=== PATIENT | male | born 1960 | race Caucasian/White ===

== ENCOUNTER 2018-05-19 15:59 | Emergency (ER) | payer MEDICARE ==
[~2018-05-19] VITALS: Ht 182.9 cm; Wt 100.0 kg
[~2018-05-19 15:59] MED LIST: ATEN-104 PO; BENZ100 PO; METF-324 PO; NOVO7030P2 SQ; ZITH250T PO
[2018-05-19 16:19] VITALS: BP 165/104; PULSE 86; RESP 18; TEMP 98.3; O2SAT 98
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
== END 2018-05-19 19:00 | disposition home or self-care (01) ==
LOC: NEPE 15:59
DX: R06.02 Shortness of breath (principal); E11.9 Type 2 diabetes mellitus without complications; I10 Essential (primary) hypertension; Z79.4 Long term (current) use of insulin
CPT/HCPCS: 99283

== ENCOUNTER 2018-07-16 11:53 | Inpatient (IN) ==
[2018-07-16 12:22] LABS: ABG Base Excess -4.8 mmol/L (-2-2); ABG PCO2 93 mmHg (38-42); ABG PO2 240 mmHg (61-120)
[2018-07-16] MEDS ORDERED: Vancomycin Inj 1,000 MG in Sodium Chlor 0.9% Inj 250 ML IV.SIG ONE (12:46)
[2018-07-16] MEDS ORDERED: Piperacil/Tazo 4.5 GM Premix 4.5 GM/100 ML BAG IV.SIG ONE (12:46)
--- NOTE | 2018-07-16 12:46 | ED ---
HPI General Chief complaint: Altered Mental Status Stated complaint: cardiac complaint Source: family and EMS Limitations: altered mental status History of Present Illness HPI narrative: Patient is a 57-year-old male presents emergency department for evaluation of altered mental status. Per EMS they were called by his dialysis center as he was not acting his normal self. While initially assessing him for the possibility of dialysis this morning he apparently lost pulses and chest compressions were started. By time EMS arrived and assessed the patient patient did have pulses. He was certainly altered his blood sugar was high 100s low 200s in route. EMS stated he had several episodes of emesis dark brown prior to arrival and did receive 4 of Zofran. Patient on arrival is a GCS of [id number]. He certainly is confused and is unable to provide any of his history initially. Discussed with the patient's ex- by phone Kajal Corteslizzeth who states that she has had a temporary POA in the past states that he has a history of a note on his lung, kidney mass, on dialysis. He has a history of a brain injury and spinal leak, feeding tube CHF. She states that they went out to lunch yesterday and he was his normal self however he did have a low saturation in 80 % range, he is normally on 3 L nasal cannula for history of COPD and they increased to 4 L and had a nice lunch. She did insist on a chest x-ray which was apparently negative yesterday. States that roommate has also been sick. She states this is happened to him once before and it was actually pneumonia and he was placed on life support on mechanical ventilation and made a decent recovery but did necessitate tracheostomy as part of his weaning from ventilation. Patient [facility] in [facility]. Related Data Allergies Allergy/AdvReac Type Severity Reaction Status Date / Time heparin Allergy Severe Bleeding Verified 07/16/18 13:23 quetiapine [From Seroquel] Allergy Intermediate Shakiness Verified 07/16/18 13: 23 Review of Systems ROS Unobtainable ROS Unobtainable: unobtainable due to mental condition PMFSH Medical History Medical History Diabetes (Acute) ESRD (end stage renal disease) on dialysis (Acute) HTN (hypertension) (Acute) Renal disease (Acute) Social History Social History Substance History: No History of Abuse Second Hand Smoke Exposure: No Smoking Status: Never smoker How Often Do You Have a Drink Containing Alcohol: Never Recent Travel in [facility] within the Last 8 Weeks: No Recent Out of Country Travel within the Last 8 Weeks: No Exam Narrative Exam Narrative: GENERAL: Well-developed well-nourished, clearly altered and lethargic. He has demonstrated emesis of dark brown color. SKIN: Focused skin assessment warm/dry. No rash. Posterior sacral decubitus ulcer could only be partially visualized. Appears to be early stage probably stage 1. HEAD: Atraumatic. Normocephalic. EYES: Pupils equal and round. No scleral icterus. No injection or drainage. ENT: No nasal bleeding or discharge. Mucous membranes pink and moist. NECK: Trachea midline. No JVD. CARDIOVASCULAR: Regular rate and rhythm. No murmur appreciated. RESPIRATORY: No accessory muscle use. Clear to auscultation. Breath sounds equal bilaterally. GASTROINTESTINAL: Abdomen soft, non-tender, nondistended. Hepatic and splenic margins not palpable. Left sided abdominal catheter site C/D/I. MUSCULOSKELETAL: No obvious deformities. No clubbing. No cyanosis. No edema. NEUROLOGICAL: Awake and alert oriented to self and place only. Partly to time. Oriented to year only. Has no insight as to why he is here. No obvious cranial nerve deficits. Moves all four extremities. Normal speech. PSYCHIATRIC: Confused Procedures Intubation Sedative: etomidate Mg Given: 20 Paralytic: succinylcholine Mg Given: 100 Laryngoscope: other (CMA) ET Tube Size: 8 ET Tube Uncuffed: Yes Tube Placement Confirmation: visualized tube passing through cords, equal breath sounds bilaterally, no breath sounds over epigastrium and confirmation by capnometry Patient Tolerated Procedure: well Intubation Complications: none Course Initial Documented Vital Signs Temperature 97.0 F L 07/16/18 12:01 Pulse Rate 98 H 07/16/18 12:01 Respiratory Rate 22 07/16/18 12:01 Blood Pressure 123/59 L 07/16/18 12:01 Pulse Oximetry 89 L 07/16/18 12:01 Last Documented Vital Signs Temperature 98.8 F 07/16/18 12:11 Pulse Rate 110 H 07/16/18 18:35 Respiratory Rate 16 07/16/18 18:35 Blood Pressure 117/56 L 07/16/18 18:35 Pulse Oximetry 99 07/16/18 18:18 Critical Care Time Critical Care Time: Yes Total Critical Care Time: 61 Attestation: Aggregate critical care time was 61 minutes. Time to perform other separately billable procedures was not included in the critical care time. My time did not include minutes spent treating any other patients simultaneously or on activities that did not directly contribute to the patient's treatment. The services I provided to this patient were to treat and/or prevent clinically significant deterioration that could result in: , disability, organ failure I provided critical care services requiring my management, as noted below: Chart data review, documentation time, medication orders and management, vital sign assessments/reviewing monitor data, ordering and reviewing lab tests, ordering and interpreting/reviewing x-rays and diagnostic studies, care of the patient and discussion of the patient with the admitting physicians. Medical Decision Making MDM Narrative Medical decision making narrative: Patient room to the emergency department, appears to be very ill, initial GCS of 10, very confused, with oxygen saturation his mental status is improved. I discussed with him that he would likely need to be intubated as his initial PCO2 is very high on ABG with a pH of 7.0. He shook his head now. His Kajal arrives who I actually identifies herself as the ex-. She states she does not have current power of sports attorney status on the patient and the patient does not have a living will. Patient's daughter arrives in we have initially agreed that the patient could have a trial of BiPAP now that he has been medicated with 12 Zofran, he has an NG tube in place and is draining adequately. I did discuss that there is certainly a risk that the patient could vomit and aspirate further and this would carry with it and permanent disability. He verbalized understanding and agreement. However ultimately he failed this with episodes of anemia, he is starting to become hypotensive and I discussed with the daughter that he needed to be intubated emergently to save his life. Daughter consented. Patient now significantly altered but still opens his eyes and I told him he would be intubated his only response was "why". It is very clear that he cannot participate in his own medical decision making this time and his next of kin is a daughter at bedside, additional daughter appears to have some kind of mental deficit and is not participating in the medical decision making. He was intubated easily he did receive a 500 cc bolus of fluid which did not show any benefit in his blood pressure. Pre-intubation the patient was started on levophed, and an amp of bicarb was given as well, after intubation his blood pressure was much improved. After intubation propofol and levophed are being titrated upwards again. CT abdomen pelvis was actually negative. The left-sided abdominal catheter initially thought to be a dialysis catheter is actually a gastric tube. They state that has been used in years and would require surgery to be removed and that is why it is still there. CT chest did show bilateral aspiration pneumonia. Vancomycin and zosyn started. Patient discussed with and accepted by Dr. Bradshaw. Given the critical nature of this patient will be transferred to the [facility]. Part of his continuing workup here in the emergency department while waiting for transportation, patient Rachel catheter placed showing significant pyuria, he is artery been covered with Zosyn, vancomycin. Continues to improve, Levophed is now titrated is off. Repeat ABG does show some improvement in his pH is 7.2 after bicarbonate and continued ventilation has shown a reduction of PCO2 to 58. Medical Screen Exam Complete: Yes Emergency Medical Condition: Yes Differential Diagnosis Differential Diagnosis: Sepsis, pneumonia, hypercapnia, hypoxia Lab Data Result diagrams: 07/16/18 12:00 07/16/18 12:20 Lab Results 07/16/18 07/16/18 07/16/18 Range/Units 11:50 12:00 12:00 CBC w Diff Auto diff final WBC 16.7 H (4.0-11.0) th/mm3 RBC 3.96 L (4.50-5.90) mil/mm3 Hgb 10.7 L (13.0-17.0) gm/dL Hct 34.5 L (39.0-51.0) % MCV 87.2 (80.0-100.0) fL MCH 27.0 (27.0-34.0) pg MCHC 30.9 L (32.0-36.0) % RDW 17.3 H (11.6-17.2) % Plt Count 347 (150-450) th/mm3 MPV 9.0 (7.0-11.0) fL Neut % (Auto) 87.3 H (16.0-70.0) % Lymph % (Auto) 6.1 L (9.0-44.0) % [place] % (Auto) 5.6 (0.0-8.0) % Eos % (Auto) 0.7 (0.0-4.0) % Baso % (Auto) 0.3 (0.0-2.0) % Neut # (Auto) 14.6 H (1.8-7.7) th/mm3 Lymph # (Auto) 1.0 (1.0-4.8) th/mm3 [place] # (Auto) 0.9 (0.0-0.9) th/mm3 Eos # (Auto) 0.1 (0.0-0.4) th/mm3 Baso # (Auto) 0.1 (0.0-0.2) th/mm3 WBC Differential . Differential Comment . PT 10.9 (9.8-11.6) sec INR 1.1 Ratio APTT 29.4 (24.3-30.1) sec Puncture Site Right radial Patient Temperature 98.6 O2 Saturation 97 (90-100) % ABG pH 7.05 L* (7.380-7.420) ABG pCO2 93 H* (38-42) mmHg ABG pO2 240 H (61-120) mmHg ABG HCO3 25 (22-26) mmol/L ABG O2 Content 14.6 (12.0-20.0) Vol % ABG Base Excess -4.8 L (-2-2) mmol/L ABG Methemoglobin 1.2 (0-2) % Thomas Test Present Hemoglobin 10.3 L (12.0-16.0) G/DL Carboxyhemoglobin 1.6 (0-4) % O2 Delivery Device Nonrebreather mask Liter Flow 15.00 L/M Vent Setting Inspired O2 100 % Critical Value Yes Sodium (136-145) meq/L Potassium (3.5-5.1) meq/L Chloride (98-107) meq/L Carbon Dioxide (21.0-32.0) meq/L Anion Gap (5-15) meq/L BUN (7-18) mg/dL Creatinine (0.60-1.30) mg/dL Estimated GFR (>89) mL/min POC Glucose (68-110) mg/dl Random Glucose (74-106) mg/dL Lactic Acid (0.4-2.0) mmol/L Calcium (8.5-10.1) mg/dL Phosphorus (2.5-4.9) mg/dL Magnesium (1.5-2.5) mg/dL Total Bilirubin (0.2-1.0) mg/dL AST (15-37) U/L ALT (12-78) U/L Alkaline Phosphatase (45-117) U/L Ammonia (11-32) mcmol/L Total Creatine Kinase (39-308) U/L Troponin I (0.02-0.05) ng/mL Total Protein (6.4-8.2) g/dL Albumin (3.4-5.0) g/dL Urine Color (Yellw/Straw) Urine Clarity (Clear) Urine pH (5.0-8.5) Ur Specific [place] (1.002-1.035) Urine Protein (Neg-Trace) mg/dL Urine Glucose (UA) (Negative) mg/dL Urine Ketones (Negative) mg/dL Urine Occult Blood (Negative) Urine Nitrate (Negative) Urine Bilirubin (Negative) Urine Urobilinogen (Less than 2) mg/dL Ur Leukocyte Esterase (Negative) Urine RBC (0-3) /hpf Urine WBC (0-5) /hpf Ur Squamous Epith Cells (0-5) /hpf Urine Bacteria (None) /hpf Urine Yeast (None) /hpf Ur Yeast w Hyphae (None) /hpf Micro UA Comment Urine Culture Comments 07/16/18 07/16/18 07/16/18 Range/Units 12:00 12:00 12:00 CBC w Diff WBC (4.0-11.0) th/mm3 RBC (4.50-5.90) mil/mm3 Hgb (13.0-17.0) gm/dL Hct (39.0-51.0) % MCV (80.0-100.0) fL MCH (27.0-34.0) pg MCHC (32.0-36.0) % RDW (11.6-17.2) % Plt Count (150-450) th/mm3 MPV (7.0-11.0) fL Neut % (Auto) (16.0-70.0) % Lymph % (Auto) (9.0-44.0) % [place] % (Auto) (0.0-8.0) % Eos % (Auto) (0.0-4.0) % Baso % (Auto) (0.0-2.0) % Neut # (Auto) (1.8-7.7) th/mm3 Lymph # (Auto) (1.0-4.8) th/mm3 [place] # (Auto) (0.0-0.9) th/mm3 Eos # (Auto) (0.0-0.4) th/mm3 Baso # (Auto) (0.0-0.2) th/mm3 WBC Differential Differential Comment PT (9.8-11.6) sec INR Ratio APTT (24.3-30.1) sec Puncture Site Patient Temperature O2 Saturation (90-100) % ABG pH (7.380-7.420) ABG pCO2 (38-42) mmHg ABG pO2 (61-120) mmHg ABG HCO3 (22-26) mmol/L ABG O2 Content (12.0-20.0) Vol % ABG Base Excess (-2-2) mmol/L ABG Methemoglobin (0-2) % Thomas Test Hemoglobin (12.0-16.0) G/DL Carboxyhemoglobin (0-4) % O2 Delivery Device Liter Flow L/M Vent Setting Inspired O2 % Critical Value Sodium (136-145) meq/L Potassium (3.5-5.1) meq/L Chloride (98-107) meq/L Carbon Dioxide (21.0-32.0) meq/L Anion Gap (5-15) meq/L BUN (7-18) mg/dL Creatinine (0.60-1.30) mg/dL Estimated GFR (>89) mL/min POC Glucose (68-110) mg/dl Random Glucose (74-106) mg/dL Lactic Acid 1.5 (0.4-2.0) mmol/L Calcium (8.5-10.1) mg/dL Phosphorus 7.5 H (2.5-4.9) mg/dL Magnesium 1.9 (1.5-2.5) mg/dL Total Bilirubin (0.2-1.0) mg/dL AST (15-37) U/L ALT (12-78) U/L Alkaline Phosphatase (45-117) U/L Ammonia 36 H (11-32) mcmol/L Total Creatine Kinase (39-308) U/L Troponin I (0.02-0.05) ng/mL Total Protein (6.4-8.2) g/dL Albumin (3.4-5.0) g/dL Urine Color (Yellw/Straw) Urine Clarity (Clear) Urine pH (5.0-8.5) Ur Specific [place] (1.002-1.035) Urine Protein (Neg-Trace) mg/dL Urine Glucose (UA) (Negative) mg/dL Urine Ketones (Negative) mg/dL Urine Occult Blood (Negative) Urine Nitrate (Negative) Urine Bilirubin (Negative) Urine Urobilinogen (Less than 2) mg/dL Ur Leukocyte Esterase (Negative) Urine RBC (0-3) /hpf Urine WBC (0-5) /hpf Ur Squamous Epith Cells (0-5) /hpf Urine Bacteria (None) /hpf Urine Yeast (None) /hpf Ur Yeast w Hyphae (None) /hpf Micro UA Comment Urine Culture Comments 07/16/18 07/16/18 07/16/18 Range/Units 12:20 14:30 15:24 CBC w Diff WBC (4.0-11.0) th/mm3 RBC (4.50-5.90) mil/mm3 Hgb (13.0-17.0) gm/dL Hct (39.0-51.0) % MCV (80.0-100.0) fL MCH (27.0-34.0) pg MCHC (32.0-36.0) % RDW (11.6-17.2) % Plt Count (150-450) th/mm3 MPV (7.0-11.0) fL Neut % (Auto) (16.0-70.0) % Lymph % (Auto) (9.0-44.0) % [place] % (Auto) (0.0-8.0) % Eos % (Auto) (0.0-4.0) % Baso % (Auto) (0.0-2.0) % Neut # (Auto) (1.8-7.7) th/mm3 Lymph # (Auto) (1.0-4.8) th/mm3 [place] # (Auto) (0.0-0.9) th/mm3 Eos # (Auto) (0.0-0.4) th/mm3 Baso # (Auto) (0.0-0.2) th/mm3 WBC Differential Differential Comment PT (9.8-11.6) sec INR Ratio APTT (24.3-30.1) sec Puncture Site Right radial Patient Temperature 98.6 O2 Saturation 93 (90-100) % ABG pH 7.01 L* (7.380-7.420) ABG pCO2 108 H* (38-42) mmHg ABG pO2 96 (61-120) mmHg ABG HCO3 26 (22-26) mmol/L ABG O2 Content 13.1 (12.0-20.0) Vol % ABG Base Excess -4.0 L (-2-2) mmol/L ABG Methemoglobin 1.5 (0-2) % Thomas Test Present Hemoglobin 10.0 L (12.0-16.0) G/DL Carboxyhemoglobin 1.8 (0-4) % O2 Delivery Device Nasal cannula Liter Flow 4.00 L/M Vent Setting Inspired O2 36 % Critical Value Yes Sodium 138 (136-145) meq/L Potassium 4.0 (3.5-5.1) meq/L Chloride 101 (98-107) meq/L Carbon Dioxide 27.9 (21.0-32.0) meq/L Anion Gap 9 (5-15) meq/L BUN 43 H (7-18) mg/dL Creatinine 5.30 H (0.60-1.30) mg/dL Estimated GFR 11 L (>89) mL/min POC Glucose 162 H (68-110) mg/dl Random Glucose 173 H (74-106) mg/dL Lactic Acid (0.4-2.0) mmol/L Calcium 8.3 L (8.5-10.1) mg/dL Phosphorus (2.5-4.9) mg/dL Magnesium (1.5-2.5) mg/dL Total Bilirubin 0.4 (0.2-1.0) mg/dL AST 38 H (15-37) U/L ALT 26 (12-78) U/L Alkaline Phosphatase 143 H (45-117) U/L Ammonia (11-32) mcmol/L Total Creatine Kinase 36 L (39-308) U/L Troponin I Less than 0.02 L (0.02-0.05) ng/mL Total Protein 7.9 (6.4-8.2) g/dL Albumin 2.9 L (3.4-5.0) g/dL Urine Color (Yellw/Straw) Urine Clarity (Clear) Urine pH (5.0-8.5) Ur Specific [place] (1.002-1.035) Urine Protein (Neg-Trace) mg/dL Urine Glucose (UA) (Negative) mg/dL Urine Ketones (Negative) mg/dL Urine Occult Blood (Negative) Urine Nitrate (Negative) Urine Bilirubin (Negative) Urine Urobilinogen (Less than 2) mg/dL Ur Leukocyte Esterase (Negative) Urine RBC (0-3) /hpf Urine WBC (0-5) /hpf Ur Squamous Epith Cells (0-5) /hpf Urine Bacteria (None) /hpf Urine Yeast (None) /hpf Ur Yeast w Hyphae (None) /hpf Micro UA Comment Urine Culture Comments 07/16/18 07/16/18 Range/Units 16:46 17:20 CBC w Diff WBC (4.0-11.0) th/mm3 RBC (4.50-5.90) mil/mm3 Hgb (13.0-17.0) gm/dL Hct (39.0-51.0) % MCV (80.0-100.0) fL MCH (27.0-34.0) pg MCHC (32.0-36.0) % RDW (11.6-17.2) % Plt Count (150-450) th/mm3 MPV (7.0-11.0) fL Neut % (Auto) (16.0-70.0) % Lymph % (Auto) (9.0-44.0) % [place] % (Auto) (0.0-8.0) % Eos % (Auto) (0.0-4.0) % Baso % (Auto) (0.0-2.0) % Neut # (Auto) (1.8-7.7) th/mm3 Lymph # (Auto) (1.0-4.8) th/mm3 [place] # (Auto) (0.0-0.9) th/mm3 Eos # (Auto) (0.0-0.4) th/mm3 Baso # (Auto) (0.0-0.2) th/mm3 WBC Differential Differential Comment PT (9.8-11.6) sec INR Ratio APTT (24.3-30.1) sec Puncture Site Right radial Patient Temperature 98.6 O2 Saturation 95 (90-100) % ABG pH 7.23 L* (7.380-7.420) ABG pCO2 58 H* (38-42) mmHg ABG pO2 101 (61-120) mmHg ABG HCO3 23 (22-26) mmol/L ABG O2 Content 14.3 (12.0-20.0) Vol % ABG Base Excess -3.1 L (-2-2) mmol/L ABG Methemoglobin 1.3 (0-2) % Thomas Test Present Hemoglobin 10.5 L (12.0-16.0) G/DL Carboxyhemoglobin 2.0 (0-4) % O2 Delivery Device Ventilator Liter Flow L/M Vent Setting Prvc/ac 550/16/5peep Inspired O2 40 % Critical Value Yes Sodium (136-145) meq/L Potassium (3.5-5.1) meq/L Chloride (98-107) meq/L Carbon Dioxide (21.0-32.0) meq/L Anion Gap (5-15) meq/L BUN (7-18) mg/dL Creatinine (0.60-1.30) mg/dL Estimated GFR (>89) mL/min POC Glucose (68-110) mg/dl Random Glucose (74-106) mg/dL Lactic Acid (0.4-2.0) mmol/L Calcium (8.5-10.1) mg/dL Phosphorus (2.5-4.9) mg/dL Magnesium (1.5-2.5) mg/dL Total Bilirubin (0.2-1.0) mg/dL AST (15-37) U/L ALT (12-78) U/L Alkaline Phosphatase (45-117) U/L Ammonia (11-32) mcmol/L Total Creatine Kinase (39-308) U/L Troponin I (0.02-0.05) ng/mL Total Protein (6.4-8.2) g/dL Albumin (3.4-5.0) g/dL Urine Color Yellow (Yellw/Straw) Urine Clarity Cloudy H (Clear) Urine pH 6.0 (5.0-8.5) Ur Specific [place] 1.020 (1.002-1.035) Urine Protein 30 H (Neg-Trace) mg/dL Urine Glucose (UA) Negative (Negative) mg/dL Urine Ketones Negative (Negative) mg/dL Urine Occult Blood Moderate H (Negative) Urine Nitrate Positive H (Negative) Urine Bilirubin Negative (Negative) Urine Urobilinogen 0.2 (Less than 2) mg/dL Ur Leukocyte Esterase Large H (Negative) Urine RBC 4-15 H (0-3) /hpf Urine WBC Innumerable H (0-5) /hpf Ur Squamous Epith Cells 0-5 (0-5) /hpf Urine Bacteria Many H (None) /hpf Urine Yeast Occasional H (None) /hpf Ur Yeast w Hyphae Few H (None) /hpf Micro UA Comment Cath-culture ind Urine Culture Comments Cath-cult indicated Imaging Data Radiologist's impression: Chest X-Ray 07/16/18 12:05 CONCLUSION: Mild parenchymal opacity at the left lung base. Abdomen X-Ray 07/16/18 12:30 CONCLUSION: Nonspecific, benign abdomen appearance. Abdomen/Pelvis CT 07/16/18 13:03 CONCLUSION: 1. No acute abnormality in the abdomen or pelvis. 2. Dense right basilar airspace consolidation and trace pleural effusions concerning for aspiration. 3. Gastrostomy catheter present and NGT in place. 4. 1.8 cm right adrenal mass which has slightly increased from 2011 CT scan measuring 1.4 cm. This was partially imaged on the chest CT exam and its visualized portions appeared to be stable. This can be further characterized with adrenal mass CT or MRI exam on an outpatient basis. Chest CTA 07/16/18 13:03 CONCLUSION: 1. No CT evidence for pulmonary artery embolism as questioned. 2. Dense bilateral lower lobe airspace consolidation with trace associated pleural effusions. Findings are concerning for aspiration. 3. Nonspecific right hilar and mediastinal nodes, as above. This may be reactive in etiology. 4. Probable 1.6 cm right adrenal mass that is incompletely imaged on this exam. Although indeterminate in density, this is unchanged from abdominal CT of 06/07/2011 and therefore likely benign. Chest X-Ray 07/16/18 15:55 CONCLUSION: 1. Stable chest x-ray with bibasilar atelectasis and/or consolidation. 2. Stable enlargement of the right hilum in this patient with previously documented right hilar lymphadenopathy. Discharge Plan Discharge Disposition Patient Disposition: [place] [facility] [place] Condition: Stable Discharge Details Diagnosis: Acute hypercapnic respiratory failure, Sepsis, Pneumonia, Encephalopathy Physicians Team ED Provider: Kenji Hawkins Primary Care Provider: UNKNOWN, Attending Provider: Renato Bradshaw Status ED Status: Admitted Patient
[2018-07-16 12:51] LABS: Chloride 101 meq/L (98-107); Sodium 138 meq/L (136-145)
[2018-07-16 12:51] LABS: Baso # (Auto) 0.1 th/mm3 (0.0-0.2); Baso % (Auto) 0.3 % (0.0-2.0); Eos # (Auto) 0.1 th/mm3 (0.0-0.4); Eos % (Auto) 0.7 % (0.0-4.0); Hematocrit 34.5 % (39.0-51.0); Hemoglobin 10.7 gm/dL (13.0-17.0); Lymph % (Auto) 6.1 % (9.0-44.0); Mean Corpuscular Volume 87.2 fL (80.0-100.0); Mono # (Auto) 0.9 th/mm3 (0.0-0.9); Mono % (Auto) 5.6 % (0.0-8.0); Neut # (Auto) 14.6 th/mm3 (1.8-7.7); Neut % (Auto) 87.3 % (16.0-70.0); Platelet Count 347 th/mm3 (150-450); Red Blood Count 3.96 mil/mm3 (4.50-5.90); Red Cell Distribution Width 17.3 % (11.6-17.2); White Blood Count 16.7 th/mm3 (4.0-11.0)
[2018-07-16 12:54] LABS: Calcium 8.3 mg/dL (8.5-10.1)
[2018-07-16 12:54] LABS: Mean Corpuscular HGB Conc 30.9 % (32.0-36.0)
[2018-07-16 12:55] LABS: Albumin 2.9 g/dL (3.4-5.0); Anion Gap 9 meq/L (5-15); Blood Urea Nitrogen 43 mg/dL (7-18); Carbon Dioxide 27.9 meq/L (21.0-32.0); Glucose,Random 173 mg/dL (74-106)
[2018-07-16 12:56] LABS: Activated Partial Thrombo Time 29.4 sec (24.3-30.1); INR 1.1 Ratio; Prothrombin Time 10.9 sec (9.8-11.6)
[2018-07-16 12:58] LABS: Alanine Aminotransferase 26 U/L (12-78); Aspartate Aminotransferase 38 U/L (15-37); Glomerular Filtration Rate 11 mL/min (>89)
[2018-07-16 13:03] LABS: Alkaline Phosphatase 143 U/L (45-117); Creatine Kinase 36 U/L (39-308); Total Protein 7.9 g/dL (6.4-8.2)
--- NOTE | 2018-07-16 13:03 | XR ---
EXAM DATE: 07/16/2018 12:59 PM EDT AGE/SEX: 57 years / Male INDICATIONS: Fever CLINICAL DATA: This is the patient's initial encounter. Patient reports that signs and symptoms have been present for 1 day and indicates a pain score of Nonresponsive. MEDICAL/SURGICAL HISTORY: . Renal disease . NG Tube placement. Port placement COMPARISON: C, CHEST PA & LAT, 07/04/2013. . FINDINGS: Nasogastric tube descends into the stomach. Right chest dialysis catheter is present. There is mild p arenchymal opacity at the left lung base potentially with small associated effusion. Cardiac contours are grossly normal. CONCLUSION: Mild parenchymal opacity at the left lung base. Electronically signed by: Ronan Monroe MD 07/16/2018 1:01 PM EDT
--- NOTE | 2018-07-16 13:06 | XR ---
EXAM DATE: 07/16/2018 1:01 PM EDT AGE/SEX: 57 years / Male INDICATIONS: Fever. Abdominal pain. Possible obstruction CLINICAL DATA: This is the patient's initial encounter. Patient reports that signs and symptoms have been present for 1 day and indicates a pain score of Nonresponsive. MEDICAL/SURGICAL HISTORY: . Renal disease . Ng tube placement. Port placement COMPARISON: No prior exams available for comparison. FINDINGS: Nasogastric tube descends into the stomach. A gastrostomy tube is also present. The visualized intest inal gas pattern is nonspecific and benign. There are vascular calcifications noted. No suspicious ca lcific densities. Nothing to suggest mass or visceromegaly. Regional skeleton is grossly intact. CONCLUSION: Nonspecific, benign abdomen appearance. Electronically signed by: Ronan Monroe MD 07/16/2018 1:04 PM EDT
[2018-07-16 13:12] LABS: Magnesium 1.9 mg/dL (1.5-2.5)
[2018-07-16 13:16] LABS: Phosphorus 7.5 mg/dL (2.5-4.9)
[2018-07-16 14:38] LABS: ABG PCO2 108 mmHg (38-42); ABG PO2 96 mmHg (61-120)
--- NOTE | 2018-07-16 14:47 | CT ---
EXAM DATE: 07/16/2018 2:31 PM EDT AGE/SEX: 57 years / Male INDICATIONS: Post cardiac arrest, with agonal breathing. CLINICAL DATA: This is the patient's initial encounter. Patient reports that signs and symptoms have been present for 1 day and indicates a pain score of Nonresponsive. MEDICAL/SURGICAL HISTORY: Chronic obstructive pulmonary disease. Diabetes. Renal disease. Hypert ension. Dialysis. None. RADIATION DOSE: 24.20 CTDI (mGy) COMPARISON: [facility] [place], CT ABDOMEN & PELVIS W CONTRAST, 06/07/2011. . TECHNIQUE: Volumetric scanning was performed using a multi-row detector CT scanner during bolus infu lorrie of 85 ml Omnipaque 350 (iohexol) nonionic water-soluble contrast as a cumulative dose for multi ple exams. The data was post processed with a variety of visualization algorithms including full volu me maximum intensity projection and sliding thin slab reformation. Using automated exposure control and adjustment of the mA and/or kV according to patient size, radiation dose was kept as low as reaso nably achievable to obtain optimal diagnostic quality images. DICOM format image data is available e lectronically for review and comparison. FINDINGS: Pulmonary Arteries: No filling defects are seen in the pulmonary arteries through the segmental vess els. The main pulmonary artery is normal in diameter. Lung: Dense airspace consolidation with air bronchograms in the posterior lower lobes near the bases bilaterally. 3 mm nodule in the superior segment of the right lower lobe. Pleura: Trace bilateral pleural effusions. Mediastinum: Tunneled dialysis catheter in place. Cardiomegaly. No significant pericardial effusion. Several prominent right hilar nodes measuring up to 2 cm. Prominent proximal right paratracheal node measuring 1.8 cm. Multiple additional prominent anterior tracheal and subcarinal nodes. Osseous Structures: Degenerative changes of the thoracic spine. Ill-defined sclerosis of the posterio r right eighth and ninth ribs which appears somewhat chronic in etiology. Other: Visualized upper abdomen demonstrates an NGT coursing through the stomach. There is partial v isualization of a right suprarenal mass likely adrenal in etiology measuring up to 1.6 cm with indete rminate density. CONCLUSION: 1. No CT evidence for pulmonary artery embolism as questioned. 2. Dense bilateral lower lobe airspace consolidation with trace associated pleural effusions. Findin gs are concerning for aspiration. 3. Nonspecific right hilar and mediastinal nodes, as above. This may be reactive in etiology. 4. Probable 1.6 cm right adrenal mass that is incompletely imaged on this exam. Although indetermina te in density, this is unchanged from abdominal CT of 06/07/2011 and therefore likely benign. Electronically signed by: Luis Celis MD 07/16/2018 2:46 PM EDT
--- NOTE | 2018-07-16 14:53 | CT ---
EXAM DATE: 07/16/2018 2:36 PM EDT AGE/SEX: 57 years / Male INDICATIONS: Nausea, vomiting and diarrhea. CLINICAL DATA: This is the patient's initial encounter. Patient reports that signs and symptoms have been present for 1 day and indicates a pain score of Nonresponsive. MEDICAL/SURGICAL HISTORY: Renal disease. Chronic obstructive pulmonary disease. Diabetes. Hy pertension. . Hemodialysis. ORAL CONTRAST: No oral contrast ingested. RADIATION DOSE: 22.02 CTDI (mGy) COMPARISON: [facility] [place], CT ABDOMEN & PELVIS W CONTRAST, 06/07/2011. . TECHNIQUE: Multiple contiguous axial images were obtained through the abdomen and pelvis following b olus infusion of 85 ml Omnipaque 350 (iohexol) nonionic water-soluble contrast as a cumulative dose for multiple exams. No oral contrast ingested. Using automated exposure control and adjustment of t he mA and/or kV according to patient size, radiation dose was kept as low as reasonably achievable to obtain optimal diagnostic quality images. DICOM format image data is available electronically for r eview and comparison. FINDINGS: LOWER LUNGS: Dense airspace consolidation at the lung bases with trace pleural effusions. LIVER: Somewhat heterogeneous enhancement of the liver without intrahepatic ductal dilatation or foc al mass. Gallbladder is mildly distended. SPLEEN: Homogeneous density without enlargement. PANCREAS: Grossly unremarkable. KIDNEYS: Kidneys demonstrate symmetrical enhancement without hydronephrosis or radiopaque renal calc jennifer. Subcentimeter hypodense cystic lesions in the superior pole of the left kidney are too small to fully characterize. ADRENAL GLANDS: 1.8 cm right adrenal mass that has slightly increased from 2011 scan measuring 1.4 c m. AORTA: Khadra-aneurysmal. BOWEL/MESENTERY: There is a gastrostomy catheter in place. There is an NGT terminating in the mid [facility]. Moderate amount of stool in the rectum. Bowel otherwise appears unremarkable without evidence for obstruction. No free fluid or drainable fluid collections. ABDOMINAL WALL: Intact. RETROPERITONEUM: No evidence of adenopathy in the retrocrural, para-aortic, or deep pelvic regions. BLADDER: Contours are smooth. REPRODUCTIVE: No abnormal masses or calcifications seen. BONY STRUCTURES: Osseous structures appear intact. CONCLUSION: 1. No acute abnormality in the abdomen or pelvis. 2. Dense right basilar airspace consolidation and trace pleural effusions concerning for aspiration. 3. Gastrostomy catheter present and NGT in place. 4. 1.8 cm right adrenal mass which has slightly increased from 2011 CT scan measuring 1.4 cm. This w as partially imaged on the chest CT exam and its visualized portions appeared to be stable. This can be further characterized with adrenal mass CT or MRI exam on an outpatient basis. Electronically signed by: Luis Celis MD 07/16/2018 2:51 PM EDT
[2018-07-16] MEDS ORDERED: Sodium Chlor 0.9% Inj 500 ML IV.SIG ONE (15:13)
[2018-07-16] MEDS ORDERED: Norepinephrine Inj 4 MG in Sodium Chlor 0.9% Inj 246 ML IV.SIG PRN (15:33)
[2018-07-16] MEDS ORDERED: Succinylcholine Inj 200 MG/10 ML Vial ONE (15:39)
[2018-07-16] MEDS ORDERED: Etomidate Inj 40 MG/20 ML Vial IV.PUSH ONE (15:39)
[2018-07-16] MEDS: Propofol 1000 mg/100 ml Inj 1,000 MG/100 ML BOTTLE IV.CONT PRN (16:14)
--- NOTE | 2018-07-16 16:30 | XR ---
EXAM DATE: 07/16/2018 4:13 PM EDT AGE/SEX: 57 years / Male INDICATIONS: Short of breath. Cardiac complaint. CLINICAL DATA: This is the patient's subsequent encounter. Patient reports that signs and symptoms h ave been present for 1 day and indicates a pain score of Nonresponsive. MEDICAL/SURGICAL HISTORY: . Renal disease . NG Tube placement. Port placement COMPARISON: [facility], CTA PULMONARY W CONTRAST W 3D, 07/16/2018. [facility], CHEST 1V SINGLE AP, 07/16/2018. . FINDINGS: Portable AP view of the chest demonstrates a normal-sized cardiac silhouette with enlargement of the right hilum. Tunneled right IJ dialysis type catheter is present. Endotracheal tube is present with d istal tip measuring 3.6 cm from the merly. There is patchy airspace opacity in the lower lung zones bilaterally. No pneumothorax or pleural effusion is seen. The bones demonstrate no acute finding. CONCLUSION: 1. Stable chest x-ray with bibasilar atelectasis and/or consolidation. 2. Stable enlargement of the right hilum in this patient with previously documented right hilar lymp hadenopathy. Electronically signed by: Ronan Grayson MD 07/16/2018 4:28 PM EDT
[2018-07-16 16:54] LABS: ABG Base Excess -3.1 mmol/L (-2-2); ABG PCO2 58 mmHg (38-42); ABG PO2 101 mmHg (61-120)
[2018-07-16] MEDS ORDERED: Midazolam 50 MG/50 ML Inj 50 MG/50 ML BAG IV.CONT PRN (17:26)
[2018-07-16 17:30] LABS: Bilirubin,Urine Negative (Negative); Clarity,Urine Cloudy (Clear); Color,Urine Yellow (Yellw/Straw); Glucose,Urine (UA) Negative (Negative); Leukocyte Esterase,Urine Large (Negative); Nitrite,Urine Positive (Negative); Urobilinogen,Urine 0.2 mg/dL (Less than 2)
[2018-07-16 17:39] LABS: Bacteria,Urine Many /hpf; Squamous Epithelial Cell,Urine 0-5 /hpf (0-5); WBC,Urine Innumerable /hpf (0-5)
[2018-07-16] MEDS ORDERED: Vancomycin Consult Pharmacy OTHER PRN (19:56)
[2018-07-16] MEDS ORDERED: Bisacodyl 10 MG Supp RECTAL PRN (19:56)
[2018-07-16] MEDS ORDERED: fentaNYL Citrate Inj 100 MCG/2 ML Ampul IV PUSH PRN (19:56)
--- NOTE | 2018-07-16 21:51 | P.HPCC ---
History of Present Illness Primary Care Physician: UNKNOWN Chief Complaint: AMS, Sepsis History of Present Illness: Patient is a 57-year-old male with past medical history of end-stage renal disease on hemodialysis, , COPD on home oxygen, hypertension, diabetes type 2, who was brought to the emergency department for altered mental status. He was altered at the dialysis center and apparently during dialysis he lost pulses and CPR was started. By time EMS arrived patient did have pulses. He was confused for EMS. ER workup showed that patient has a white count of 16.7 with left shift indicating sepsis. Patient remained hypotensive after fluid resuscitation and hence was started on Levophed by the ED physician. CT abdomen pelvis showed a previously known adrenal mass slightly increased in size compared to [address] pulmonary angiogram was negative for PE, however showed dense bibasilar consolidation/pneumonia which could be the source of sepsis. Received vancomycin and Zosyn in the ED. ABG prior to intubation in the ED showed severe hypercapnic respiratory failure with a pH of 7.05, PCO2 of 93. I evaluated the patient after arrival to the [facility]. He is intubated critically ill-appearing sedated. On lightening sedation he is able to move all 4 extremities. His source of sepsis most likely is pneumonia. Wong cultures have been sent. His altered mentation is most likely secondary to sepsis and hypercapnia, will check CT of the head to rule out any acute events - Diagnosis (1) Septic shock (2) Acute metabolic encephalopathy (3) Acute hypercapnic respiratory failure (4) Pneumonia Inpatient Certification: I certify that the inpatient services were ordered in accordance with Medicare regulations governing the order. This includes certification that hospital inpatient services are reasonable and necessary and in the case of services not specified as inpatient-only under 42 CFR 419.22(n), that they are appropriately provided as inpatient services in accordance to with the 2-midnight benchmark under 43 CFR 412.3(e) Estimated Total Length of Stay (Days): 5 Plans for Post Hospital Care: Not yet determined Review of Systems unobtainable due to endotracheal tube PMFSH - History History Provided By: Treater / EMT - Medical History Medical History: Medical History (Last Reviewed 07/16/18 @ 22:00 by Arely Ferraro MD) Diabetes ESRD (end stage renal disease) on dialysis HTN (hypertension) Renal disease - Tobacco History Second Hand Smoke Exposure: No Smoking Status: Never smoker - Alcohol History How Often Do You Have a Drink Containing Alcohol: Never - Substance Use History Substance History: No History of Abuse - Travel History Recent Travel in the [place] Within the Last 8 Weeks: No Recent Travel Out of the Country Within the Last 8 Weeks: No - Immunization History Tetanus Immunization: Unsure Hx Influenza Vaccine This Season: Yes Medications and Allergies Active Medications: Active Medications Al Hydroxide/Mg Hydroxide (Milk Of Magnesia Liq) 30 ml PO Q12H PRN PRN Reason: Mild Constipation Albuterol (Albuterol Neb (Prn)) 2.5 mg NEB Q2HR NEB PRN PRN Reason: SHORTNESS OF BREATH/WHEEZING Albuterol (Duoneb Neb (Kalpana)) 1 ampul NEB Q6HR NEB [place] Last Admin: 07/16/18 21:26 Dose: 1 ampul Bisacodyl (Dulcolax Supp) 10 mg RECTAL DAILY PRN PRN Reason: SEVERE CONSITIPATION Chlorhexidine Gluconate (Chlorhexidine 2% Cloth) 3 pack TOPICAL DAILY@0400 [place] Stop: 07/22/18 03:59 Chlorhexidine Gluconate (Chlorhexidine 2% Cloth) 3 pack TOPICAL DAILY@0400 PRN PRN Reason: Extra cloth needed Stop: 07/22/18 03:59 Famotidine (Pepcid Pf Inj) 10 mg IV.PUSH Q12HR [place] Fentanyl Citrate (Fentanyl Inj) 50 mcg IV PUSH Q1H PRN PRN Reason: Pain scale 6-10, &/or sedation Norepinephrine Bitartrate 4 mg (/ Sodium Chloride) 250 mls @ 7.5 mls/hr IV.SIG TITRATE PRN; Protocol PRN Reason: Per Protocol Last Titration: 07/16/18 18:00 Dose: 0 mcg/min, 0 mls/hr Propofol (Diprivan 1000 Mg/100 Ml Inj) 1,000 mg in 100 mls @ 3 mls/hr IV.CONT TITRATE PRN; Protocol PRN Reason: Per Protocol Last Titration: 07/16/18 18:01 Dose: 30 mcg/kg/min, 18 mls/hr Midazolam HCl (Versed Inj) 50 mg in 50 mls @ 2 mls/hr IV.CONT TITRATE PRN; Protocol PRN Reason: Per Protocol Piperacillin/Tazobactam/Dextrose (Zosyn 2.25 Gm Premix) 50 mls @ 100 mls/hr IV.SIG Q8H [place] Lactulose (Lactulose Liq) 30 ml PO DAILY PRN PRN Reason: SEVERE CONSITIPATION Pharmacy Profile Note (Vancomycin Consult Pharmacy) 1 each OTHER UNSCH PRN PRN Reason: Pharmacy to dose Senna/Docusate Sodium (Calista-Colace) 1 tab PO BID [facility] Sennosides (Senokot) 17.2 mg PO Q12H PRN PRN Reason: Moderate Constipation Sodium Chloride (Ns Flush) 2 ml IV.FLUSH BID KAL[place]NA Last Admin: 07/16/18 21:11 Dose: 2 ml Sodium Chloride (Ns Flush) 2 ml IV.FLUSH UNSCH PRN PRN Reason: FLUSH AFTER USING IV ACCESS Terbutaline Sulfate (Brethine Inj) 1 mg SQ UNSCH PRN PRN Reason: For Extravasation Allergies Allergy/AdvReac Type Severity Reaction Status Date / Time heparin Allergy Severe Bleeding Verified 07/16/18 13:23 quetiapine [From Seroquel] Allergy Intermediate Shakiness Verified 07/16/18 13: 23 Results - Labs CBC & Chem 7: 07/16/18 12:00 07/16/18 12:20 Labs: Short CBC 07/16/18 Range/Units 12:00 WBC 16.7 H (4.0-11.0) th/mm3 Hgb 10.7 L (13.0-17.0) gm/dL Hct 34.5 L (39.0-51.0) % Plt Count 347 (150-450) th/mm3 BMP 07/16/18 12:20 Sodium 138 Potassium 4.0 Chloride 101 Carbon Dioxide 27.9 BUN 43 H Creatinine 5.30 H Calcium 8.3 L Cardiac Enzymes 07/16/18 Range/Units 12:20 Total Creatine Kinase 36 L (39-308) U/L Troponin I Less than 0.02 L (0.02-0.05) ng/mL Liver Function 07/16/18 Range/Units 12:20 Total Bilirubin 0.4 (0.2-1.0) mg/dL AST 38 H (15-37) U/L ALT 26 (12-78) U/L Alkaline Phosphatase 143 H (45-117) U/L Albumin 2.9 L (3.4-5.0) g/dL Urine 07/16/18 Range/Units 17:20 Urine Color Yellow (Yellw/Straw) Urine Clarity Cloudy H (Clear) Urine pH 6.0 (5.0-8.5) Ur Specific [place] 1.020 (1.002-1.035) Urine Protein 30 H (Neg-Trace) mg/dL Urine Glucose (UA) Negative (Negative) mg/dL - Imaging Impressions Chest X-Ray 07/16/18 12:05 CONCLUSION: Mild parenchymal opacity at the left lung base. Abdomen X-Ray 07/16/18 12:30 CONCLUSION: Nonspecific, benign abdomen appearance. Abdomen/Pelvis CT 07/16/18 13:03 CONCLUSION: 1. No acute abnormality in the abdomen or pelvis. 2. Dense right basilar airspace consolidation and trace pleural effusions concerning for aspiration. 3. Gastrostomy catheter present and NGT in place. 4. 1.8 cm right adrenal mass which has slightly increased from 2011 CT scan measuring 1.4 cm. This was partially imaged on the chest CT exam and its visualized portions appeared to be stable. This can be further characterized with adrenal mass CT or MRI exam on an outpatient basis. Chest CTA 07/16/18 13:03 CONCLUSION: 1. No CT evidence for pulmonary artery embolism as questioned. 2. Dense bilateral lower lobe airspace consolidation with trace associated pleural effusions. Findings are concerning for aspiration. 3. Nonspecific right hilar and mediastinal nodes, as above. This may be reactive in etiology. 4. Probable 1.6 cm right adrenal mass that is incompletely imaged on this exam. Although indeterminate in density, this is unchanged from abdominal CT of 06/07/2011 and therefore likely benign. Chest X-Ray 07/16/18 15:55 CONCLUSION: 1. Stable chest x-ray with bibasilar atelectasis and/or consolidation. 2. Stable enlargement of the right hilum in this patient with previously documented right hilar lymphadenopathy. Exam Vital signs: Vital Signs 07/16/18 12:01 07/16/18 12:05 07/16/18 12:11 Temperature 97.0 F L 98.8 F Pulse Rate 98 H 95 H 95 H Respiratory Rate 22 28 H Blood Pressure 123/59 L 123/59 L Pulse Oximetry 89 L 95 100 07/16/18 13:11 07/16/18 14:00 07/16/18 14:50 Temperature Pulse Rate 90 86 88 Respiratory Rate 20 20 14 Blood Pressure 120/52 L 96/54 L 96/54 L Pulse Oximetry 95 98 96 07/16/18 15:00 07/16/18 15:30 07/16/18 15:55 Temperature Pulse Rate 86 100 H Respiratory Rate 22 28 H 16 Blood Pressure 98/57 L 62/42 L Pulse Oximetry 92 L 100 07/16/18 16:15 07/16/18 16:30 07/16/18 16:41 Temperature Pulse Rate 114 H 117 H 114 H Respiratory Rate 20 18 Blood Pressure 155/94 H 112/62 190/100 H Pulse Oximetry 98 99 07/16/18 16:47 07/16/18 17:09 07/16/18 17:30 Temperature Pulse Rate 111 H 103 H 95 H Respiratory Rate 20 18 16 Blood Pressure 156/90 H 86/55 L 135/69 Pulse Oximetry 97 99 95 07/16/18 18:00 07/16/18 18:18 07/16/18 18:35 Temperature Pulse Rate 98 H 95 H 110 H Respiratory Rate 16 16 16 Blood Pressure 131/72 122/59 L 117/56 L Pulse Oximetry 99 99 07/16/18 19:00 07/16/18 19:06 07/16/18 19:30 Temperature Pulse Rate 82 82 Respiratory Rate 16 Blood Pressure 129/72 120/62 Pulse Oximetry 99 99 99 07/16/18 20:00 07/16/18 20:20 07/16/18 21:26 Temperature Pulse Rate 83 88 Respiratory Rate 16 16 Blood Pressure 118/66 Pulse Oximetry 99 100 Intake & Output 07/16/18 07/16/18 07/17/18 06:59 18:59 06:59 Intake Total 850 / 850 Balance 850 / 850 Weight 100 kg 105 kg Intake: IV 850 / 850 NS Inj 500 ML @ Wide Open IV. 500 / 500 SIG BOLUS ONE Rx#:[id number] Vancomycin Inj 1,000 MG In NS 250 / 250 Inj 250 ML @ 125 mls/hr IV.SIG ONCE ONE Rx#:[id number] Other: Weight On Admission 105 kg Narrative: GENERAL: Well-developed well-nourished, who is intubated now sedated with propofol SKIN: Warm/dry. No rash. Few skin excoriation on the back HEAD: Atraumatic. Normocephalic. EYES: Pupils equal and round. ENT: No nasal bleeding or discharge. Orotracheally intubated NECK: Trachea midline. No JVD. CARDIOVASCULAR: Regular rate and rhythm. No murmur appreciated. RESPIRATORY: Clear to auscultation. Breath sounds equal bilaterally. Diminished at the bases. Right upper chest dialysis catheter in place GASTROINTESTINAL: Abdomen soft, non-tender, nondistended. PEG tube in place MUSCULOSKELETAL: No obvious deformities. NEUROLOGICAL: Intubated sedated with propofol. On lightening sedation patient appears to move all 4 extremities did not follow commands. Nonfocal exam Septic Shock Reassessment Septic shock perfusion: reassessment completed Caprini VTE Risk Assessment Caprini VTE Risk Assessment: Moderate/High Risk (score >= 2) Caprini Risk Assessment Model: Point Value = 1 Point Value = 2 Point Value = 3 Point Value = 5 Age 41-60 Minor surgery BMI > 25 kg/m2 Swollen legs Varicose veins or History of unexplained or recurrent spontaneous Oral contraceptives or hormone replacement Sepsis (< 1 month) Serious lung disease, including pneumonia (< 1 month) Abnormal pulmonary function Acute myocardial infarction Congestive heart failure (< 1 month) History of inflammatory bowel disease Medical patient at bed rest Age 61-74 Arthroscopic surgery Major open surgery (> 45 min) Laparoscopic surgery (> 45 min) Malignancy Confined to bed (> 72 hours) Immobilizing plaster cast Central venous access Age >= 75 History of VTE Family history of VTE Factor V Leiden Prothrombin [id number] Lupus anticoagulant Anticardiolipin antibodies Elevated serum homocysteine Heparin-induced thrombocytopenia Other congenital or acquired thrombophilia Stroke (< 1 month) Elective arthroplasty Hip, pelvis, or leg fracture Acute spinal cord injury (< 1 month) Prophylaxis Regimen: Total Risk Factor Score Risk Level Prophylaxis Regimen 0-1 Low Early ambulation 2 Moderate Order ONE of the following: *Sequential Compression Device (SCD) *Heparin 5000 units SQ BID 3-4 Higher Order ONE of the following medications: *Heparin 5000 units SQ TID *Enoxaparin/Lovenox 40 mg SQ daily (WT < 150 kg, CrCl > 30 mL/min) *Enoxaparin/Lovenox 30 mg SQ daily (WT < 150 kg, CrCl > 10-29 mL/min) *Enoxaparin/Lovenox 30 mg SQ BID (WT < 150 kg, CrCl > 30 mL/min) AND/OR *Sequential Compression Device (SCD) 5 or more Highest Order ONE of the following medications: *Heparin 5000 units SQ TID (Preferred with Epidurals) *Enoxaparin/Lovenox 40 mg SQ daily (WT < 150 kg, CrCl > 30 mL/min) *Enoxaparin/Lovenox 30 mg SQ daily (WT < 150 kg, CrCl > 10-29 mL/min) *Enoxaparin/Lovenox 30 mg SQ BID (WT < 150 kg, CrCl > 30 mL/min) AND *Sequential Compression Device (SCD) Assessment and Plan - Problem List (1) Septic shock Code(s): A41.9 - Sepsis, unspecified organism; R65.21 - Severe sepsis with septic shock Status: Acute (2) Acute metabolic encephalopathy Code(s): G93.41 - Metabolic encephalopathy Status: Acute (3) Acute hypercapnic respiratory failure Code(s): J96.02 - Acute respiratory failure with hypercapnia Status: Acute (4) Pneumonia Code(s): J18.9 - Pneumonia, unspecified organism Status: Acute - Assessment and Plan Plan: NEURO: Toxic metabolic encephalopathy -Propofol for sedation and ventilator synchrony -Start sedation vacation in 24 hours -Altered mentation secondary to hypercapnia and metabolic encephalopathy -Check CT of the head to rule out structural causes RESP: Acute hypercapnic respiratory failure COPD exacerbation Bibasilar pneumonia -PRVC/AC -Ventilator bundle -DuoNeb every 6 hours scheduled and as needed -SBT when appropriate -IV Solu-Medrol 40 mg every 8 hours -See ID section for antibiotics CV: Hypotension/shock -Started on Levophed to maintain >65 map -Wean Levophed as tolerated GI: s/p PEG tube -N.p.o., IV famotidine -Start tube feeds in 24 hours : ESRD Adrenal mass -Monitor renal function closely. -Nephrology consulted for patient with end-stage renal disease on hemodialysis -Outpatient follow-up for known adrenal mass ID: Severe sepsis/septic shock Bibasilar pneumonia -Antibiotics with vancomycin pharmacy to dose and renally dosed Zosyn -Follow-up on blood urine and sputum cultures HEME: -Monitor CBC, coags ENDO: -Sliding scale insulin PROPH: -Bilateral lower extremity SCDs. Heparin/famotidine LINES: -Utilize peripheral IVs, central line if needed CC time 42 min Code Status: Full
[2018-07-16] MEDS ORDERED: Dextrose 50% in Water 50 ML Vial IV.PUSH PRN (22:19)
[2018-07-16] MEDS: Senna/Docusate Sodium 8.6/50 MG Tablet PO SCH (22:55)
[2018-07-16] MEDS: Famotidine PF Inj 20 MG/2 ML Vial IV.PUSH SCH (22:55)
[2018-07-16] MEDS: Piperacil/Tazo 2.25 GM Premix 50 ML IV.SIG SCH (22:56)
--- NOTE | 2018-07-17 00:33 | CT ---
EXAM DATE: 07/17/2018 12:25 AM EDT AGE/SEX: 57 years / Male INDICATIONS: Altered mental status. Post code. CLINICAL DATA: This is the patient's initial encounter. Patient reports that signs and symptoms have been present for 1 day and indicates a pain score of Nonresponsive. MEDICAL/SURGICAL HISTORY: Hypertension. Diabetes mellitus type II. None. RADIATION DOSE: 62.62 CTDI (mGy) COMPARISON: No prior exams available for comparison. TECHNIQUE: CT of the head without contrast. Using automated exposure control and adjustment of the mA and/or kV according to patient size, radiation dose was kept as low as reasonably achievable to ob tain optimal diagnostic quality images. DICOM format image data is available electronically for revi ew and comparison. FINDINGS: Cerebrum: Atrophy. Periventricular low attenuation change involving both cerebral hemispheres. The v entricles are normal for age. No evidence of midline shift, mass lesion, hemorrhage or acute infarct ion. No extraaxial fluid collections are seen. Posterior Fossa: The cerebellum and brainstem are intact. The 4th ventricle is midline. The cerebe llopontine angle is unremarkable. Extracranial: The visualized portion of the orbits is intact. Fluid throughout the nasal cavity as w ell as the maxillary sinuses and sphenoid sinuses bilaterally. Skull: The calvaria is intact. No evidence of skull fracture. CONCLUSION: 1. Atrophy. 2. Periventricular low attenuation change likely relating to chronic small vessel ischemic change. 3. Fluid throughout the nasal cavity and paranasal sinuses. . Electronically signed by: Eddie Billingsley MD 07/17/2018 12:31 AM EDT
[2018-07-17] MEDS: Insulin NovoLIN Regular Correctional Sugar Inj SQ SCH ×4 (00:47→17:46)
[2018-07-17] MEDS: Propofol 1000 mg/100 ml Inj 1,000 MG/100 ML BOTTLE IV.CONT PRN ×4 (00:48→09:05)
[2018-07-17 03:36] LABS: Baso # (Auto) 0.1 th/mm3 (0.0-0.2); Baso % (Auto) 0.7 % (0.0-2.0); Eos # (Auto) 0.3 th/mm3 (0.0-0.4); Eos % (Auto) 2.8 % (0.0-4.0); Hematocrit 28.3 % (39.0-51.0); Hemoglobin 9.1 gm/dL (13.0-17.0); Lymph # (Auto) 0.9 th/mm3 (1.0-4.8); Lymph % (Auto) 9.4 % (9.0-44.0); Mean Corpuscular HGB Conc 32.2 % (32.0-36.0); Mean Corpuscular Hemoglobin 27.2 pg (27.0-34.0); Mean Corpuscular Volume 84.5 fL (80.0-100.0); Mean Platelet Volume 8.3 fL (7.0-11.0); Mono # (Auto) 0.8 th/mm3 (0.0-0.9); Mono % (Auto) 7.9 % (0.0-8.0); Neut # (Auto) 7.7 th/mm3 (1.8-7.7); Neut % (Auto) 79.2 % (16.0-70.0); Platelet Count 226 th/mm3 (150-450); Red Blood Count 3.35 mil/mm3 (4.50-5.90); Red Cell Distribution Width 16.7 % (11.6-17.2); White Blood Count 9.7 th/mm3 (4.0-11.0)
[2018-07-17 04:00] LABS: Albumin 2.3 g/dL (3.4-5.0); Anion Gap 11 meq/L (5-15); Aspartate Aminotransferase 12 U/L (15-37); Blood Urea Nitrogen 48 mg/dL (7-18); Calcium 8.3 mg/dL (8.5-10.1); Carbon Dioxide 23.9 meq/L (21.0-32.0); Chloride 104 meq/L (98-107); Glomerular Filtration Rate 11 mL/min (>89); Glucose,Random 88 mg/dL (74-106); Magnesium 1.8 mg/dL (1.5-2.5); Phosphorus 3.9 mg/dL (2.5-4.9); Potassium 3.4 meq/L (3.5-5.1); Sodium 139 meq/L (136-145)
[2018-07-17] MEDS ORDERED: Chlorhexidine Gluconate 2% 1 Pack (2 Cloths) TOPICAL PRN (04:00)
[2018-07-17 04:12] LABS: Alanine Aminotransferase 15 U/L (12-78); Alkaline Phosphatase 110 U/L (45-117); Total Protein 6.5 g/dL (6.4-8.2)
[2018-07-17] MEDS: Chlorhexidine Gluconate 2% 1 Pack (2 Cloths) TOPICAL SCH (04:15)
[2018-07-17] MEDS: Piperacil/Tazo 2.25 GM Premix 50 ML IV.SIG SCH ×3 (05:23→21:07)
[2018-07-17 06:12] LABS: ABG Base Excess -0.9 mmol/L (-2-2); ABG PCO2 36 mmHg (38-42); ABG PO2 119 mmHG (61-120)
[2018-07-17] MEDS: MethylPREDNISolone Sod Succinate Inj 40 MG/ML Vial IV.PUSH SCH ×2 (08:16→21:08)
[2018-07-17] MEDS: Senna/Docusate Sodium 8.6/50 MG Tablet PO SCH ×2 (08:16→21:08)
[2018-07-17] MEDS: Famotidine PF Inj 20 MG/2 ML Vial IV.PUSH SCH ×2 (08:16→21:08)
--- NOTE | 2018-07-17 11:03 | P.PNCC ---
Subjective Subjective Remarks/Hospital Course: Patient is a 57-year-old male with past medical history of end-stage renal disease on hemodialysis, , COPD on home oxygen, hypertension, diabetes type 2, who was brought to the emergency department for altered mental status. He was altered at the dialysis center and apparently during dialysis he lost pulses and CPR was started. By time EMS arrived patient did have pulses. He was confused for EMS. ER workup showed that patient has a white count of 16.7 with left shift indicating sepsis. Patient remained hypotensive after fluid resuscitation and hence was started on Levophed by the ED physician. CT abdomen pelvis showed a previously known adrenal mass slightly increased in size compared to [address] pulmonary angiogram was negative for PE, however showed dense bibasilar consolidation/pneumonia which could be the source of sepsis. Received vancomycin and Zosyn in the ED. ABG prior to intubation in the ED showed severe hypercapnic respiratory failure with a pH of 7.05, PCO2 of 93. I evaluated the patient after arrival to the [facility]. He is intubated critically ill-appearing sedated. On lightening sedation he is able to move all 4 extremities. His source of sepsis most likely is pneumonia. Wong cultures have been sent. His altered mentation is most likely secondary to sepsis and hypercapnia, will check CT of the head to rule out any acute events. 07/17: No events over the night. Since ICU admission patient did not require any vasopressor. Oxygenation is down to 40%. Sedation is achieved with propofol, which is decreased to 20. Patient is arousable, following commands appropriately. Daughter is present at bedside. T-max of 99.6. Objective Vital Signs / I&O: Vital Signs 07/16/18 12:01 07/16/18 12:05 07/16/18 12:11 Temperature 97.0 F L 98.8 F Pulse Rate 98 H 95 H 95 H Respiratory Rate 22 28 H Blood Pressure 123/59 L 123/59 L Pulse Oximetry 89 L 95 100 07/16/18 13:11 07/16/18 14:00 07/16/18 14:50 Temperature Pulse Rate 90 86 88 Respiratory Rate 20 20 14 Blood Pressure 120/52 L 96/54 L 96/54 L Pulse Oximetry 95 98 96 07/16/18 15:00 07/16/18 15:30 07/16/18 15:55 Temperature Pulse Rate 86 100 H Respiratory Rate 22 28 H 16 Blood Pressure 98/57 L 62/42 L Pulse Oximetry 92 L 100 07/16/18 16:15 07/16/18 16:30 07/16/18 16:41 Temperature Pulse Rate 114 H 117 H 114 H Respiratory Rate 20 18 Blood Pressure 155/94 H 112/62 190/100 H Pulse Oximetry 98 99 07/16/18 16:47 07/16/18 17:09 07/16/18 17:30 Temperature Pulse Rate 111 H 103 H 95 H Respiratory Rate 20 18 16 Blood Pressure 156/90 H 86/55 L 135/69 Pulse Oximetry 97 99 95 07/16/18 18:00 07/16/18 18:18 07/16/18 18:35 Temperature Pulse Rate 98 H 95 H 110 H Respiratory Rate 16 16 16 Blood Pressure 131/72 122/59 L 117/56 L Pulse Oximetry 99 99 07/16/18 19:00 07/16/18 19:06 07/16/18 19:30 Temperature Pulse Rate 82 82 Respiratory Rate 16 Blood Pressure 129/72 120/62 Pulse Oximetry 99 99 99 07/16/18 20:00 07/16/18 20:20 07/16/18 21:00 Temperature 99.6 F Pulse Rate 83 95 H Respiratory Rate 16 20 Blood Pressure 118/66 110/61 Pulse Oximetry 99 100 93 L 07/16/18 21:26 07/16/18 22:00 07/16/18 22:34 Temperature 99.6 F Pulse Rate 88 95 H 94 H Respiratory Rate 16 20 Blood Pressure 110/61 Pulse Oximetry 93 L 07/16/18 23:00 07/17/18 00:00 07/17/18 01:00 Temperature 98.1 F Pulse Rate 81 90 71 Respiratory Rate 16 16 16 Blood Pressure 124/75 124/75 160/78 H Pulse Oximetry 100 100 100 07/17/18 01:28 07/17/18 02:00 07/17/18 02:54 Temperature Pulse Rate 78 68 Respiratory Rate 16 16 16 Blood Pressure 160/78 H 160/78 H Pulse Oximetry 100 100 100 07/17/18 04:00 07/17/18 04:05 07/17/18 05:00 Temperature Pulse Rate 69 74 74 Respiratory Rate 16 16 16 Blood Pressure 155/85 H 155/85 H Pulse Oximetry 100 100 08/21/18 05:27 07/17/18 05:29 07/17/18 05:44 Temperature Pulse Rate 69 83 Respiratory Rate 16 16 Blood Pressure 155/85 H Pulse Oximetry 100 100 07/17/18 07:00 07/17/18 08:00 07/17/18 09:00 Temperature 98.2 F Pulse Rate 81 76 75 Respiratory Rate 16 16 16 Blood Pressure 148/87 H 169/93 H Pulse Oximetry 100 100 100 07/17/18 09:47 07/17/18 10:00 Temperature Pulse Rate 76 80 Respiratory Rate 16 16 Blood Pressure 168/78 H Pulse Oximetry 100 100 Intake & Output 07/16/18 07/17/18 07/17/18 18:59 06:59 18:59 Intake Total 850 / 850 400 / 400 100 / 100 Output Total 100 / 100 Balance 850 / 850 300 / 300 100 / 100 Weight 100 kg 104 kg Intake: IV 850 / 850 400 / 400 100 / 100 Diprivan 1000 mg/100 ml Inj 1, 300 / 300 100 / 100 000 mg In 100 ml @ 5 MCG/KG/MIN 3 mls/hr IV.CONT TITRATE PRN Rx#:[id number] Zosyn 2.25 GM Premix 50 ML @ 100 / 100 100 mls/hr IV.SIG Q8H YOVANA Rx#: [id number] NS Inj 500 ML @ Wide Open IV. 500 / 500 SIG BOLUS ONE Rx#:[id number] Vancomycin Inj 1,000 MG In NS 250 / 250 Inj 250 ML @ 125 mls/hr IV.SIG ONCE ONE Rx#:[id number] Output: Urine 100 / 100 Other: Date of Last Bowel Movement 07/16/18 07/16/18 # Bowel Movements 1 # Incontinent Bowel Movements 1 Weight On Admission 105 kg Result Diagrams: 07/19/18 05:48 07/18/18 04:10 Imagin07/16/18 07/16/18 07/16/18 11:50 14:30 16:46 ABG pH 7.05 L* 7.01 L* 7.23 L* ABG pCO2 93 H* 108 H* 58 H* ABG pO2 240 H 96 101 ABG HCO3 25 26 23 ABG O2 Content 14.6 13.1 14.3 ABG Base Excess -4.8 L -4.0 L -3.1 L ABG Methemoglobin 1.2 1.5 1.3 07/17/18 05:58 ABG pH 7.42 ABG pCO2 36 L ABG pO2 119 ABG HCO3 23 ABG O2 Content 13.0 ABG Base Excess -0.9 ABG Methemoglobin 1.7 Abdomen X-Ray 07/16/18 12:30 CONCLUSION: Nonspecific, benign abdomen appearance. Abdomen/Pelvis CT 07/16/18 13:03 CONCLUSION: 1. No acute abnormality in the abdomen or pelvis. 2. Dense right basilar airspace consolidation and trace pleural effusions concerning for aspiration. 3. Gastrostomy catheter present and NGT in place. 4. 1.8 cm right adrenal mass which has slightly increased from 2011 CT scan measuring 1.4 cm. This was partially imaged on the chest CT exam and its visualized portions appeared to be stable. This can be further characterized with adrenal mass CT or MRI exam on an outpatient basis. Chest CTA 07/16/18 13:03 CONCLUSION: 1. No CT evidence for pulmonary artery embolism as questioned. 2. Dense bilateral lower lobe airspace consolidation with trace associated pleural effusions. Findings are concerning for aspiration. 3. Nonspecific right hilar and mediastinal nodes, as above. This may be reactive in etiology. 4. Probable 1.6 cm right adrenal mass that is incompletely imaged on this exam. Although indeterminate in density, this is unchanged from abdominal CT of 06/07/2011 and therefore likely benign. Chest X-Ray 07/16/18 15:55 CONCLUSION: 1. Stable chest x-ray with bibasilar atelectasis and/or consolidation. 2. Stable enlargement of the right hilum in this patient with previously documented right hilar lymphadenopathy. Head CT 07/17/18 00:00 CONCLUSION: 1. Atrophy. 2. Periventricular low attenuation change likely relating to chronic small vessel ischemic change. 3. Fluid throughout the nasal cavity and paranasal sinuses. . Objective Remarks: General - elderly gentleman, intubated and sedated, ill-appearing HEENT - pupils equal, reactive, sclerae anicteric, neck supple, no nuchal rigidity, neck veins not distended, no carotid bruit, previous trach scar, orally intubated CV - regular S1, S2, no murmurs Chest - coarse breath sounds b/l, good air entry, no wheezes Abdomen - soft, non-tender, non-distended, BS present, no hepatomegaly, no splenomegaly Skin - small wound with some surrounding erythema over the third right Extremities - warm and well perfused, trace edema, + peripheral pulses, no clubbing Neuro - intubated and lightly sedated, opens eyes to voice stimuli, follows commands, moves all extremities Assessment and Plan - Problem List (1) Septic shock Code(s): A41.9 - Sepsis, unspecified organism; R65.21 - Severe sepsis with septic shock Status: Acute (2) Acute metabolic encephalopathy Code(s): G93.41 - Metabolic encephalopathy Status: Acute (3) Acute hypercapnic respiratory failure Code(s): J96.02 - Acute respiratory failure with hypercapnia Status: Acute (4) Pneumonia Code(s): J18.9 - Pneumonia, unspecified organism Status: Acute - Assessment and Plan Plan: 1. Acute on chronic hypercapnic and hypoxic respiratory failure -patient with multiple history of intubations and previous trach, last intubation approximately 2 months ago 2. Acute COPD exacerbation -improved hypercapnia 3. Bibasilar pneumonia 4. Septic shock -now resolved, off pressors 5. Toxic metabolic encephalopathy likely in the setting of hypercapnia 6. End-stage renal disease on hemodialysis 7. Chronic aspiration status post PEG tube placement 8. Adrenal mass 1. Continue ventilator support at the current vent settings. Patient was switched to CPAP 15/5 and he is tolerating well so far. Taper off propofol as tolerated 2. Vent bundle and bronchodilators 3. Continue vancomycin and Zosyn 4. Follow-up sputum and blood cultures 5. Nephrology consult this patient is on chronic HD 6. Steroids 7. Needs outpatient follow-up for known adrenal mass 8. Start tube feeds if patient not able to come off the vent today 9. GI prophylaxis Addendum: Patient was successfully extubated and he is doing well. He is hungry. We will order official swallow eval and advance diet as tolerated. We will transition care to hospitalist service in the morning if over the night the patient will do well.
[2018-07-17] MEDS ORDERED: hydrALAZINE HCl Inj 20 MG/ML Vial IV.PUSH PRN (11:08)
[2018-07-17] MEDS ORDERED: Labetalol HCl Inj 100 MG/20 ML Vial IV.PUSH PRN (11:14)
--- NOTE | 2018-07-17 15:23 | P.CONNP ---
History of Present Illness Service: Nephrology Consult date: 07/17/18 Requesting Physician: Arely Ferraro Reason for Consult: End-stage renal disease Primary Care Provider: UNKNOWN Chief Complaint: AMS, Sepsis History of Present Illness: Patient is a 57-year-old white male with history of end-stage renal disease, diabetes, on hemodialysis on Monday, Monday and Monday, he went yesterday and was found lethargic and passed out, he had CPR briefly, he was bradycardic and had respiratory arrest he was intubated and stabilized and now extubated, patient is able to answer most of the questions. He was not dialyzed. Initial workup showed pneumonia, and he has been treated with vancomycin and Zosyn. He follows with Dr. 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 - Medical History Medical History: Medical History (Last Updated 07/18/18 @ 09:57 by Xiao Ma MD) Diabetes ESRD (end stage renal disease) on dialysis Empyema lung HTN (hypertension) Renal disease - Surgical History Surgical History: Surgical History (Last Updated 07/18/18 @ 09:59 by Xiao Ma MD) Status post thoracotomy - Tobacco History Second Hand Smoke Exposure: No Smoking Status: Never smoker - Alcohol History How Often Do You Have a Drink Containing Alcohol: Never - Substance Use History Substance History: No History of Abuse - Travel History Recent Travel in the [facility] Within the Last 8 Weeks: No Recent Travel Out of the Country Within the Last 8 Weeks: No - Immunization History Tetanus Immunization: Unsure Hx Influenza Vaccine This Season: Yes Medications and Allergies Active Medications: Active Medications Al Hydroxide/Mg Hydroxide (Milk Of Lucy Liq) 30 ml PO Q12H PRN PRN Reason: Mild Constipation Albuterol (Albuterol Neb (Prn)) 2.5 mg NEB Q2HR NEB PRN PRN Reason: SHORTNESS OF BREATH/WHEEZING Albuterol (Duoneb Neb (Kalpana)) 1 ampul NEB Q6HR NEB [place] Last Admin: 07/17/18 09:45 Dose: 1 ampul Bisacodyl (Dulcolax Supp) 10 mg RECTAL DAILY PRN PRN Reason: SEVERE CONSITIPATION Chlorhexidine Gluconate (Chlorhexidine 2% Cloth) 3 pack TOPICAL DAILY@0400 [place] Stop: 07/22/18 03:59 Last Admin: 07/17/18 04:15 Dose: 3 pack Chlorhexidine Gluconate (Chlorhexidine 2% Cloth) 3 pack TOPICAL DAILY@0400 PRN PRN Reason: Extra cloth needed Stop: 07/22/18 03:59 Dextrose (D50w Vial) 50 ml IV.PUSH UNSCH PRN PRN Reason: PER HYPOGLYCEMIA PROTOCOL Famotidine (Pepcid Pf Inj) 10 mg IV.PUSH Q12HR [facility] Last Admin: 07/17/18 08:16 Dose: 10 mg Fentanyl Citrate (Fentanyl Inj) 50 mcg IV PUSH Q1H PRN PRN Reason: Pain scale 6-10, &/or sedation Glucagon (Glucagon Inj) 1 mg OTHER PRN PRN PRN Reason: for Hypoglycemia Protocol Norepinephrine Bitartrate 4 mg (/ Sodium Chloride) 250 mls @ 7.5 mls/hr IV.SIG TITRATE PRN; Protocol PRN Reason: Per Protocol Last Titration: 07/16/18 18:00 Dose: 0 mcg/min, 0 mls/hr Propofol (Diprivan 1000 Mg/100 Ml Inj) 1,000 mg in 100 mls @ 3 mls/hr IV.CONT TITRATE PRN; Protocol PRN Reason: Per Protocol Last Admin: 07/17/18 09:05 Dose: 50 mcg/kg/min, 30 mls/hr Midazolam HCl (Versed Inj) 50 mg in 50 mls @ 2 mls/hr IV.CONT TITRATE PRN; Protocol PRN Reason: Per Protocol Piperacillin/Tazobactam/Dextrose (Zosyn 2.25 Gm Premix) 50 mls @ 100 mls/hr IV.SIG Q8H [facility] Last Admin: 07/17/18 13:57 Dose: 100 mls/hr Insulin Human Regular (Novolin R Correctional Sugar Inj) 0 units SQ Q6HR [place]; Protocol Last Admin: 07/17/18 12:24 Dose: Not Given Labetalol HCl (Trandate Inj) 10 mg IV.PUSH Q4H PRN PRN Reason: For SBP greater than 170. Last Admin: 07/17/18 11:26 Dose: 10 mg Lactulose (Lactulose Liq) 30 ml PO DAILY PRN PRN Reason: SEVERE CONSITIPATION Methylprednisolone Sodium Succinate (Solumedrol Inj) 40 mg IV.PUSH Q12HR [facility] Last Admin: 07/17/18 08:16 Dose: 40 mg Pharmacy Profile Note (Vancomycin Consult Pharmacy) 1 each OTHER UNSCH PRN PRN Reason: Pharmacy to dose Senna/Docusate Sodium (Calista-Colace) 1 tab PO BID [facility] Last Admin: 07/17/18 08:16 Dose: 1 tab Sennosides (Senokot) 17.2 mg PO Q12H PRN PRN Reason: Moderate Constipation Sodium Chloride (Ns Flush) 2 ml IV.FLUSH BID [facility] Last Admin: 07/17/18 08:17 Dose: 2 ml Sodium Chloride (Ns Flush) 2 ml IV.FLUSH UNSCH PRN PRN Reason: FLUSH AFTER USING IV ACCESS Terbutaline Sulfate (Brethine Inj) 1 mg SQ UNSCH PRN PRN Reason: For Extravasation Allergies Allergy/AdvReac Type Severity Reaction Status Date / Time heparin Allergy Severe Bleeding Verified 07/16/18 13:23 quetiapine [From Seroquel] Allergy Intermediate Shakiness Verified 07/16/18 13: 23 Exam Vital signs: Vital Signs 07/16/18 15:30 07/16/18 15:55 07/16/18 16:15 Temperature Pulse Rate 100 H 114 H Respiratory Rate 28 H 16 20 Blood Pressure 62/42 L 155/94 H Pulse Oximetry 92 L 100 07/16/18 16:30 07/16/18 16:41 07/16/18 16:47 Temperature Pulse Rate 117 H 114 H 111 H Respiratory Rate 18 20 Blood Pressure 112/62 190/100 H 156/90 H Pulse Oximetry 98 99 97 07/16/18 17:09 07/16/18 17:30 07/16/18 18:00 Temperature Pulse Rate 103 H 95 H 98 H Respiratory Rate 18 16 16 Blood Pressure 86/55 L 135/69 131/72 Pulse Oximetry 99 95 99 07/16/18 18:18 07/16/18 18:35 07/16/18 19:00 Temperature Pulse Rate 95 H 110 H 82 Respiratory Rate 16 16 Blood Pressure 122/59 L 117/56 L 129/72 Pulse Oximetry 99 99 07/16/18 19:06 07/16/18 19:30 07/16/18 20:00 Temperature Pulse Rate 82 83 Respiratory Rate 16 Blood Pressure 120/62 118/66 Pulse Oximetry 99 99 99 07/16/18 20:20 07/16/18 21:00 07/16/18 21:26 Temperature 99.6 F Pulse Rate 95 H 88 Respiratory Rate 16 20 16 Blood Pressure 110/61 Pulse Oximetry 100 93 L 07/16/18 22:00 07/16/18 22:34 07/16/18 23:00 Temperature 99.6 F Pulse Rate 95 H 94 H 81 Respiratory Rate 20 16 Blood Pressure 110/61 124/75 Pulse Oximetry 93 L 100 07/17/18 00:00 07/17/18 01:00 07/17/18 01:28 Temperature 98.1 F Pulse Rate 90 71 Respiratory Rate 16 16 16 Blood Pressure 124/75 160/78 H Pulse Oximetry 100 100 100 07/17/18 02:00 07/17/18 02:54 07/17/18 04:00 Temperature Pulse Rate 78 68 69 Respiratory Rate 16 16 16 Blood Pressure 160/78 H 160/78 H 155/85 H Pulse Oximetry 100 100 100 07/17/18 04:05 07/17/18 05:00 07/17/18 05:27 Temperature Pulse Rate 74 74 69 Respiratory Rate 16 16 Blood Pressure 155/85 H Pulse Oximetry 100 07/17/18 05:29 07/17/18 05:44 07/17/18 07:00 Temperature 98.2 F Pulse Rate 83 81 Respiratory Rate 16 16 16 Blood Pressure 155/85 H Pulse Oximetry 100 100 100 07/17/18 08:00 07/17/18 09:00 07/17/18 09:47 Temperature Pulse Rate 76 75 76 Respiratory Rate 16 16 16 Blood Pressure 148/87 H 169/93 H Pulse Oximetry 100 100 100 07/17/18 10:00 07/17/18 11:00 07/17/18 12:00 Temperature Pulse Rate 80 78 89 Respiratory Rate 16 20 20 Blood Pressure 168/78 H 202/107 H 185/87 H Pulse Oximetry 100 100 100 07/17/18 12:21 07/17/18 13:00 07/17/18 13:20 Temperature Pulse Rate 96 H Respiratory Rate 11 L 16 Blood Pressure 169/95 H Pulse Oximetry 94 L 100 100 07/17/18 14:00 Temperature Pulse Rate 94 H Respiratory Rate 16 Blood Pressure 169/76 H Pulse Oximetry 100 Intake & Output 07/16/18 07/17/18 07/17/18 18:59 06:59 18:59 Intake Total 850 / 850 400 / 400 200 / 200 Output Total 100 / 100 Balance 850 / 850 300 / 300 200 / 200 Weight 100 kg 104 kg Intake: IV 850 / 850 400 / 400 200 / 200 Diprivan 1000 mg/100 ml Inj 1, 300 / 300 100 / 100 000 mg In 100 ml @ 5 MCG/KG/MIN 3 mls/hr IV.CONT TITRATE PRN Rx#:[id number] Zosyn 2.25 GM Premix 50 ML @ 100 / 100 100 mls/hr IV.SIG Q8H [place] Rx#: [id number] NS Inj 500 ML @ Wide Open IV. 500 / 500 SIG BOLUS ONE Rx#:[id number] Vancomycin Inj 1,000 MG In NS 250 / 250 Inj 250 ML @ 125 mls/hr IV.SIG ONCE ONE Rx#:[id number] Vancomycin Inj 500 MG In NS Inj 100 / 100 100 ML @ 250 mls/hr IV.SIG ONCE ONE Rx#:[id number] Output: Urine 100 / 100 Other: Date of Last Bowel Movement 07/16/18 07/16/18 # Bowel Movements 1 # Incontinent Bowel Movements 1 Weight On Admission 105 kg - Constitutional no acute distress - Routine HEENT Exam Head: Present: normocephalic Eye: Present: EOMI, PERRL - Routine Neck Exam Present: supple - Routine Respiratory Exam Present: rhonchi, wheezes, crackles - Routine Cardiovascular Exam Present: RRR - Routine Abdominal Exam Present: soft, normoactive bowel sounds - Routine Extremities Exam Present: edema - Routine Skin Exam Present: erythema - Routine Neurological Exam Present: alert Results - Lab Results 07/18/18 04:10 07/18/18 04:10 Most recent lab results ABG pH 7.42 (7.380-7.420) 07/17/18 05:58 ABG pCO2 36 mmHg (38-42) L 07/17/18 05:58 ABG pO2 119 mmHG (61-120) 07/17/18 05:58 ABG HCO3 23 mmol/L (22-26) 07/17/18 05:58 Calcium 8.3 mg/dL (8.5-10.1) L 07/17/18 03:25 Phosphorus 3.9 mg/dL (2.5-4.9) D 07/17/18 03:25 Magnesium 1.8 mg/dL (1.5-2.5) 07/17/18 03:25 Assessment and Plan - Assessment (1) End stage renal disease Code(s): N18.6 - End stage renal disease Status: Acute (2) Acute hypercapnic respiratory failure Code(s): J96.02 - Acute respiratory failure with hypercapnia Status: Acute (3) Pneumonia Code(s): J18.9 - Pneumonia, unspecified organism Status: Acute (4) Encephalopathy Code(s): G93.40 - Encephalopathy, unspecified Status: Acute (5) Septic shock Code(s): A41.9 - Sepsis, unspecified organism; R65.21 - Severe sepsis with septic shock Status: Acute (6) Sepsis Code(s): A41.9 - Sepsis, unspecified organism Status: Acute - Plan Hemodialysis to be done tomorrow continue outpatient orders On Monday Patient is now extubated Next dialysis will be on Monday Source of sepsis appears to be UTI is going gram-negative rods He also has pneumonia on CT scan Once stable and discharged and then follow-up with Dr. Rao
[2018-07-17] MEDS ORDERED: Acetaminophen 325 MG Tablet PO PRN (18:31)
[2018-07-17] MEDS ORDERED: Sod Chloride 0.9% Inj 1,000 ML OTHER PRN ×2 (18:31)
[2018-07-17] MEDS ORDERED: Sod Chloride 0.9% Inj 1,000 ML IV.CONT PRN (18:31)
[2018-07-17] MEDS ORDERED: Gelatin 12 MM/7 MM Topical Foam TOPICAL PRN (18:31)
--- NOTE | 2018-07-17 19:26 | ECG ---
Date Performed: 07/16/2018 Time Performed: 11:51:51 PTAGE: 57 years EKG: ATRIAL FIBRILLATION BORDERLINE LEFT AXIS DEVIATION NONSPECIFIC ST & T-WAVE ABNORMALITY ABNO RMAL ECG INTERPRETATION BASED ON A DEFAULT AGE OF 38 YEARS PREVIOUS TRACING : 09/06/2011 09.34 Compared to previous tracing, patient is now in atria l firbrillation. previous ekg showed Sinus rhythm DOCTOR: Jessica Feldman Interpretating Date/Time 07/17/2018 19:24:13
[2018-07-18] MEDS: Piperacil/Tazo 2.25 GM Premix 50 ML IV.SIG SCH ×3 (05:04→21:20)
[2018-07-18] MEDS: Chlorhexidine Gluconate 2% 1 Pack (2 Cloths) TOPICAL SCH (05:06)
[2018-07-18] MEDS: Insulin NovoLIN Regular Correctional Sugar Inj SQ SCH ×5 (05:06→18:00)
[2018-07-18 06:19] LABS: Baso # (Auto) 0.1 th/mm3 (0.0-0.2); Baso % (Auto) 0.4 % (0.0-2.0); Hematocrit 33.1 % (39.0-51.0); Hemoglobin 10.1 gm/dL (13.0-17.0); Lymph # (Auto) 0.2 th/mm3 (1.0-4.8); Lymph % (Auto) 1.6 % (9.0-44.0); Mean Corpuscular HGB Conc 30.5 % (32.0-36.0); Mean Corpuscular Hemoglobin 26.5 pg (27.0-34.0); Mono # (Auto) 0.1 th/mm3 (0.0-0.9); Mono % (Auto) 0.9 % (0.0-8.0); Neut % (Auto) 97.1 % (16.0-70.0); Platelet Count 261 th/mm3 (150-450); White Blood Count 12.4 th/mm3 (4.0-11.0)
[2018-07-18 06:42] LABS: Alanine Aminotransferase 15 U/L (12-78); Albumin 2.5 g/dL (3.4-5.0); Anion Gap 13 meq/L (5-15); Aspartate Aminotransferase 12 U/L (15-37); Blood Urea Nitrogen 62 mg/dL (7-18); Calcium 8.2 mg/dL (8.5-10.1); Carbon Dioxide 23.5 meq/L (21.0-32.0); Chloride 101 meq/L (98-107); Glomerular Filtration Rate 10 mL/min (>89); Glucose,Random 195 mg/dL (74-106); Potassium 4.7 meq/L (3.5-5.1); Sodium 137 meq/L (136-145)
[2018-07-18 06:48] LABS: Alkaline Phosphatase 116 U/L (45-117); Total Protein 7.2 g/dL (6.4-8.2)
[2018-07-18] MEDS: Famotidine PF Inj 20 MG/2 ML Vial IV.PUSH SCH ×2 (08:32→20:20)
[2018-07-18] MEDS: Senna/Docusate Sodium 8.6/50 MG Tablet PO SCH ×2 (08:32→20:21)
[2018-07-18] MEDS: MethylPREDNISolone Sod Succinate Inj 40 MG/ML Vial IV.PUSH SCH ×2 (08:33→20:20)
--- NOTE | 2018-07-18 10:00 | P.CONID ---
History of Present Illness Service: Infectious disease Consult date: 07/18/18 Requesting Physician: Noam Johns Reason for Consult: Evaluate patient with recurrent aspiration Primary Care Provider: UNKNOWN Chief Complaint: AMS, Sepsis History of Present Illness: Patient seen and examined. Records reviewed. Patient is a 57-year-old male, brought into the hospital after he was noted to have altered mental status, with decreased level of consciousness at the dialysis center. He apparently lost pulses and CPR was started with return of his pulses. EMS was called and at that time he was found to have pulses. He was noted to be confused. His blood sugars were okay. In the ED he was hypotensive, and was on Levophed briefly. He ended up getting intubated. CT of the abdomen and pelvis showed the known adrenal mass with slight increase in size. CT of the chest did not show any PE but it showed dense bibasilar consolidation. Patient stated that he was at [facility] about 5 months ago and at that time he had pneumonia. He went to a rehab facility and at the rehab he has not really been doing any ambulation. He gets transferred to a wheelchair. He has known COPD, and chronically on oxygen. Patient states he has a chronic cough and brings up some clear phlegm. He has not really noted any increase in his cough or change in the color of his sputum. He denies any chest pain. He was extubated yesterday, and currently denies any shortness of breath. He is on nasal O2 with good oxygen saturation. Patient denies any problem with nausea or vomiting, or any swallowing difficulty. He has not had any choking episodes. During his hospitalization at [facility], he had a PEG tube placed, but the patient stated that they have not been using the tube for nutrition, and he has been taking nutrition orally. He has not been for febrile since admission. His hemodynamics are stable. Patient also had a history of right empyema back in 2010, requiring a right thoracotomy, decortication and pleurectomy, and a right lung wedge resection. Records mentioned that he has had problem with aspiration. Infectious disease consultation has been requested to assist with management of recurrent pneumonia. Review of Systems Constitutional: Denies chills, Denies fever(s) Eyes: Denies discharge, Denies dry eyes Ears, Nose, Mouth, and Throat: Denies difficulty swallowing, Denies ear pain, Denies mouth pain, Denies nasal discharge, Denies pain with swallowing, Denies sore throat Cardiovascular: Denies chest pain, Denies shortness of breath Respiratory: Reports cough, Denies shortness of breath Gastrointestinal: Denies abdominal pain, Denies difficulty swallowing, Denies loose stools, Denies nausea, Denies vomiting Musculoskeletal: Reports muscle weakness Skin/Breast: Denies rash PMFSH - History History 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 - Medical History Medical History: Medical History (Last Updated 07/18/18 @ 09:57 by Xiao Ma MD) Diabetes ESRD (end stage renal disease) on dialysis Empyema lung HTN (hypertension) Renal disease - Surgical History Surgical History: Surgical History (Last Updated 07/18/18 @ 09:59 by Xiao Ma MD) Status post thoracotomy - Tobacco History Second Hand Smoke Exposure: No Smoking Status: Never smoker - Alcohol History How Often Do You Have a Drink Containing Alcohol: Never - Substance Use History Substance History: No History of Abuse - Travel History Recent Travel in the [place] Within the Last 8 Weeks: No Recent Travel Out of the Country Within the Last 8 Weeks: No - Immunization History Tetanus Immunization: Unsure Hx Influenza Vaccine This Season: Yes Medications and Allergies Active Medications: Active Medications Acetaminophen (Tylenol) 650 mg PO UNSCH PRN PRN Reason: SEE LABEL COMMENTS Al Hydroxide/Mg Hydroxide (Milk Of Lucy Librittany) 30 ml PO Q12H PRN PRN Reason: Mild Constipation Albuterol (Albuterol Neb (Prn)) 2.5 mg NEB Q2HR NEB PRN PRN Reason: SHORTNESS OF BREATH/WHEEZING Albuterol (Duoneb Neb (Kalpana)) 1 ampul NEB Q6HR NEB [place] Last Admin: 07/18/18 08:44 Dose: 1 ampul Bisacodyl (Dulcolax Supp) 10 mg RECTAL DAILY PRN PRN Reason: SEVERE CONSITIPATION Chlorhexidine Gluconate (Chlorhexidine 2% Cloth) 3 pack TOPICAL DAILY@0400 [place] Stop: 07/22/18 03:59 Last Admin: 07/18/18 05:06 Dose: 3 pack Chlorhexidine Gluconate (Chlorhexidine 2% Cloth) 3 pack TOPICAL DAILY@0400 PRN PRN Reason: Extra cloth needed Stop: 07/22/18 03:59 Clonidine HCl (Catapres) 0.1 mg PO UNSCH PRN PRN Reason: SEE LABEL COMMENTS Dextrose (D50w Vial) 50 ml IV.PUSH UNSCH PRN PRN Reason: PER HYPOGLYCEMIA PROTOCOL Diphenhydramine HCl (Benadryl) 25 mg PO UNSCH PRN PRN Reason: SEE LABEL COMMENTS Epoetin Zach (Epogen Inj) 10,000 unit IV.PUSH UNSCH PRN PRN Reason: SEE LABEL COMMENTS Famotidine (Pepcid Pf Inj) 10 mg IV.PUSH Q12HR [facility] Last Admin: 07/18/18 08:32 Dose: 10 mg Fentanyl Citrate (Fentanyl Inj) 50 mcg IV PUSH Q1H PRN PRN Reason: Pain scale 6-10, &/or sedation Gelatin (Gelfoam 12 Mm/7 Mm Topical) 1 foam TOPICAL PRN PRN PRN Reason: help stop bleeding from site Gentamicin Sulfate (Gentamicin Inj) 20 mg OTHER WITH DIALYSIS PRN PRN Reason: Dwell Gentamycin Lock Glucagon (Glucagon Inj) 1 mg OTHER PRN PRN PRN Reason: for Hypoglycemia Protocol Norepinephrine Bitartrate 4 mg (/ Sodium Chloride) 250 mls @ 7.5 mls/hr IV.SIG TITRATE PRN; Protocol PRN Reason: Per Protocol Last Titration: 07/16/18 18:00 Dose: 0 mcg/min, 0 mls/hr Propofol (Diprivan 1000 Mg/100 Ml Inj) 1,000 mg in 100 mls @ 3 mls/hr IV.CONT TITRATE PRN; Protocol PRN Reason: Per Protocol Last Titration: 07/17/18 12:30 Dose: Infused Midazolam HCl (Versed Inj) 50 mg in 50 mls @ 2 mls/hr IV.CONT TITRATE PRN; Protocol PRN Reason: Per Protocol Piperacillin/Tazobactam/Dextrose (Zosyn 2.25 Gm Premix) 50 mls @ 100 mls/hr IV.SIG Q8H [facility] Last Infusion: 07/18/18 05:35 Dose: Infused Albumin Human (Flexbumin 25% Inj) 100 mls @ 60 mls/hr IV.SIG WITH DIALYSIS PRN PRN Reason: hypotension / volume replace Sodium Chloride (Ns Inj) 1,000 mls @ 200 mls/hr OTHER .Q5H PRN PRN Reason: for dialyzer flush PRN Sodium Chloride (Ns Inj) 1,000 mls @ 0 mls/hr IV.CONT .Q0M PRN PRN Reason: hypotension / volume replace Sodium Chloride (Ns Inj) 1,000 mls @ 0 mls/hr OTHER .Q0M PRN PRN Reason: for prime and rinse back Insulin Human Regular (Novolin R Correctional Sugar Inj) 0 units SQ Q6HR [facility]; Protocol Last Admin: 07/18/18 05:07 Dose: Not Given Labetalol HCl (Trandate Inj) 10 mg IV.PUSH Q4H PRN PRN Reason: For SBP greater than 170. Last Admin: 07/17/18 11:26 Dose: 10 mg Lactulose (Lactulose Liq) 30 ml PO DAILY PRN PRN Reason: SEVERE CONSITIPATION Mannitol (Mannitol Inj) 12.5 gm IV.PUSH UNSCH PRN PRN Reason: hypotension / volume replace Methylprednisolone Sodium Succinate (Solumedrol Inj) 40 mg IV.PUSH Q12HR [facility] Last Admin: 07/18/18 08:33 Dose: 40 mg Nitroglycerin (Nitrostat Sl) 0.4 mg SL Q5M PRN PRN Reason: CHEST PAIN Ondansetron HCl (Zofran Inj) 4 mg IV.PUSH UNSCH PRN PRN Reason: NAUSEA OR VOMITING Pharmacy Profile Note (Vancomycin Consult Pharmacy) 1 each OTHER UNSCH PRN PRN Reason: Pharmacy to dose Senna/Docusate Sodium (Calisat-Colace) 1 tab PO BID [facility] Last Admin: 07/18/18 08:32 Dose: 1 tab Sennosides (Senokot) 17.2 mg PO Q12H PRN PRN Reason: Moderate Constipation Sodium Chloride (Ns Flush) 2 ml IV.FLUSH BID [facility] Last Admin: 07/18/18 08:32 Dose: 2 ml Sodium Chloride (Ns Flush) 2 ml IV.FLUSH UNSCH PRN PRN Reason: FLUSH AFTER USING IV ACCESS Sodium Chloride (Ns Flush) 5 ml IV.FLUSH PRN PRN PRN Reason: flush each lumen during HD Terbutaline Sulfate (Brethine Inj) 1 mg SQ UNSCH PRN PRN Reason: For Extravasation Allergies Allergy/AdvReac Type Severity Reaction Status Date / Time heparin Allergy Severe Bleeding Verified 07/16/18 13:23 quetiapine [From Seroquel] Allergy Intermediate Shakiness Verified 07/16/18 13: 23 Exam Vital signs: Vital Signs 07/17/18 10:00 07/17/18 11:00 07/17/18 12:00 Temperature Pulse Rate 80 78 89 Respiratory Rate 16 20 20 Blood Pressure 168/78 H 202/107 H 185/87 H Pulse Oximetry 100 100 100 07/17/18 12:21 07/17/18 13:00 07/17/18 13:20 Temperature Pulse Rate 96 H Respiratory Rate 11 L 16 Blood Pressure 169/95 H Pulse Oximetry 94 L 100 100 07/17/18 14:00 07/17/18 15:00 07/17/18 15:31 Temperature 98.6 F Pulse Rate 94 H 96 H 102 H Respiratory Rate 16 16 14 Blood Pressure 169/76 H 173/87 H Pulse Oximetry 100 100 99 07/17/18 16:00 07/17/18 17:00 07/17/18 18:00 Temperature 98.4 F Pulse Rate 99 H 93 H 99 H Respiratory Rate 16 16 17 Blood Pressure 137/67 138/65 153/90 H Pulse Oximetry 100 100 100 07/17/18 19:00 07/17/18 20:00 07/17/18 20:35 Temperature Pulse Rate 96 H 97 H 96 H Respiratory Rate 11 L 14 14 Blood Pressure 149/83 H 149/74 H Pulse Oximetry 97 96 97 07/17/18 21:00 07/17/18 22:00 07/17/18 23:00 Temperature Pulse Rate 110 H 108 H 102 H Respiratory Rate 8 L 18 13 Blood Pressure 162/85 H 146/74 H 148/67 H Pulse Oximetry 95 95 95 07/18/18 00:00 07/18/18 01:00 07/18/18 02:00 Temperature Pulse Rate 99 H 100 H 102 H Respiratory Rate 10 L 10 L 10 L Blood Pressure 124/65 123/58 L 161/81 H Pulse Oximetry 96 95 96 07/18/18 03:00 07/18/18 04:00 07/18/18 04:14 Temperature Pulse Rate 104 H 99 H 100 H Respiratory Rate 17 10 L 12 Blood Pressure 156/80 H 116/57 L Pulse Oximetry 94 L 94 L 07/18/18 05:00 07/18/18 05:01 07/18/18 06:00 Temperature 97.9 F Pulse Rate 108 H 109 H 109 H Respiratory Rate 12 12 12 Blood Pressure 140/69 140/69 142/63 H Pulse Oximetry 94 L 95 95 07/18/18 08:47 Temperature Pulse Rate 104 H Respiratory Rate 16 Blood Pressure Pulse Oximetry 98 Intake & Output 07/17/18 07/18/18 07/18/18 18:59 06:59 18:59 Intake Total 350 / 350 100 / 100 Output Total 800 / 800 100 / 100 Balance -450 / -450 0 / 0 Weight 104.5 kg Intake: IV 350 / 350 100 / 100 Diprivan 1000 mg/100 ml Inj 1, 200 / 200 000 mg In 100 ml @ 5 MCG/KG/MIN 3 mls/hr IV.CONT TITRATE PRN Rx#:[id number] Zosyn 2.25 GM Premix 50 ML @ 50 / 50 100 / 100 100 mls/hr IV.SIG Q8H [place] Rx#: [id number] Vancomycin Inj 500 MG In NS Inj 100 / 100 100 ML @ 250 mls/hr IV.SIG ONCE ONE Rx#:[id number] Output: Urine 100 / 100 Urine Amount (Catheter) 800 / 800 Indwelling Urethral Catheter 800 / 800 Other: Date of Last Bowel Movement 07/16/18 07/16/18 # Bowel Movements 0 Narrative: Physical Examination GENERAL: Patient is a well-nourished, well-developed male, awake and alert, not in respiratory distress. He is on nasal O2 SKIN: Cool and dry. No generalized rash, no ecchymoses and no evidence of embolic lesions. HEAD: Atraumatic. Normocephalic. No temporal wasting, or tenderness. EYES: [place] conjunctiva. No petechia or hemorrhage. Pupils equal, round and reactive to light. Extraocular movements full and intact. No scleral icterus. No injection or drainage. EARS, NOSE AND THROAT: Nose without bleeding or purulent nasal discharge. No sinus tenderness. Mucous membranes pink and moist. No oral lesions noted. No exudate. No oral thrush. NECK: Trachea midline. Supple and not tender, no meningeal signs CARDIOVASCULAR: Regular rate and rhythm. No murmurs, rubs or gallops heard RESPIRATORY: Clear to auscultation. Decreased at bases ABDOMEN: Soft, non-tender, nondistended. Bowel sounds present and normoactive. No guarding. No rebound. No organomegaly. PEG site looks ok EXTREMITIES: No clubbing, cyanosis, or edema. No joint effusion, has good ROM. No calf tenderness. Well perfused and warm. NEUROLOGICAL: Awake and alert. Cranial nerves grossly intact. PSYCHIATRIC: Normal affect, calm and cooperative. LINE: No evidence of infection Results - Labs CBC & Chem 7: 07/18/18 04:10 07/18/18 04:10 Labs: Laboratory Results - last 24 hr 07/16/18 07/17/18 07/17/18 17:20 12:20 17:42 WBC RBC Hgb Hct MCV MCH MCHC RDW Plt Count MPV Neut % (Auto) Lymph % (Auto) [place] % (Auto) Eos % (Auto) Baso % (Auto) Neut # (Auto) Lymph # (Auto) [place] # (Auto) Eos # (Auto) Baso # (Auto) WBC Differential Differential Comment Sodium Potassium Chloride Carbon Dioxide Anion Gap BUN Creatinine Estimated GFR POC Glucose 122 H 207 H Random Glucose Calcium Total Bilirubin AST ALT Alkaline Phosphatase Total Protein Albumin Urine Color Yellow Urine Clarity Cloudy H Urine pH 6.0 Ur Specific [place] 1.020 Urine Protein 30 H Urine Glucose (UA) Negative Urine Ketones Negative Urine Occult Blood Moderate H Urine Nitrate Positive H Urine Bilirubin Negative Urine Urobilinogen 0.2 Ur Leukocyte Esterase Large H Urine RBC 4-15 H Urine WBC Innumerable H Ur Squamous Epith Cells 0-5 Urine Bacteria Many H Urine Yeast Occasional H Ur Yeast w Hyphae Few H Micro UA Comment Cath-culture ind Urine Culture Comments Cath-cult indicated Random Vancomycin 07/17/18 07/18/18 07/18/18 23:53 04:10 04:10 WBC 12.4 H RBC 3.80 L Hgb 10.1 L Hct 33.1 L MCV 87.0 MCH 26.5 L MCHC 30.5 L RDW 17.0 Plt Count 261 MPV 9.0 Neut % (Auto) 97.1 H Lymph % (Auto) 1.6 L [place] % (Auto) 0.9 Eos % (Auto) 0.0 Baso % (Auto) 0.4 Neut # (Auto) 12.0 H Lymph # (Auto) 0.2 L [place] # (Auto) 0.1 Eos # (Auto) 0.0 Baso # (Auto) 0.1 WBC Differential . Differential Comment Auto diff final Sodium 137 Potassium 4.7 D Chloride 101 Carbon Dioxide 23.5 Anion Gap 13 BUN 62 H Creatinine 6.02 H Estimated GFR 10 L POC Glucose 216 H Random Glucose 195 H D Calcium 8.2 L Total Bilirubin 0.4 AST 12 L ALT 15 Alkaline Phosphatase 116 Total Protein 7.2 D Albumin 2.5 L Urine Color Urine Clarity Urine pH Ur Specific [place] Urine Protein Urine Glucose (UA) Urine Ketones Urine Occult Blood Urine Nitrate Urine Bilirubin Urine Urobilinogen Ur Leukocyte Esterase Urine RBC Urine WBC Ur Squamous Epith Cells Urine Bacteria Urine Yeast Ur Yeast w Hyphae Micro UA Comment Urine Culture Comments Random Vancomycin 21.0 07/18/18 05:03 WBC RBC Hgb Hct MCV MCH MCHC RDW Plt Count MPV Neut % (Auto) Lymph % (Auto) [place] % (Auto) Eos % (Auto) Baso % (Auto) Neut # (Auto) Lymph # (Auto) [place] # (Auto) Eos # (Auto) Baso # (Auto) WBC Differential Differential Comment Sodium Potassium Chloride Carbon Dioxide Anion Gap BUN Creatinine Estimated GFR POC Glucose 212 H Random Glucose Calcium Total Bilirubin AST ALT Alkaline Phosphatase Total Protein Albumin Urine Color Urine Clarity Urine pH Ur Specific [place] Urine Protein Urine Glucose (UA) Urine Ketones Urine Occult Blood Urine Nitrate Urine Bilirubin Urine Urobilinogen Ur Leukocyte Esterase Urine RBC Urine WBC Ur Squamous Epith Cells Urine Bacteria Urine Yeast Ur Yeast w Hyphae Micro UA Comment Urine Culture Comments Random Vancomycin - Imaging Abdomen X-Ray 07/16/18 12:30 CONCLUSION: Nonspecific, benign abdomen appearance. Abdomen/Pelvis CT 07/16/18 13:03 CONCLUSION: 1. No acute abnormality in the abdomen or pelvis. 2. Dense right basilar airspace consolidation and trace pleural effusions concerning for aspiration. 3. Gastrostomy catheter present and NGT in place. 4. 1.8 cm right adrenal mass which has slightly increased from 2011 CT scan measuring 1.4 cm. This was partially imaged on the chest CT exam and its visualized portions appeared to be stable. This can be further characterized with adrenal mass CT or MRI exam on an outpatient basis. Chest CTA 07/16/18 13:03 CONCLUSION: 1. No CT evidence for pulmonary artery embolism as questioned. 2. Dense bilateral lower lobe airspace consolidation with trace associated pleural effusions. Findings are concerning for aspiration. 3. Nonspecific right hilar and mediastinal nodes, as above. This may be reactive in etiology. 4. Probable 1.6 cm right adrenal mass that is incompletely imaged on this exam. Although indeterminate in density, this is unchanged from abdominal CT of 06/07/2011 and therefore likely benign. Chest X-Ray 07/16/18 15:55 CONCLUSION: 1. Stable chest x-ray with bibasilar atelectasis and/or consolidation. 2. Stable enlargement of the right hilum in this patient with previously documented right hilar lymphadenopathy. Head CT 07/17/18 00:00 CONCLUSION: 1. Atrophy. 2. Periventricular low attenuation change likely relating to chronic small vessel ischemic change. 3. Fluid throughout the nasal cavity and paranasal sinuses. Assessment and Plan - Plan Impression Pneumonia, likely aspiration S/P respiratory failure COPD, O2 dependent ESRD on HD MWF UTI, Enterobacter Recommendation Continue Zosyn Follow C/S Add Zyvox for GPC/MRSA coverage - follow CBC Monitor progress Will determine course of Rx once work-up is completed I will follow along with you Thank you for this consultation
--- NOTE | 2018-07-18 14:02 | P.DIET ---
Nutritional Evaluation Screening comments: MDC for TFing received 07/17. Pt has since been extubated and diet has been advanced. TFing order has also been cancelled. MDC completed. ReConsult RD if needed.
--- NOTE | 2018-07-18 14:36 | P.PNNP ---
Subjective Interval history: Patient is awake waiting to get his dialysis Physical Exam Vital signs: Vital Signs 07/17/18 15:00 07/17/18 15:31 07/17/18 16:00 Temperature 98.6 F Pulse Rate 96 H 102 H 99 H Respiratory Rate 16 14 16 Blood Pressure 173/87 H 137/67 Pulse Oximetry 100 99 100 07/17/18 17:00 07/17/18 18:00 07/17/18 19:00 Temperature 98.4 F Pulse Rate 93 H 99 H 96 H Respiratory Rate 16 17 11 L Blood Pressure 138/65 153/90 H 149/83 H Pulse Oximetry 100 100 97 07/17/18 20:00 07/17/18 20:35 07/17/18 21:00 Temperature Pulse Rate 97 H 96 H 110 H Respiratory Rate 14 14 8 L Blood Pressure 149/74 H 162/85 H Pulse Oximetry 96 97 95 07/17/18 22:00 07/17/18 23:00 07/18/18 00:00 Temperature Pulse Rate 108 H 102 H 99 H Respiratory Rate 18 13 10 L Blood Pressure 146/74 H 148/67 H 124/65 Pulse Oximetry 95 95 96 07/18/18 01:00 07/18/18 02:00 07/18/18 03:00 Temperature Pulse Rate 100 H 102 H 104 H Respiratory Rate 10 L 10 L 17 Blood Pressure 123/58 L 161/81 H 156/80 H Pulse Oximetry 95 96 94 L 07/18/18 04:00 07/18/18 04:14 07/18/18 05:00 Temperature Pulse Rate 99 H 100 H 108 H Respiratory Rate 10 L 12 12 Blood Pressure 116/57 L 140/69 Pulse Oximetry 94 L 94 L 07/18/18 05:01 07/18/18 06:00 07/18/18 07:00 Temperature 97.9 F 98.1 F Pulse Rate 109 H 109 H 105 H Respiratory Rate 12 12 12 Blood Pressure 140/69 142/63 H 137/59 L Pulse Oximetry 95 95 95 07/18/18 08:00 07/18/18 08:47 07/18/18 09:00 Temperature Pulse Rate 100 H 104 H 105 H Respiratory Rate 14 16 14 Blood Pressure 147/72 H 148/81 H Pulse Oximetry 96 98 96 07/18/18 10:00 07/18/18 11:00 07/18/18 12:00 Temperature 98.3 F Pulse Rate 106 H 104 H 90 Respiratory Rate 15 15 16 Blood Pressure 148/67 H 173/67 H 173/87 H Pulse Oximetry 93 L 95 96 Intake & Output 07/17/18 07/18/18 07/18/18 18:59 06:59 18:59 Intake Total 350 / 350 100 / 100 Output Total 800 / 800 100 / 100 Balance -450 / -450 0 / 0 Weight 104.5 kg Intake: IV 350 / 350 100 / 100 Diprivan 1000 mg/100 ml Inj 1, 200 / 200 000 mg In 100 ml @ 5 MCG/KG/MIN 3 mls/hr IV.CONT TITRATE PRN Rx#:[id number] Zosyn 2.25 GM Premix 50 ML @ 50 / 50 100 / 100 100 mls/hr IV.SIG Q8H [facility] Rx#: [id number] Vancomycin Inj 500 MG In NS Inj 100 / 100 100 ML @ 250 mls/hr IV.SIG ONCE ONE Rx#:[id number] Output: Urine 100 / 100 Urine Amount (Catheter) 800 / 800 Indwelling Urethral Catheter 800 / 800 Other: Date of Last Bowel Movement 07/16/18 07/16/18 07/16/18 # Bowel Movements 0 - Constitutional no acute distress - Routine HEENT Exam Eye: Present: PERRL - Routine Respiratory Exam Present: rhonchi, crackles - Routine Cardiovascular Exam Present: RRR - Routine Abdominal Exam Present: soft, normoactive bowel sounds - Routine Extremities Exam Present: pulses intact - Urinary Catheter Management Indwelling Urethral Catheter Cath placed during this visit: yes Reason for continuing: Other continuation reason Insertion date: 07/16/18 Insertion time: 17:30 Assessment and Plan - Assessment (1) End stage renal disease Code(s): N18.6 - End stage renal disease Status: Acute (2) Acute hypercapnic respiratory failure Code(s): J96.02 - Acute respiratory failure with hypercapnia Status: Acute (3) Pneumonia Code(s): J18.9 - Pneumonia, unspecified organism Status: Acute (4) Encephalopathy Code(s): G93.40 - Encephalopathy, unspecified Status: Acute (5) Septic shock Code(s): A41.9 - Sepsis, unspecified organism; R65.21 - Severe sepsis with septic shock Status: Acute (6) Sepsis Code(s): A41.9 - Sepsis, unspecified organism Status: Acute - Plan Hemodialysis this afternoon then On Monday Source of sepsis appears to be UTI is going gram-negative rods Enterobacter He also has pneumonia on CT scan Once stable and discharged and then follow-up with Dr. Rao 1500: patient was seen during hemodialysis
--- NOTE | 2018-07-18 16:19 | P.PNIM ---
Subjective Interval history: Patient sitting up in bed. Appears comfortable. Says he is feeling much better. Denies any chest pain. Reports shortness of breath much improved. He says that he is able to eat all right, and denies any aspiration episodes. Physical Exam Vital signs: Vital Signs 07/17/18 17:00 07/17/18 18:00 07/17/18 19:00 Temperature 98.4 F Pulse Rate 93 H 99 H 96 H Respiratory Rate 16 17 11 L Blood Pressure 138/65 153/90 H 149/83 H Pulse Oximetry 100 100 97 07/17/18 20:00 07/17/18 20:35 07/17/18 21:00 Temperature Pulse Rate 97 H 96 H 110 H Respiratory Rate 14 14 8 L Blood Pressure 149/74 H 162/85 H Pulse Oximetry 96 97 95 07/17/18 22:00 07/17/18 23:00 07/18/18 00:00 Temperature Pulse Rate 108 H 102 H 99 H Respiratory Rate 18 13 10 L Blood Pressure 146/74 H 148/67 H 124/65 Pulse Oximetry 95 95 96 07/18/18 01:00 07/18/18 02:00 07/18/18 03:00 Temperature Pulse Rate 100 H 102 H 104 H Respiratory Rate 10 L 10 L 17 Blood Pressure 123/58 L 161/81 H 156/80 H Pulse Oximetry 95 96 94 L 07/18/18 04:00 07/18/18 04:14 07/18/18 05:00 Temperature Pulse Rate 99 H 100 H 108 H Respiratory Rate 10 L 12 12 Blood Pressure 116/57 L 140/69 Pulse Oximetry 94 L 94 L 07/18/18 05:01 07/18/18 06:00 07/18/18 07:00 Temperature 97.9 F 98.1 F Pulse Rate 109 H 109 H 105 H Respiratory Rate 12 12 12 Blood Pressure 140/69 142/63 H 137/59 L Pulse Oximetry 95 95 95 07/18/18 08:00 07/18/18 08:47 07/18/18 09:00 Temperature Pulse Rate 100 H 104 H 105 H Respiratory Rate 14 16 14 Blood Pressure 147/72 H 148/81 H Pulse Oximetry 96 98 96 07/18/18 10:00 07/18/18 11:00 07/18/18 12:00 Temperature 98.3 F Pulse Rate 106 H 104 H 90 Respiratory Rate 15 15 16 Blood Pressure 148/67 H 173/67 H 173/87 H Pulse Oximetry 93 L 95 96 07/18/18 13:00 07/18/18 14:00 07/18/18 14:40 Temperature Pulse Rate 103 H 96 H 107 H Respiratory Rate 16 16 16 Blood Pressure 156/86 H 168/83 H Pulse Oximetry 97 98 07/18/18 15:00 Temperature Pulse Rate 108 H Respiratory Rate 16 Blood Pressure 138/69 Pulse Oximetry 97 Intake & Output 07/17/18 07/18/18 07/18/18 18:59 06:59 18:59 Intake Total 350 / 350 100 / 100 Output Total 800 / 800 100 / 100 Balance -450 / -450 0 / 0 Weight 104.5 kg Intake: IV 350 / 350 100 / 100 Diprivan 1000 mg/100 ml Inj 1, 200 / 200 000 mg In 100 ml @ 5 MCG/KG/MIN 3 mls/hr IV.CONT TITRATE PRN Rx#:[id number] Zosyn 2.25 GM Premix 50 ML @ 50 / 50 100 / 100 100 mls/hr IV.SIG Q8H [facility] Rx#: [id number] Vancomycin Inj 500 MG In NS Inj 100 / 100 100 ML @ 250 mls/hr IV.SIG ONCE ONE Rx#:[id number] Output: Urine 100 / 100 Urine Amount (Catheter) 800 / 800 Indwelling Urethral Catheter 800 / 800 Other: Date of Last Bowel Movement 07/16/18 07/16/18 07/16/18 # Bowel Movements 0 Narrative: GENERAL: Patient sitting up in bed. Appears comfortable. SKIN: Warm and dry. HEAD: Normocephalic. EYES: No scleral icterus. No injection or drainage. NECK: Supple, trachea midline. No JVD or lymphadenopathy. CARDIOVASCULAR: Regular rate and rhythm without murmurs, gallops, or rubs. RESPIRATORY: Breath sounds equal bilaterally. No accessory muscle use.rhonchi bilaterally. GASTROINTESTINAL: Abdomen soft, non-tender, nondistended. MUSCULOSKELETAL: No cyanosis, or edema. BACK: Nontender without obvious deformity. No CVA tenderness. - Urinary Catheter Management Indwelling Urethral Catheter Cath placed during this visit: yes Reason for continuing: Other continuation reason Insertion date: 07/16/18 Insertion time: 17:30 Results - Labs CBC & Chem 7: 07/18/18 04:10 07/18/18 04:10 Laboratory Results - last 24 hr 07/17/18 07/17/18 07/18/18 17:42 23:53 04:10 WBC RBC Hgb Hct MCV MCH MCHC RDW Plt Count MPV Neut % (Auto) Lymph % (Auto) [place] % (Auto) Eos % (Auto) Baso % (Auto) Neut # (Auto) Lymph # (Auto) [place] # (Auto) Eos # (Auto) Baso # (Auto) WBC Differential Differential Comment Sodium 137 Potassium 4.7 D Chloride 101 Carbon Dioxide 23.5 Anion Gap 13 BUN 62 H Creatinine 6.02 H Estimated GFR 10 L POC Glucose 207 H 216 H Random Glucose 195 H D Calcium 8.2 L Total Bilirubin 0.4 AST 12 L ALT 15 Alkaline Phosphatase 116 Total Protein 7.2 D Albumin 2.5 L Random Vancomycin 21.0 07/18/18 07/18/18 07/18/18 04:10 05:03 12:27 WBC 12.4 H RBC 3.80 L Hgb 10.1 L Hct 33.1 L MCV 87.0 MCH 26.5 L MCHC 30.5 L RDW 17.0 Plt Count 261 MPV 9.0 Neut % (Auto) 97.1 H Lymph % (Auto) 1.6 L [place] % (Auto) 0.9 Eos % (Auto) 0.0 Baso % (Auto) 0.4 Neut # (Auto) 12.0 H Lymph # (Auto) 0.2 L [place] # (Auto) 0.1 Eos # (Auto) 0.0 Baso # (Auto) 0.1 WBC Differential . Differential Comment Auto diff final Sodium Potassium Chloride Carbon Dioxide Anion Gap BUN Creatinine Estimated GFR POC Glucose 212 H 224 H Random Glucose Calcium Total Bilirubin AST ALT Alkaline Phosphatase Total Protein Albumin Random Vancomycin Microbiology 07/17/18 06:14 Sputum - Endotracheal Gram Stain - Final 07/17/18 06:14 Sputum - Endotracheal Sputum Culture - Preliminary gram negative rods 07/16/18 12:10 Blood - Peripheral Aerobic Blood Culture - Preliminary No growth in 2 days 07/16/18 12:10 Blood - Peripheral Anaerobic Blood Culture - Preliminary No growth in 2 days 07/16/18 12:00 Blood - Peripheral Aerobic Blood Culture - Preliminary No growth in 2 days 07/16/18 12:00 Blood - Peripheral Anaerobic Blood Culture - Preliminary No growth in 2 days 07/16/18 17:20 Catheterized Urine Urine Culture - Final Enterobacter cloacae Assessment and Plan - Plan // Acute on chronic hypercapnic and hypoxic respiratory failure -patient with multiple history of intubations and previous trach, last intubation approximately 2 months ago //Acute COPD exacerbation. //Bibasilar pneumonia. // Suspected aspiration pneumonia. //Septic shock. Shock is resolved, however still with sepsis. = Slow improvement. White blood cell count 12.4. Still tachycardic. Continue IV steroids, nebs, antibiotics to cover gram negatives, gram-positive, anaerobes.. Consult pulmonology. // Septic shock -now resolved, off pressors //Toxic metabolic encephalopathy likely in the setting of hypercapniaimproving // End-stage renal disease on hemodialysis = Nephrology following for dialysis. Appreciate assistance. //Chronic aspiration status post PEG tube placement = Cleared by speech therapy for diet. Will monitor closely. Appreciate pulmonary input. Discharge Planning: Likely need SNF.
--- NOTE | 2018-07-18 20:37 | MB ---
cc: Delfin Thornton MD DATE: 07/18/2018 REASON FOR CONSULTATION: Pneumonia and respiratory insufficiency. HISTORY OF PRESENT ILLNESS: This is a 57-year-old man who has a past history of end-stage renal disease, on dialysis, and a past history for hypertension as well as diabetes mellitus, who has been admitted with decreased consciousness and cardiorespiratory arrest at the dialysis center. The patient apparently was found to be briefly unconscious at the dialysis center and lost his pulses. The ambulance was called in and the patient was noted to be confused at the time and his pulses were palpable, but he had to be started on pressors briefly and subsequently transferred to the emergency room. A CT chest was done in the ER which showed no evidence of pulmonary emboli but had some basilar consolidation and possible aspiration. The patient was treated for sepsis and pneumonia and had been on oxygen via a nonrebreather and subsequently switched to nasal cannula. He denied any coughing spells or trouble swallowing. The patient in the past, however, has had a tracheostomy and a PEG tube placed following respiratory failure several months ago. The patient presently is on a nasal cannula at 3 liters and maintaining a saturation of 96%. He denies any chest pains. He has no nausea, vomiting. He denies any abdominal complaints. No fevers or chills. PAST MEDICAL HISTORY: Includes a right thoracotomy and decortication for a loculated effusion, history of resection of the right lung, previous history for empyema and 2011. Also, he has had a history of pneumonia in the past and has a history of diabetes and hypertension, as mentioned before. He also has end-stage renal disease, on hemodialysis every other day. HABITS: The patient never smoked. Alcohol use, occasional. ALLERGIES: SEROQUEL AND HEPARIN. HE APPARENTLY BLEEDS A LOT WITH HEPARIN. MEDICATIONS: List was reviewed from the chart. The patient is on antibiotic coverage including Zosyn and vancomycin. He is also on Solu-Medrol 40 mg and is on nebulized albuterol solution. REVIEW OF SYSTEMS: The patient has gained weight. He has skin ulcers and trouble ambulating. He has back pain. He denies any abdominal pains. He denies any urinary symptoms. He did have altered mental status with a transient syncopal episode. He has no depression or anxiety. PHYSICAL EXAMINATION: GENERAL: This is an averagely built, middle-aged white male who is alert, pale, in no acute distress. He is on oxygen. VITAL SIGNS: Blood pressure 130/70, pulse 80, respirations 16, temperature 97.2. HEENT: Head is normocephalic. Pupils are reactive. Tongue is moist. Throat is injected. Nasal mucosa is clear. NECK: Supple. No bruits, thyroid enlargement or lymphadenopathy. There is a scar of a previous tracheostomy noted. CHEST: Equal movements with coarse wheezes bilaterally with crackles at the lung bases. HEART: Tones are irregular. S1 and S2 with no definite murmur. ABDOMEN: Soft and obese with mild epigastric tenderness. No organomegaly. Bowel sounds are active. EXTREMITIES: Reveal mild edema with decreased peripheral pulses and skin has ulcerations in the dependent areas. Peripheral pulses are slightly diminished. NEUROLOGIC: The patient is alert and oriented and does move his extremities to command. Cranial nerves are grossly intact. IMPRESSION: 1. Bibasilar pneumonia with hypoxemia. 2. Probable aspiration pneumonia. 3. Sepsis and shock, resolved. 4. End-stage renal disease, on hemodialysis. 5. Diabetes mellitus. 6. History of hypertension. PLAN: The patient will be maintained on O2 at 3 liters nasal cannula. We will get a swallow evaluation to evaluate him for aspiration and see if he qualifies for a PEG tube. Also, continue with dialysis as ordered. Incentive spirometry will be given every 2 hours and EzPAP with DuoNeb solution q.i.d. Continue with antibiotic therapy per the infectious disease service. Followup chest x-ray to be done in a.m. BiPAP will be used at night if he does desaturate below 92%. Thank you for this consultation. MD DAI Guzman/ebony , 07:31 PM , 07:45 PM
[2018-07-19] MEDS: Chlorhexidine Gluconate 2% 1 Pack (2 Cloths) TOPICAL SCH (05:25)
[2018-07-19] MEDS: Piperacil/Tazo 2.25 GM Premix 50 ML IV.SIG SCH ×3 (05:25→22:04)
[2018-07-19] MEDS: Insulin NovoLIN Regular Correctional Sugar Inj SQ SCH ×4 (05:32→17:53)
--- NOTE | 2018-07-19 06:27 | XR ---
EXAM DATE: 07/19/2018 5:40 AM EDT AGE/SEX: 57 years / Male INDICATIONS: Shortness of breath, possible pulmonary disease. CLINICAL DATA: This is the patient's subsequent encounter. Patient reports that signs and symptoms h ave been present for 3 days and indicates a pain score of Nonresponsive. MEDICAL/SURGICAL HISTORY: Hypertension. Diabetes mellitus type II. None. COMPARISON: [facility], CHEST 1V SINGLE AP, 07/16/2018. . FINDINGS: A single AP view of the chest demonstrates a right-sided dialysis catheter. Cardiomegaly with pulmona ry vascular engorgement. No effusions. Airspace consolidation seen within both bases particularly on the left. Appearance is stable. CONCLUSION: Stable exam as detailed above. Electronically signed by: Eddie Billingsley MD 07/19/2018 6:26 AM EDT
[2018-07-19 07:15] LABS: Baso % (Auto) 0.3 % (0.0-2.0); Hematocrit 32.3 % (39.0-51.0); Hemoglobin 10.1 gm/dL (13.0-17.0); Lymph # (Auto) 0.2 th/mm3 (1.0-4.8); Mean Corpuscular HGB Conc 31.3 % (32.0-36.0); Mean Corpuscular Hemoglobin 26.7 pg (27.0-34.0); Mean Corpuscular Volume 85.4 fL (80.0-100.0); Mean Platelet Volume 8.4 fL (7.0-11.0); Mono # (Auto) 0.5 th/mm3 (0.0-0.9); Mono % (Auto) 4.6 % (0.0-8.0); Neut # (Auto) 10.7 th/mm3 (1.8-7.7); Neut % (Auto) 93.1 % (16.0-70.0); Platelet Count 245 th/mm3 (150-450); Red Blood Count 3.78 mil/mm3 (4.50-5.90); White Blood Count 11.5 th/mm3 (4.0-11.0)
[2018-07-19 07:40] LABS: Alanine Aminotransferase 13 U/L (12-78); Albumin 2.7 g/dL (3.4-5.0); Alkaline Phosphatase 98 U/L (45-117); Anion Gap 13 meq/L (5-15); Aspartate Aminotransferase 4 U/L (15-37); Blood Urea Nitrogen 41 mg/dL (7-18); Calcium 8.2 mg/dL (8.5-10.1); Carbon Dioxide 26.9 meq/L (21.0-32.0); Chloride 100 meq/L (98-107); Glomerular Filtration Rate 15 mL/min (>89); Glucose,Random 204 mg/dL (74-106); Potassium 3.6 meq/L (3.5-5.1); Sodium 140 meq/L (136-145); Total Protein 7.4 g/dL (6.4-8.2); Vancomycin,Random 18.9 Comment
[2018-07-19] MEDS: MethylPREDNISolone Sod Succinate Inj 40 MG/ML Vial IV.PUSH SCH ×2 (08:39→20:11)
[2018-07-19] MEDS: Famotidine PF Inj 20 MG/2 ML Vial IV.PUSH SCH ×2 (08:39→20:10)
[2018-07-19] MEDS: Senna/Docusate Sodium 8.6/50 MG Tablet PO SCH ×2 (08:40→20:10)
--- NOTE | 2018-07-19 14:24 | P.PNID ---
Subjective Remarks: Patient is a 57-year-old male, brought into the hospital after he was noted to have altered mental status, with decreased level of consciousness at the dialysis center. He apparently lost pulses and CPR was started with return of his pulses. EMS was called and at that time he was found to have pulses. He was noted to be confused. His blood sugars were okay. In the ED he was hypotensive, and was on Levophed briefly. He ended up getting intubated. CT of the abdomen and pelvis showed the known adrenal mass with slight increase in size. CT of the chest did not show any PE but it showed dense bibasilar consolidation. Patient stated that he was at [facility] about 5 months ago and at that time he had pneumonia. He went to a rehab facility and at the rehab he has not really been doing any ambulation. He gets transferred to a wheelchair. He has known COPD, and chronically on oxygen. Patient states he has a chronic cough and brings up some clear phlegm. He has not really noted any increase in his cough or change in the color of his sputum. He denies any chest pain. He was extubated yesterday, and currently denies any shortness of breath. He is on nasal O2 with good oxygen saturation. Patient denies any problem with nausea or vomiting, or any swallowing difficulty. He has not had any choking episodes. During his hospitalization at [facility], he had a PEG tube placed, but the patient stated that they have not been using the tube for nutrition, and he has been taking nutrition orally. He has not been for febrile since admission. His hemodynamics are stable. Patient also had a history of right empyema back in 2010, requiring a right thoracotomy, decortication and pleurectomy, and a right lung wedge resection. Records mentioned that he has had problem with aspiration. Infectious disease consultation has been requested to assist with management of recurrent pneumonia. Notes reviewed Temps ok On nasal O2 Mental status seem to be back to baseline UC witn Enterobacter Sputum with PSAE CXR stable infiltrates Had HD yesterday Antibiotics: Zosyn Past Medical History: Diabetes ESRD (end stage renal disease) on dialysis Empyema lung HTN (hypertension) Renal disease Status post thoracotomy Allergies/Adverse Reactions: Allergies heparin Allergy (Severe, Verified 07/16/18 13:23) Bleeding quetiapine [From Seroquel] Allergy (Intermediate, Verified 07/16/18 13:23) Shakiness Objective Vital Signs 07/18/18 14:40 07/18/18 15:00 07/18/18 16:00 Temperature 98.4 F Pulse Rate 107 H 108 H 100 H Respiratory Rate 16 16 17 Blood Pressure 138/69 106/66 Pulse Oximetry 97 95 07/18/18 17:00 07/18/18 18:00 07/18/18 19:00 Temperature Pulse Rate 106 H 97 H 106 H Respiratory Rate 16 18 15 Blood Pressure 127/77 136/68 124/68 Pulse Oximetry 94 L 98 98 07/18/18 20:00 07/18/18 21:00 07/18/18 22:00 Temperature Pulse Rate 100 H 97 H 108 H Respiratory Rate 15 24 16 Blood Pressure 132/87 146/78 H 150/73 H Pulse Oximetry 98 98 98 07/18/18 23:00 07/18/18 23:19 07/19/18 00:00 Temperature Pulse Rate 93 H 98 H 103 H Respiratory Rate 17 22 17 Blood Pressure 139/76 138/70 Pulse Oximetry 96 97 96 07/19/18 01:00 07/19/18 02:00 07/19/18 03:00 Temperature Pulse Rate 100 H 102 H 99 H Respiratory Rate 13 12 10 L Blood Pressure 134/71 128/69 111/68 Pulse Oximetry 95 96 96 07/19/18 03:52 07/19/18 04:00 07/19/18 05:00 Temperature Pulse Rate 93 H 99 H 103 H Respiratory Rate 22 19 14 Blood Pressure 127/60 128/66 Pulse Oximetry 98 98 07/19/18 06:00 07/19/18 07:00 07/19/18 08:00 Temperature 97.8 F 98.4 F Pulse Rate 103 H 102 H 95 H Respiratory Rate 29 H 11 L 15 Blood Pressure 135/73 121/58 L 133/69 Pulse Oximetry 96 97 97 07/19/18 08:25 07/19/18 09:00 07/19/18 10:00 Temperature Pulse Rate 94 H 95 H Respiratory Rate 15 18 Blood Pressure 155/84 H 151/80 H Pulse Oximetry 95 98 98 07/19/18 11:00 07/19/18 12:00 07/19/18 13:00 Temperature 98.2 F Pulse Rate 98 H 96 H 98 H Respiratory Rate 16 15 19 Blood Pressure 178/99 H 141/69 H 135/87 Pulse Oximetry 99 98 98 Intake & Output 07/18/18 07/19/18 07/19/18 18:59 06:59 18:59 Intake Total 290 / 290 150 / 150 Output Total 3050 / 3050 75 / 75 Balance -2760 / -2760 75 / 75 Weight 99.5 kg Intake: IV 50 / 50 50 / 50 Zosyn 2.25 GM Premix 50 ML @ 50 / 50 50 / 50 100 mls/hr IV.SIG Q8H [facility] Rx#: [id number] Oral 240 / 240 100 / 100 Output: Hemodialysis Amount 3000 / 3000 Urine Amount (Catheter) 50 50 75 / 75 Indwelling Urethral Catheter 50 50 75 / 75 Other: Date of Last Bowel Movement 07/16/18 07/16/18 07/16/18 07/16/18 12:10 Blood - Peripheral Aerobic Blood Culture - Preliminary No growth in 3 days 07/16/18 12:10 Blood - Peripheral Anaerobic Blood Culture - Preliminary No growth in 3 days 07/16/18 12:00 Blood - Peripheral Aerobic Blood Culture - Preliminary No growth in 3 days 07/16/18 12:00 Blood - Peripheral Anaerobic Blood Culture - Preliminary No growth in 3 days 07/17/18 06:14 Sputum - Endotracheal Gram Stain - Final 07/17/18 06:14 Sputum - Endotracheal Sputum Culture - Final Pseudomonas aeruginosa 07/16/18 17:20 Catheterized Urine Urine Culture - Final Enterobacter cloacae Lab - Hematology Results 07/18/18 07/19/18 04:10 05:48 WBC 12.4 H 11.5 H RBC 3.80 L 3.78 L Hgb 10.1 L 10.1 L Hct 33.1 L 32.3 L MCV 87.0 85.4 MCH 26.5 L 26.7 L MCHC 30.5 L 31.3 L RDW 17.0 17.0 Plt Count 261 245 MPV 9.0 8.4 Neut % (Auto) 97.1 H 93.1 H Lymph % (Auto) 1.6 L 2.0 L [place] % (Auto) 0.9 4.6 Eos % (Auto) 0.0 0.0 Baso % (Auto) 0.4 0.3 Neut # (Auto) 12.0 H 10.7 H Lymph # (Auto) 0.2 L 0.2 L [place] # (Auto) 0.1 0.5 Eos # (Auto) 0.0 0.0 Baso # (Auto) 0.1 0.0 WBC Differential . . Differential Comment Auto diff final Auto diff final Lab - Chemistry Results 07/17/18 07/17/18 07/18/18 17:42 23:53 04:10 Sodium 137 Potassium 4.7 D Chloride 101 Carbon Dioxide 23.5 Anion Gap 13 BUN 62 H Creatinine 6.02 H Estimated GFR 10 L POC Glucose 207 H 216 H Random Glucose 195 H D Calcium 8.2 L Total Bilirubin 0.4 AST 12 L ALT 15 Alkaline Phosphatase 116 Total Protein 7.2 D Albumin 2.5 L 07/18/18 07/18/18 07/18/18 05:03 12:27 17:43 Sodium Potassium Chloride Carbon Dioxide Anion Gap BUN Creatinine Estimated GFR POC Glucose 212 H 224 H 166 H Random Glucose Calcium Total Bilirubin AST ALT Alkaline Phosphatase Total Protein Albumin 07/18/18 07/19/18 07/19/18 23:53 05:48 12:02 Sodium 140 Potassium 3.6 D Chloride 100 Carbon Dioxide 26.9 Anion Gap 13 BUN 41 H Creatinine 4.08 H Estimated GFR 15 L POC Glucose 208 H 270 H Random Glucose 204 H Calcium 8.2 L Total Bilirubin 0.3 AST 4 L ALT 13 Alkaline Phosphatase 98 Total Protein 7.4 Albumin 2.7 L Imaging: ITS Impressions Abdomen X-Ray 07/16/18 12:30 CONCLUSION: Nonspecific, benign abdomen appearance. Abdomen/Pelvis CT 07/16/18 13:03 CONCLUSION: 1. No acute abnormality in the abdomen or pelvis. 2. Dense right basilar airspace consolidation and trace pleural effusions concerning for aspiration. 3. Gastrostomy catheter present and NGT in place. 4. 1.8 cm right adrenal mass which has slightly increased from 2011 CT scan measuring 1.4 cm. This was partially imaged on the chest CT exam and its visualized portions appeared to be stable. This can be further characterized with adrenal mass CT or MRI exam on an outpatient basis. Chest CTA 07/16/18 13:03 CONCLUSION: 1. No CT evidence for pulmonary artery embolism as questioned. 2. Dense bilateral lower lobe airspace consolidation with trace associated pleural effusions. Findings are concerning for aspiration. 3. Nonspecific right hilar and mediastinal nodes, as above. This may be reactive in etiology. 4. Probable 1.6 cm right adrenal mass that is incompletely imaged on this exam. Although indeterminate in density, this is unchanged from abdominal CT of 06/07/2011 and therefore likely benign. Head CT 07/17/18 00:00 CONCLUSION: 1. Atrophy. 2. Periventricular low attenuation change likely relating to chronic small vessel ischemic change. 3. Fluid throughout the nasal cavity and paranasal sinuses. . Chest X-Ray 07/19/18 00:00 CONCLUSION: Stable exam as detailed above. Physical Exam: GENERAL: awake and alert, not in respiratory distress. He is on nasal O2 SKIN: Cool and dry. No generalized rash, no ecchymoses and no evidence of embolic lesions. HEAD: Atraumatic. Normocephalic. No temporal wasting, or tenderness. EYES: [place] conjunctiva. No petechia or hemorrhage. Pupils equal, round and reactive to light. Extraocular movements full and intact. No scleral icterus. No injection or drainage. EARS, NOSE AND THROAT: Nose without bleeding or purulent nasal discharge. No sinus tenderness. Mucous membranes pink and moist. No oral lesions noted. NECK: Trachea midline. Supple and not tender, no meningeal signs CARDIOVASCULAR: Regular rate and rhythm. No murmurs, rubs or gallops heard RESPIRATORY: Clear to auscultation. Decreased at bases ABDOMEN: Soft, non-tender, nondistended. Bowel sounds present and normoactive. No guarding. No rebound. No organomegaly. PEG site looks ok EXTREMITIES: No clubbing, cyanosis, or edema. No joint effusion, has good ROM. No calf tenderness. Well perfused and warm. NEUROLOGICAL: Awake and alert. Cranial nerves grossly intact. PSYCHIATRIC: Normal affect, calm and cooperative. LINE: No evidence of infection Assessment and Plan - Plan Impression Pneumonia, likely aspiration S/P respiratory failure COPD, O2 dependent ESRD on HD MWF UTI, Enterobacter Recommendation Continue Zosyn Follow C/S Monitor progress Will determine course of Rx once work-up is completed
--- NOTE | 2018-07-19 15:24 | P.PNIM ---
Subjective Interval history: Patient says he is feeling much better today. Denies any chest pain. Reports shortness of breath is improving. Patient able to tell me today that he has had difficulty with reflux of solid foods such as steak over the past few months , however able to eat ground meats. Patient has a PEG tube, however refuses to use this. He denies any reflux today. He denies remembering what happened prior to admission. Physical Exam Vital signs: Vital Signs 07/18/18 16:00 07/18/18 17:00 07/18/18 18:00 Temperature 98.4 F Pulse Rate 100 H 106 H 97 H Respiratory Rate 17 16 18 Blood Pressure 106/66 127/77 136/68 Pulse Oximetry 95 94 L 98 07/18/18 19:00 07/18/18 20:00 07/18/18 21:00 Temperature Pulse Rate 106 H 100 H 97 H Respiratory Rate 15 15 24 Blood Pressure 124/68 132/87 146/78 H Pulse Oximetry 98 98 98 07/18/18 22:00 07/18/18 23:00 07/18/18 23:19 Temperature Pulse Rate 108 H 93 H 98 H Respiratory Rate 16 17 22 Blood Pressure 150/73 H 139/76 Pulse Oximetry 98 96 97 07/19/18 00:00 07/19/18 01:00 07/19/18 02:00 Temperature Pulse Rate 103 H 100 H 102 H Respiratory Rate 17 13 12 Blood Pressure 138/70 134/71 128/69 Pulse Oximetry 96 95 96 07/19/18 03:00 07/19/18 03:52 07/19/18 04:00 Temperature Pulse Rate 99 H 93 H 99 H Respiratory Rate 10 L 22 19 Blood Pressure 111/68 127/60 Pulse Oximetry 96 98 07/19/18 05:00 07/19/18 06:00 07/19/18 07:00 Temperature 97.8 F Pulse Rate 103 H 103 H 102 H Respiratory Rate 14 29 H 11 L Blood Pressure 128/66 135/73 121/58 L Pulse Oximetry 98 96 97 07/19/18 08:00 07/19/18 08:25 07/19/18 09:00 Temperature 98.4 F Pulse Rate 95 H 94 H Respiratory Rate 15 15 Blood Pressure 133/69 155/84 H Pulse Oximetry 97 95 98 07/19/18 10:00 07/19/18 11:00 07/19/18 12:00 Temperature 98.2 F Pulse Rate 95 H 98 H 96 H Respiratory Rate 18 16 15 Blood Pressure 151/80 H 178/99 H 141/69 H Pulse Oximetry 98 99 98 07/19/18 13:00 Temperature Pulse Rate 98 H Respiratory Rate 19 Blood Pressure 135/87 Pulse Oximetry 98 Intake & Output 07/18/18 07/19/18 07/19/18 18:59 06:59 18:59 Intake Total 290 / 290 150 / 150 Output Total 3050 / 3050 75 / 75 Balance -2760 / -2760 75 / 75 Weight 99.5 kg Intake: IV 50 / 50 50 / 50 Zosyn 2.25 GM Premix 50 ML @ 50 / 50 50 / 50 100 mls/hr IV.SIG Q8H YOVANA Rx#: [id number] Oral 240 / 240 100 / 100 Output: Hemodialysis Amount 3000 / 3000 Urine Amount (Catheter) 50 / 50 75 / 75 Indwelling Urethral Catheter 50 / 50 75 / 75 Other: Date of Last Bowel Movement 07/16/18 07/16/18 07/16/18 Narrative: GENERAL: Patient sitting up in bed. Appears comfortable. Alert and oriented 3. SKIN: Warm and dry. HEAD: Normocephalic. EYES: No scleral icterus. No injection or drainage. NECK: Supple, trachea midline. No JVD or lymphadenopathy. CARDIOVASCULAR: Regular rate and rhythm without murmurs, gallops, or rubs. RESPIRATORY: Breath sounds equal bilaterally. No accessory muscle use.rhonchi bilaterally. GASTROINTESTINAL: Abdomen soft, non-tender, nondistended. MUSCULOSKELETAL: No cyanosis, or edema. BACK: Nontender without obvious deformity. No CVA tenderness. - Urinary Catheter Management Indwelling Urethral Catheter Cath placed during this visit: yes Reason for continuing: Other continuation reason Insertion date: 07/16/18 Insertion time: 17:30 Results - Labs CBC & Chem 7: 07/19/18 05:48 07/19/18 05:48 Laboratory Results - last 24 hr 07/18/18 07/18/18 07/19/18 17:43 23:53 05:48 WBC RBC Hgb Hct MCV MCH MCHC RDW Plt Count MPV Neut % (Auto) Lymph % (Auto) [place] % (Auto) Eos % (Auto) Baso % (Auto) Neut # (Auto) Lymph # (Auto) [place] # (Auto) Eos # (Auto) Baso # (Auto) WBC Differential Differential Comment Sodium 140 Potassium 3.6 D Chloride 100 Carbon Dioxide 26.9 Anion Gap 13 BUN 41 H Creatinine 4.08 H Estimated GFR 15 L POC Glucose 166 H 208 H Random Glucose 204 H Calcium 8.2 L Total Bilirubin 0.3 AST 4 L ALT 13 Alkaline Phosphatase 98 Total Protein 7.4 Albumin 2.7 L Random Vancomycin 18.9 07/19/18 07/19/18 05:48 12:02 WBC 11.5 H RBC 3.78 L Hgb 10.1 L Hct 32.3 L MCV 85.4 MCH 26.7 L MCHC 31.3 L RDW 17.0 Plt Count 245 MPV 8.4 Neut % (Auto) 93.1 H Lymph % (Auto) 2.0 L [place] % (Auto) 4.6 Eos % (Auto) 0.0 Baso % (Auto) 0.3 Neut # (Auto) 10.7 H Lymph # (Auto) 0.2 L [place] # (Auto) 0.5 Eos # (Auto) 0.0 Baso # (Auto) 0.0 WBC Differential . Differential Comment Auto diff final Sodium Potassium Chloride Carbon Dioxide Anion Gap BUN Creatinine Estimated GFR POC Glucose 270 H Random Glucose Calcium Total Bilirubin AST ALT Alkaline Phosphatase Total Protein Albumin Random Vancomycin Microbiology 07/16/18 12:10 Blood - Peripheral Aerobic Blood Culture - Preliminary No growth in 3 days 07/16/18 12:10 Blood - Peripheral Anaerobic Blood Culture - Preliminary No growth in 3 days 07/16/18 12:00 Blood - Peripheral Aerobic Blood Culture - Preliminary No growth in 3 days 07/16/18 12:00 Blood - Peripheral Anaerobic Blood Culture - Preliminary No growth in 3 days 07/17/18 06:14 Sputum - Endotracheal Gram Stain - Final 07/17/18 06:14 Sputum - Endotracheal Sputum Culture - Final Pseudomonas aeruginosa - Imaging Impressions Chest X-Ray 07/19/18 00:00 CONCLUSION: Stable exam as detailed above. Assessment and Plan - Plan // Acute on chronic hypercapnic and hypoxic respiratory failure -patient with multiple history of intubations and previous trach, last intubation approximately 2 months ago //Acute COPD exacerbation. //Bibasilar pneumonia. // Suspected aspiration pneumonia. //Septic shock. Shock is resolved, however still with sepsis. = Slow improvement. White blood cell count 12.4. Still tachycardic. Continue IV steroids, nebs, antibiotics to cover gram negatives, gram-positive, anaerobes.. Consult pulmonology. //Reflux of solid foods. Ordered barium swallow. Consult GI. // Septic shock -now resolved, off pressors //Toxic metabolic encephalopathy likely in the setting of hypercapnia = Resolved. // End-stage renal disease on hemodialysis = Nephrology following for dialysis. Appreciate assistance. //Chronic aspiration status post PEG tube placement = Cleared by speech therapy for diet. Will monitor closely. Appreciate pulmonary input. Discharge Planning: Likely need SNF. Transfer to floor.
--- NOTE | 2018-07-19 17:58 | P.PNNP ---
Subjective Interval history: Patient is alert Physical Exam Vital signs: Vital Signs 07/18/18 18:00 07/18/18 19:00 07/18/18 20:00 Temperature Pulse Rate 97 H 106 H 100 H Respiratory Rate 18 15 15 Blood Pressure 136/68 124/68 132/87 Pulse Oximetry 98 98 98 07/18/18 21:00 07/18/18 22:00 07/18/18 23:00 Temperature Pulse Rate 97 H 108 H 93 H Respiratory Rate 24 16 17 Blood Pressure 146/78 H 150/73 H 139/76 Pulse Oximetry 98 98 96 07/18/18 23:19 07/19/18 00:00 07/19/18 01:00 Temperature Pulse Rate 98 H 103 H 100 H Respiratory Rate 22 17 13 Blood Pressure 138/70 134/71 Pulse Oximetry 97 96 95 07/19/18 02:00 07/19/18 03:00 07/19/18 03:52 Temperature Pulse Rate 102 H 99 H 93 H Respiratory Rate 12 10 L 22 Blood Pressure 128/69 111/68 Pulse Oximetry 96 96 07/19/18 04:00 07/19/18 05:00 07/19/18 06:00 Temperature 97.8 F Pulse Rate 99 H 103 H 103 H Respiratory Rate 19 14 29 H Blood Pressure 127/60 128/66 135/73 Pulse Oximetry 98 98 96 07/19/18 07:00 07/19/18 08:00 07/19/18 08:25 Temperature 98.4 F Pulse Rate 102 H 95 H Respiratory Rate 11 L 15 Blood Pressure 121/58 L 133/69 Pulse Oximetry 97 97 95 07/19/18 09:00 07/19/18 10:00 07/19/18 11:00 Temperature Pulse Rate 94 H 95 H 98 H Respiratory Rate 15 18 16 Blood Pressure 155/84 H 151/80 H 178/99 H Pulse Oximetry 98 98 99 07/19/18 12:00 07/19/18 13:00 07/19/18 14:00 Temperature 98.2 F Pulse Rate 96 H 98 H 92 H Respiratory Rate 15 19 20 Blood Pressure 141/69 H 135/87 169/90 H Pulse Oximetry 98 98 100 07/19/18 15:00 07/19/18 15:01 07/19/18 16:00 Temperature Pulse Rate 99 H 99 H 101 H Respiratory Rate 27 H 22 10 L Blood Pressure 122/78 138/99 H Pulse Oximetry 95 97 98 07/19/18 17:00 Temperature Pulse Rate 97 H Respiratory Rate 6 L Blood Pressure 155/81 H Pulse Oximetry 98 Intake & Output 07/18/18 07/19/18 07/19/18 18:59 06:59 18:59 Intake Total 290 / 290 200 / 200 Output Total 3050 / 3050 75 / 75 Balance -2760 / -2760 125 / 125 Weight 99.5 kg Intake: IV 50 / 50 100 / 100 Zosyn 2.25 GM Premix 50 ML @ 50 / 50 100 / 100 100 mls/hr IV.SIG Q8H YOVANA Rx#: [id number] Oral 240 / 240 100 / 100 Output: Hemodialysis Amount 3000 / 3000 Urine Amount (Catheter) 50 / 50 75 / 75 Indwelling Urethral Catheter 50 / 50 75 / 75 Other: Date of Last Bowel Movement 07/16/18 07/16/18 07/19/18 - Constitutional no acute distress - Routine HEENT Exam Head: Present: normocephalic Eye: Present: EOMI - Routine Respiratory Exam Present: CTA bilaterally - Routine Cardiovascular Exam Present: RRR - Routine Abdominal Exam Present: soft, normoactive bowel sounds - Routine Extremities Exam Present: full ROM - Urinary Catheter Management Indwelling Urethral Catheter Cath placed during this visit: yes Reason for continuing: Other continuation reason Insertion date: 07/16/18 Insertion time: 17:30 Assessment and Plan - Assessment (1) End stage renal disease Code(s): N18.6 - End stage renal disease Status: Acute (2) Acute hypercapnic respiratory failure Code(s): J96.02 - Acute respiratory failure with hypercapnia Status: Acute (3) Pneumonia Code(s): J18.9 - Pneumonia, unspecified organism Status: Acute (4) Encephalopathy Code(s): G93.40 - Encephalopathy, unspecified Status: Acute (5) Septic shock Code(s): A41.9 - Sepsis, unspecified organism; R65.21 - Severe sepsis with septic shock Status: Acute (6) Sepsis Code(s): A41.9 - Sepsis, unspecified organism Status: Acute - Plan Hemodialysis this afternoon then On Monday Source of sepsis appears to be UTI is going gram-negative rods Enterobacter on Zosyn He also has pneumonia on CT scan Once stable and discharged and then follow-up with Dr. Rao Next hemodialysis tomorrow
--- NOTE | 2018-07-19 18:47 | P.PN ---
Subjective Interval history: He is better today . On O2 3 L. was dialyzed yesterday. wants to eat. Physical Exam Vital signs: Vital Signs 07/18/18 19:00 07/18/18 20:00 07/18/18 21:00 Temperature Pulse Rate 106 H 100 H 97 H Respiratory Rate 15 15 24 Blood Pressure 124/68 132/87 146/78 H Pulse Oximetry 98 98 98 07/18/18 22:00 07/18/18 23:00 07/18/18 23:19 Temperature Pulse Rate 108 H 93 H 98 H Respiratory Rate 16 17 22 Blood Pressure 150/73 H 139/76 Pulse Oximetry 98 96 97 07/19/18 00:00 07/19/18 01:00 07/19/18 02:00 Temperature Pulse Rate 103 H 100 H 102 H Respiratory Rate 17 13 12 Blood Pressure 138/70 134/71 128/69 Pulse Oximetry 96 95 96 07/19/18 03:00 07/19/18 03:52 07/19/18 04:00 Temperature Pulse Rate 99 H 93 H 99 H Respiratory Rate 10 L 22 19 Blood Pressure 111/68 127/60 Pulse Oximetry 96 98 07/19/18 05:00 07/19/18 06:00 07/19/18 07:00 Temperature 97.8 F Pulse Rate 103 H 103 H 102 H Respiratory Rate 14 29 H 11 L Blood Pressure 128/66 135/73 121/58 L Pulse Oximetry 98 96 97 07/19/18 08:00 07/19/18 08:25 07/19/18 09:00 Temperature 98.4 F Pulse Rate 95 H 94 H Respiratory Rate 15 15 Blood Pressure 133/69 155/84 H Pulse Oximetry 97 95 98 07/19/18 10:00 07/19/18 11:00 07/19/18 12:00 Temperature 98.2 F Pulse Rate 95 H 98 H 96 H Respiratory Rate 18 16 15 Blood Pressure 151/80 H 178/99 H 141/69 H Pulse Oximetry 98 99 98 07/19/18 13:00 07/19/18 14:00 07/19/18 15:00 Temperature Pulse Rate 98 H 92 H 99 H Respiratory Rate 19 20 27 H Blood Pressure 135/87 169/90 H Pulse Oximetry 98 100 95 07/19/18 15:01 07/19/18 16:00 07/19/18 17:00 Temperature Pulse Rate 99 H 101 H 97 H Respiratory Rate 22 10 L 6 L Blood Pressure 122/78 138/99 H 155/81 H Pulse Oximetry 97 98 98 07/19/18 18:00 Temperature Pulse Rate 95 H Respiratory Rate 15 Blood Pressure 163/94 H Pulse Oximetry 98 Intake & Output 07/18/18 07/19/18 07/19/18 18:59 06:59 18:59 Intake Total 290 / 290 200 / 200 450 / 450 Output Total 3050 / 3050 75 / 75 150 / 150 Balance -2760 / -2760 125 / 125 300 / 300 Weight 99.5 kg Intake: IV 50 / 50 100 / 100 Zosyn 2.25 GM Premix 50 ML @ 50 / 50 100 / 100 100 mls/hr IV.SIG Q8H YOVANA Rx#: [id number] Oral 240 / 240 100 / 100 450 / 450 Output: Hemodialysis Amount 3000 / 3000 Urine Amount (Catheter) 50 / 50 75 / 75 150 / 150 Indwelling Urethral Catheter 50 / 50 75 / 75 150 / 150 Other: Date of Last Bowel Movement 07/16/18 07/16/18 07/19/18 # Bowel Movements 1 Narrative: GENERAL: Mid aged W/M alert and oriented 3. SKIN: Warm and dry. HEAD: Normocephalic. EYES: No scleral icterus. No injection or drainage. NECK: Supple, trachea midline. No JVD or lymphadenopathy. CARDIOVASCULAR: Regular rate and rhythm without murmurs, gallops, or rubs. RESPIRATORY: Breath sounds equal bilaterally. No accessory muscle use. occ basal crackles . GASTROINTESTINAL: Abdomen soft, non-tender, nondistended. MUSCULOSKELETAL: No cyanosis, and has muscle wasting of lower extremities. Mild edema. BACK: Nontender without obvious deformity. No CVA tenderness. - Urinary Catheter Management Indwelling Urethral Catheter Cath placed during this visit: yes Reason for continuing: Other continuation reason Insertion date: 07/16/18 Insertion time: 17:30 Results - Labs CBC & Chem 7: 07/19/18 05:48 07/19/18 05:48 Laboratory Results - last 24 hr 07/18/18 07/19/18 07/19/18 23:53 05:48 05:48 WBC 11.5 H RBC 3.78 L Hgb 10.1 L Hct 32.3 L MCV 85.4 MCH 26.7 L MCHC 31.3 L RDW 17.0 Plt Count 245 MPV 8.4 Neut % (Auto) 93.1 H Lymph % (Auto) 2.0 L [place] % (Auto) 4.6 Eos % (Auto) 0.0 Baso % (Auto) 0.3 Neut # (Auto) 10.7 H Lymph # (Auto) 0.2 L [place] # (Auto) 0.5 Eos # (Auto) 0.0 Baso # (Auto) 0.0 WBC Differential . Differential Comment Auto diff final Sodium 140 Potassium 3.6 D Chloride 100 Carbon Dioxide 26.9 Anion Gap 13 BUN 41 H Creatinine 4.08 H Estimated GFR 15 L POC Glucose 208 H Random Glucose 204 H Calcium 8.2 L Total Bilirubin 0.3 AST 4 L ALT 13 Alkaline Phosphatase 98 Total Protein 7.4 Albumin 2.7 L Random Vancomycin 18.9 07/19/18 07/19/18 12:02 17:47 WBC RBC Hgb Hct MCV MCH MCHC RDW Plt Count MPV Neut % (Auto) Lymph % (Auto) [place] % (Auto) Eos % (Auto) Baso % (Auto) Neut # (Auto) Lymph # (Auto) [place] # (Auto) Eos # (Auto) Baso # (Auto) WBC Differential Differential Comment Sodium Potassium Chloride Carbon Dioxide Anion Gap BUN Creatinine Estimated GFR POC Glucose 270 H 250 H Random Glucose Calcium Total Bilirubin AST ALT Alkaline Phosphatase Total Protein Albumin Random Vancomycin Microbiology 07/16/18 12:10 Blood - Peripheral Aerobic Blood Culture - Preliminary No growth in 3 days 07/16/18 12:10 Blood - Peripheral Anaerobic Blood Culture - Preliminary No growth in 3 days 07/16/18 12:00 Blood - Peripheral Aerobic Blood Culture - Preliminary No growth in 3 days 07/16/18 12:00 Blood - Peripheral Anaerobic Blood Culture - Preliminary No growth in 3 days 07/17/18 06:14 Sputum - Endotracheal Gram Stain - Final 07/17/18 06:14 Sputum - Endotracheal Sputum Culture - Final Pseudomonas aeruginosa - Imaging Impressions Chest X-Ray 07/19/18 00:00 CONCLUSION: Stable exam as detailed above. Assessment and Plan - Assessment (1) Aspiration pneumonia Code(s): J69.0 - Pneumonitis due to inhalation of food and vomit Status: Acute (2) Acute hypercapnic respiratory failure Code(s): J96.02 - Acute respiratory failure with hypercapnia Status: Acute (3) Sepsis Code(s): A41.9 - Sepsis, unspecified organism Status: Acute (4) Pneumonia Code(s): J18.9 - Pneumonia, unspecified organism Status: Acute (5) Encephalopathy Code(s): G93.40 - Encephalopathy, unspecified Status: Acute (6) Septic shock Code(s): A41.9 - Sepsis, unspecified organism; R65.21 - Severe sepsis with septic shock Status: Acute (7) Acute metabolic encephalopathy Code(s): G93.41 - Metabolic encephalopathy Status: Acute (8) End stage renal disease Code(s): N18.6 - End stage renal disease Status: Acute - Plan Discussed Condition With: Will leave on O2 3 L. 2. Duoneb nebs qid. 3. BiPAP 12/5 CM and 30 % FIO2 at HS 4. Chest Xray , BMP in am 5. Cont Antibiotics per ID 6. PFT at Bedside today 7. IS at bedside q2h 8. taper solumedrol to 20 mg BID
--- NOTE | 2018-07-19 20:13 | MB ---
cc: Elizabet Mann MD DATE: 07/19/2018 REASON FOR REFERRAL: Questionable dysphagia and patient has pneumonia. Thank you for the consultation. HISTORY OF PRESENT ILLNESS: A 57-year-old male who has end-stage renal disease on dialysis, COPD, diabetes. The patient came to the emergency room with altered mental status. Apparently, he had loss of pulse during dialysis and he was confused and he came to the emergency room because of that. He was found to have sepsis and pneumonia. The patient had a CT scan angiogram, which was negative for PE, but there was pneumonia on the left side, so could be aspiration. The patient was telling Dr. Quiñonez that he had some dysphagia to when he eats steak. He has reflux with it, but when I talked to him, he said he does not like steak and he does not eat it. He denied any symptoms that has to do with his GI tract at all, so there is a conflicting history here. The patient denies any nausea or vomiting. He knows that he has pneumonia and no hematemesis. He had septic shock when he came, metabolic encephalopathy. PAST MEDICAL HISTORY: Significant for diabetes, end-stage renal disease, hypertension, pneumonia. SOCIAL HISTORY: Negative for tobacco, alcohol or drugs. MEDICATIONS: I reviewed the chart. ALLERGIES: HEPARIN AND QUETIAPINE. REVIEW OF SYSTEMS: All 12-point negative except for the HPI at this time. PHYSICAL EXAMINATION: GENERAL: Alert, oriented, lying in bed comfortably. VITAL SIGNS: Stable. No fever. HEENT: Pupils are round and reactive to light. NECK: Supple. CHEST: Clear to auscultation except some crackles in the right lower quadrant. ABDOMEN: Soft, nondistended, positive bowel sounds. EXTREMITIES: No edema, clubbing or cyanosis. NEUROLOGIC: Intact: PSYCHOLOGIC: Appropriate. LABORATORY DATA: White count 11.5, hemoglobin 10.1, platelet 245. INR 1.1. Liver function tests are normal. Urine was cloudy with some blood. The patient had a swallowing evaluation which was unremarkable. ASSESSMENT AND PLAN: A 57-year-old gentleman who had questionable dysphagia, according to his history with Dr. Quiñonez. I recommend doing a barium swallow that Dr. Quiñonez already did I added barium pill to see if there is any stricturing. If not, then the patient will need to chew food well and be careful when he is eating. He has anemia. At some point, this can be worked up by upper endoscopy and colonoscopy when his pneumonia is better and this can be done as an outpatient. MD JAMIE Steele/ct , 07:08 PM , 07:18 PM
[2018-07-20] MEDS: Insulin NovoLIN Regular Correctional Sugar Inj SQ SCH ×4 (03:03→20:53)
[2018-07-20] MEDS: Chlorhexidine Gluconate 2% 1 Pack (2 Cloths) TOPICAL SCH (05:17)
[2018-07-20] MEDS: Piperacil/Tazo 2.25 GM Premix 50 ML IV.SIG SCH ×3 (05:48→21:26)
[2018-07-20 07:20] LABS: Baso % (Auto) 0.1 % (0.0-2.0); Hematocrit 34.4 % (39.0-51.0); Hemoglobin 10.5 gm/dL (13.0-17.0); Lymph # (Auto) 0.4 th/mm3 (1.0-4.8); Lymph % (Auto) 3.4 % (9.0-44.0); Mean Corpuscular Hemoglobin 26.4 pg (27.0-34.0); Mean Corpuscular Volume 86.1 fL (80.0-100.0); Mean Platelet Volume 8.6 fL (7.0-11.0); Mono # (Auto) 0.9 th/mm3 (0.0-0.9); Mono % (Auto) 7.4 % (0.0-8.0); Neut # (Auto) 10.9 th/mm3 (1.8-7.7); Neut % (Auto) 89.1 % (16.0-70.0); Platelet Count 241 th/mm3 (150-450); Red Cell Distribution Width 16.5 % (11.6-17.2); White Blood Count 12.2 th/mm3 (4.0-11.0)
[2018-07-20 07:42] LABS: Alanine Aminotransferase 11 U/L (12-78); Albumin 2.8 g/dL (3.4-5.0); Alkaline Phosphatase 92 U/L (45-117); Anion Gap 12 meq/L (5-15); Aspartate Aminotransferase 5 U/L (15-37); Blood Urea Nitrogen 58 mg/dL (7-18); Calcium 8.4 mg/dL (8.5-10.1); Carbon Dioxide 27.3 meq/L (21.0-32.0); Chloride 100 meq/L (98-107); Glomerular Filtration Rate 13 mL/min (>89); Glucose,Random 183 mg/dL (74-106); Potassium 3.6 meq/L (3.5-5.1); Sodium 139 meq/L (136-145); Total Protein 7.4 g/dL (6.4-8.2)
--- NOTE | 2018-07-20 07:51 | P.CONCA ---
History of Present Illness Service: [facility] cardiology Consult date: 07/20/18 Reason for Consult: syncope Primary Care Provider: UNKNOWN Chief Complaint: AMS, Sepsis History of Present Illness: 57-year-old male with a past medical history of ESRD on HD, COPD on O2, HTN, DM , A. fib who initially presented 07/16 after becoming unresponsive at dialysis center. Patient states that while on dialysis he suddenly lost consciousness. He denies any prodromal symptoms including chest pain, palpitations, lightheadedness; he states he just "went out". Reportedly CPR was done at the dialysis center and patient had pulses by the time EMS arrived. Initial workup found acute hypercapnic respiratory failure and septic shock, likely from dense lower airspace consolidations with sputum cultures growing Pseudomonas. Cardiology is consulted to eval for possible arrhythmia. Initial EKG showed atrial fibrillation with nonspecific inferior ST changes, similar to previous EKG 2010. The patient reports a known history of atrial fibrillation and reports he is on anticoagulation as outpatient. Telemetry reviewed with atrial fibrillation and no other significant arrhythmias. Patient reports his breathing is much better he is on nasal cannula. During admission, patient denies any chest pain, palpitations, lightheadedness. Patient denies any other history of heart disease. The patient reports a single prior episode of passing out in the past 9 years ago, and states that episode was associated with pneumonia at that time as well. Review of Systems All other systems reviewed negative except as stated in HPI PMFSH - History History Provided By: Patient - Medical History Medical History: Medical History (Last Updated 07/20/18 @ 07:48 by ELLA Crawford) Atrial fibrillation Diabetes ESRD (end stage renal disease) on dialysis Empyema lung HTN (hypertension) Renal disease - Surgical History Surgical History: Surgical History (Last Updated 07/18/18 @ 09:59 by Xiao Ma MD) Status post thoracotomy - Tobacco History Second Hand Smoke Exposure: No Smoking Status: Never smoker - Alcohol History How Often Do You Have a Drink Containing Alcohol: Never - Substance Use History Substance History: No History of Abuse - Travel History Recent Travel in the [place] Within the Last 8 Weeks: No Recent Travel Out of the Country Within the Last 8 Weeks: No - Immunization History Tetanus Immunization: <5 Years Hx Influenza Vaccine This Season: Yes Medications and Allergies Allergies Allergy/AdvReac Type Severity Reaction Status Date / Time heparin Allergy Severe Bleeding Verified 07/16/18 13:23 quetiapine [From Seroquel] Allergy Intermediate Shakiness Verified 07/16/18 13: 23 Active Medications: Active Medications Acetaminophen (Tylenol) 650 mg PO UNSCH PRN PRN Reason: SEE LABEL COMMENTS Al Hydroxide/Mg Hydroxide (Milk Of Lucy Anaya) 30 ml PO Q12H PRN PRN Reason: Mild Constipation Albuterol (Albuterol Neb (Prn)) 2.5 mg NEB Q2HR NEB PRN PRN Reason: SHORTNESS OF BREATH/WHEEZING Albuterol (Duoneb Neb (Kalpana)) 1 ampul NEB Q6HR NEB [facility] Last Admin: 07/20/18 03:45 Dose: 1 ampul Bisacodyl (Dulcolax Supp) 10 mg RECTAL DAILY PRN PRN Reason: SEVERE CONSITIPATION Chlorhexidine Gluconate (Chlorhexidine 2% Cloth) 3 pack TOPICAL DAILY@0400 [facility] Stop: 07/22/18 03:59 Last Admin: 07/20/18 05:17 Dose: 3 pack Chlorhexidine Gluconate (Chlorhexidine 2% Cloth) 3 pack TOPICAL DAILY@0400 PRN PRN Reason: Extra cloth needed Stop: 07/22/18 03:59 Clonidine HCl (Catapres) 0.1 mg PO UNSCH PRN PRN Reason: SEE LABEL COMMENTS Dextrose (D50w Vial) 50 ml IV.PUSH UNSCH PRN PRN Reason: PER HYPOGLYCEMIA PROTOCOL Diphenhydramine HCl (Benadryl) 25 mg PO UNSCH PRN PRN Reason: SEE LABEL COMMENTS Epoetin Zach (Epogen Inj) 10,000 unit IV.PUSH UNSCH PRN PRN Reason: SEE LABEL COMMENTS Last Admin: 07/18/18 16:22 Dose: 10,000 unit Famotidine (Pepcid Pf Inj) 10 mg IV.PUSH Q12HR [facility] Last Admin: 07/19/18 20:10 Dose: 10 mg Fentanyl Citrate (Fentanyl Inj) 50 mcg IV PUSH Q1H PRN PRN Reason: Pain scale 6-10, &/or sedation Gelatin (Gelfoam 12 Mm/7 Mm Topical) 1 foam TOPICAL PRN PRN PRN Reason: help stop bleeding from site Gentamicin Sulfate (Gentamicin Inj) 20 mg OTHER WITH DIALYSIS PRN PRN Reason: Dwell Gentamycin Lock Last Admin: 07/18/18 16:22 Dose: 20 mg Glucagon (Glucagon Inj) 1 mg OTHER PRN PRN PRN Reason: for Hypoglycemia Protocol Propofol (Diprivan 1000 Mg/100 Ml Inj) 1,000 mg in 100 mls @ 3 mls/hr IV.CONT TITRATE PRN; Protocol PRN Reason: Per Protocol Last Titration: 07/17/18 12:30 Dose: Infused Midazolam HCl (Versed Inj) 50 mg in 50 mls @ 2 mls/hr IV.CONT TITRATE PRN; Protocol PRN Reason: Per Protocol Piperacillin/Tazobactam/Dextrose (Zosyn 2.25 Gm Premix) 50 mls @ 100 mls/hr IV.SIG Q8H [facility] Last Admin: 07/20/18 05:48 Dose: 100 mls/hr Albumin Human (Flexbumin 25% Inj) 100 mls @ 60 mls/hr IV.SIG WITH DIALYSIS PRN PRN Reason: hypotension / volume replace Sodium Chloride (Ns Inj) 1,000 mls @ 200 mls/hr OTHER .Q5H PRN PRN Reason: for dialyzer flush PRN Sodium Chloride (Ns Inj) 1,000 mls @ 0 mls/hr IV.CONT .Q0M PRN PRN Reason: hypotension / volume replace Sodium Chloride (Ns Inj) 1,000 mls @ 0 mls/hr OTHER .Q0M PRN PRN Reason: for prime and rinse back Insulin Human Regular (Novolin R Correctional Sugar Inj) 0 units SQ Q6HR [facility]; Protocol Last Admin: 07/20/18 05:48 Dose: 3 units Labetalol HCl (Trandate Inj) 10 mg IV.PUSH Q4H PRN PRN Reason: For SBP greater than 170. Last Admin: 07/17/18 11:26 Dose: 10 mg Lactulose (Lactulose Liq) 30 ml PO DAILY PRN PRN Reason: SEVERE CONSITIPATION Mannitol (Mannitol Inj) 12.5 gm IV.PUSH UNSCH PRN PRN Reason: hypotension / volume replace Methylprednisolone Sodium Succinate (Solumedrol Inj) 20 mg IV.PUSH Q12HR [facility] Last Admin: 07/19/18 20:11 Dose: 20 mg Nitroglycerin (Nitrostat Sl) 0.4 mg SL Q5M PRN PRN Reason: CHEST PAIN Ondansetron HCl (Zofran Inj) 4 mg IV.PUSH UNSCH PRN PRN Reason: NAUSEA OR VOMITING Pharmacy Profile Note (Vancomycin Consult Pharmacy) 1 each OTHER UNSCH PRN PRN Reason: Pharmacy to dose Senna/Docusate Sodium (Calista-Colace) 1 tab PO BID [facility] Last Admin: 07/19/18 20:10 Dose: Not Given Sennosides (Senokot) 17.2 mg PO Q12H PRN PRN Reason: Moderate Constipation Sodium Chloride (Ns Flush) 2 ml IV.FLUSH BID [facility] Last Admin: 07/19/18 20:11 Dose: 2 ml Sodium Chloride (Ns Flush) 2 ml IV.FLUSH UNSCH PRN PRN Reason: FLUSH AFTER USING IV ACCESS Sodium Chloride (Ns Flush) 5 ml IV.FLUSH PRN PRN PRN Reason: flush each lumen during HD Terbutaline Sulfate (Brethine Inj) 1 mg SQ UNSCH PRN PRN Reason: For Extravasation Exam Vital signs: Vital Signs 07/19/18 08:00 07/19/18 08:25 07/19/18 09:00 Temperature 98.4 F Pulse Rate 95 H 94 H Respiratory Rate 15 15 Blood Pressure 133/69 155/84 H Pulse Oximetry 97 95 98 07/19/18 10:00 07/19/18 11:00 07/19/18 12:00 Temperature 98.2 F Pulse Rate 95 H 98 H 96 H Respiratory Rate 18 16 15 Blood Pressure 151/80 H 178/99 H 141/69 H Pulse Oximetry 98 99 98 07/19/18 13:00 07/19/18 14:00 07/19/18 15:00 Temperature Pulse Rate 98 H 92 H 99 H Respiratory Rate 19 20 27 H Blood Pressure 135/87 169/90 H Pulse Oximetry 98 100 95 07/19/18 15:01 07/19/18 16:00 07/19/18 17:00 Temperature Pulse Rate 99 H 101 H 97 H Respiratory Rate 22 10 L 6 L Blood Pressure 122/78 138/99 H 155/81 H Pulse Oximetry 97 98 98 07/19/18 18:00 07/19/18 19:00 07/19/18 19:59 Temperature Pulse Rate 95 H 93 H Respiratory Rate 15 12 Blood Pressure 163/94 H 158/85 H Pulse Oximetry 98 98 98 07/19/18 20:00 07/19/18 21:00 07/19/18 22:00 Temperature Pulse Rate 94 H 91 H 95 H Respiratory Rate 16 17 11 L Blood Pressure 135/63 193/123 H 145/92 H Pulse Oximetry 98 96 96 07/19/18 22:49 07/19/18 23:00 07/20/18 00:00 Temperature Pulse Rate 86 95 H 108 H Respiratory Rate 18 15 13 Blood Pressure 172/97 H 167/82 H Pulse Oximetry 100 98 07/20/18 02:00 07/20/18 03:00 07/20/18 03:45 Temperature Pulse Rate 99 H 97 H 101 H Respiratory Rate 13 13 18 Blood Pressure 153/78 H 155/80 H Pulse Oximetry 97 95 07/20/18 04:00 07/20/18 05:00 07/20/18 06:00 Temperature 98 F Pulse Rate 100 H 106 H 104 H Respiratory Rate 21 20 16 Blood Pressure 179/88 H 137/71 135/81 Pulse Oximetry 100 95 97 Intake & Output 07/19/18 07/20/18 07/20/18 18:59 06:59 18:59 Intake Total 500 / 500 150 / 150 Output Total 150 / 150 150 / 150 Balance 350 / 350 0 / 0 Weight 220 lb 7.396 oz Intake: IV 50 / 50 50 / 50 Zosyn 2.25 GM Premix 50 ML @ 50 / 50 50 / 50 100 mls/hr IV.SIG Q8H [facility] Rx#: [id number] Oral 450 / 450 100 / 100 Output: Urine 50 / 50 Urine Amount (Catheter) 150 / 150 100 / 100 Indwelling Urethral Catheter 150 / 150 100 / 100 Other: Date of Last Bowel Movement 07/19/18 07/20/18 # Bowel Movements 1 1 Narrative: GENERAL: Well-developed well-nourished. In no acute distress. NECK: No carotid bruits. No JVD. CARDIOVASCULAR: Irregular rate and rhythm. No murmur appreciated. RESPIRATORY: No accessory muscle use. Clear to auscultation. Breath sounds equal bilaterally. MUSCULOSKELETAL: No clubbing or cyanosis. No edema. NEUROLOGICAL: Awake and alert. Normal speech. Results 07/20/18 05:31 07/20/18 05:31 Cardiac Enzymes 07/20/18 Range/Units 05:31 AST 5 L (15-37) U/L Comprehensive Metabolic Panel 07/20/18 Range/Units 05:31 Sodium 139 (136-145) meq/L Potassium 3.6 (3.5-5.1) meq/L Chloride 100 (98-107) meq/L Carbon Dioxide 27.3 (21.0-32.0) meq/L BUN 58 H (7-18) mg/dL Creatinine 4.50 H (0.60-1.30) mg/dL Calcium 8.4 L (8.5-10.1) mg/dL AST 5 L (15-37) U/L ALT 11 L (12-78) U/L Alkaline Phosphatase 92 (45-117) U/L Total Protein 7.4 (6.4-8.2) g/dL Albumin 2.8 L (3.4-5.0) g/dL Intake and Output 07/19/18 07/20/18 07/20/18 22:59 06:59 14:59 Intake Total 550 / 550 100 / 100 Output Total 150 / 150 150 / 150 Balance 400 / 400 -50 / -50 Intake: IV 100 / 100 Zosyn 2.25 GM Premix 50 ML @ 100 / 100 100 mls/hr IV.SIG Q8H [facility] Rx#: [id number] Oral 450 / 450 100 / 100 Output: Urine 50 / 50 Urine Amount (Catheter) 150 / 150 100 / 100 Indwelling Urethral Catheter 150 / 150 100 / 100 Other: Date of Last Bowel Movement 07/19/18 07/20/18 # Bowel Movements 1 1 Weight 220 lb 7.396 oz Assessment and Plan - Plan 57-year-old male with a past medical history of ESRD on HD, COPD on O2, HTN, DM , A. fib who initially presented 07/16 after becoming unresponsive at dialysis center. Syncopal episode: Likely secondary to septic shock/acute respiratory failure secondary to infection. Telemetry monitoring while admitted and if no ventricular arrhythmias or significant pauses, can do 30 day event monitor as outpatient to rule out arrhythmogenic cause of syncope. Atrial fibrillation: Patient reports chronic irregular heartbeat for which she is on blood thinners at home. Recommend to reconcile and resume home medications for rate/rhythm control and anticoagulation. Discussed Condition With: Patient, Dr. Montague - Attending Attestation Patient seen and examined. Agree with above. Syncope with unclear cause, highly suspicious for hypotensive episode where pulse could not be palpated. He reports frequent hypotensive episodes recently on HD and he also presented with suggestion of PNA ? if related. Tele with AF with variable ventricular rate, currently mildly elevated HR 100s. Few short episodes of bradycardia and 1 pause of 3.8sec. Currently asymptomatic. No indication for permanent pacemaker at this time. Discussed risks and benefits of PPM and or AICD placement and he is amenable if necessary. Continue to monitor at this time with telemetry and if no malignant arrhythmias or pauses > 5 seconds in atrial fibrillation noted, then recommend 30 day cardiac event monitor as outpatient. Check echocardiogram to evaluate for structural heart disease. Will sign off for now. Please call with any further questions or if telemetry events as above.
[2018-07-20 08:05] LABS: Mean Corpuscular HGB Conc 30.6 % (32.0-36.0)
[2018-07-20] MEDS: Famotidine PF Inj 20 MG/2 ML Vial IV.PUSH SCH ×2 (08:24→21:06)
[2018-07-20] MEDS: MethylPREDNISolone Sod Succinate Inj 40 MG/ML Vial IV.PUSH SCH (08:25)
[2018-07-20] MEDS: Senna/Docusate Sodium 8.6/50 MG Tablet PO SCH ×2 (08:25→21:06)
--- NOTE | 2018-07-20 11:34 | P.PNGI ---
Subjective Interval history: Has been answering simple questions focused on when he is going to dialysis Does note some mild generalized abdominal pain, BM 1 in the past 24 hours Hemoglobin 10.5 <Nica Whitten M - Last Filed: 07/20/18 11:45> Physical Exam Vital signs: Vital Signs 07/19/18 12:00 07/19/18 13:00 07/19/18 14:00 Temperature 98.2 F Pulse Rate 96 H 98 H 92 H Respiratory Rate 15 19 20 Blood Pressure 141/69 H 135/87 169/90 H Pulse Oximetry 98 98 100 07/19/18 15:00 07/19/18 15:01 07/19/18 16:00 Temperature Pulse Rate 99 H 99 H 101 H Respiratory Rate 27 H 22 10 L Blood Pressure 122/78 138/99 H Pulse Oximetry 95 97 98 07/19/18 17:00 07/19/18 18:00 07/19/18 19:00 Temperature Pulse Rate 97 H 95 H 93 H Respiratory Rate 6 L 15 12 Blood Pressure 155/81 H 163/94 H 158/85 H Pulse Oximetry 98 98 98 07/19/18 19:59 07/19/18 20:00 07/19/18 21:00 Temperature Pulse Rate 94 H 91 H Respiratory Rate 16 17 Blood Pressure 135/63 193/123 H Pulse Oximetry 98 98 96 07/19/18 22:00 07/19/18 22:49 07/19/18 23:00 Temperature Pulse Rate 95 H 86 95 H Respiratory Rate 11 L 18 15 Blood Pressure 145/92 H 172/97 H Pulse Oximetry 96 100 07/20/18 00:00 07/20/18 02:00 07/20/18 03:00 Temperature Pulse Rate 108 H 99 H 97 H Respiratory Rate 13 13 13 Blood Pressure 167/82 H 153/78 H 155/80 H Pulse Oximetry 98 97 95 07/20/18 03:45 07/20/18 04:00 07/20/18 05:00 Temperature Pulse Rate 101 H 100 H 106 H Respiratory Rate 18 21 20 Blood Pressure 179/88 H 137/71 Pulse Oximetry 100 95 07/20/18 06:00 07/20/18 08:00 07/20/18 09:00 Temperature 98 F Pulse Rate 104 H 101 H 97 H Respiratory Rate 16 18 Blood Pressure 135/81 Pulse Oximetry 97 99 07/20/18 10:00 07/20/18 11:21 Temperature Pulse Rate 97 H Respiratory Rate Blood Pressure Pulse Oximetry 98 Intake & Output 07/19/18 07/20/18 07/20/18 18:59 06:59 18:59 Intake Total 500 / 500 150 / 150 50 / 50 Output Total 150 / 150 150 / 150 Balance 350 / 350 0 / 0 50 / 50 Weight 100 kg Intake: IV 50 / 50 50 / 50 50 / 50 Zosyn 2.25 GM Premix 50 ML @ 50 / 50 50 / 50 50 / 50 100 mls/hr IV.SIG Q8H [facility] Rx#: [id number] Oral 450 / 450 100 / 100 Output: Urine 50 / 50 Urine Amount (Catheter) 150 / 150 100 / 100 Indwelling Urethral Catheter 150 / 150 100 / 100 Other: Date of Last Bowel Movement 07/19/18 07/20/18 07/19/18 # Bowel Movements 1 1 - Constitutional no acute distress, morbidly obese - Routine HEENT Exam Head: Present: normocephalic ENT: Present: mucous membranes moist (Obese) - Routine Neck Exam Present: supple - Routine Respiratory Exam Present: accessory muscle use - Routine Cardiovascular Exam Present: S1, S2 - Routine Abdominal Exam Present: soft (Round, soft bowel sounds no obvious abdominal pain no nausea no vomiting) - Routine Skin Exam Present: intact, pallor - Routine Neurological Exam Present: alert - Urinary Catheter Management Indwelling Urethral Catheter Cath placed during this visit: yes Reason for continuing: Other continuation reason Insertion date: 07/16/18 Insertion time: 17:30 <Nica hWitten - Last Filed: 07/20/18 11:45> Vital signs: Vital Signs 07/19/18 15:00 07/19/18 15:01 07/19/18 16:00 Temperature Pulse Rate 99 H 99 H 101 H Respiratory Rate 27 H 22 10 L Blood Pressure 122/78 138/99 H Pulse Oximetry 95 97 98 07/19/18 17:00 07/19/18 18:00 07/19/18 19:00 Temperature Pulse Rate 97 H 95 H 93 H Respiratory Rate 6 L 15 12 Blood Pressure 155/81 H 163/94 H 158/85 H Pulse Oximetry 98 98 98 07/19/18 19:59 07/19/18 20:00 08/23/18 21:00 Temperature Pulse Rate 94 H 91 H Respiratory Rate 16 17 Blood Pressure 135/63 193/123 H Pulse Oximetry 98 98 96 07/19/18 22:00 07/19/18 22:49 07/19/18 23:00 Temperature Pulse Rate 95 H 86 95 H Respiratory Rate 11 L 18 15 Blood Pressure 145/92 H 172/97 H Pulse Oximetry 96 100 07/20/18 00:00 07/20/18 02:00 07/20/18 03:00 Temperature Pulse Rate 108 H 99 H 97 H Respiratory Rate 13 13 13 Blood Pressure 167/82 H 153/78 H 155/80 H Pulse Oximetry 98 97 95 07/20/18 03:45 07/20/18 04:00 07/20/18 05:00 Temperature Pulse Rate 101 H 100 H 111 H Respiratory Rate 18 21 13 Blood Pressure 179/88 H 137/71 Pulse Oximetry 100 98 07/20/18 05:59 07/20/18 06:00 07/20/18 06:01 Temperature 98 F Pulse Rate 108 H 104 H 112 H Respiratory Rate 17 16 13 Blood Pressure 135/81 Pulse Oximetry 97 97 98 07/20/18 07:00 07/20/18 08:00 07/20/18 09:00 Temperature Pulse Rate 106 H 94 H 98 H Respiratory Rate 13 12 12 Blood Pressure 134/77 159/86 H 125/66 Pulse Oximetry 98 99 99 07/20/18 09:59 07/20/18 10:00 07/20/18 10:02 Temperature Pulse Rate 99 H 97 H 101 H Respiratory Rate 11 L 30 H Blood Pressure 141/83 H Pulse Oximetry 98 98 07/20/18 11:00 07/20/18 11:21 07/20/18 12:00 Temperature Pulse Rate 99 H 97 H Respiratory Rate 15 Blood Pressure 155/98 H Pulse Oximetry 97 98 07/20/18 12:37 07/20/18 12:38 07/20/18 13:00 Temperature Pulse Rate 108 H 108 H 103 H Respiratory Rate 13 4 L 21 Blood Pressure 137/77 Pulse Oximetry 96 96 95 07/20/18 13:23 07/20/18 14:00 Temperature Pulse Rate 107 H 97 H Respiratory Rate 17 Blood Pressure 138/92 H Pulse Oximetry 96 Intake & Output 07/19/18 07/20/18 07/20/18 18:59 06:59 18:59 Intake Total 500 / 500 150 / 150 50 / 50 Output Total 150 / 150 150 / 150 Balance 350 / 350 0 / 0 50 / 50 Weight 100 kg Intake: IV 50 / 50 50 / 50 50 / 50 Zosyn 2.25 GM Premix 50 ML @ 50 / 50 50 / 50 50 / 50 100 mls/hr IV.SIG Q8H [facility] Rx#: [id number] Oral 450 / 450 100 / 100 Output: Urine 50 / 50 Urine Amount (Catheter) 150 / 150 100 / 100 Indwelling Urethral Catheter 150 / 150 100 / 100 Other: Date of Last Bowel Movement 07/19/18 07/20/18 07/19/18 # Bowel Movements 1 1 - Urinary Catheter Management Indwelling Urethral Catheter Cath placed during this visit: no <Manuel Crowley E - Last Filed: 07/20/18 14:12> Results - Labs CBC & Chem 7: 07/20/18 05:31 07/20/18 05:31 Laboratory Results - last 24 hr 07/19/18 07/19/18 07/20/18 12:02 17:47 00:16 WBC RBC Hgb Hct MCV MCH MCHC RDW Plt Count MPV Neut % (Auto) Lymph % (Auto) Saunders % (Auto) Eos % (Auto) Baso % (Auto) Neut # (Auto) Lymph # (Auto) Saunders # (Auto) Eos # (Auto) Baso # (Auto) WBC Differential Differential Comment Sodium Potassium Chloride Carbon Dioxide Anion Gap BUN Creatinine Estimated GFR POC Glucose 270 H 250 H 186 H Random Glucose Calcium Total Bilirubin AST ALT Alkaline Phosphatase Total Protein Albumin Random Vancomycin 07/20/18 07/20/18 07/20/18 05:19 05:31 05:31 WBC 12.2 H RBC 4.00 L Hgb 10.5 L Hct 34.4 L MCV 86.1 MCH 26.4 L MCHC 30.6 L RDW 16.5 Plt Count 241 MPV 8.6 Neut % (Auto) 89.1 H Lymph % (Auto) 3.4 L Saunders % (Auto) 7.4 Eos % (Auto) 0.0 Baso % (Auto) 0.1 Neut # (Auto) 10.9 H Lymph # (Auto) 0.4 L Saunders # (Auto) 0.9 Eos # (Auto) 0.0 Baso # (Auto) 0.0 WBC Differential . Differential Comment Auto diff final Sodium 139 Potassium 3.6 Chloride 100 Carbon Dioxide 27.3 Anion Gap 12 BUN 58 H Creatinine 4.50 H Estimated GFR 13 L POC Glucose 216 H Random Glucose 183 H Calcium 8.4 L Total Bilirubin 0.4 AST 5 L ALT 11 L Alkaline Phosphatase 92 Total Protein 7.4 Albumin 2.8 L Random Vancomycin 16.0 Microbiology 07/16/18 12:10 Blood - Peripheral Aerobic Blood Culture - Preliminary No growth in 4 days 07/16/18 12:10 Blood - Peripheral Anaerobic Blood Culture - Preliminary No growth in 4 days 07/16/18 12:00 Blood - Peripheral Aerobic Blood Culture - Preliminary No growth in 4 days 07/16/18 12:00 Blood - Peripheral Anaerobic Blood Culture - Preliminary No growth in 4 days 07/17/18 06:14 Sputum - Endotracheal Gram Stain - Final 07/17/18 06:14 Sputum - Endotracheal Sputum Culture - Final Pseudomonas aeruginosa <Nica Whitten - Last Filed: 07/20/18 11:45> - Labs CBC & Chem 7: 07/20/18 05:31 07/20/18 05:31 Laboratory Results - last 24 hr 07/19/18 07/20/18 07/20/18 17:47 00:16 05:19 WBC RBC Hgb Hct MCV MCH MCHC RDW Plt Count MPV Neut % (Auto) Lymph % (Auto) Saunders % (Auto) Eos % (Auto) Baso % (Auto) Neut # (Auto) Lymph # (Auto) Saunders # (Auto) Eos # (Auto) Baso # (Auto) WBC Differential Differential Comment Sodium Potassium Chloride Carbon Dioxide Anion Gap BUN Creatinine Estimated GFR POC Glucose 250 H 186 H 216 H Random Glucose Calcium Total Bilirubin AST ALT Alkaline Phosphatase Total Protein Albumin Random Vancomycin 07/20/18 07/20/18 05:31 05:31 WBC 12.2 H RBC 4.00 L Hgb 10.5 L Hct 34.4 L MCV 86.1 MCH 26.4 L MCHC 30.6 L RDW 16.5 Plt Count 241 MPV 8.6 Neut % (Auto) 89.1 H Lymph % (Auto) 3.4 L Saunders % (Auto) 7.4 Eos % (Auto) 0.0 Baso % (Auto) 0.1 Neut # (Auto) 10.9 H Lymph # (Auto) 0.4 L Saunders # (Auto) 0.9 Eos # (Auto) 0.0 Baso # (Auto) 0.0 WBC Differential . Differential Comment Auto diff final Sodium 139 Potassium 3.6 Chloride 100 Carbon Dioxide 27.3 Anion Gap 12 BUN 58 H Creatinine 4.50 H Estimated GFR 13 L POC Glucose Random Glucose 183 H Calcium 8.4 L Total Bilirubin 0.4 AST 5 L ALT 11 L Alkaline Phosphatase 92 Total Protein 7.4 Albumin 2.8 L Random Vancomycin 16.0 Microbiology 07/16/18 12:10 Blood - Peripheral Aerobic Blood Culture - Preliminary No growth in 4 days 07/16/18 12:10 Blood - Peripheral Anaerobic Blood Culture - Preliminary No growth in 4 days 07/16/18 12:00 Blood - Peripheral Aerobic Blood Culture - Preliminary No growth in 4 days 07/16/18 12:00 Blood - Peripheral Anaerobic Blood Culture - Preliminary No growth in 4 days - Imaging Impressions Barium Swallow X-Ray 07/20/18 00:00 CONCLUSION: Unremarkable barium swallow, however limited study since only frontal projection could be performed. <Manuel Crowley E - Last Filed: 07/20/18 14:12> Assessment and Plan - Plan History 57-year-old male brought to the emergency room for altered mental status patient is currently being managed in the intensive care setting Patient is end-stage renal disease currently has dialysis, significant history of COPD and diabetes Patient's currently being treated for sepsis and pneumonia. According to the record patient noted that he had some dysphasia when eating steak but on exam denied any dysphasia and any problems swallowing. 07/20/2018 patient still denies any dysphasia and denies any nausea vomiting or any obvious bleeding. Patient does note some generalized abdominal soreness but states that his bowels have moved in the past 24 hours. Barium swallow is pending, patient will have dialysis today. Current hemoglobin 10.5, anemia appears to be related to his chronic disease. Dependent on patie patient was seen per myself and Dr. Baeza, note was written on his behalf nt's barium swallow results we may discuss again EGD. Plan Diet per attending, cardiac and diabetic, consider adding renal Monitor labs for any obvious bleeding, transfuse if needed with dialysis Consider outpatient EGD and colonoscopy once patient's pneumonia is better Barium swallow pending, further considerations after test is completed Supportive care Patient was seen per myself and Dr. Crowley, note was written on his behalf <Nica Whitten M - Last Filed: 07/20/18 11:45> - Attending Attestation Patient seen and examined Agree with above Continue with current supportive care Monitor labs Barium swallow unremarkable Not much to add from a GI perspective at this point We will sign off Patient follow-up with GI post discharge <Manuel Crowley - Last Filed: 07/20/18 14:12>
--- NOTE | 2018-07-20 13:39 | FL ---
EXAM DATE: 07/20/2018 12:25 PM EDT AGE/SEX: 57 years / Male INDICATIONS: Stricture CLINICAL DATA: This is the patient's initial encounter. Patient reports that signs and symptoms have been present for 4 - 6 days and indicates a pain score of 0/10. MEDICAL/SURGICAL HISTORY: Hypertension. diabetes . jaw surgery 11/2017 to correct his swallowin g that was giving him aspiration pneumonia COMPARISON: No prior exams available for comparison. FLUORO TIME: 0.2 IMAGE COUNT: 3 FINDINGS: The hypopharynx appears intact without any definite mucosal lesions or mass. The region o f the cricopharyngeus muscle appears intact. The esophagus appears intact without any definite mucos al lesions, stricture, or mass. The gastroesophageal junction appears intact. Patient was given a b arium pill and swallowed this without any difficulty with prompt passage through the gastroesophageal junction. There is no evidence for stricture. The examination was performed in semiupright position only in frontal projection since the patient could not turn on his side and therefore somewhat limite d in evaluating the hypopharynx and esophagus. CONCLUSION: Unremarkable barium swallow, however limited study since only frontal projection could b e performed. Electronically signed by: Yojana Hassan MD 07/20/2018 1:38 PM EDT
--- NOTE | 2018-07-20 17:24 | P.PNNP ---
Subjective Interval history: Patient doing okay denies complaint Physical Exam Vital signs: Vital Signs 07/19/18 18:00 07/19/18 19:00 07/19/18 19:59 Temperature Pulse Rate 95 H 93 H Respiratory Rate 15 12 Blood Pressure 163/94 H 158/85 H Pulse Oximetry 98 98 98 07/19/18 20:00 07/19/18 21:00 07/19/18 22:00 Temperature Pulse Rate 94 H 91 H 95 H Respiratory Rate 16 17 11 L Blood Pressure 135/63 193/123 H 145/92 H Pulse Oximetry 98 96 96 07/19/18 22:49 07/19/18 23:00 07/20/18 00:00 Temperature Pulse Rate 86 95 H 108 H Respiratory Rate 18 15 13 Blood Pressure 172/97 H 167/82 H Pulse Oximetry 100 98 07/20/18 02:00 07/20/18 03:00 07/20/18 03:45 Temperature Pulse Rate 99 H 97 H 101 H Respiratory Rate 13 13 18 Blood Pressure 153/78 H 155/80 H Pulse Oximetry 97 95 07/20/18 04:00 07/20/18 05:00 07/20/18 05:59 Temperature Pulse Rate 100 H 111 H 108 H Respiratory Rate 21 13 17 Blood Pressure 179/88 H 137/71 Pulse Oximetry 100 98 97 07/20/18 06:00 07/20/18 06:01 07/20/18 07:00 Temperature 98 F Pulse Rate 104 H 112 H 106 H Respiratory Rate 16 13 13 Blood Pressure 135/81 134/77 Pulse Oximetry 97 98 98 07/20/18 08:00 07/20/18 09:00 07/20/18 09:59 Temperature Pulse Rate 94 H 98 H 99 H Respiratory Rate 12 12 11 L Blood Pressure 159/86 H 125/66 Pulse Oximetry 99 99 98 07/20/18 10:00 07/20/18 10:02 07/20/18 11:00 Temperature Pulse Rate 97 H 101 H 99 H Respiratory Rate 30 H 15 Blood Pressure 141/83 H 155/98 H Pulse Oximetry 98 97 07/20/18 11:21 07/20/18 12:00 07/20/18 12:37 Temperature Pulse Rate 97 H 108 H Respiratory Rate 13 Blood Pressure Pulse Oximetry 98 96 07/20/18 12:38 07/20/18 13:00 07/20/18 13:23 Temperature Pulse Rate 108 H 103 H 107 H Respiratory Rate 4 L 21 17 Blood Pressure 137/77 138/92 H Pulse Oximetry 96 95 96 07/20/18 14:00 07/20/18 15:00 07/20/18 16:00 Temperature 98.5 F Pulse Rate 110 H 105 H 105 H Respiratory Rate 14 18 16 Blood Pressure 134/65 130/73 138/77 Pulse Oximetry 80 L 85 L 96 Intake & Output 07/19/18 07/20/18 07/20/18 18:59 06:59 18:59 Intake Total 500 / 500 150 / 150 100 / 100 Output Total 150 / 150 150 / 150 Balance 350 / 350 0 / 0 100 / 100 Weight 100 kg Intake: IV 50 / 50 50 / 50 100 / 100 Zosyn 2.25 GM Premix 50 ML @ 50 / 50 50 / 50 100 / 100 100 mls/hr IV.SIG Q8H YOVANA Rx#: [id number] Oral 450 / 450 100 / 100 Output: Urine 50 / 50 Urine Amount (Catheter) 150 / 150 100 / 100 Indwelling Urethral Catheter 150 / 150 100 / 100 Other: Date of Last Bowel Movement 07/19/18 07/20/18 07/19/18 # Bowel Movements 1 1 - Constitutional no acute distress - Routine HEENT Exam Head: Present: normocephalic Eye: Present: EOMI - Routine Respiratory Exam Present: decreased breath sounds, rhonchi - Routine Cardiovascular Exam Present: irregularly irregular - Routine Abdominal Exam Present: soft, normoactive bowel sounds - Routine Extremities Exam Present: edema - Urinary Catheter Management Indwelling Urethral Catheter Cath placed during this visit: yes Reason for continuing: Other continuation reason Insertion date: 07/16/18 Insertion time: 17:30 Assessment and Plan - Assessment (1) End stage renal disease Code(s): N18.6 - End stage renal disease Status: Acute (2) Acute hypercapnic respiratory failure Code(s): J96.02 - Acute respiratory failure with hypercapnia Status: Acute (3) Pneumonia Code(s): J18.9 - Pneumonia, unspecified organism Status: Acute (4) Encephalopathy Code(s): G93.40 - Encephalopathy, unspecified Status: Acute (5) Septic shock Code(s): A41.9 - Sepsis, unspecified organism; R65.21 - Severe sepsis with septic shock Status: Acute (6) Sepsis Code(s): A41.9 - Sepsis, unspecified organism Status: Acute - Plan Hemodialysis this afternoon then On Monday Source of sepsis appears to be UTI is going gram-negative rods Enterobacter on Zosyn He also has pneumonia on CT scan Once stable and discharged and then follow-up with Dr. Rao Hemodialysis progress noted and tolerating it well 3 L ultrafiltration on 4K bath
--- NOTE | 2018-07-20 17:47 | P.PNIM ---
Subjective Interval history: Patient says he is feeling well. Denies shortness of breath. Physical Exam Vital signs: Vital Signs 07/19/18 18:00 07/19/18 19:00 07/19/18 19:59 Temperature Pulse Rate 95 H 93 H Respiratory Rate 15 12 Blood Pressure 163/94 H 158/85 H Pulse Oximetry 98 98 98 07/19/18 20:00 07/19/18 21:00 07/19/18 22:00 Temperature Pulse Rate 94 H 91 H 95 H Respiratory Rate 16 17 11 L Blood Pressure 135/63 193/123 H 145/92 H Pulse Oximetry 98 96 96 07/19/18 22:49 07/19/18 23:00 07/20/18 00:00 Temperature Pulse Rate 86 95 H 108 H Respiratory Rate 18 15 13 Blood Pressure 172/97 H 167/82 H Pulse Oximetry 100 98 07/20/18 02:00 07/20/18 03:00 07/20/18 03:45 Temperature Pulse Rate 99 H 97 H 101 H Respiratory Rate 13 13 18 Blood Pressure 153/78 H 155/80 H Pulse Oximetry 97 95 07/20/18 04:00 07/20/18 05:00 07/20/18 05:59 Temperature Pulse Rate 100 H 111 H 108 H Respiratory Rate 21 13 17 Blood Pressure 179/88 H 137/71 Pulse Oximetry 100 98 97 07/20/18 06:00 07/20/18 06:01 07/20/18 07:00 Temperature 98 F Pulse Rate 104 H 112 H 106 H Respiratory Rate 16 13 13 Blood Pressure 135/81 134/77 Pulse Oximetry 97 98 98 07/20/18 08:00 07/20/18 09:00 07/20/18 09:59 Temperature Pulse Rate 94 H 98 H 99 H Respiratory Rate 12 12 11 L Blood Pressure 159/86 H 125/66 Pulse Oximetry 99 99 98 07/20/18 10:00 07/20/18 10:02 07/20/18 11:00 Temperature Pulse Rate 97 H 101 H 99 H Respiratory Rate 30 H 15 Blood Pressure 141/83 H 155/98 H Pulse Oximetry 98 97 07/20/18 11:21 07/20/18 12:00 07/20/18 12:37 Temperature Pulse Rate 97 H 108 H Respiratory Rate 13 Blood Pressure Pulse Oximetry 98 96 07/20/18 12:38 07/20/18 13:00 07/20/18 13:23 Temperature Pulse Rate 108 H 103 H 107 H Respiratory Rate 4 L 21 17 Blood Pressure 137/77 138/92 H Pulse Oximetry 96 95 96 07/20/18 14:00 07/20/18 15:00 07/20/18 16:00 Temperature 98.5 F Pulse Rate 110 H 105 H 105 H Respiratory Rate 14 18 16 Blood Pressure 134/65 130/73 138/77 Pulse Oximetry 80 L 85 L 96 Intake & Output 07/19/18 07/20/18 07/20/18 18:59 06:59 18:59 Intake Total 500 / 500 150 / 150 100 / 100 Output Total 150 / 150 150 / 150 Balance 350 / 350 0 / 0 100 / 100 Weight 100 kg Intake: IV 50 / 50 50 / 50 100 / 100 Zosyn 2.25 GM Premix 50 ML @ 50 / 50 50 / 50 100 / 100 100 mls/hr IV.SIG Q8H YOVANA Rx#: [id number] Oral 450 / 450 100 / 100 Output: Urine 50 / 50 Urine Amount (Catheter) 150 / 150 100 / 100 Indwelling Urethral Catheter 150 / 150 100 / 100 Other: Date of Last Bowel Movement 07/19/18 07/20/18 07/19/18 # Bowel Movements 1 1 Narrative: GENERAL: Sitting up in bed. Appears comfortable. Alert and oriented 3. SKIN: Warm and dry. HEAD: Normocephalic. EYES: No scleral icterus. No injection or drainage. NECK: Supple, trachea midline. No JVD. CARDIOVASCULAR: Regular rate and rhythm without murmurs, gallops, or rubs. RESPIRATORY: Breath sounds equal bilaterally. No accessory muscle use. GASTROINTESTINAL: Abdomen soft, non-tender, nondistended. MUSCULOSKELETAL: No cyanosis, or edema. BACK: Nontender without obvious deformity. No CVA tenderness. - Urinary Catheter Management Indwelling Urethral Catheter Cath placed during this visit: yes Reason for continuing: Other continuation reason Insertion date: 07/16/18 Insertion time: 17:30 Results - Labs CBC & Chem 7: 07/20/18 05:31 07/20/18 05:31 Laboratory Results - last 24 hr 07/19/18 07/20/18 07/20/18 17:47 00:16 05:19 WBC RBC Hgb Hct MCV MCH MCHC RDW Plt Count MPV Neut % (Auto) Lymph % (Auto) [place] % (Auto) Eos % (Auto) Baso % (Auto) Neut # (Auto) Lymph # (Auto) [place] # (Auto) Eos # (Auto) Baso # (Auto) WBC Differential Differential Comment Sodium Potassium Chloride Carbon Dioxide Anion Gap BUN Creatinine Estimated GFR POC Glucose 250 H 186 H 216 H Random Glucose Calcium Total Bilirubin AST ALT Alkaline Phosphatase Total Protein Albumin Random Vancomycin 07/20/18 07/20/18 07/20/18 05:31 05:31 17:05 WBC 12.2 H RBC 4.00 L Hgb 10.5 L Hct 34.4 L MCV 86.1 MCH 26.4 L MCHC 30.6 L RDW 16.5 Plt Count 241 MPV 8.6 Neut % (Auto) 89.1 H Lymph % (Auto) 3.4 L [place] % (Auto) 7.4 Eos % (Auto) 0.0 Baso % (Auto) 0.1 Neut # (Auto) 10.9 H Lymph # (Auto) 0.4 L [place] # (Auto) 0.9 Eos # (Auto) 0.0 Baso # (Auto) 0.0 WBC Differential . Differential Comment Auto diff final Sodium 139 Potassium 3.6 Chloride 100 Carbon Dioxide 27.3 Anion Gap 12 BUN 58 H Creatinine 4.50 H Estimated GFR 13 L POC Glucose 244 H Random Glucose 183 H Calcium 8.4 L Total Bilirubin 0.4 AST 5 L ALT 11 L Alkaline Phosphatase 92 Total Protein 7.4 Albumin 2.8 L Random Vancomycin 16.0 Microbiology 07/16/18 12:10 Blood - Peripheral Aerobic Blood Culture - Preliminary No growth in 4 days 07/16/18 12:10 Blood - Peripheral Anaerobic Blood Culture - Preliminary No growth in 4 days 07/16/18 12:00 Blood - Peripheral Aerobic Blood Culture - Preliminary No growth in 4 days 07/16/18 12:00 Blood - Peripheral Anaerobic Blood Culture - Preliminary No growth in 4 days - Imaging Impressions Barium Swallow X-Ray 07/20/18 00:00 CONCLUSION: Unremarkable barium swallow, however limited study since only frontal projection could be performed. Assessment and Plan - Plan // Acute on chronic hypercapnic and hypoxic respiratory failure -patient with multiple history of intubations and previous trach, last intubation approximately 2 months ago //Acute COPD exacerbation. //Bibasilar pneumonia. // Suspected aspiration pneumonia. //Septic shock. Shock is resolved, however still with sepsis. = Slow improvement. White blood cell count 12.4. Still tachycardic. Continue IV steroids, nebs, antibiotics to cover gram negatives, gram-positive, anaerobes.. Consult pulmonology. = 07/20. White count stable at 12.2. Continue antibiotics. Pulmonology following. Taper steroids. Appreciate assistance. //Reflux of solid foods. = Patient told me this yesterday, however subsequently denies. Barium swallow apparently normal. Appreciate GI assistance. //Atrial fibrillation -Patient with positive to 3.8 seconds. It appears that patient is on atenolol 200 mg at home. With pauses of 3.8 seconds, current heart rate of about 110. Will ask cardiology to decide on whether to restart atenolol. Cardiology recommends continued monitoring on telemetry and discharge home to follow-up with cardiology for event monitor as outpatient. Appreciate cardiology assistance. Cardiology signed off // Septic shock -now resolved, off pressors //Toxic metabolic encephalopathy likely in the setting of hypercapnia = Resolved. // End-stage renal disease on hemodialysis = Nephrology following for dialysis. Appreciate assistance. //Chronic aspiration status post PEG tube placement. Patient subsequently denies. = Cleared by speech therapy for diet. Will monitor closely. Appreciate pulmonary input. Discharge Planning: Likely need SNF. Transfer to floor.
--- NOTE | 2018-07-20 18:25 | ECHRPT ---
Indication: SHORTNESS OF BREATH CONCLUSIONS Normal left ventricular size. Mild concentric left ventricular hypertrophy. The left ventricular systolic function is normal with an estimated ejection fraction in the range of 60-65%. No regional wall motion abnormalities are present. Trace mitral valve regurgitation. There is mild tricuspid valve regurgitation. The estimated pulmonary arterial pressure is 60 mmHg. Trace pericardial effusion. BP: / HR: Rhythm: Atrial fibrillation, Atrial flut ter MEASUREMENTS (Male / Female) Normal Values Technical Quality: 2D ECHO LV Diastolic Diameter PLAX 4.9 cm 4.2 - 5.9 / 3.9 - 5.3 cm LV Systolic Diameter PLAX 3.0 cm IVS Diastolic Thickness 1.1 cm 0.6 - 1.0 / 0.6 - 0.9 cm LVPW Diastolic Thickness 1.1 cm 0.6 - 1.0 / 0.6 - 0.9 cm LV Relative Wall Thickness 0.4 RV Internal Dim ED PLAX 2.9 cm LVOT Diameter 2.3 cm Aortic Root Diameter 3.3 cm LA Systolic Diameter LX 4.2 cm 3.0 - 4.0 / 2.7 - 3.8 cm M-MODE AV Cusp Separation MM 2.2 cm DOPPLER AV Peak Velocity 101.5 cm/s AV Peak Gradient 4.1 mmHg AV Mean Gradient 2.3 mmHg AV Velocity Time Integral 15.1 cm LVOT Peak Velocity 49.6 cm/s LVOT Peak Gradient 1.0 mmHg LVOT Velocity Time Integral 7.9 cm AV Area Cont Eq vti 2.2 cm AV Area Cont Eq pk 2.0 cm Mitral E Point Velocity 91.1 cm/s LV E' Lateral Velocity 10.7 cm/s Mitral E to LV E' Lateral Ratio 8.6 LV E' Septal Velocity 7.4 cm/s Mitral E to LV E' Septal Ratio 12.3 TR Peak Velocity 387.0 cm/s TR Peak Gradient 59.9 mmHg Right Atrial Pressure 10.0 mmHg Pulmonary Artery Systolic Pressu 69.9 mmHg Right Ventricular Systolic Press 69.9 mmHg PV Peak Velocity 65.8 cm/s PV Peak Gradient 1.7 mmHg FINDINGS LEFT VENTRICLE Normal left ventricular size. Mild concentric left ventricular hypertrophy. The left ventricular systolic function is normal with an estimated ejection fraction in the range of 60-65%. No regional wall motion abnormalities are present. RIGHT VENTRICLE Normal right ventricular size and systolic function. LEFT ATRIUM The left atrial size is normal. RIGHT ATRIUM The right atrial size is normal. ATRIAL SEPTUM No atrial level shunt is demonstrated by color flow Doppler interrogation. AORTA The aortic root and proximal ascending aorta are normal in size on limited imaging. MITRAL VALVE Trace mitral valve regurgitation. AORTIC VALVE Trileaflet aortic valve. No aortic valve stenosis or regurgitation. TRICUSPID VALVE There is mild tricuspid valve regurgitation. The estimated pulmonary arterial pressure is 60 mmHg. PULMONARY VALVE No pulmonary valve regurgitation or stenosis. VESSELS The inferior vena cava is normal in size. PERICARDIUM Trace pericardial effusion. Ky Celeste MD (Electronically Signed) Final Date:20 July 2018 18:23
--- NOTE | 2018-07-20 18:36 | P.PN ---
Subjective Interval history: On dialysis today. On o2 2 L. No SOB at rest. CXR is better. Physical Exam Vital signs: Vital Signs 07/19/18 19:00 07/19/18 19:59 07/19/18 20:00 Temperature Pulse Rate 93 H 94 H Respiratory Rate 12 16 Blood Pressure 158/85 H 135/63 Pulse Oximetry 98 98 98 07/19/18 21:00 07/19/18 22:00 07/19/18 22:49 Temperature Pulse Rate 91 H 95 H 86 Respiratory Rate 17 11 L 18 Blood Pressure 193/123 H 145/92 H Pulse Oximetry 96 96 07/19/18 23:00 07/20/18 00:00 07/20/18 02:00 Temperature Pulse Rate 95 H 108 H 99 H Respiratory Rate 15 13 13 Blood Pressure 172/97 H 167/82 H 153/78 H Pulse Oximetry 100 98 97 07/20/18 03:00 07/20/18 03:45 07/20/18 04:00 Temperature Pulse Rate 97 H 101 H 100 H Respiratory Rate 13 18 21 Blood Pressure 155/80 H 179/88 H Pulse Oximetry 95 100 07/20/18 05:00 07/20/18 05:59 07/20/18 06:00 Temperature 98 F Pulse Rate 111 H 108 H 104 H Respiratory Rate 13 17 16 Blood Pressure 137/71 135/81 Pulse Oximetry 98 97 97 07/20/18 06:01 07/20/18 07:00 07/20/18 08:00 Temperature Pulse Rate 112 H 106 H 94 H Respiratory Rate 13 13 12 Blood Pressure 134/77 159/86 H Pulse Oximetry 98 98 99 07/20/18 09:00 07/20/18 09:59 07/20/18 10:00 Temperature Pulse Rate 98 H 99 H 97 H Respiratory Rate 12 11 L Blood Pressure 125/66 141/83 H Pulse Oximetry 99 98 07/20/18 10:02 07/20/18 11:00 07/20/18 11:21 Temperature Pulse Rate 101 H 99 H Respiratory Rate 30 H 15 Blood Pressure 155/98 H Pulse Oximetry 98 97 98 07/20/18 12:00 07/20/18 12:37 07/20/18 12:38 Temperature Pulse Rate 97 H 108 H 108 H Respiratory Rate 13 4 L Blood Pressure 137/77 Pulse Oximetry 96 96 07/20/18 13:00 07/20/18 13:23 07/20/18 14:00 Temperature Pulse Rate 103 H 107 H 110 H Respiratory Rate 21 17 14 Blood Pressure 138/92 H 134/65 Pulse Oximetry 95 96 80 L 07/20/18 15:00 07/20/18 16:00 Temperature 98.5 F Pulse Rate 105 H 105 H Respiratory Rate 18 16 Blood Pressure 130/73 138/77 Pulse Oximetry 85 L 96 Intake & Output 07/19/18 07/20/18 07/20/18 18:59 06:59 18:59 Intake Total 500 / 500 150 / 150 100 / 100 Output Total 150 / 150 150 / 150 Balance 350 / 350 0 / 0 100 / 100 Weight 100 kg Intake: IV 50 / 50 50 / 50 100 / 100 Zosyn 2.25 GM Premix 50 ML @ 50 / 50 50 / 50 100 / 100 100 mls/hr IV.SIG Q8H YOVANA Rx#: [id number] Oral 450 / 450 100 / 100 Output: Urine 50 / 50 Urine Amount (Catheter) 150 / 150 100 / 100 Indwelling Urethral Catheter 150 / 150 100 / 100 Other: Date of Last Bowel Movement 07/19/18 07/20/18 07/19/18 # Bowel Movements 1 1 Narrative: GENERAL: Mid aged W/M Appears comfortable. Alert and oriented 3. SKIN: Warm and dry. HEAD: Normocephalic. EYES: No scleral icterus. No injection or drainage. NECK: Supple, trachea midline. No JVD. CARDIOVASCULAR: Regular rate and rhythm without murmurs, gallops, or rubs. RESPIRATORY: Breath sounds equal bilaterally.Few basal crackles . No accessory muscle use. GASTROINTESTINAL: Abdomen soft, non-tender, nondistended. MUSCULOSKELETAL: No cyanosis, Has muscle wasting. BACK: Nontender without obvious deformity.Neuro : Has leg weakness. - Urinary Catheter Management Indwelling Urethral Catheter Cath placed during this visit: yes Reason for continuing: Other continuation reason Insertion date: 07/16/18 Insertion time: 17:30 Results - Labs CBC & Chem 7: 07/20/18 05:31 07/20/18 05:31 Laboratory Results - last 24 hr 07/20/18 07/20/18 07/20/18 00:16 05:19 05:31 WBC RBC Hgb Hct MCV MCH MCHC RDW Plt Count MPV Neut % (Auto) Lymph % (Auto) [place] % (Auto) Eos % (Auto) Baso % (Auto) Neut # (Auto) Lymph # (Auto) [place] # (Auto) Eos # (Auto) Baso # (Auto) WBC Differential Differential Comment Sodium 139 Potassium 3.6 Chloride 100 Carbon Dioxide 27.3 Anion Gap 12 BUN 58 H Creatinine 4.50 H Estimated GFR 13 L POC Glucose 186 H 216 H Random Glucose 183 H Calcium 8.4 L Total Bilirubin 0.4 AST 5 L ALT 11 L Alkaline Phosphatase 92 Total Protein 7.4 Albumin 2.8 L Random Vancomycin 16.0 07/20/18 07/20/18 05:31 17:05 WBC 12.2 H RBC 4.00 L Hgb 10.5 L Hct 34.4 L MCV 86.1 MCH 26.4 L MCHC 30.6 L RDW 16.5 Plt Count 241 MPV 8.6 Neut % (Auto) 89.1 H Lymph % (Auto) 3.4 L [place] % (Auto) 7.4 Eos % (Auto) 0.0 Baso % (Auto) 0.1 Neut # (Auto) 10.9 H Lymph # (Auto) 0.4 L [place] # (Auto) 0.9 Eos # (Auto) 0.0 Baso # (Auto) 0.0 WBC Differential . Differential Comment Auto diff final Sodium Potassium Chloride Carbon Dioxide Anion Gap BUN Creatinine Estimated GFR POC Glucose 244 H Random Glucose Calcium Total Bilirubin AST ALT Alkaline Phosphatase Total Protein Albumin Random Vancomycin Microbiology 07/16/18 12:10 Blood - Peripheral Aerobic Blood Culture - Preliminary No growth in 4 days 07/16/18 12:10 Blood - Peripheral Anaerobic Blood Culture - Preliminary No growth in 4 days 07/16/18 12:00 Blood - Peripheral Aerobic Blood Culture - Preliminary No growth in 4 days 07/16/18 12:00 Blood - Peripheral Anaerobic Blood Culture - Preliminary No growth in 4 days - Imaging Impressions Barium Swallow X-Ray 07/20/18 00:00 CONCLUSION: Unremarkable barium swallow, however limited study since only frontal projection could be performed. Assessment and Plan - Assessment (1) Aspiration pneumonia Code(s): J69.0 - Pneumonitis due to inhalation of food and vomit Status: Acute (2) Acute hypercapnic respiratory failure Code(s): J96.02 - Acute respiratory failure with hypercapnia Status: Acute (3) Sepsis Code(s): A41.9 - Sepsis, unspecified organism Status: Acute (4) Pneumonia Code(s): J18.9 - Pneumonia, unspecified organism Status: Acute (5) Encephalopathy Code(s): G93.40 - Encephalopathy, unspecified Status: Acute (6) Septic shock Code(s): A41.9 - Sepsis, unspecified organism; R65.21 - Severe sepsis with septic shock Status: Acute (7) Acute metabolic encephalopathy Code(s): G93.41 - Metabolic encephalopathy Status: Acute (8) End stage renal disease Code(s): N18.6 - End stage renal disease Status: Acute - Plan 1. Continue antibiotics Zosyn/ vanco 2. O2 2 L N/C 3. Duoneb nebs qid. 4. D/C solumedrol IV 5. Chest Xray on Monday 6. Dialysis today. 7. IS at bedside q2h
[2018-07-20] MEDS: Metoprolol Tartrate 25 MG Tablet PO SCH (21:06)
[2018-07-21] MEDS: Insulin NovoLIN Regular Correctional Sugar Inj SQ SCH ×4 (00:26→18:52)
[2018-07-21] MEDS: Chlorhexidine Gluconate 2% 1 Pack (2 Cloths) TOPICAL SCH (05:43)
[2018-07-21] MEDS: Piperacil/Tazo 2.25 GM Premix 50 ML IV.SIG SCH (05:56)
[2018-07-21 08:07] LABS: Baso % (Auto) 0.3 % (0.0-2.0); Eos # (Auto) 0.1 th/mm3 (0.0-0.4); Eos % (Auto) 0.4 % (0.0-4.0); Hematocrit 35.5 % (39.0-51.0); Hemoglobin 10.9 gm/dL (13.0-17.0); Lymph # (Auto) 0.6 th/mm3 (1.0-4.8); Lymph % (Auto) 4.3 % (9.0-44.0); Mean Corpuscular Hemoglobin 26.7 pg (27.0-34.0); Mean Corpuscular Volume 86.8 fL (80.0-100.0); Mono # (Auto) 1.5 th/mm3 (0.0-0.9); Mono % (Auto) 11.2 % (0.0-8.0); Neut # (Auto) 11.6 th/mm3 (1.8-7.7); Neut % (Auto) 83.8 % (16.0-70.0); Platelet Count 248 th/mm3 (150-450); Red Blood Count 4.09 mil/mm3 (4.50-5.90); Red Cell Distribution Width 16.3 % (11.6-17.2); White Blood Count 13.8 th/mm3 (4.0-11.0)
[2018-07-21 08:10] LABS: Mean Corpuscular HGB Conc 30.8 % (32.0-36.0)
[2018-07-21 08:31] LABS: Alanine Aminotransferase 10 U/L (12-78); Albumin 2.6 g/dL (3.4-5.0); Anion Gap 7 meq/L (5-15); Aspartate Aminotransferase 5 U/L (15-37); Blood Urea Nitrogen 34 mg/dL (7-18); Calcium 8.2 mg/dL (8.5-10.1); Carbon Dioxide 31.8 meq/L (21.0-32.0); Chloride 101 meq/L (98-107); Glomerular Filtration Rate 20 mL/min (>89); Glucose,Random 123 mg/dL (74-106); Potassium 3.2 meq/L (3.5-5.1); Sodium 140 meq/L (136-145)
[2018-07-21 08:35] LABS: Alkaline Phosphatase 81 U/L (45-117); Total Protein 7.2 g/dL (6.4-8.2)
[2018-07-21] MEDS ORDERED: SACCHAROMYCES BOULARDII 250 MG PO SCH (09:00)
[2018-07-21] MEDS: Famotidine 20 MG Tablet PO SCH (09:32)
[2018-07-21] MEDS: Senna/Docusate Sodium 8.6/50 MG Tablet PO SCH ×2 (09:33→21:09)
--- NOTE | 2018-07-21 09:37 | P.PNIM ---
Subjective Interval history: Patient says he is feeling well. Denies any chest pain shortness of breath. Physical Exam Vital signs: Vital Signs 07/20/18 09:59 07/20/18 10:00 07/20/18 10:02 Temperature Pulse Rate 99 H 97 H 101 H Respiratory Rate 11 L 30 H Blood Pressure 141/83 H Pulse Oximetry 98 98 07/20/18 11:00 07/20/18 11:21 07/20/18 12:00 Temperature Pulse Rate 99 H 97 H Respiratory Rate 15 Blood Pressure 155/98 H Pulse Oximetry 97 98 07/20/18 12:37 07/20/18 12:38 07/20/18 13:00 Temperature Pulse Rate 108 H 108 H 103 H Respiratory Rate 13 4 L 21 Blood Pressure 137/77 Pulse Oximetry 96 96 95 07/20/18 13:23 07/20/18 14:00 07/20/18 15:00 Temperature Pulse Rate 107 H 110 H 105 H Respiratory Rate 17 14 18 Blood Pressure 138/92 H 134/65 130/73 Pulse Oximetry 96 80 L 85 L 07/20/18 16:00 07/20/18 20:00 07/20/18 21:29 Temperature 98.5 F 98.0 F Pulse Rate 105 H 88 Respiratory Rate 16 18 Blood Pressure 138/77 113/71 Pulse Oximetry 96 99 97 07/21/18 00:00 07/21/18 04:00 07/21/18 08:00 Temperature 99 F 99.6 F 98.8 F Pulse Rate 86 95 H 106 H Respiratory Rate 18 18 16 Blood Pressure 145/86 H 142/79 H 126/73 Pulse Oximetry 99 98 96 Intake & Output 07/20/18 07/21/18 07/21/18 18:59 06:59 18:59 Intake Total 100 / 100 340 / 340 Output Total 3025 / 3025 Balance 100 / 100 -2685 / -2685 Weight 99.5 kg Intake: IV 100 / 100 100 / 100 Zosyn 2.25 GM Premix 50 ML @ 100 / 100 100 / 100 100 mls/hr IV.SIG Q8H [facility] Rx#: [id number] Oral 240 / 240 Output: Urine 25 / 25 Hemodialysis Amount 3000 / 3000 Other: Date of Last Bowel Movement 07/19/18 Narrative: GENERAL: Patient sitting in bed. Appears comfortable. SKIN: Warm and dry. HEAD: Normocephalic. EYES: No scleral icterus. No injection or drainage. NECK: Supple, trachea midline. No JVD. CARDIOVASCULAR: Regular rate and rhythm without murmurs, gallops, or rubs. RESPIRATORY: Breath sounds equal bilaterally. No accessory muscle use. GASTROINTESTINAL: Abdomen soft, non-tender, nondistended. MUSCULOSKELETAL: No cyanosis, or edema. BACK: Nontender without obvious deformity. No CVA tenderness. - Urinary Catheter Management Indwelling Urethral Catheter Cath placed during this visit: yes Reason for continuing: Other continuation reason Insertion date: 07/16/18 Insertion time: 17:30 Results - Labs CBC & Chem 7: 07/21/18 07:30 07/21/18 07:50 Laboratory Results - last 24 hr 07/20/18 07/21/18 07/21/18 17:05 00:21 05:56 WBC RBC Hgb Hct MCV MCH MCHC RDW Plt Count MPV Neut % (Auto) Lymph % (Auto) [place] % (Auto) Eos % (Auto) Baso % (Auto) Neut # (Auto) Lymph # (Auto) [place] # (Auto) Eos # (Auto) Baso # (Auto) WBC Differential Differential Comment Sodium Potassium Chloride Carbon Dioxide Anion Gap BUN Creatinine Estimated GFR POC Glucose 244 H 159 H 130 H Random Glucose Calcium Total Bilirubin AST ALT Alkaline Phosphatase Total Protein Albumin 07/21/18 07/21/18 07:30 07:50 WBC 13.8 H RBC 4.09 L Hgb 10.9 L Hct 35.5 L MCV 86.8 MCH 26.7 L MCHC 30.8 L RDW 16.3 Plt Count 248 MPV 8.0 Neut % (Auto) 83.8 H Lymph % (Auto) 4.3 L [place] % (Auto) 11.2 H Eos % (Auto) 0.4 Baso % (Auto) 0.3 Neut # (Auto) 11.6 H Lymph # (Auto) 0.6 L [place] # (Auto) 1.5 H Eos # (Auto) 0.1 Baso # (Auto) 0.0 WBC Differential . Differential Comment Auto diff final Sodium 140 Potassium 3.2 L Chloride 101 Carbon Dioxide 31.8 Anion Gap 7 BUN 34 H Creatinine 3.13 H Estimated GFR 20 L POC Glucose Random Glucose 123 H Calcium 8.2 L Total Bilirubin 0.4 AST 5 L ALT 10 L Alkaline Phosphatase 81 Total Protein 7.2 Albumin 2.6 L Microbiology 07/16/18 12:10 Blood - Peripheral Aerobic Blood Culture - Preliminary No growth in 4 days 07/16/18 12:10 Blood - Peripheral Anaerobic Blood Culture - Preliminary No growth in 4 days 07/16/18 12:00 Blood - Peripheral Aerobic Blood Culture - Preliminary No growth in 4 days 07/16/18 12:00 Blood - Peripheral Anaerobic Blood Culture - Preliminary No growth in 4 days - Imaging Impressions Barium Swallow X-Ray 07/20/18 00:00 CONCLUSION: Unremarkable barium swallow, however limited study since only frontal projection could be performed. Assessment and Plan - Plan // Acute on chronic hypercapnic and hypoxic respiratory failure -patient with multiple history of intubations and previous trach, last intubation approximately 2 months ago //Acute COPD exacerbation. //Bibasilar pneumonia. // Suspected aspiration pneumonia. //Septic shock. Shock is resolved, however still with sepsis. = Slow improvement. White blood cell count 12.4. Still tachycardic. Continue IV steroids, nebs, antibiotics to cover gram negatives, gram-positive, anaerobes.. Consult pulmonology. = 07/20. White count stable at 12.2. Continue antibiotics. Pulmonology following. Taper steroids. Appreciate assistance. = 07/21. White count elevated likely secondary to recent steroids. Pneumonia with Pseudomonas sensitive to Levaquin. However will need to cover for aspiration pneumonia as well. //Atrial fibrillation -Patient with pause to 3.8 seconds. It appears that patient is on atenolol 100 mg at home. With pauses of 3.8 seconds, current heart rate of about 110. Will ask cardiology to decide on whether to restart atenolol. Cardiology recommends continued monitoring on telemetry and discharge home to follow-up with cardiology for event monitor as outpatient. Appreciate cardiology assistance. Cardiology signed off = 07/21. Heart rate improved on metoprolol, however somewhat elevated this morning. Will increase dose of metoprolol slightly and monitor on telemetry. I discussed with Dr. Montague of cardiology yesterday. Appreciate assistance. Dr. Montague recommends 30 day event monitor as outpatient. // Septic shock -now resolved, off pressors //UTI. Enterobacter. Sensitive to Bactrim. //Toxic metabolic encephalopathy likely in the setting of hypercapnia = Resolved. // End-stage renal disease on hemodialysis = Nephrology following for dialysis. Appreciate assistance. //Chronic aspiration status post PEG tube placement. Patient subsequently denies. = Cleared by speech therapy for diet. Will monitor closely. Appreciate pulmonary input. Discharge Planning: Likely need SNF versus rehab. Patient case management assistance.
[2018-07-21] MEDS: Metoprolol Tartrate 25 MG Tablet PO SCH ×2 (09:39→21:11)
[2018-07-21] MEDS: FLORASTOR 250 MG PO SCH (12:45)
[2018-07-21] MEDS: levoFLOXacin 250 MG Tablet PO SCH (13:38)
[2018-07-21] MEDS: Sulfamethoxazole/Trimethoprim 400/80 MG Tablet PO SCH ×2 (13:38→21:09)
--- NOTE | 2018-07-21 14:28 | P.PNID ---
Subjective Remarks: Patient is a 57-year-old male, brought into the hospital after he was noted to have altered mental status, with decreased level of consciousness at the dialysis center. He apparently lost pulses and CPR was started with return of his pulses. EMS was called and at that time he was found to have pulses. He was noted to be confused. His blood sugars were okay. In the ED he was hypotensive, and was on Levophed briefly. He ended up getting intubated. CT of the abdomen and pelvis showed the known adrenal mass with slight increase in size. CT of the chest did not show any PE but it showed dense bibasilar consolidation. Patient stated that he was at [facility] about 5 months ago and at that time he had pneumonia. He went to a rehab facility and at the rehab he has not really been doing any ambulation. He gets transferred to a wheelchair. He has known COPD, and chronically on oxygen. Patient states he has a chronic cough and brings up some clear phlegm. He has not really noted any increase in his cough or change in the color of his sputum. He denies any chest pain. He was extubated yesterday, and currently denies any shortness of breath. He is on nasal O2 with good oxygen saturation. Patient denies any problem with nausea or vomiting, or any swallowing difficulty. He has not had any choking episodes. During his hospitalization at [facility], he had a PEG tube placed, but the patient stated that they have not been using the tube for nutrition, and he has been taking nutrition orally. He has not been for febrile since admission. His hemodynamics are stable. Patient also had a history of right empyema back in 2010, requiring a right thoracotomy, decortication and pleurectomy, and a right lung wedge resection. Records mentioned that he has had problem with aspiration. Infectious disease consultation has been requested to assist with management of recurrent pneumonia. Notes reviewed Temps ok On nasal O2 Doing well Mental status back to baseline UC with Enterobacter Sputum with PSAE CXR stable infiltrates Had HD yesterday Antibiotics: Zosyn Past Medical History: Diabetes ESRD (end stage renal disease) on dialysis Empyema lung HTN (hypertension) Renal disease Status post thoracotomy Allergies/Adverse Reactions: Allergies heparin Allergy (Severe, Verified 07/16/18 13:23) Bleeding quetiapine [From Seroquel] Allergy (Intermediate, Verified 07/16/18 13:23) Shakiness cefuroxime Allergy (Verified 07/20/18 18:25) Rash Objective Vital Signs 07/20/18 15:00 07/20/18 16:00 07/20/18 20:00 Temperature 98.5 F 98.0 F Pulse Rate 105 H 105 H 88 Respiratory Rate 18 16 18 Blood Pressure 130/73 138/77 113/71 Pulse Oximetry 85 L 96 99 07/20/18 21:29 07/21/18 00:00 07/21/18 04:00 Temperature 99 F 99.6 F Pulse Rate 86 95 H Respiratory Rate 18 18 Blood Pressure 145/86 H 142/79 H Pulse Oximetry 97 99 98 07/21/18 08:00 07/21/18 12:00 Temperature 98.8 F 98.9 F Pulse Rate 106 H 94 H Respiratory Rate 16 20 Blood Pressure 126/73 118/64 Pulse Oximetry 96 97 Intake & Output 07/20/18 07/21/18 07/21/18 18:59 06:59 18:59 Intake Total 100 / 100 340 / 340 Output Total 3025 / 3025 Balance 100 / 100 -2685 / -2685 Weight 99.5 kg Intake: IV 100 / 100 100 / 100 Zosyn 2.25 GM Premix 50 ML @ 100 / 100 100 / 100 100 mls/hr IV.SIG Q8H [facility] Rx#: [id number] Oral 240 / 240 Output: Urine 25 / 25 Hemodialysis Amount 3000 / 3000 Other: Date of Last Bowel Movement 07/19/18 07/16/18 12:10 Blood - Peripheral Aerobic Blood Culture - Final No growth in 5 days 07/16/18 12:10 Blood - Peripheral Anaerobic Blood Culture - Final No growth in 5 days 07/16/18 12:00 Blood - Peripheral Aerobic Blood Culture - Final No growth in 5 days 07/16/18 12:00 Blood - Peripheral Anaerobic Blood Culture - Final No growth in 5 days 07/17/18 06:14 Sputum - Endotracheal Gram Stain - Final 07/17/18 06:14 Sputum - Endotracheal Sputum Culture - Final Pseudomonas aeruginosa Lab - Hematology Results 07/20/18 07/21/18 05:31 07:30 WBC 12.2 H 13.8 H RBC 4.00 L 4.09 L Hgb 10.5 L 10.9 L Hct 34.4 L 35.5 L MCV 86.1 86.8 MCH 26.4 L 26.7 L MCHC 30.6 L 30.8 L RDW 16.5 16.3 Plt Count 241 248 MPV 8.6 8.0 Neut % (Auto) 89.1 H 83.8 H Lymph % (Auto) 3.4 L 4.3 L [place] % (Auto) 7.4 11.2 H Eos % (Auto) 0.0 0.4 Baso % (Auto) 0.1 0.3 Neut # (Auto) 10.9 H 11.6 H Lymph # (Auto) 0.4 L 0.6 L [place] # (Auto) 0.9 1.5 H Eos # (Auto) 0.0 0.1 Baso # (Auto) 0.0 0.0 WBC Differential . . Differential Comment Auto diff final Auto diff final Lab - Chemistry Results 07/19/18 07/20/18 07/20/18 17:47 00:16 05:19 Sodium Potassium Chloride Carbon Dioxide Anion Gap BUN Creatinine Estimated GFR POC Glucose 250 H 186 H 216 H Random Glucose Calcium Total Bilirubin AST ALT Alkaline Phosphatase Total Protein Albumin 07/20/18 07/20/18 07/21/18 05:31 17:05 00:21 Sodium 139 Potassium 3.6 Chloride 100 Carbon Dioxide 27.3 Anion Gap 12 BUN 58 H Creatinine 4.50 H Estimated GFR 13 L POC Glucose 244 H 159 H Random Glucose 183 H Calcium 8.4 L Total Bilirubin 0.4 AST 5 L ALT 11 L Alkaline Phosphatase 92 Total Protein 7.4 Albumin 2.8 L 07/21/18 07/21/18 07/21/18 05:56 07:50 13:45 Sodium 140 Potassium 3.2 L Chloride 101 Carbon Dioxide 31.8 Anion Gap 7 BUN 34 H Creatinine 3.13 H Estimated GFR 20 L POC Glucose 130 H 103 Random Glucose 123 H Calcium 8.2 L Total Bilirubin 0.4 AST 5 L ALT 10 L Alkaline Phosphatase 81 Total Protein 7.2 Albumin 2.6 L Imaging: ITS Impressions Abdomen X-Ray 07/16/18 12:30 CONCLUSION: Nonspecific, benign abdomen appearance. Abdomen/Pelvis CT 07/16/18 13:03 CONCLUSION: 1. No acute abnormality in the abdomen or pelvis. 2. Dense right basilar airspace consolidation and trace pleural effusions concerning for aspiration. 3. Gastrostomy catheter present and NGT in place. 4. 1.8 cm right adrenal mass which has slightly increased from 2011 CT scan measuring 1.4 cm. This was partially imaged on the chest CT exam and its visualized portions appeared to be stable. This can be further characterized with adrenal mass CT or MRI exam on an outpatient basis. Chest CTA 07/16/18 13:03 CONCLUSION: 1. No CT evidence for pulmonary artery embolism as questioned. 2. Dense bilateral lower lobe airspace consolidation with trace associated pleural effusions. Findings are concerning for aspiration. 3. Nonspecific right hilar and mediastinal nodes, as above. This may be reactive in etiology. 4. Probable 1.6 cm right adrenal mass that is incompletely imaged on this exam. Although indeterminate in density, this is unchanged from abdominal CT of 06/07/2011 and therefore likely benign. Head CT 07/17/18 00:00 CONCLUSION: 1. Atrophy. 2. Periventricular low attenuation change likely relating to chronic small vessel ischemic change. 3. Fluid throughout the nasal cavity and paranasal sinuses. . Chest X-Ray 07/19/18 00:00 CONCLUSION: Stable exam as detailed above. Barium Swallow X-Ray 07/20/18 00:00 CONCLUSION: Unremarkable barium swallow, however limited study since only frontal projection could be performed. Physical Exam: GENERAL: awake and alert, NAD. He is on nasal O2 SKIN: Cool and dry. No generalized rash, no ecchymoses and no evidence of embolic lesions. HEAD: Atraumatic. Normocephalic. No temporal wasting, or tenderness. EYES: [place] conjunctiva. No petechia or hemorrhage. Pupils equal, round and reactive to light. Extraocular movements full and intact. No scleral icterus. No injection or drainage. EARS, NOSE AND THROAT: Nose without bleeding or purulent nasal discharge. No sinus tenderness. Mucous membranes pink and moist. No oral lesions noted. NECK: Trachea midline. Supple and not tender, no meningeal signs CARDIOVASCULAR: Regular rate and rhythm. No murmurs, rubs or gallops heard RESPIRATORY: Clear to auscultation. Decreased at bases ABDOMEN: Soft, non-tender, nondistended. Bowel sounds present and normoactive. No guarding. No rebound. No organomegaly. PEG site looks ok EXTREMITIES: No clubbing, cyanosis, or edema. No calf tenderness. Well perfused and warm. NEUROLOGICAL: Awake and alert. Cranial nerves grossly intact. PSYCHIATRIC: Normal affect, calm and cooperative. LINE: No evidence of infection Assessment and Plan - Plan Impression Pneumonia, likely aspiration S/P respiratory failure COPD, O2 dependent ESRD on HD MWF UTI, Enterobacter Recommendation Switch to Levaquin and Bactrim to complete Rx Give 10 days of oral Ab Stop Zosyn D/W Dr Quiñonez
--- NOTE | 2018-07-21 15:15 | P.PNNP ---
Subjective Interval history: Patient with ESRD and pneumonia Physical Exam Vital signs: Vital Signs 07/20/18 16:00 07/20/18 20:00 07/20/18 21:29 Temperature 98.5 F 98.0 F Pulse Rate 105 H 88 Respiratory Rate 16 18 Blood Pressure 138/77 113/71 Pulse Oximetry 96 99 97 07/21/18 00:00 07/21/18 04:00 07/21/18 08:00 Temperature 99 F 99.6 F 98.8 F Pulse Rate 86 95 H 106 H Respiratory Rate 18 18 16 Blood Pressure 145/86 H 142/79 H 126/73 Pulse Oximetry 99 98 96 07/21/18 12:00 Temperature 98.9 F Pulse Rate 94 H Respiratory Rate 20 Blood Pressure 118/64 Pulse Oximetry 97 Intake & Output 07/20/18 07/21/18 07/21/18 18:59 06:59 18:59 Intake Total 100 / 100 340 / 340 Output Total 3025 / 3025 Balance 100 / 100 -2685 / -2685 Weight 99.5 kg Intake: IV 100 / 100 100 / 100 Zosyn 2.25 GM Premix 50 ML @ 100 / 100 100 / 100 100 mls/hr IV.SIG Q8H [facility] Rx#: [id number] Oral 240 / 240 Output: Urine 25 / 25 Hemodialysis Amount 3000 / 3000 Other: Date of Last Bowel Movement 07/19/18 - Constitutional no acute distress - Routine HEENT Exam Eye: Present: EOMI - Routine Neck Exam Present: supple - Routine Respiratory Exam Present: distant breath sounds - Routine Cardiovascular Exam Present: RRR - Routine Abdominal Exam Present: soft - Routine Extremities Exam Present: edema - Urinary Catheter Management Indwelling Urethral Catheter Cath placed during this visit: yes Reason for continuing: Other continuation reason Insertion date: 07/16/18 Insertion time: 17:30 Assessment and Plan - Assessment (1) End stage renal disease Code(s): N18.6 - End stage renal disease Status: Acute (2) Acute hypercapnic respiratory failure Code(s): J96.02 - Acute respiratory failure with hypercapnia Status: Acute (3) Pneumonia Code(s): J18.9 - Pneumonia, unspecified organism Status: Acute (4) Encephalopathy Code(s): G93.40 - Encephalopathy, unspecified Status: Acute (5) Septic shock Code(s): A41.9 - Sepsis, unspecified organism; R65.21 - Severe sepsis with septic shock Status: Acute (6) Sepsis Code(s): A41.9 - Sepsis, unspecified organism Status: Acute - Plan Hemodialysis On Monday Source of sepsis appears to be UTI is going gram-negative rods Enterobacter He also has pneumonia on CT scan Once stable and discharged and then follow-up with Dr. Rao
[2018-07-22] MEDS: Insulin NovoLIN Regular Correctional Sugar Inj SQ SCH ×4 (01:08→20:36)
[2018-07-22 06:27] LABS: Baso # (Auto) 0.1 th/mm3 (0.0-0.2); Baso % (Auto) 0.3 % (0.0-2.0); Eos # (Auto) 0.1 th/mm3 (0.0-0.4); Eos % (Auto) 0.5 % (0.0-4.0); Hematocrit 38.7 % (39.0-51.0); Hemoglobin 11.6 gm/dL (13.0-17.0); Lymph # (Auto) 0.8 th/mm3 (1.0-4.8); Lymph % (Auto) 3.7 % (9.0-44.0); Mean Corpuscular Hemoglobin 26.1 pg (27.0-34.0); Mean Corpuscular Volume 87.2 fL (80.0-100.0); Mean Platelet Volume 8.2 fL (7.0-11.0); Mono # (Auto) 1.6 th/mm3 (0.0-0.9); Mono % (Auto) 7.7 % (0.0-8.0); Neut # (Auto) 18.4 th/mm3 (1.8-7.7); Neut % (Auto) 87.8 % (16.0-70.0); Platelet Count 268 th/mm3 (150-450); Red Blood Count 4.44 mil/mm3 (4.50-5.90); Red Cell Distribution Width 16.4 % (11.6-17.2)
[2018-07-22 06:39] LABS: Mean Corpuscular HGB Conc 29.9 % (32.0-36.0)
[2018-07-22] MEDS: Metoprolol Tartrate 25 MG Tablet PO SCH ×3 (07:25→23:24)
[2018-07-22 07:26] LABS: Alanine Aminotransferase 9 U/L (12-78); Albumin 2.5 g/dL (3.4-5.0); Anion Gap 12 meq/L (5-15); Aspartate Aminotransferase 4 U/L (15-37); Blood Urea Nitrogen 43 mg/dL (7-18); Calcium 8.4 mg/dL (8.5-10.1); Carbon Dioxide 29.2 meq/L (21.0-32.0); Chloride 100 meq/L (98-107); Glomerular Filtration Rate 16 mL/min (>89); Glucose,Random 72 mg/dL (74-106); Potassium 3.7 meq/L (3.5-5.1); Sodium 141 meq/L (136-145)
[2018-07-22 07:28] LABS: Alkaline Phosphatase 83 U/L (45-117); Total Protein 6.8 g/dL (6.4-8.2)
[2018-07-22] MEDS: levoFLOXacin 250 MG Tablet PO SCH (09:22)
[2018-07-22] MEDS: Sulfamethoxazole/Trimethoprim 400/80 MG Tablet PO SCH ×2 (09:22→23:24)
[2018-07-22] MEDS: Senna/Docusate Sodium 8.6/50 MG Tablet PO SCH ×2 (09:22→23:24)
[2018-07-22] MEDS: Famotidine 20 MG Tablet PO SCH (09:23)
--- NOTE | 2018-07-22 10:41 | P.PNIM ---
Subjective Interval history: Patient reports crampy abdominal pain, some nausea without vomiting. Diarrhea this morning. Discussed with nurse will check C. difficile of stool. Physical Exam Vital signs: Vital Signs 07/21/18 12:00 07/21/18 16:00 07/21/18 20:00 Temperature 98.9 F 98.8 F 98.6 F Pulse Rate 94 H 89 97 H Respiratory Rate 20 16 18 Blood Pressure 118/64 124/58 L 121/66 Pulse Oximetry 97 98 92 L 07/22/18 00:00 07/22/18 04:00 07/22/18 08:00 Temperature 98.6 F 98.8 F 97.7 F Pulse Rate 90 83 93 H Respiratory Rate 18 18 20 Blood Pressure 138/72 123/68 123/70 Pulse Oximetry 94 L 99 98 Intake & Output 07/21/18 07/22/18 07/22/18 18:59 06:59 18:59 Intake Total 800 / 800 Output Total 600 / 600 175 / 175 Balance 200 / 200 -175 / -175 Weight 96.3 kg Intake: Oral 800 / 800 Output: Urine 600 / 600 175 / 175 Other: Date of Last Bowel Movement 07/21/18 # Bowel Movements 1 # Incontinent Bowel Movements 1 Narrative: GENERAL: Patient sitting in bed. Appears comfortable. Appears to have had diarrhea bowel movement. SKIN: Warm and dry. HEAD: Normocephalic. EYES: No scleral icterus. No injection or drainage. NECK: Supple, trachea midline. No JVD. CARDIOVASCULAR: Regular rate and rhythm without murmurs, gallops, or rubs. RESPIRATORY: Breath sounds equal bilaterally. No accessory muscle use. GASTROINTESTINAL: Abdomen soft, non-tender, nondistended. MUSCULOSKELETAL: No cyanosis, or edema. BACK: Nontender without obvious deformity. No CVA tenderness. - Urinary Catheter Management Indwelling Urethral Catheter Cath placed during this visit: yes Reason for continuing: Other continuation reason Insertion date: 07/16/18 Insertion time: 17:30 Results - Labs CBC & Chem 7: 07/22/18 06:13 07/22/18 06:13 Laboratory Results - last 24 hr 07/21/18 07/21/18 07/22/18 13:45 18:05 00:56 WBC RBC Hgb Hct MCV MCH MCHC RDW Plt Count MPV Neut % (Auto) Lymph % (Auto) [place] % (Auto) Eos % (Auto) Baso % (Auto) Neut # (Auto) Lymph # (Auto) [place] # (Auto) Eos # (Auto) Baso # (Auto) WBC Differential Differential Comment Sodium Potassium Chloride Carbon Dioxide Anion Gap BUN Creatinine Estimated GFR POC Glucose 103 97 80 Random Glucose Calcium Total Bilirubin AST ALT Alkaline Phosphatase Total Protein Albumin 07/22/18 07/22/18 07/22/18 06:13 06:13 06:35 WBC 21.0 H D RBC 4.44 L Hgb 11.6 L Hct 38.7 L MCV 87.2 MCH 26.1 L MCHC 29.9 L RDW 16.4 Plt Count 268 MPV 8.2 Neut % (Auto) 87.8 H Lymph % (Auto) 3.7 L [place] % (Auto) 7.7 Eos % (Auto) 0.5 Baso % (Auto) 0.3 Neut # (Auto) 18.4 H Lymph # (Auto) 0.8 L [place] # (Auto) 1.6 H Eos # (Auto) 0.1 Baso # (Auto) 0.1 WBC Differential . Differential Comment Auto diff final Sodium 141 Potassium 3.7 Chloride 100 Carbon Dioxide 29.2 Anion Gap 12 BUN 43 H Creatinine 3.80 H Estimated GFR 16 L POC Glucose 80 Random Glucose 72 L Calcium 8.4 L Total Bilirubin 0.4 AST 4 L ALT 9 L Alkaline Phosphatase 83 Total Protein 6.8 Albumin 2.5 L Microbiology 07/16/18 12:10 Blood - Peripheral Aerobic Blood Culture - Final No growth in 5 days 07/16/18 12:10 Blood - Peripheral Anaerobic Blood Culture - Final No growth in 5 days 07/16/18 12:00 Blood - Peripheral Aerobic Blood Culture - Final No growth in 5 days 07/16/18 12:00 Blood - Peripheral Anaerobic Blood Culture - Final No growth in 5 days Assessment and Plan - Plan // Acute on chronic hypercapnic and hypoxic respiratory failure -patient with multiple history of intubations and previous trach, last intubation approximately 2 months ago //Acute COPD exacerbation. //Bibasilar pneumonia. // Suspected aspiration pneumonia. //Septic shock. Shock is resolved, however still with sepsis. = Slow improvement. White blood cell count 12.4. Still tachycardic. Continue IV steroids, nebs, antibiotics to cover gram negatives, gram-positive, anaerobes.. Consult pulmonology. = 07/20. White count stable at 12.2. Continue antibiotics. Pulmonology following. Taper steroids. Appreciate assistance. = 07/21. White count elevated likely secondary to recent steroids. Pneumonia with Pseudomonas sensitive to Levaquin. However will need to cover for aspiration pneumonia as well. = 07/22. White count elevated in the 20s, likely secondary to recent steroids versus C. difficile. //Diarrhea. //Nausea - with previous history of C. difficile. White count of 20. PEG tube to low intermittent wall suction. = We will check C. difficile and start treatment if necessary. Will hold discharge for now. //Atrial fibrillation -Patient with pause to 3.8 seconds. It appears that patient is on atenolol 100 mg at home. With pauses of 3.8 seconds, current heart rate of about 110. Will ask cardiology to decide on whether to restart atenolol. Cardiology recommends continued monitoring on telemetry and discharge home to follow-up with cardiology for event monitor as outpatient. Appreciate cardiology assistance. Cardiology signed off = 07/21. Heart rate improved on metoprolol, however somewhat elevated this morning. Will increase dose of metoprolol slightly and monitor on telemetry. I discussed with Dr. Montague of cardiology yesterday. Appreciate assistance. Dr. Montague recommends 30 day event monitor as outpatient. = 07/22. No pauses on telemetry. Continue current dose of Toprol. Follow-up with cardiology as outpatient. // Septic shock -now resolved, off pressors //UTI. Enterobacter. Sensitive to Bactrim. //Toxic metabolic encephalopathy likely in the setting of hypercapnia = Resolved. // End-stage renal disease on hemodialysis = Nephrology following for dialysis. Appreciate assistance. //Chronic aspiration status post PEG tube placement. Patient subsequently denies. = Cleared by speech therapy for diet. Will monitor closely. Appreciate pulmonary input. Discharge Planning: Likely need SNF versus rehab. Workup for possible C. difficile today.
--- NOTE | 2018-07-22 16:00 | P.PNNP ---
Subjective Interval history: Patient is complaining of some abdominal pain Physical Exam Vital signs: Vital Signs 07/21/18 16:00 07/21/18 20:00 07/22/18 00:00 Temperature 98.8 F 98.6 F 98.6 F Pulse Rate 89 97 H 90 Respiratory Rate 16 18 18 Blood Pressure 124/58 L 121/66 138/72 Pulse Oximetry 98 92 L 94 L 07/22/18 04:00 07/22/18 08:00 07/22/18 12:00 Temperature 98.8 F 97.7 F 97.8 F Pulse Rate 83 93 H 84 Respiratory Rate 18 20 16 Blood Pressure 123/68 123/70 101/58 L Pulse Oximetry 99 98 99 07/22/18 13:46 Temperature Pulse Rate Respiratory Rate Blood Pressure Pulse Oximetry 99 Intake & Output 07/21/18 07/22/18 07/22/18 18:59 06:59 18:59 Intake Total 800 / 800 Output Total 600 / 600 175 / 175 Balance 200 / 200 -175 / -175 Weight 96.3 kg Intake: Oral 800 / 800 Output: Urine 600 / 600 175 / 175 Other: Date of Last Bowel Movement 07/21/18 # Bowel Movements 1 # Incontinent Bowel Movements 1 - Constitutional no acute distress - Routine HEENT Exam Head: Present: normocephalic Eye: Present: EOMI - Routine Respiratory Exam Present: CTA bilaterally - Routine Cardiovascular Exam Present: irregular rhythm - Routine Abdominal Exam Present: soft, tenderness (Epigastric ) - Routine Extremities Exam Present: edema, pulses intact - Urinary Catheter Management Indwelling Urethral Catheter Cath placed during this visit: yes Reason for continuing: Other continuation reason Insertion date: 07/16/18 Insertion time: 17:30 Assessment and Plan - Assessment (1) End stage renal disease Code(s): N18.6 - End stage renal disease Status: Acute (2) Acute hypercapnic respiratory failure Code(s): J96.02 - Acute respiratory failure with hypercapnia Status: Acute (3) Pneumonia Code(s): J18.9 - Pneumonia, unspecified organism Status: Acute (4) Encephalopathy Code(s): G93.40 - Encephalopathy, unspecified Status: Acute (5) Septic shock Code(s): A41.9 - Sepsis, unspecified organism; R65.21 - Severe sepsis with septic shock Status: Acute (6) Sepsis Code(s): A41.9 - Sepsis, unspecified organism Status: Acute - Plan Hemodialysis On Monday Abdominal pain mild he received medications including Pepcid Source of sepsis appears to be UTI is going gram-negative rods Enterobacter He also has pneumonia on CT scan Once stable and discharged , then follow-up with Dr. Rao
[2018-07-22] MEDS: FLORASTOR 250 MG PO SCH (18:42)
[2018-07-23] MEDS: Insulin NovoLIN Regular Correctional Sugar Inj SQ SCH ×4 (01:12→18:44)
[2018-07-23 07:20] LABS: Baso # (Auto) 0.1 th/mm3 (0.0-0.2); Baso % (Auto) 0.2 % (0.0-2.0); Eos # (Auto) 0.1 th/mm3 (0.0-0.4); Eos % (Auto) 0.4 % (0.0-4.0); Hematocrit 39.9 % (39.0-51.0); Lymph % (Auto) 3.9 % (9.0-44.0); Mean Corpuscular HGB Conc 30.1 % (32.0-36.0); Mean Corpuscular Hemoglobin 26.2 pg (27.0-34.0); Mean Corpuscular Volume 87.1 fL (80.0-100.0); Mean Platelet Volume 8.5 fL (7.0-11.0); Mono # (Auto) 1.6 th/mm3 (0.0-0.9); Mono % (Auto) 6.7 % (0.0-8.0); Neut # (Auto) 21.9 th/mm3 (1.8-7.7); Neut % (Auto) 88.8 % (16.0-70.0); Platelet Count 294 th/mm3 (150-450); Red Blood Count 4.58 mil/mm3 (4.50-5.90); Red Cell Distribution Width 16.6 % (11.6-17.2); White Blood Count 24.6 th/mm3 (4.0-11.0)
[2018-07-23] MEDS: Senna/Docusate Sodium 8.6/50 MG Tablet PO SCH ×2 (08:34→21:13)
[2018-07-23] MEDS: FLORASTOR 250 MG PO SCH (08:35)
[2018-07-23] MEDS: Metoprolol Tartrate 25 MG Tablet PO SCH ×2 (08:36→21:13)
[2018-07-23] MEDS: levoFLOXacin 250 MG Tablet PO SCH (08:36)
[2018-07-23] MEDS: Famotidine 20 MG Tablet PO SCH (08:36)
[2018-07-23] MEDS: Sulfamethoxazole/Trimethoprim 400/80 MG Tablet PO SCH ×2 (08:36→21:13)
[2018-07-23] MEDS: Lactobacillus Acidophilus/L. Spores Tablet PO SCH ×2 (13:43→21:13)
--- NOTE | 2018-07-23 15:22 | P.PNNP ---
Subjective Interval history: he is seen during HD Physical Exam Vital signs: Vital Signs 07/22/18 16:00 07/22/18 20:00 07/23/18 00:00 Temperature 98.3 F 100.1 F H 98.7 F Pulse Rate 86 92 H 84 Respiratory Rate 14 18 18 Blood Pressure 96/53 L 107/63 105/57 L Pulse Oximetry 99 98 95 07/23/18 04:00 07/23/18 08:00 07/23/18 10:14 Temperature 97.6 F 98.2 F Pulse Rate 89 106 H Respiratory Rate 18 18 Blood Pressure 112/67 99/55 L Pulse Oximetry 97 96 98 07/23/18 12:00 Temperature 97.4 F L Pulse Rate 89 Respiratory Rate 18 Blood Pressure 105/59 L Pulse Oximetry 97 Intake & Output 07/22/18 07/23/18 07/23/18 18:59 06:59 18:59 Intake Total 800 / 800 240 / 240 Output Total 400 / 400 125 / 125 260 / 260 Balance 400 / 400 -125 / -125 -20 / -20 Weight 95.5 kg Intake: Oral 800 / 800 240 / 240 Output: Urine 400 / 400 125 / 125 Gastric Drainage 260 / 260 Gastrostomy Tube (PEG) 260 / 260 Other: Date of Last Bowel Movement 07/22/18 # Bowel Movements 6 3 3 - Constitutional no acute distress - Routine HEENT Exam Head: Present: normocephalic Eye: Present: EOMI - Routine Neck Exam Present: supple - Routine Respiratory Exam Present: decreased breath sounds - Routine Cardiovascular Exam Present: irregular rhythm - Routine Abdominal Exam Present: soft, normoactive bowel sounds - Routine Extremities Exam Present: edema - Urinary Catheter Management Indwelling Urethral Catheter Cath placed during this visit: yes Reason for continuing: Other continuation reason Insertion date: 07/16/18 Insertion time: 17:30 Assessment and Plan - Assessment (1) End stage renal disease Code(s): N18.6 - End stage renal disease Status: Acute (2) Acute hypercapnic respiratory failure Code(s): J96.02 - Acute respiratory failure with hypercapnia Status: Acute (3) Pneumonia Code(s): J18.9 - Pneumonia, unspecified organism Status: Acute (4) Encephalopathy Code(s): G93.40 - Encephalopathy, unspecified Status: Acute (5) Septic shock Code(s): A41.9 - Sepsis, unspecified organism; R65.21 - Severe sepsis with septic shock Status: Acute (6) Sepsis Code(s): A41.9 - Sepsis, unspecified organism Status: Acute - Plan Hemodialysis On Monday seen during dialysis UF 3 L still with nausea Source of sepsis appears to be UTI is going gram-negative rods Enterobacter He also has pneumonia on CT scan Once stable and discharged , then follow-up with Dr. Rao
--- NOTE | 2018-07-23 17:06 | P.PN ---
Subjective Interval history: Follow-up hypercapnic and hypoxic respiratory failure, pneumonia, UTI and C. difficile Patient seen during hemodialysis Patient reports breathing is much better Continues to have frequent liquid bowel movements approximately 6 times today Physical Exam Vital signs: Vital Signs 07/22/18 20:00 07/23/18 00:00 07/23/18 04:00 Temperature 100.1 F H 98.7 F 97.6 F Pulse Rate 92 H 84 89 Respiratory Rate 18 18 18 Blood Pressure 107/63 105/57 L 112/67 Pulse Oximetry 98 95 97 07/23/18 08:00 07/23/18 10:14 07/23/18 12:00 Temperature 98.2 F 97.4 F L Pulse Rate 106 H 89 Respiratory Rate 18 18 Blood Pressure 99/55 L 105/59 L Pulse Oximetry 96 98 97 Intake & Output 07/22/18 07/23/18 07/23/18 18:59 06:59 18:59 Intake Total 800 / 800 240 / 240 Output Total 400 / 400 125 / 125 260 / 260 Balance 400 / 400 -125 / -125 -20 / -20 Weight 95.5 kg Intake: Oral 800 / 800 240 / 240 Output: Urine 400 / 400 125 / 125 Gastric Drainage 260 / 260 Gastrostomy Tube (PEG) 260 / 260 Other: Date of Last Bowel Movement 07/22/18 # Bowel Movements 6 3 3 Narrative: GENERAL: Patient sitting in bed. Appears comfortable. SKIN: Warm and dry. HEAD: Normocephalic. EYES: No scleral icterus. No injection or drainage. NECK: Supple, trachea midline. No JVD. CARDIOVASCULAR: Regular rate and rhythm RESPIRATORY: Breath sounds equal bilaterally. No accessory muscle use. GASTROINTESTINAL: Abdomen soft, non-tender, nondistended. MUSCULOSKELETAL: No cyanosis, or edema. BACK: Nontender without obvious deformity. No CVA tenderness. - Urinary Catheter Management Indwelling Urethral Catheter Cath placed during this visit: yes Reason for continuing: Other continuation reason Insertion date: 07/16/18 Insertion time: 17:30 Results - Labs CBC & Chem 7: 07/23/18 05:11 07/22/18 06:13 Laboratory Results - last 24 hr 07/22/18 07/22/18 07/22/18 13:15 18:46 19:42 WBC RBC Hgb Hct MCV MCH MCHC RDW Plt Count MPV Prelim Diff (Auto) Neut % (Auto) Lymph % (Auto) [place] % (Auto) Eos % (Auto) Baso % (Auto) Neut # (Auto) Lymph # (Auto) [place] # (Auto) Eos # (Auto) Baso # (Auto) WBC Differential Differential Comment Hematology Comments POC Glucose 70 67 L Magnesium Stl C.difficile Tox PCR Positive H St C. diff Tox Epid 027 Negative 07/22/18 07/22/18 07/23/18 20:35 23:27 05:11 WBC 24.6 H RBC 4.58 Hgb 12.0 L Hct 39.9 MCV 87.1 MCH 26.2 L MCHC 30.1 L RDW 16.6 Plt Count 294 MPV 8.5 Prelim Diff (Auto) Slide review pending Neut % (Auto) 88.8 H Lymph % (Auto) 3.9 L [place] % (Auto) 6.7 Eos % (Auto) 0.4 Baso % (Auto) 0.2 Neut # (Auto) 21.9 H Lymph # (Auto) 1.0 [place] # (Auto) 1.6 H Eos # (Auto) 0.1 Baso # (Auto) 0.1 WBC Differential . Differential Comment . Hematology Comments POC Glucose 137 H 105 Magnesium Stl C.difficile Tox PCR St C. diff Tox Epid 027 07/23/18 05:11 WBC RBC Hgb Hct MCV MCH MCHC RDW Plt Count MPV Prelim Diff (Auto) Neut % (Auto) Lymph % (Auto) [place] % (Auto) Eos % (Auto) Baso % (Auto) Neut # (Auto) Lymph # (Auto) [place] # (Auto) Eos # (Auto) Baso # (Auto) WBC Differential Differential Comment Hematology Comments POC Glucose Magnesium 2.4 Stl C.difficile Tox PCR St C. diff Tox Epid 027 Assessment and Plan - Plan // Acute on chronic hypercapnic and hypoxic respiratory failure -patient with multiple history of intubations and previous trach, last intubation approximately 2 months ago //Acute COPD exacerbation. //Bibasilar pneumonia. // Suspected aspiration pneumonia. //Septic shock. Shock is resolved, however still with sepsis. = Slow improvement. White blood cell count 12.4. Still tachycardic. Continue IV steroids, nebs, antibiotics to cover gram negatives, gram-positive, anaerobes.. Consult pulmonology. = 07/20. White count stable at 12.2. Continue antibiotics. Pulmonology following. Taper steroids. Appreciate assistance. = 07/21. White count elevated likely secondary to recent steroids. Pneumonia with Pseudomonas sensitive to Levaquin. However will need to cover for aspiration pneumonia as well. = 07/22. White count elevated in the 20s, likely secondary to recent steroids versus C. difficile. //Diarrhea. //Nausea - with previous history of C. difficile. White count of 20. PEG tube to low intermittent wall suction. = We will check C. difficile and start treatment if necessary. Will hold discharge for now. //Atrial fibrillation -Patient with pause to 3.8 seconds. It appears that patient is on atenolol 100 mg at home. With pauses of 3.8 seconds, current heart rate of about 110. Will ask cardiology to decide on whether to restart atenolol. Cardiology recommends continued monitoring on telemetry and discharge home to follow-up with cardiology for event monitor as outpatient. Appreciate cardiology assistance. Cardiology signed off = 07/21. Heart rate improved on metoprolol, however somewhat elevated this morning. Dr. Quiñonez discussed with Dr. Montague of cardiology yesterday. Appreciate assistance. Dr. Montague recommends 30 day event monitor as outpatient. = 07/22. No pauses on telemetry. Continue current dose of Toprol. Follow-up with cardiology as outpatient. // Septic shock -now resolved, off pressors //UTI. Enterobacter. Sensitive to Bactrim. //Toxic metabolic encephalopathy likely in the setting of hypercapnia = Resolved. // End-stage renal disease on hemodialysis = Nephrology following for dialysis. Appreciate assistance. //Chronic aspiration status post PEG tube placement. Patient subsequently denies. = Cleared by speech therapy for diet. Will monitor closely. Appreciate pulmonary input. //Clostridium difficile = Patient started on oral vancomycin 07/22/2018 continues to have frequent liquid stools = Continue oral vancomycin and monitor stool output consider adding Questran tomorrow if patient continues to have high frequency of stool output Discharge Planning: Likely need SNF Await C. difficile and frequency of liquid bowel movements improved Discussed case with supervising physician Dr. Chen
--- NOTE | 2018-07-23 18:26 | P.PN ---
Subjective Interval history: he is doing better and was dialyzed. No fever. has loose stools. On O2 2 L now. C/O some chest pains. Physical Exam Vital signs: Vital Signs 07/22/18 20:00 07/23/18 00:00 07/23/18 04:00 Temperature 100.1 F H 98.7 F 97.6 F Pulse Rate 92 H 84 89 Respiratory Rate 18 18 18 Blood Pressure 107/63 105/57 L 112/67 Pulse Oximetry 98 95 97 07/23/18 08:00 07/23/18 10:14 07/23/18 12:00 Temperature 98.2 F 97.4 F L Pulse Rate 106 H 89 Respiratory Rate 18 18 Blood Pressure 99/55 L 105/59 L Pulse Oximetry 96 98 97 Intake & Output 07/22/18 07/23/18 07/23/18 18:59 06:59 18:59 Intake Total 800 / 800 600 / 600 Output Total 400 / 400 125 / 125 360 / 360 Balance 400 / 400 -125 / -125 240 / 240 Weight 95.5 kg Intake: Oral 800 / 800 600 / 600 Output: Urine 400 / 400 125 / 125 100 / 100 Gastric Drainage 260 / 260 Gastrostomy Tube (PEG) 260 / 260 Other: Date of Last Bowel Movement 07/22/18 # Bowel Movements 6 3 5 Narrative: GENERAL: Patient up in bed. Appears comfortable. SKIN: Warm and dry. HEAD: Normocephalic. EYES: No scleral icterus. No injection or drainage. NECK: Supple, trachea midline. No JVD. CARDIOVASCULAR: Regular rate and rhythm No Murmur RESPIRATORY: Breath sounds equal bilaterally. Occ Basal crackles heard .No accessory muscle use. GASTROINTESTINAL: Abdomen soft, non-tender, nondistended. MUSCULOSKELETAL: No cyanosis, or edema. BACK: Nontender without obvious deformity. No CVA tenderness. Neuro :Has leg weakness. - Urinary Catheter Management Indwelling Urethral Catheter Cath placed during this visit: yes Reason for continuing: Other continuation reason Insertion date: 07/16/18 Insertion time: 17:30 Results - Labs CBC & Chem 7: 07/23/18 05:11 07/22/18 06:13 Laboratory Results - last 24 hr 07/22/18 07/22/18 07/22/18 13:15 18:46 19:42 WBC RBC Hgb Hct MCV MCH MCHC RDW Plt Count MPV Prelim Diff (Auto) Neut % (Auto) Lymph % (Auto) [place] % (Auto) Eos % (Auto) Baso % (Auto) Neut # (Auto) Lymph # (Auto) [place] # (Auto) Eos # (Auto) Baso # (Auto) WBC Differential Differential Comment Hematology Comments POC Glucose 70 67 L Magnesium Stl C.difficile Tox PCR Positive H St C. diff Tox Epid 027 Negative 07/22/18 07/22/18 07/23/18 20:35 23:27 05:11 WBC 24.6 H RBC 4.58 Hgb 12.0 L Hct 39.9 MCV 87.1 MCH 26.2 L MCHC 30.1 L RDW 16.6 Plt Count 294 MPV 8.5 Prelim Diff (Auto) Slide review pending Neut % (Auto) 88.8 H Lymph % (Auto) 3.9 L [place] % (Auto) 6.7 Eos % (Auto) 0.4 Baso % (Auto) 0.2 Neut # (Auto) 21.9 H Lymph # (Auto) 1.0 [place] # (Auto) 1.6 H Eos # (Auto) 0.1 Baso # (Auto) 0.1 WBC Differential . Differential Comment . Hematology Comments POC Glucose 137 H 105 Magnesium Stl C.difficile Tox PCR St C. diff Tox Epid 027 07/23/18 07/23/18 07/23/18 05:11 05:23 12:05 WBC RBC Hgb Hct MCV MCH MCHC RDW Plt Count MPV Prelim Diff (Auto) Neut % (Auto) Lymph % (Auto) [place] % (Auto) Eos % (Auto) Baso % (Auto) Neut # (Auto) Lymph # (Auto) [place] # (Auto) Eos # (Auto) Baso # (Auto) WBC Differential Differential Comment Hematology Comments POC Glucose 83 94 Magnesium 2.4 Stl C.difficile Tox PCR St C. diff Tox Epid 027 Assessment and Plan - Assessment (1) Aspiration pneumonia Code(s): J69.0 - Pneumonitis due to inhalation of food and vomit Status: Acute (2) Acute hypercapnic respiratory failure Code(s): J96.02 - Acute respiratory failure with hypercapnia Status: Acute (3) Sepsis Code(s): A41.9 - Sepsis, unspecified organism Status: Acute (4) Pneumonia Code(s): J18.9 - Pneumonia, unspecified organism Status: Acute (5) Encephalopathy Code(s): G93.40 - Encephalopathy, unspecified Status: Acute (6) Septic shock Code(s): A41.9 - Sepsis, unspecified organism; R65.21 - Severe sepsis with septic shock Status: Acute (7) Acute metabolic encephalopathy Code(s): G93.41 - Metabolic encephalopathy Status: Acute (8) End stage renal disease Code(s): N18.6 - End stage renal disease Status: Acute (9) Diarrhea Code(s): R19.7 - Diarrhea, unspecified Status: Acute - Plan 1. Continue antibiotics per ID 2. O2 2 L N/C to keep sat >92 3. Duoneb nebs qid. 4. PT and OT Evaluation. 5. CBC,BMP in am 6. Dialysis today. 7. IS at bedside q2h 8. Stool for Cl Difficile
[2018-07-23] MEDS: Epoetin Alfa Inj 4,000 UNIT/ML Vial IV.PUSH PRN (18:41)
[2018-07-24] MEDS: Insulin NovoLIN Regular Correctional Sugar Inj SQ SCH ×4 (00:25→17:27)
[2018-07-24 05:53] LABS: Baso % (Auto) 0.1 % (0.0-2.0); Eos # (Auto) 0.1 th/mm3 (0.0-0.4); Eos % (Auto) 0.3 % (0.0-4.0); Hematocrit 39.2 % (39.0-51.0); Hemoglobin 12.2 gm/dL (13.0-17.0); Lymph # (Auto) 0.9 th/mm3 (1.0-4.8); Lymph % (Auto) 3.5 % (9.0-44.0); Mean Corpuscular HGB Conc 31.1 % (32.0-36.0); Mean Corpuscular Hemoglobin 26.7 pg (27.0-34.0); Mean Corpuscular Volume 85.6 fL (80.0-100.0); Mean Platelet Volume 8.7 fL (7.0-11.0); Mono # (Auto) 2.2 th/mm3 (0.0-0.9); Mono % (Auto) 8.2 % (0.0-8.0); Neut % (Auto) 87.9 % (16.0-70.0); Platelet Count 321 th/mm3 (150-450); Red Blood Count 4.58 mil/mm3 (4.50-5.90); Red Cell Distribution Width 16.4 % (11.6-17.2); White Blood Count 26.2 th/mm3 (4.0-11.0)
[2018-07-24 06:10] LABS: Calcium 8.1 mg/dL (8.5-10.1); Carbon Dioxide 29.2 meq/L (21.0-32.0); Potassium 3.6 meq/L (3.5-5.1)
[2018-07-24] MEDS: Metoprolol Tartrate 25 MG Tablet PO SCH ×2 (08:59→22:19)
[2018-07-24] MEDS: levoFLOXacin 250 MG Tablet PO SCH (08:59)
[2018-07-24] MEDS: Lactobacillus Acidophilus/L. Spores Tablet PO SCH ×2 (09:00→22:19)
[2018-07-24] MEDS: Famotidine 20 MG Tablet PO SCH (09:00)
[2018-07-24] MEDS: FLORASTOR 250 MG PO SCH (09:00)
[2018-07-24] MEDS: Senna/Docusate Sodium 8.6/50 MG Tablet PO SCH ×2 (09:01→22:20)
[2018-07-24] MEDS: Sulfamethoxazole/Trimethoprim 400/80 MG Tablet PO SCH ×2 (09:01→22:19)
[2018-07-24] MEDS ORDERED: Diatrizoate Meglum/Diatrizoate Sod Liq 9 ML UDC PO ONE ×2 (10:30→18:00)
--- NOTE | 2018-07-24 13:28 | P.PNNP ---
Subjective Interval history: Patient remains on dialysis he is being treated for infection Enterobacter UTI, pseudomonas Bactrim and Levaquin Now C. difficile positive Physical Exam Vital signs: Vital Signs 07/23/18 20:43 07/24/18 00:41 07/24/18 05:01 Temperature 98.0 F 99.0 F 98.6 F Pulse Rate 93 H 90 90 Respiratory Rate 18 17 17 Blood Pressure 101/57 L 99/58 L 109/58 L Pulse Oximetry 92 L 92 L 98 07/24/18 07:57 07/24/18 12:00 Temperature 98.4 F 98.2 F Pulse Rate 101 H 86 Respiratory Rate 18 18 Blood Pressure 100/57 L 106/61 Pulse Oximetry 96 97 Intake & Output 07/23/18 07/24/18 07/24/18 18:59 06:59 18:59 Intake Total 600 / 600 1000 / 1000 Output Total 360 / 360 1000 / 1000 Balance 240 / 240 0 / 0 Weight 95.5 kg Intake: IV 1000 / 1000 NS Inj 1,000 ML @ 200 mls/hr 1000 / 1000 OTHER .Q5H PRN Rx#:[id number] Oral 600 / 600 Output: Urine 100 / 100 Hemodialysis Amount 1000 / 1000 Gastric Drainage 260 / 260 Gastrostomy Tube (PEG) 260 / 260 Other: # Voids 2 # Bowel Movements 5 3 - Constitutional no acute distress - Routine HEENT Exam Eye: Present: EOMI - Routine Respiratory Exam Present: decreased breath sounds - Routine Cardiovascular Exam Present: irregular rhythm - Routine Abdominal Exam Present: tenderness, distended - Routine Extremities Exam Present: edema - Routine Neurological Exam Present: alert - Urinary Catheter Management Indwelling Urethral Catheter Cath placed during this visit: yes Reason for continuing: Other continuation reason Insertion date: 07/16/18 Insertion time: 17:30 Assessment and Plan - Assessment (1) End stage renal disease Code(s): N18.6 - End stage renal disease Status: Acute (2) Acute hypercapnic respiratory failure Code(s): J96.02 - Acute respiratory failure with hypercapnia Status: Acute (3) Pneumonia Code(s): J18.9 - Pneumonia, unspecified organism Status: Acute (4) Encephalopathy Code(s): G93.40 - Encephalopathy, unspecified Status: Acute (5) Septic shock Code(s): A41.9 - Sepsis, unspecified organism; R65.21 - Severe sepsis with septic shock Status: Acute (6) Sepsis Code(s): A41.9 - Sepsis, unspecified organism Status: Acute - Plan Hemodialysis On Monday still with nausea Source of sepsis appears to be UTI is going gram-negative rods Enterobacter on Bactrim and Levaquin He also has pneumonia on CT scan ET aspirate. Pseudomonas Once stable and discharged , then follow-up with Dr. Rao Patient to have CT scan with contrast and dialysis scheduled for tomorrow He has abdominal distention and C. difficile positive ID is following
--- NOTE | 2018-07-24 13:28 | P.PN ---
Subjective Interval history: Follow-up hypercapnic and hypoxic respiratory failure, pneumonia, UTI and C. difficile Per RN stool starting to thicken, patient now having frequent stool smears patient c/o lower abd pain Physical Exam Vital signs: Vital Signs 07/23/18 20:43 07/24/18 00:41 07/24/18 05:01 Temperature 98.0 F 99.0 F 98.6 F Pulse Rate 93 H 90 90 Respiratory Rate 18 17 17 Blood Pressure 101/57 L 99/58 L 109/58 L Pulse Oximetry 92 L 92 L 98 07/24/18 07:57 07/24/18 12:00 Temperature 98.4 F 98.2 F Pulse Rate 101 H 86 Respiratory Rate 18 18 Blood Pressure 100/57 L 106/61 Pulse Oximetry 96 97 Intake & Output 07/23/18 07/24/18 07/24/18 18:59 06:59 18:59 Intake Total 600 / 600 1000 / 1000 Output Total 360 / 360 1000 / 1000 Balance 240 / 240 0 / 0 Weight 95.5 kg Intake: IV 1000 / 1000 NS Inj 1,000 ML @ 200 mls/hr 1000 / 1000 OTHER .Q5H PRN Rx#:[id number] Oral 600 / 600 Output: Urine 100 / 100 Hemodialysis Amount 1000 / 1000 Gastric Drainage 260 / 260 Gastrostomy Tube (PEG) 260 / 260 Other: # Voids 2 # Bowel Movements 5 3 Narrative: GENERAL: Patient resting in bed SKIN: Warm and dry. HEAD: Normocephalic. EYES: No scleral icterus. No injection or drainage. NECK: Supple, trachea midline. No JVD. CARDIOVASCULAR: Regular rate and rhythm RESPIRATORY: Breath sounds equal bilaterally. No accessory muscle use. GASTROINTESTINAL: Abdomen soft, nondistended, acutely tender to palpation of LLQ > RLQ, PEG tube site with pus like discharge present MUSCULOSKELETAL: No cyanosis, or edema. BACK: Nontender without obvious deformity. No CVA tenderness. - Urinary Catheter Management Indwelling Urethral Catheter Cath placed during this visit: yes Reason for continuing: Other continuation reason Insertion date: 07/16/18 Insertion time: 17:30 Results - Labs CBC & Chem 7: 07/24/18 04:57 07/24/18 04:57 Laboratory Results - last 24 hr 07/23/18 07/23/18 07/23/18 05:23 12:05 18:30 WBC RBC Hgb Hct MCV MCH MCHC RDW Plt Count MPV Prelim Diff (Auto) Neut % (Auto) Lymph % (Auto) [place] % (Auto) Eos % (Auto) Baso % (Auto) Neut # (Auto) Lymph # (Auto) [place] # (Auto) Eos # (Auto) Baso # (Auto) WBC Differential Diff Scan Differential Comment Sodium Potassium Chloride Carbon Dioxide Anion Gap BUN Creatinine Estimated GFR POC Glucose 83 94 69 Random Glucose Calcium 07/23/18 07/23/18 07/24/18 18:37 18:44 01:06 WBC RBC Hgb Hct MCV MCH MCHC RDW Plt Count MPV Prelim Diff (Auto) Neut % (Auto) Lymph % (Auto) [place] % (Auto) Eos % (Auto) Baso % (Auto) Neut # (Auto) Lymph # (Auto) [place] # (Auto) Eos # (Auto) Baso # (Auto) WBC Differential Diff Scan Differential Comment Sodium Potassium Chloride Carbon Dioxide Anion Gap BUN Creatinine Estimated GFR POC Glucose 67 L 80 70 Random Glucose Calcium 07/24/18 07/24/18 07/24/18 04:57 04:57 06:25 WBC 26.2 H RBC 4.58 Hgb 12.2 L Hct 39.2 MCV 85.6 MCH 26.7 L MCHC 31.1 L RDW 16.4 Plt Count 321 MPV 8.7 Prelim Diff (Auto) Slide review pending Neut % (Auto) 87.9 H Lymph % (Auto) 3.5 L [place] % (Auto) 8.2 H Eos % (Auto) 0.3 Baso % (Auto) 0.1 Neut # (Auto) 23.0 H Lymph # (Auto) 0.9 L [place] # (Auto) 2.2 H Eos # (Auto) 0.1 Baso # (Auto) 0.0 WBC Differential . Diff Scan Auto diff confirmed Differential Comment . Sodium 140 Potassium 3.6 Chloride 99 Carbon Dioxide 29.2 Anion Gap 12 BUN 37 H Creatinine 3.56 H Estimated GFR 18 L POC Glucose 92 Random Glucose 82 Calcium 8.1 L 07/24/18 11:35 WBC RBC Hgb Hct MCV MCH MCHC RDW Plt Count MPV Prelim Diff (Auto) Neut % (Auto) Lymph % (Auto) [place] % (Auto) Eos % (Auto) Baso % (Auto) Neut # (Auto) Lymph # (Auto) [place] # (Auto) Eos # (Auto) Baso # (Auto) WBC Differential Diff Scan Differential Comment Sodium Potassium Chloride Carbon Dioxide Anion Gap BUN Creatinine Estimated GFR POC Glucose 78 Random Glucose Calcium Assessment and Plan - Plan // Acute on chronic hypercapnic and hypoxic respiratory failure -patient with multiple history of intubations and previous trach, last intubation approximately 2 months ago //Acute COPD exacerbation. //Bibasilar pneumonia. // Suspected aspiration pneumonia. //Septic shock. Shock is resolved, however still with sepsis. = Slow improvement. White blood cell count 12.4. Still tachycardic. Continue IV steroids, nebs, antibiotics to cover gram negatives, gram-positive, anaerobes.. Consult pulmonology. = 07/20. White count stable at 12.2. Continue antibiotics. Pulmonology following. Taper steroids. Appreciate assistance. = 07/21. White count elevated likely secondary to recent steroids. Pneumonia with Pseudomonas sensitive to Levaquin. However will need to cover for aspiration pneumonia as well. = 07/22. White count elevated in the 20s, likely secondary to recent steroids versus C. difficile. = 07/24 WBC increasing 26.2 today supervising physician and ID notified //Diarrhea. //Nausea = C. difficile positive started on PO vancomycin //Atrial fibrillation -Patient with pause to 3.8 seconds. It appears that patient is on atenolol 100 mg at home. With pauses of 3.8 seconds, current heart rate of about 110. Will ask cardiology to decide on whether to restart atenolol. Cardiology recommends continued monitoring on telemetry and discharge home to follow-up with cardiology for event monitor as outpatient. Appreciate cardiology assistance. Cardiology signed off = 07/21. Heart rate improved on metoprolol, however somewhat elevated this morning. Dr. Quiñonez discussed with Dr. Montague of cardiology yesterday. Appreciate assistance. Dr. Montague recommends 30 day event monitor as outpatient. = 07/22. No pauses on telemetry. Continue current dose of Toprol. Follow-up with cardiology as outpatient. // Septic shock -now resolved, off pressors //UTI. Enterobacter. Sensitive to Bactrim. //Toxic metabolic encephalopathy likely in the setting of hypercapnia = Resolved. // End-stage renal disease on hemodialysis = Nephrology following for dialysis. Appreciate assistance. //Chronic aspiration status post PEG tube placement. Patient subsequently denies. = Cleared by speech therapy for diet. Will monitor closely. Appreciate pulmonary input. //Clostridium difficile = Patient started on oral vancomycin 07/22/2018 continues to have frequent liquid stools = Continue oral vancomycin and monitor stool output consider adding Questran if patient continues to have high frequency of stool output //abd pain =WBC increasing 26.2 today =patient has acute abd pain with rebound tenderness, supervising physician Dr. Chen and ID Dr. Ma notified =patient re evaluated by Dr. Chen =CT abd/pelvis with contrast ordered to further evaluate =PEG site has pus like drainage present - consult placed to GI to evaluate and remove PEG tube as patient is eating and drinking by mouth =CBC and BMP in AM Discussed case with supervising physician Dr. Chen
--- NOTE | 2018-07-24 14:26 | P.PNID ---
Subjective Remarks: Patient is a 57-year-old male, brought into the hospital after he was noted to have altered mental status, with decreased level of consciousness at the dialysis center. He apparently lost pulses and CPR was started with return of his pulses. EMS was called and at that time he was found to have pulses. He was noted to be confused. His blood sugars were okay. In the ED he was hypotensive, and was on Levophed briefly. He ended up getting intubated. CT of the abdomen and pelvis showed the known adrenal mass with slight increase in size. CT of the chest did not show any PE but it showed dense bibasilar consolidation. Patient stated that he was at [facility] about 5 months ago and at that time he had pneumonia. He went to a rehab facility and at the rehab he has not really been doing any ambulation. He gets transferred to a wheelchair. He has known COPD, and chronically on oxygen. Patient states he has a chronic cough and brings up some clear phlegm. He has not really noted any increase in his cough or change in the color of his sputum. He denies any chest pain. He was extubated yesterday, and currently denies any shortness of breath. He is on nasal O2 with good oxygen saturation. Patient denies any problem with nausea or vomiting, or any swallowing difficulty. He has not had any choking episodes. During his hospitalization at [facility], he had a PEG tube placed, but the patient stated that they have not been using the tube for nutrition, and he has been taking nutrition orally. He has not been for febrile since admission. His hemodynamics are stable. Patient also had a history of right empyema back in 2010, requiring a right thoracotomy, decortication and pleurectomy, and a right lung wedge resection. Records mentioned that he has had problem with aspiration. Infectious disease consultation has been requested to assist with management of recurrent pneumonia. Notes reviewed Temps ok Started having diarrhea 07/22 with abdominal pain C Diff (+) More abdominal pain today WBC worsening UC with Enterobacter Sputum with PSAE CXR stable infiltrates Had HD yesterday Antibiotics: Bactrim Levaquin PO vancomycin Past Medical History: Diabetes ESRD (end stage renal disease) on dialysis Empyema lung HTN (hypertension) Renal disease Status post thoracotomy Allergies/Adverse Reactions: Allergies heparin Allergy (Severe, Verified 07/16/18 13:23) Bleeding quetiapine [From Seroquel] Allergy (Intermediate, Verified 07/16/18 13:23) Shakiness cefuroxime Allergy (Verified 07/20/18 18:25) Rash Objective Vital Signs 07/23/18 20:43 07/24/18 00:41 07/24/18 05:01 Temperature 98.0 F 99.0 F 98.6 F Pulse Rate 93 H 90 90 Respiratory Rate 18 17 17 Blood Pressure 101/57 L 99/58 L 109/58 L Pulse Oximetry 92 L 92 L 98 07/24/18 07:57 07/24/18 12:00 Temperature 98.4 F 98.2 F Pulse Rate 101 H 86 Respiratory Rate 18 18 Blood Pressure 100/57 L 106/61 Pulse Oximetry 96 97 Intake & Output 07/23/18 07/24/18 07/24/18 18:59 06:59 18:59 Intake Total 600 / 600 1000 / 1000 Output Total 360 / 360 1000 / 1000 Balance 240 / 240 0 / 0 Weight 95.5 kg Intake: IV 1000 / 1000 NS Inj 1,000 ML @ 200 mls/hr 1000 / 1000 OTHER .Q5H PRN Rx#:[id number] Oral 600 / 600 Output: Urine 100 / 100 Hemodialysis Amount 1000 / 1000 Gastric Drainage 260 / 260 Gastrostomy Tube (PEG) 260 / 260 Other: # Voids 2 # Bowel Movements 5 3 07/16/18 12:10 Blood - Peripheral Aerobic Blood Culture - Final No growth in 5 days 07/16/18 12:10 Blood - Peripheral Anaerobic Blood Culture - Final No growth in 5 days 07/16/18 12:00 Blood - Peripheral Aerobic Blood Culture - Final No growth in 5 days 07/16/18 12:00 Blood - Peripheral Anaerobic Blood Culture - Final No growth in 5 days Lab - Hematology Results 07/23/18 07/24/18 05:11 04:57 WBC 24.6 H 26.2 H RBC 4.58 4.58 Hgb 12.0 L 12.2 L Hct 39.9 39.2 MCV 87.1 85.6 MCH 26.2 L 26.7 L MCHC 30.1 L 31.1 L RDW 16.6 16.4 Plt Count 294 321 MPV 8.5 8.7 Prelim Diff (Auto) Slide review pending Slide review pending Neut % (Auto) 88.8 H 87.9 H Lymph % (Auto) 3.9 L 3.5 L [place] % (Auto) 6.7 8.2 H Eos % (Auto) 0.4 0.3 Baso % (Auto) 0.2 0.1 Neut # (Auto) 21.9 H 23.0 H Lymph # (Auto) 1.0 0.9 L [place] # (Auto) 1.6 H 2.2 H Eos # (Auto) 0.1 0.1 Baso # (Auto) 0.1 0.0 WBC Differential . . Diff Scan Auto diff confirmed Differential Comment . . Hematology Comments Lab - Chemistry Results 07/22/18 07/22/18 07/22/18 18:46 19:42 20:35 Sodium Potassium Chloride Carbon Dioxide Anion Gap BUN Creatinine Estimated GFR POC Glucose 70 67 L 137 H Random Glucose Calcium Magnesium 07/22/18 07/23/18 07/23/18 23:27 05:11 05:23 Sodium Potassium Chloride Carbon Dioxide Anion Gap BUN Creatinine Estimated GFR POC Glucose 105 83 Random Glucose Calcium Magnesium 2.4 07/23/18 07/23/18 07/23/18 12:05 18:30 18:37 Sodium Potassium Chloride Carbon Dioxide Anion Gap BUN Creatinine Estimated GFR POC Glucose 94 69 67 L Random Glucose Calcium Magnesium 07/23/18 07/24/18 07/24/18 18:44 01:06 04:57 Sodium 140 Potassium 3.6 Chloride 99 Carbon Dioxide 29.2 Anion Gap 12 BUN 37 H Creatinine 3.56 H Estimated GFR 18 L POC Glucose 80 70 Random Glucose 82 Calcium 8.1 L Magnesium 07/24/18 07/24/18 06:25 11:35 Sodium Potassium Chloride Carbon Dioxide Anion Gap BUN Creatinine Estimated GFR POC Glucose 92 78 Random Glucose Calcium Magnesium Imaging: ITS Impressions Abdomen X-Ray 07/16/18 12:30 CONCLUSION: Nonspecific, benign abdomen appearance. Abdomen/Pelvis CT 07/16/18 13:03 CONCLUSION: 1. No acute abnormality in the abdomen or pelvis. 2. Dense right basilar airspace consolidation and trace pleural effusions concerning for aspiration. 3. Gastrostomy catheter present and NGT in place. 4. 1.8 cm right adrenal mass which has slightly increased from 2011 CT scan measuring 1.4 cm. This was partially imaged on the chest CT exam and its visualized portions appeared to be stable. This can be further characterized with adrenal mass CT or MRI exam on an outpatient basis. Chest CTA 07/16/18 13:03 CONCLUSION: 1. No CT evidence for pulmonary artery embolism as questioned. 2. Dense bilateral lower lobe airspace consolidation with trace associated pleural effusions. Findings are concerning for aspiration. 3. Nonspecific right hilar and mediastinal nodes, as above. This may be reactive in etiology. 4. Probable 1.6 cm right adrenal mass that is incompletely imaged on this exam. Although indeterminate in density, this is unchanged from abdominal CT of 06/07/2011 and therefore likely benign. Head CT 07/17/18 00:00 CONCLUSION: 1. Atrophy. 2. Periventricular low attenuation change likely relating to chronic small vessel ischemic change. 3. Fluid throughout the nasal cavity and paranasal sinuses. . Chest X-Ray 07/19/18 00:00 CONCLUSION: Stable exam as detailed above. Barium Swallow X-Ray 07/20/18 00:00 CONCLUSION: Unremarkable barium swallow, however limited study since only frontal projection could be performed. Physical Exam: GENERAL: awake and alert, NAD. He is on nasal O2 SKIN: Cool and dry. No generalized rash HEAD: Atraumatic. Normocephalic. No temporal wasting, or tenderness. EYES: [place] conjunctiva. No petechia or hemorrhage. No scleral icterus. No injection or drainage. EARS, NOSE AND THROAT: Nose without bleeding or purulent nasal discharge. No sinus tenderness. Mucous membranes pink and moist. No oral lesions noted. NECK: Trachea midline. Supple and not tender, no meningeal signs CARDIOVASCULAR: Regular rate and rhythm. No murmurs, rubs or gallops heard RESPIRATORY: Clear to auscultation. Decreased at bases ABDOMEN: Soft, mildly nondistended, with diffuse abdominal tenderness. Bowel sounds present and normoactive. PEG site looks ok EXTREMITIES: No clubbing, cyanosis, or edema. No calf tenderness. NEUROLOGICAL: Awake and alert. Cranial nerves grossly intact. PSYCHIATRIC: Normal affect, calm and cooperative. LINE: No evidence of infection Assessment and Plan - Plan Impression Pneumonia, likely aspiration S/P respiratory failure COPD, O2 dependent ESRD on HD MWF UTI, Enterobacter C difficile colitis Leukocytosis, worse likely due to C diff Increased abdominal paibn, C diff, ?other cause - he is refusing CT A/P Recommendation Continue Levaquin and Bactrim to complete Rx - Give 10 days of oral Ab Continue PO Vanco for C diff Add IV Flagyl AXR Follow CBC Will discuss with him CT A/P tomorrow and see if he agrees Monitor progress
--- NOTE | 2018-07-24 15:55 | P.CONGI ---
History of Present Illness Consult date: 07/24/18 Consult reason: Consult for removal of PEG tube Chief complaint: Hypercapneic Respiratory Failure History of Present Illness: This is a 57-year-old obese male who was admitted to the hospital on 07/16/2018 and has had an extended stay in the hospital for his medical care. Patient had PEG tube placement back in November in the [place] area and gastroenterology has been consulted to remove the PEG tube. Currently PEG tube is not being used for any meds or nutritional status. It is noted a developed PEG tube site track as well as some serosanguineous drainage around the PEG tube site. Patient currently denies any nausea or vomiting but does note some lower abdominal pain in the left and right lower quadrants probable secondary to C. difficile colitis which he is being treated for. Patient denies any pain around the PEG tube site and no obvious bleeding. Current labs show 12.2 hemoglobin, PT/INR 1.1. Patient is awake and answering simple questions. <Nica Whitten - Last Filed: 07/24/18 15:47> Review of Systems All other systems reviewed negative except as stated in HPI <Nica Whitten - Last Filed: 07/24/18 15:47> PMFSH - History History Provided By: Patient - Medical History Medical History: Medical History (Last Reviewed 07/22/18 @ 10:49 by Bre Ellis) Atrial fibrillation Diabetes ESRD (end stage renal disease) on dialysis Empyema lung HTN (hypertension) Renal disease - Surgical History Surgical History: Surgical History (Last Reviewed 07/22/18 @ 10:50 by Bre Ellis) Status post thoracotomy - Tobacco History Second Hand Smoke Exposure: No Smoking Status: Never smoker - Alcohol History How Often Do You Have a Drink Containing Alcohol: Never - Substance Use History Substance History: No History of Abuse - Travel History Recent Travel in the [place] Within the Last 8 Weeks: No Recent Travel Out of the Country Within the Last 8 Weeks: No - Immunization History Tetanus Immunization: <5 Years Hx Influenza Vaccine This Season: Yes <Nica Whitten - Last Filed: 07/24/18 15:47> - Medical History Medical History: Medical History (Last Reviewed 07/22/18 @ 10:49 by Bre Ellis) Atrial fibrillation Diabetes ESRD (end stage renal disease) on dialysis Empyema lung HTN (hypertension) Renal disease - Surgical History Surgical History: Surgical History (Last Reviewed 07/22/18 @ 10:50 by Bre Ellis) Status post thoracotomy <Isael Betts - Last Filed: 07/24/18 19:59> Medications and Allergies Active Medications: Active Medications Acetaminophen (Tylenol) 650 mg PO UNSCH PRN PRN Reason: SEE LABEL COMMENTS Al Hydroxide/Mg Hydroxide (Milk Of Magnesia Liq) 30 ml PO Q12H PRN PRN Reason: Mild Constipation Last Admin: 07/21/18 09:33 Dose: 30 ml Albuterol (Albuterol Neb (Prn)) 2.5 mg NEB Q2HR NEB PRN PRN Reason: SHORTNESS OF BREATH/WHEEZING Apixaban (Eliquis) 2.5 mg PO BID [facility] Last Admin: 07/24/18 09:00 Dose: 2.5 mg Aspirin (Aspirin Chew) 81 mg PO DAILY [facility] Last Admin: 07/24/18 09:00 Dose: 81 mg Bisacodyl (Dulcolax Supp) 10 mg RECTAL DAILY PRN PRN Reason: SEVERE CONSITIPATION Buspirone HCl (Buspar) 5 mg PO TID [facility] Last Admin: 07/24/18 12:47 Dose: Not Given Dextrose (D50w Vial) 50 ml IV.PUSH UNSCH PRN PRN Reason: PER HYPOGLYCEMIA PROTOCOL Last Admin: 07/22/18 19:49 Dose: 50 ml Diatrizoate Meglum/Diatrizoate Sod ( Gastroview Liq) 18 ml PO ONCE ONE Stop: 07/24/18 18:01 Diphenhydramine HCl (Benadryl) 25 mg PO UNSCH PRN PRN Reason: SEE LABEL COMMENTS Epoetin Zach (Epogen Inj) 4,000 unit IV.PUSH UNSCH PRN PRN Reason: SEE LABEL COMMENTS Last Admin: 07/23/18 18:41 Dose: 4,000 unit Famotidine (Pepcid) 20 mg PO DAILY [facility] Last Admin: 07/24/18 09:00 Dose: 20 mg Fentanyl Citrate (Fentanyl Inj) 50 mcg IV PUSH Q1H PRN PRN Reason: Pain scale 6-10, &/or sedation Gelatin (Gelfoam 12 Mm/7 Mm Topical) 1 foam TOPICAL PRN PRN PRN Reason: help stop bleeding from site Gentamicin Sulfate (Gentamicin Inj) 20 mg OTHER WITH DIALYSIS PRN PRN Reason: Dwell Gentamycin Lock Last Admin: 07/23/18 18:41 Dose: 20 mg Glucagon (Glucagon Inj) 1 mg OTHER PRN PRN PRN Reason: for Hypoglycemia Protocol Propofol (Diprivan 1000 Mg/100 Ml Inj) 1,000 mg in 100 mls @ 3 mls/hr IV.CONT TITRATE PRN; Protocol PRN Reason: Per Protocol Last Titration: 07/17/18 12:30 Dose: Infused Midazolam HCl (Versed Inj) 50 mg in 50 mls @ 2 mls/hr IV.CONT TITRATE PRN; Protocol PRN Reason: Per Protocol Albumin Human (Flexbumin 25% Inj) 100 mls @ 60 mls/hr IV.SIG WITH DIALYSIS PRN PRN Reason: hypotension / volume replace Sodium Chloride (Ns Inj) 1,000 mls @ 200 mls/hr OTHER .Q5H PRN PRN Reason: for dialyzer flush PRN Last Infusion: 07/24/18 01:13 Dose: Infused Sodium Chloride (Ns Inj) 1,000 mls @ 0 mls/hr IV.CONT .Q0M PRN PRN Reason: hypotension / volume replace Sodium Chloride (Ns Inj) 1,000 mls @ 0 mls/hr OTHER .Q0M PRN PRN Reason: for prime and rinse back Metronidazole/Sodium Chloride (Flagyl 500 Mg Inj) 100 mls @ 100 mls/hr IV.SIG Q8H YOVA[facility] Insulin Human Regular (Novolin R Correctional Sugar Inj) 0 units SQ Q6HR [facility]; Protocol Last Admin: 07/24/18 11:37 Dose: Not Given Labetalol HCl (Trandate Inj) 10 mg IV.PUSH Q4H PRN PRN Reason: For SBP greater than 170. Last Admin: 07/17/18 11:26 Dose: 10 mg Lactobacillus Acidophilus (Lactinex) 1 tab PO BID [facility] Last Admin: 07/24/18 09:00 Dose: 1 tab Lactulose (Lactulose Liq) 30 ml PO DAILY PRN PRN Reason: SEVERE CONSITIPATION Levofloxacin (Levaquin) 250 mg PO DAILY [facility] Stop: 07/31/18 11:59 Last Admin: 07/24/18 08:59 Dose: 250 mg Mannitol (Mannitol Inj) 12.5 gm IV.PUSH UNSCH PRN PRN Reason: hypotension / volume replace Metoprolol Tartrate (Lopressor) 37.5 mg PO BID [facility] Last Admin: 07/24/18 08:59 Dose: 37.5 mg Nitroglycerin (Nitrostat Sl) 0.4 mg SL Q5M PRN PRN Reason: CHEST PAIN Ondansetron HCl (Zofran Inj) 4 mg IV.PUSH Q6H PRN PRN Reason: NAUSEA OR VOMITING Last Admin: 07/24/18 10:16 Dose: 4 mg Pt Own - Florastor (250 Mg) 0 each PO DAILY [facility] Last Admin: 07/24/18 09:00 Dose: Not Given Senna/Docusate Sodium (Calista-Colace) 1 tab PO BID [facility] Last Admin: 07/24/18 09:01 Dose: Not Given Sennosides (Senokot) 17.2 mg PO Q12H PRN PRN Reason: Moderate Constipation Sodium Chloride (Ns Flush) 2 ml IV.FLUSH BID [facility] Last Admin: 07/24/18 09:01 Dose: 2 ml Sodium Chloride (Ns Flush) 2 ml IV.FLUSH UNSCH PRN PRN Reason: FLUSH AFTER USING IV ACCESS Sodium Chloride (Ns Flush) 5 ml IV.FLUSH PRN PRN PRN Reason: flush each lumen during HD Terbutaline Sulfate (Brethine Inj) 1 mg SQ UNSCH PRN PRN Reason: For Extravasation Trimethoprim/Sulfamethoxazole (Bactrim) 1 tab PO Q12HR [facility] Stop: 07/31/18 12:59 Last Admin: 07/24/18 09:01 Dose: 1 tab Vancomycin HCl (Vancomycin Po) 125 mg PO QID [facility] Last Admin: 07/24/18 12:47 Dose: Not Given <Nica Whitten - Last Filed: 07/24/18 15:47> Active Medications: Active Medications Acetaminophen (Tylenol) 650 mg PO UNSCH PRN PRN Reason: SEE LABEL COMMENTS Al Hydroxide/Mg Hydroxide (Milk Of Magnesia Liq) 30 ml PO Q12H PRN PRN Reason: Mild Constipation Last Admin: 07/21/18 09:33 Dose: 30 ml Albuterol (Albuterol Neb (Prn)) 2.5 mg NEB Q2HR NEB PRN PRN Reason: SHORTNESS OF BREATH/WHEEZING Apixaban (Eliquis) 2.5 mg PO BID [facility] Last Admin: 07/24/18 09:00 Dose: 2.5 mg Aspirin (Aspirin Chew) 81 mg PO DAILY [facility] Last Admin: 07/24/18 09:00 Dose: 81 mg Bisacodyl (Dulcolax Supp) 10 mg RECTAL DAILY PRN PRN Reason: SEVERE CONSITIPATION Buspirone HCl (Buspar) 5 mg PO TID [facility] Last Admin: 07/24/18 17:26 Dose: Not Given Dextrose (D50w Vial) 50 ml IV.PUSH UNSCH PRN PRN Reason: PER HYPOGLYCEMIA PROTOCOL Last Admin: 07/22/18 19:49 Dose: 50 ml Diphenhydramine HCl (Benadryl) 25 mg PO UNSCH PRN PRN Reason: SEE LABEL COMMENTS Epoetin Zach (Epogen Inj) 4,000 unit IV.PUSH UNSCH PRN PRN Reason: SEE LABEL COMMENTS Last Admin: 07/23/18 18:41 Dose: 4,000 unit Famotidine (Pepcid) 20 mg PO DAILY [facility] Last Admin: 07/24/18 09:00 Dose: 20 mg Fentanyl Citrate (Fentanyl Inj) 50 mcg IV PUSH Q1H PRN PRN Reason: Pain scale 6-10, &/or sedation Gelatin (Gelfoam 12 Mm/7 Mm Topical) 1 foam TOPICAL PRN PRN PRN Reason: help stop bleeding from site Gentamicin Sulfate (Gentamicin Inj) 20 mg OTHER WITH DIALYSIS PRN PRN Reason: Dwell Gentamycin Lock Last Admin: 07/23/18 18:41 Dose: 20 mg Glucagon (Glucagon Inj) 1 mg OTHER PRN PRN PRN Reason: for Hypoglycemia Protocol Propofol (Diprivan 1000 Mg/100 Ml Inj) 1,000 mg in 100 mls @ 3 mls/hr IV.CONT TITRATE PRN; Protocol PRN Reason: Per Protocol Last Titration: 07/17/18 12:30 Dose: Infused Midazolam HCl (Versed Inj) 50 mg in 50 mls @ 2 mls/hr IV.CONT TITRATE PRN; Protocol PRN Reason: Per Protocol Albumin Human (Flexbumin 25% Inj) 100 mls @ 60 mls/hr IV.SIG WITH DIALYSIS PRN PRN Reason: hypotension / volume replace Sodium Chloride (Ns Inj) 1,000 mls @ 200 mls/hr OTHER .Q5H PRN PRN Reason: for dialyzer flush PRN Last Infusion: 07/24/18 01:13 Dose: Infused Sodium Chloride (Ns Inj) 1,000 mls @ 0 mls/hr IV.CONT .Q0M PRN PRN Reason: hypotension / volume replace Sodium Chloride (Ns Inj) 1,000 mls @ 0 mls/hr OTHER .Q0M PRN PRN Reason: for prime and rinse back Metronidazole/Sodium Chloride (Flagyl 500 Mg Inj) 100 mls @ 100 mls/hr IV.SIG Q8H [facility] Last Infusion: 07/24/18 17:34 Dose: Infused Insulin Human Regular (Novolin R Correctional Sugar Inj) 0 units SQ Q6HR [facility]; Protocol Last Admin: 07/24/18 17:27 Dose: Not Given Labetalol HCl (Trandate Inj) 10 mg IV.PUSH Q4H PRN PRN Reason: For SBP greater than 170. Last Admin: 07/17/18 11:26 Dose: 10 mg Lactobacillus Acidophilus (Lactinex) 1 tab PO BID [facility] Last Admin: 07/24/18 09:00 Dose: 1 tab Lactulose (Lactulose Liq) 30 ml PO DAILY PRN PRN Reason: SEVERE CONSITIPATION Levofloxacin (Levaquin) 250 mg PO DAILY [facility] Stop: 07/31/18 11:59 Last Admin: 07/24/18 08:59 Dose: 250 mg Mannitol (Mannitol Inj) 12.5 gm IV.PUSH UNSCH PRN PRN Reason: hypotension / volume replace Metoprolol Tartrate (Lopressor) 37.5 mg PO BID [facility] Last Admin: 07/24/18 08:59 Dose: 37.5 mg Nitroglycerin (Nitrostat Sl) 0.4 mg SL Q5M PRN PRN Reason: CHEST PAIN Ondansetron HCl (Zofran Inj) 4 mg IV.PUSH Q6H PRN PRN Reason: NAUSEA OR VOMITING Last Admin: 07/24/18 10:16 Dose: 4 mg Pt Own - Florastor (250 Mg) 0 each PO DAILY [facility] Last Admin: 07/24/18 09:00 Dose: Not Given Senna/Docusate Sodium (Calista-Colace) 1 tab PO BID [facility] Last Admin: 07/24/18 09:01 Dose: Not Given Sennosides (Senokot) 17.2 mg PO Q12H PRN PRN Reason: Moderate Constipation Sodium Chloride (Ns Flush) 2 ml IV.FLUSH BID [facility] Last Admin: 07/24/18 09:01 Dose: 2 ml Sodium Chloride (Ns Flush) 2 ml IV.FLUSH UNSCH PRN PRN Reason: FLUSH AFTER USING IV ACCESS Sodium Chloride (Ns Flush) 5 ml IV.FLUSH PRN PRN PRN Reason: flush each lumen during HD Terbutaline Sulfate (Brethine Inj) 1 mg SQ UNSCH PRN PRN Reason: For Extravasation Trimethoprim/Sulfamethoxazole (Bactrim) 1 tab PO Q12HR [facility] Stop: 07/31/18 12:59 Last Admin: 07/24/18 09:01 Dose: 1 tab Vancomycin HCl (Vancomycin Po) 125 mg PO QID [facility] Last Admin: 07/24/18 17:28 Dose: Not Given <Isael Betts - Last Filed: 07/24/18 19:59> Allergies Allergy/AdvReac Type Severity Reaction Status Date / Time heparin Allergy Severe Bleeding Verified 07/16/18 13:23 quetiapine [From Seroquel] Allergy Intermediate Shakiness Verified 07/16/18 13: 23 cefuroxime Allergy Rash Verified 07/20/18 18:25 Home Medications Medication Instructions Recorded Confirmed Type B complex-vitamin C-folic acid 1 tab PO DAILY 07/21/18 07/23/18 History [Nephro-Kimberly] Nephro-Kimberly 1 cap PO DAILY 07/21/18 07/23/18 History Saccharomyces boulardii [Florastor] 250 mg PO DAILY 07/21/18 07/21/18 History apixaban [Eliquis] 2.5 mg PO BID 07/21/18 07/21/18 History aspirin 81 mg PO DAILY 07/21/18 07/21/18 History buspirone 5 mg PO TID 07/21/18 07/21/18 History famotidine [Pepcid] 20 mg PO DAILY 07/21/18 07/21/18 History hydralazine 10 mg PO PRN 07/21/18 07/21/18 History ondansetron HCl 4 mg PO PRN 07/21/18 07/21/18 History sevelamer carbonate [Renvela] 1 dose PO TID 07/21/18 07/23/18 History Exam Vital signs: Vital Signs 07/23/18 20:43 07/24/18 00:41 07/24/18 05:01 Temperature 98.0 F 99.0 F 98.6 F Pulse Rate 93 H 90 90 Respiratory Rate 18 17 17 Blood Pressure 101/57 L 99/58 L 109/58 L Pulse Oximetry 92 L 92 L 98 07/24/18 07:57 07/24/18 12:00 Temperature 98.4 F 98.2 F Pulse Rate 101 H 86 Respiratory Rate 18 18 Blood Pressure 100/57 L 106/61 Pulse Oximetry 96 97 Intake & Output 07/23/18 07/24/18 07/24/18 18:59 06:59 18:59 Intake Total 600 / 600 1000 / 1000 Output Total 360 / 360 1000 / 1000 Balance 240 / 240 0 / 0 Weight 95.5 kg Intake: IV 1000 / 1000 NS Inj 1,000 ML @ 200 mls/hr 1000 / 1000 OTHER .Q5H PRN Rx#:[id number] Oral 600 / 600 Output: Urine 100 / 100 Hemodialysis Amount 1000 / 1000 Gastric Drainage 260 / 260 Gastrostomy Tube (PEG) 260 / 260 Other: # Voids 2 # Bowel Movements 5 3 - Constitutional no acute distress - Routine HEENT Exam Head: Present: normocephalic ENT: Present: mucous membranes moist - Routine Neck Exam Present: supple - Routine Respiratory Exam Present: accessory muscle use - Routine Cardiovascular Exam Present: S1 (No obvious shortness of breath), S2 - Routine Abdominal Exam Present: soft (Round, active bowel sounds, left and right lower quadrant abdominal pain with light palpation), tenderness, ostomy (PEG tube, serous sanguinous drainage, developed PEG tube site and tract) - Routine Skin Exam Present: intact <Nica Whitten - Last Filed: 07/24/18 15:47> Vital signs: Vital Signs 07/23/18 20:43 07/24/18 00:41 07/24/18 05:01 Temperature 98.0 F 99.0 F 98.6 F Pulse Rate 93 H 90 90 Respiratory Rate 18 17 17 Blood Pressure 101/57 L 99/58 L 109/58 L Pulse Oximetry 92 L 92 L 98 07/24/18 07:57 07/24/18 12:00 Temperature 98.4 F 98.2 F Pulse Rate 101 H 86 Respiratory Rate 18 18 Blood Pressure 100/57 L 106/61 Pulse Oximetry 96 97 Intake & Output 07/24/18 07/24/18 07/25/18 06:59 18:59 06:59 Intake Total 1000 / 1000 740 / 740 Output Total 1000 / 1000 Balance 0 / 0 740 / 740 Weight 95.5 kg Intake: IV 1000 / 1000 100 / 100 Flagyl 500 MG Inj 100 ML @ 100 100 / 100 mls/hr IV.SIG Q8H [facility] Rx#: [id number] NS Inj 1,000 ML @ 200 mls/hr 1000 / 1000 OTHER .Q5H PRN Rx#:[id number] Oral 640 / 640 Output: Hemodialysis Amount 1000 / 1000 Other: # Voids 2 # Bowel Movements 3 6 <Isael Betts - Last Filed: 07/24/18 19:59> Results - Labs CBC & Chem 7: 07/24/18 04:57 07/24/18 04:57 Labs: Laboratory Results - last 24 hr 07/23/18 07/23/18 07/23/18 05:23 12:05 18:30 WBC RBC Hgb Hct MCV MCH MCHC RDW Plt Count MPV Prelim Diff (Auto) Neut % (Auto) Lymph % (Auto) Coal % (Auto) Eos % (Auto) Baso % (Auto) Neut # (Auto) Lymph # (Auto) [place] # (Auto) Eos # (Auto) Baso # (Auto) WBC Differential Diff Scan Differential Comment Sodium Potassium Chloride Carbon Dioxide Anion Gap BUN Creatinine Estimated GFR POC Glucose 83 94 69 Random Glucose Calcium 07/23/18 07/23/18 07/24/18 18:37 18:44 01:06 WBC RBC Hgb Hct MCV MCH MCHC RDW Plt Count MPV Prelim Diff (Auto) Neut % (Auto) Lymph % (Auto) [place] % (Auto) Eos % (Auto) Baso % (Auto) Neut # (Auto) Lymph # (Auto) [place] # (Auto) Eos # (Auto) Baso # (Auto) WBC Differential Diff Scan Differential Comment Sodium Potassium Chloride Carbon Dioxide Anion Gap BUN Creatinine Estimated GFR POC Glucose 67 L 80 70 Random Glucose Calcium 07/24/18 07/24/18 07/24/18 04:57 04:57 06:25 WBC 26.2 H RBC 4.58 Hgb 12.2 L Hct 39.2 MCV 85.6 MCH 26.7 L MCHC 31.1 L RDW 16.4 Plt Count 321 MPV 8.7 Prelim Diff (Auto) Slide review pending Neut % (Auto) 87.9 H Lymph % (Auto) 3.5 L [place] % (Auto) 8.2 H Eos % (Auto) 0.3 Baso % (Auto) 0.1 Neut # (Auto) 23.0 H Lymph # (Auto) 0.9 L [place] # (Auto) 2.2 H Eos # (Auto) 0.1 Baso # (Auto) 0.0 WBC Differential . Diff Scan Auto diff confirmed Differential Comment . Sodium 140 Potassium 3.6 Chloride 99 Carbon Dioxide 29.2 Anion Gap 12 BUN 37 H Creatinine 3.56 H Estimated GFR 18 L POC Glucose 92 Random Glucose 82 Calcium 8.1 L 07/24/18 11:35 WBC RBC Hgb Hct MCV MCH MCHC RDW Plt Count MPV Prelim Diff (Auto) Neut % (Auto) Lymph % (Auto) [place] % (Auto) Eos % (Auto) Baso % (Auto) Neut # (Auto) Lymph # (Auto) [place] # (Auto) Eos # (Auto) Baso # (Auto) WBC Differential Diff Scan Differential Comment Sodium Potassium Chloride Carbon Dioxide Anion Gap BUN Creatinine Estimated GFR POC Glucose 78 Random Glucose Calcium <Nica Whitten - Last Filed: 07/24/18 15:47> - Labs CBC & Chem 7: 07/24/18 04:57 07/24/18 04:57 Labs: Laboratory Results - last 24 hr 07/24/18 07/24/18 07/24/18 01:06 04:57 04:57 WBC 26.2 H RBC 4.58 Hgb 12.2 L Hct 39.2 MCV 85.6 MCH 26.7 L MCHC 31.1 L RDW 16.4 Plt Count 321 MPV 8.7 Prelim Diff (Auto) Slide review pending Neut % (Auto) 87.9 H Lymph % (Auto) 3.5 L Coal % (Auto) 8.2 H Eos % (Auto) 0.3 Baso % (Auto) 0.1 Neut # (Auto) 23.0 H Lymph # (Auto) 0.9 L Coal # (Auto) 2.2 H Eos # (Auto) 0.1 Baso # (Auto) 0.0 WBC Differential . Diff Scan Auto diff confirmed Differential Comment . Sodium 140 Potassium 3.6 Chloride 99 Carbon Dioxide 29.2 Anion Gap 12 BUN 37 H Creatinine 3.56 H Estimated GFR 18 L POC Glucose 70 Random Glucose 82 Calcium 8.1 L 07/24/18 07/24/18 07/24/18 06:25 11:35 16:47 WBC RBC Hgb Hct MCV MCH MCHC RDW Plt Count MPV Prelim Diff (Auto) Neut % (Auto) Lymph % (Auto) [place] % (Auto) Eos % (Auto) Baso % (Auto) Neut # (Auto) Lymph # (Auto) [place] # (Auto) Eos # (Auto) Baso # (Auto) WBC Differential Diff Scan Differential Comment Sodium Potassium Chloride Carbon Dioxide Anion Gap BUN Creatinine Estimated GFR POC Glucose 92 78 122 H Random Glucose Calcium - Imaging Impressions Abdomen X-Ray 07/24/18 00:00 CONCLUSION: Apparent wall thickening involving the rectosigmoid colon and possibly the distal descending colon suggesting colitis. Clinical correlation is recommended. Abdomen/Pelvis CT 07/24/18 00:00 CONCLUSION: 1. Diffuse wall thickening and distention of the rectosigmoid colon consistent with probable acute colitis. Clinical correlation is recommended. 2. Some ascites within the abdomen or pelvis. 3. Bibasilar alveolar consolidations consistent with atelectasis and/or pneumonia. 4. Tiny pericardial effusion is noted. 5. Stable right adrenal nodule. 6. Tiny left upper pole renal cyst measuring 1 cm. <Isael Betts - Last Filed: 07/24/18 19:59> Assessment and Plan - Plan 57-year-old male admitted to the hospital on 07/16/2018 for an extended medical stay. Currently has PEG tube that was placed in the [facility] back in November 2017. Gastroenterology has been consulted to remove PEG tube since it is no longer being used for nutritional status or any medications. PEG tube was removed without any difficulty and clean dressing was applied. Will have dressing changes daily and as needed and PEG site cleaned as needed. Patient tolerated procedure well. We appreciate the consult please call for any further needs. Patient was seen per myself and Dr. Betts, note was written on his behalf <Nica Whitten - Last Filed: 07/24/18 15:47> - Plan Seen and examined with [employer], peg site infected and no longer in use per patient and nurse. Peg removed at bedside with no difficulty and area covered with 4x4 dressing. Continue antibiotics. GI will follow PRN. Thank you <Isael Betts - Last Filed: 07/24/18 19:59>
--- NOTE | 2018-07-24 18:29 | P.PN ---
Subjective Interval history: having loose stools. On C Diff therapy. On O2 2 L. No chest pain. Physical Exam Vital signs: Vital Signs 07/23/18 20:43 07/24/18 00:41 07/24/18 05:01 Temperature 98.0 F 99.0 F 98.6 F Pulse Rate 93 H 90 90 Respiratory Rate 18 17 17 Blood Pressure 101/57 L 99/58 L 109/58 L Pulse Oximetry 92 L 92 L 98 07/24/18 07:57 07/24/18 12:00 Temperature 98.4 F 98.2 F Pulse Rate 101 H 86 Respiratory Rate 18 18 Blood Pressure 100/57 L 106/61 Pulse Oximetry 96 97 Intake & Output 07/23/18 07/24/18 07/24/18 18:59 06:59 18:59 Intake Total 600 / 600 1000 / 1000 740 / 740 Output Total 360 / 360 1000 / 1000 Balance 240 / 240 0 / 0 740 / 740 Weight 95.5 kg Intake: IV 1000 / 1000 100 / 100 Flagyl 500 MG Inj 100 ML @ 100 100 / 100 mls/hr IV.SIG Q8H [facility] Rx#: [id number] NS Inj 1,000 ML @ 200 mls/hr 1000 / 1000 OTHER .Q5H PRN Rx#:[id number] Oral 600 / 600 640 / 640 Output: Urine 100 / 100 Hemodialysis Amount 1000 / 1000 Gastric Drainage 260 / 260 Gastrostomy Tube (PEG) 260 / 260 Other: # Voids 2 # Bowel Movements 5 3 9 Narrative: GENERAL: Patient alert and in no distress SKIN: Warm and dry. HEAD: Normocephalic. EYES: No scleral icterus. No injection or drainage. NECK: Supple, trachea midline. No JVD. CARDIOVASCULAR: Regular rate and rhythm RESPIRATORY: Breath sounds equal bilaterally. Occ Basal crackles.No accessory muscle use. GASTROINTESTINAL: Abdomen soft, nondistended, and tender to palpation at LLQ > RLQ, PEG tube site with pus like discharge present MUSCULOSKELETAL: No cyanosis, or edema. Neuro: No Neuro deficits . No CVA tenderness. - Urinary Catheter Management Indwelling Urethral Catheter Cath placed during this visit: yes Reason for continuing: Other continuation reason Insertion date: 07/16/18 Insertion time: 17:30 Results - Labs CBC & Chem 7: 07/24/18 04:57 07/24/18 04:57 Laboratory Results - last 24 hr 07/23/18 07/23/18 07/23/18 18:30 18:37 18:44 WBC RBC Hgb Hct MCV MCH MCHC RDW Plt Count MPV Prelim Diff (Auto) Neut % (Auto) Lymph % (Auto) [place] % (Auto) Eos % (Auto) Baso % (Auto) Neut # (Auto) Lymph # (Auto) [place] # (Auto) Eos # (Auto) Baso # (Auto) WBC Differential Diff Scan Differential Comment Sodium Potassium Chloride Carbon Dioxide Anion Gap BUN Creatinine Estimated GFR POC Glucose 69 67 L 80 Random Glucose Calcium 07/24/18 07/24/18 07/24/18 01:06 04:57 04:57 WBC 26.2 H RBC 4.58 Hgb 12.2 L Hct 39.2 MCV 85.6 MCH 26.7 L MCHC 31.1 L RDW 16.4 Plt Count 321 MPV 8.7 Prelim Diff (Auto) Slide review pending Neut % (Auto) 87.9 H Lymph % (Auto) 3.5 L [place] % (Auto) 8.2 H Eos % (Auto) 0.3 Baso % (Auto) 0.1 Neut # (Auto) 23.0 H Lymph # (Auto) 0.9 L [place] # (Auto) 2.2 H Eos # (Auto) 0.1 Baso # (Auto) 0.0 WBC Differential . Diff Scan Auto diff confirmed Differential Comment . Sodium 140 Potassium 3.6 Chloride 99 Carbon Dioxide 29.2 Anion Gap 12 BUN 37 H Creatinine 3.56 H Estimated GFR 18 L POC Glucose 70 Random Glucose 82 Calcium 8.1 L 07/24/18 07/24/18 07/24/18 06:25 11:35 16:47 WBC RBC Hgb Hct MCV MCH MCHC RDW Plt Count MPV Prelim Diff (Auto) Neut % (Auto) Lymph % (Auto) [place] % (Auto) Eos % (Auto) Baso % (Auto) Neut # (Auto) Lymph # (Auto) [place] # (Auto) Eos # (Auto) Baso # (Auto) WBC Differential Diff Scan Differential Comment Sodium Potassium Chloride Carbon Dioxide Anion Gap BUN Creatinine Estimated GFR POC Glucose 92 78 122 H Random Glucose Calcium Assessment and Plan - Assessment (1) Aspiration pneumonia Code(s): J69.0 - Pneumonitis due to inhalation of food and vomit Status: Acute (2) Acute hypercapnic respiratory failure Code(s): J96.02 - Acute respiratory failure with hypercapnia Status: Acute (3) Sepsis Code(s): A41.9 - Sepsis, unspecified organism Status: Acute (4) Pneumonia Code(s): J18.9 - Pneumonia, unspecified organism Status: Acute (5) Encephalopathy Code(s): G93.40 - Encephalopathy, unspecified Status: Acute (6) Septic shock Code(s): A41.9 - Sepsis, unspecified organism; R65.21 - Severe sepsis with septic shock Status: Acute (7) Acute metabolic encephalopathy Code(s): G93.41 - Metabolic encephalopathy Status: Acute (8) End stage renal disease Code(s): N18.6 - End stage renal disease Status: Acute (9) Diarrhea Code(s): R19.7 - Diarrhea, unspecified Status: Acute - Plan 1. Continue antibiotics per ID 2. O2 2 L N/C to keep sat >92 3. Cont Duoneb nebs qid. 4. PT and OT Evaluation. 5. CBC, Chest Xray BMP in am 6. Dialysis in am 7. IS at bedside q2h
--- NOTE | 2018-07-24 19:37 | CT ---
EXAM DATE: 07/24/2018 7:30 PM EDT AGE/SEX: 57 years / Male INDICATIONS: Lower abdominal pain. CLINICAL DATA: This is the patient's initial encounter. Patient reports that signs and symptoms have been present for 2 days and indicates a pain score of 7/10. MEDICAL/SURGICAL HISTORY: Renal disease, end stage. Diabetes. Cardiovascular disease. C-diff . . Peg tube. ORAL CONTRAST: Patient refused oral contrast. RADIATION DOSE: 16.45 CTDI (mGy) COMPARISON: . TECHNIQUE: Multiple contiguous axial images were obtained through the abdomen and pelvis following b olus infusion of 70 ml Omnipaque 350 (iohexol) nonionic water-soluble contrast as a single exam dos e. Patient refused oral contrast. Using automated exposure control and adjustment of the mA and/or k V according to patient size, radiation dose was kept as low as reasonably achievable to obtain optima l diagnostic quality images. DICOM format image data is available electronically for review and comp arison. FINDINGS: Lower Lungs: Bibasilar alveolar consolidations are noted posteriorly consistent with atelectasis and/ or pneumonia. Tiny pericardial effusion is noted. Liver: The liver has a homogeneous density without space-occupying lesion. There is no dilation of th e biliary tree. Some ascites is noted throughout the abdomen or pelvis. Spleen: Homogeneous density without enlargement. Pancreas: Unremarkable without mass or calcification. Kidneys: Normal in size and shape. No evidence of mass or hydronephrosis. There is a tiny left upper pole renal cyst measuring 1 cm. Adrenal Glands: The right adrenal nodule is stable compared to previous examination. Left adrenal g land is normal. Aorta: The aorta and proximal iliac vessels are grossly unremarkable without aneurysmal dilation. Bowel/Mesentery: There is diffuse wall thickening and distention of the rectosigmoid colon consisten t with probable acute colitis. Clinical correlation is recommended. Abdominal Wall: Intact. Retroperitoneum: No evidence of adenopathy in the retrocrural, para-aortic, or deep pelvic regions. Bladder: Contours are smooth. Reproductive Organs: No abnormal masses or calcifications seen. Inguinal: The inguinal region is unremarkable without evidence of adenopathy. Bony Structures: Unremarkable. CONCLUSION: 1. Diffuse wall thickening and distention of the rectosigmoid colon consistent with probable acute c olitis. Clinical correlation is recommended. 2. Some ascites within the abdomen or pelvis. 3. Bibasilar alveolar consolidations consistent with atelectasis and/or pneumonia. 4. Tiny pericardial effusion is noted. 5. Stable right adrenal nodule. 6. Tiny left upper pole renal cyst measuring 1 cm. Electronically signed by: Kenji Padilla MD 07/24/2018 7:35 PM EDT
--- NOTE | 2018-07-24 19:42 | XR ---
EXAM DATE: 07/24/2018 7:24 PM EDT AGE/SEX: 57 years / Male INDICATIONS: Nausea, vomiting, diarrhea, abdominal pain. CLINICAL DATA: This is the patient's subsequent encounter. Patient reports that signs and symptoms h ave been present for 1 week and indicates a pain score of 8/10. MEDICAL/SURGICAL HISTORY: Hypertension. Diabetes mellitus type II. Renal disease, end stage. A-fib. . Thoracotomy. COMPARISON: . FINDINGS: There is no evidence of free intraperitoneal air. There is wall thickening involving the rectosigmoi d colon and possibly the distal descending colon suggesting colitis. Degenerative changes are noted t hroughout the thoracolumbar spine. CONCLUSION: Apparent wall thickening involving the rectosigmoid colon and possibly the distal descending colon youngblood ggesting colitis. Clinical correlation is recommended. Electronically signed by: Kenji Padilla MD 07/24/2018 7:40 PM EDT
[2018-07-24] MEDS ORDERED: Sodium Chloride 0.45 % Inj 500 ML IV.SIG ONE (22:27)
[2018-07-25] MEDS ORDERED: Albumin Human 25% Inj 50 ML IV.SIG ONE (01:11)
[2018-07-25] MEDS: Insulin NovoLIN Regular Correctional Sugar Inj SQ SCH ×4 (01:32→18:28)
[2018-07-25 07:56] LABS: Baso # (Auto) 0.3 th/mm3 (0.0-0.2); Baso % (Auto) 0.7 % (0.0-2.0); Eos # (Auto) 0.1 th/mm3 (0.0-0.4); Eos % (Auto) 0.4 % (0.0-4.0); Hematocrit 40.9 % (39.0-51.0); Hemoglobin 12.4 gm/dL (13.0-17.0); Lymph # (Auto) 1.1 th/mm3 (1.0-4.8); Mean Corpuscular Hemoglobin 26.2 pg (27.0-34.0); Mean Corpuscular Volume 86.7 fL (80.0-100.0); Mean Platelet Volume 8.2 fL (7.0-11.0); Mono # (Auto) 2.7 th/mm3 (0.0-0.9); Mono % (Auto) 7.5 % (0.0-8.0); Neut # (Auto) 32.1 th/mm3 (1.8-7.7); Neut % (Auto) 88.4 % (16.0-70.0); Platelet Count 295 th/mm3 (150-450); Red Blood Count 4.72 mil/mm3 (4.50-5.90); Red Cell Distribution Width 16.7 % (11.6-17.2); White Blood Count 36.3 th/mm3 (4.0-11.0)
[2018-07-25 07:57] LABS: Mean Corpuscular HGB Conc 30.2 % (32.0-36.0)
[2018-07-25 08:36] LABS: Calcium 8.1 mg/dL (8.5-10.1); Carbon Dioxide 26.5 meq/L (21.0-32.0); Magnesium 2.4 mg/dL (1.5-2.5); Potassium 3.8 meq/L (3.5-5.1)
--- NOTE | 2018-07-25 08:38 | XR ---
EXAM DATE: 07/25/2018 8:33 AM EDT AGE/SEX: 57 years / Male INDICATIONS: Evaluate for pneumonia. CLINICAL DATA: This is the patient's subsequent encounter. Patient reports that signs and symptoms h ave been present for 1 week and indicates a pain score of 0/10. MEDICAL/SURGICAL HISTORY: . Hypertension. Diabetes mellitus type II. Renal disease, end stage. A-fib. . . Thoracotomy. COMPARISON: [facility] – [place], [place], CHEST 1V SINGLE AP, 07/19/2018. . FINDINGS: The cardiac silhouette is enlarged in transverse diameter. A permacath is in place via right internal jugular approach with its tip in the superior vena cava. There is prominence of the central pulmonar y vasculature with indistinct vascular margins compatible with vascular congestion but no evidence of overt failure. There is left lower lobe atelectasis versus pneumonia. CONCLUSION: Cardiomegaly and findings of vascular congestion without overt failure. The findings are improved whe n compared with the prior exam. There is left lower lobe atelectasis versus pneumonia. Electronically signed by: Cyril Abdalla MD 07/25/2018 8:37 AM EDT
[2018-07-25 08:45] LABS: Lymphocytes 7 % (9-44); Monocytes 9 % (0-8); Myelocytes 5 % (0-0); Ovalocytes 1+; Platelet Estimate Normal (Normal); Platelet Morphology Normal (Normal); Toxic Granulation 2+
[2018-07-25] MEDS: Famotidine 20 MG Tablet PO SCH (09:07)
[2018-07-25] MEDS: Lactobacillus Acidophilus/L. Spores Tablet PO SCH ×2 (09:07→20:28)
[2018-07-25] MEDS: Sulfamethoxazole/Trimethoprim 400/80 MG Tablet PO SCH (09:08)
[2018-07-25] MEDS: levoFLOXacin 250 MG Tablet PO SCH (09:08)
[2018-07-25] MEDS: Metoprolol Tartrate 25 MG Tablet PO SCH ×2 (09:09→20:28)
[2018-07-25] MEDS: FLORASTOR 250 MG PO SCH (09:13)
[2018-07-25] MEDS ORDERED: Sod Chloride 0.9% Inj 1,000 ML IV.SIG SCH ×2 (10:15→10:21)
--- NOTE | 2018-07-25 10:17 | P.PN ---
Subjective Interval history: In bed says he feels terrible but not able to elaborate. Feesl very tired. BP is low, bolused and also albumin ordered. The patient is refusing any further imaging at this time. Says he still has diffuse abdominal pain. No fever or chills. With nausea. No vomiting. Says he is still with diarrhea and stool is no forming. However according to the nurse stool si starting forming. Tachycardic. WBCs worsening/. Discussed with Dr Ma ID will reevaluate patient. Change abx per ID recommendations. Blood cx repeated. Physical Exam Vital signs: Vital Signs 07/24/18 12:00 07/24/18 20:00 07/25/18 00:00 Temperature 98.2 F 98.2 F 97.8 F Pulse Rate 86 83 101 H Respiratory Rate 18 18 Blood Pressure 106/61 84/54 L 80/53 L Pulse Oximetry 97 96 95 Intake & Output 07/24/18 07/25/18 07/25/18 18:59 06:59 18:59 Intake Total 740 / 740 770 / 770 Output Total Balance 740 / 740 762 / 762 Intake: IV 100 / 100 650 / 650 Flexbumin 25% Inj 50 ML @ 60 50 / 50 mls/hr IV.SIG ONCE ONE Rx#: [id number] 1/2 Normal Saline Inj 500 ML @ 500 / 500 Wide Open IV.SIG BOLUS ONE Rx#: [id number] Flagyl 500 MG Inj 100 ML @ 100 100 / 100 100 / 100 mls/hr IV.SIG Q8H YOVANA Rx#: [id number] Oral 640 / 640 120 / 120 Output: Stool Other: Date of Last Bowel Movement 07/25/18 # Bowel Movements 6 # Incontinent Bowel Movements 8 Narrative: GENERAL: Patient alert and oriented,appears tired. SKIN: Warm and dry. HEAD: Normocephalic. EYES: No scleral icterus. No injection or drainage. NECK: Supple, trachea midline. No JVD. CARDIOVASCULAR: Regular rate and rhythm RESPIRATORY: Breath sounds equal bilaterally. Occ Basal crackles.No accessory muscle use. GASTROINTESTINAL: Abdomen soft, nondistended, and tender to palpation at LLQ > RLQ, PEG tube site with pus like discharge present MUSCULOSKELETAL: No cyanosis, or edema. Neuro: No Neuro deficits . No CVA tenderness. - Urinary Catheter Management Indwelling Urethral Catheter Cath placed during this visit: yes Reason for continuing: Other continuation reason Insertion date: 07/16/18 Insertion time: 17:30 Results - Labs CBC & Chem 7: 07/25/18 07:45 07/25/18 07:45 Laboratory Results - last 24 hr 07/24/18 07/24/18 07/25/18 11:35 16:47 01:30 WBC RBC Hgb Hct MCV MCH MCHC RDW Plt Count MPV Prelim Diff (Auto) Neut % (Auto) Lymph % (Auto) [place] % (Auto) Eos % (Auto) Baso % (Auto) Neut # (Auto) Lymph # (Auto) [place] # (Auto) Eos # (Auto) Baso # (Auto) WBC Differential Seg Neuts % (Manual) Band Neuts % (Manual) Lymphocytes % (Manual) Monocytes % (Manual) Myelocytes % (Man) Abs Neuts (Manual) Differential Comment Toxic Granulation Platelet Estimate Platelet Morphology Ovalocytes Sodium Potassium Chloride Carbon Dioxide Anion Gap BUN Creatinine Estimated GFR POC Glucose 78 122 H 99 Random Glucose Calcium Magnesium 07/25/18 07/25/18 07:45 07:45 WBC 36.3 H RBC 4.72 Hgb 12.4 L Hct 40.9 MCV 86.7 MCH 26.2 L MCHC 30.2 L RDW 16.7 Plt Count 295 MPV 8.2 Prelim Diff (Auto) Slide review pending Neut % (Auto) 88.4 H Lymph % (Auto) 3.0 L [place] % (Auto) 7.5 Eos % (Auto) 0.4 Baso % (Auto) 0.7 Neut # (Auto) 32.1 H Lymph # (Auto) 1.1 [place] # (Auto) 2.7 H Eos # (Auto) 0.1 Baso # (Auto) 0.3 H WBC Differential Manual diff final Seg Neuts % (Manual) 65 Band Neuts % (Manual) 14 H Lymphocytes % (Manual) 7 L Monocytes % (Manual) 9 H Myelocytes % (Man) 5 H Abs Neuts (Manual) 30.5 H Differential Comment . Toxic Granulation 2+ H Platelet Estimate Normal Platelet Morphology Normal Ovalocytes 1+ H Sodium 139 Potassium 3.8 Chloride 100 Carbon Dioxide 26.5 Anion Gap 13 BUN 50 H Creatinine 4.51 H Estimated GFR 13 L POC Glucose Random Glucose 90 Calcium 8.1 L Magnesium 2.4 - Imaging Impressions Abdomen X-Ray 07/24/18 00:00 CONCLUSION: Apparent wall thickening involving the rectosigmoid colon and possibly the distal descending colon suggesting colitis. Clinical correlation is recommended. Abdomen/Pelvis CT 07/24/18 00:00 CONCLUSION: 1. Diffuse wall thickening and distention of the rectosigmoid colon consistent with probable acute colitis. Clinical correlation is recommended. 2. Some ascites within the abdomen or pelvis. 3. Bibasilar alveolar consolidations consistent with atelectasis and/or pneumonia. 4. Tiny pericardial effusion is noted. 5. Stable right adrenal nodule. 6. Tiny left upper pole renal cyst measuring 1 cm. Chest X-Ray 07/25/18 00:00 CONCLUSION: Cardiomegaly and findings of vascular congestion without overt failure. The findings are improved when compared with the prior exam. There is left lower lobe atelectasis versus pneumonia. Assessment and Plan - Plan // Acute on chronic hypercapnic and hypoxic respiratory failure -patient with multiple history of intubations and previous trach, last intubation approximately 2 months ago //Acute COPD exacerbation. Acute on chronic respiratory failure on chronic continuous O2 use at home. Resolving. //Bibasilar pneumonia. // Suspected aspiration pneumonia. //Septic shock. now qith low BP again , tachycardia and also worsening WBCs = White blood cell count 12.4. Still tachycardic. Continue IV steroids, nebs , antibiotics to cover gram negatives, gram-positive, anaerobes.. Consult pulmonology. = 07/20. White count stable at 12.2. Continue antibiotics. Pulmonology following. Taper steroids. Appreciate assistance. = 07/21. White count elevated likely secondary to recent steroids. Pneumonia with Pseudomonas sensitive to Levaquin. However will need to cover for aspiration pneumonia as well. = 07/22. White count elevated in the 20s, likely secondary to recent steroids versus C. difficile. = 07/24 WBC increasing 26.2 today supervising physician and ID notified = 07/25 Persistent worsening leukocytosis. With increased abdominal pain, C diff , ?other cause He is refusing CT A/P. GI consulted , PEG removed 07/24 Change Abx to Zosyn Discussed with Dr Ma ID specialist appreciate recommendations. - stop Levaquin and bactrim Repeat UA and C/S Repeat BC Continue PO Vanco for C diff Continue IV Flagyl Monitor progress //Diarrhea. //Nausea = C. difficile positive started on PO vancomycin //Atrial fibrillation -Patient with pause to 3.8 seconds. It appears that patient is on atenolol 100 mg at home. With pauses of 3.8 seconds, current heart rate of about 110. Will ask cardiology to decide on whether to restart atenolol. Cardiology recommends continued monitoring on telemetry and discharge home to follow-up with cardiology for event monitor as outpatient. Appreciate cardiology assistance. Cardiology signed off = 07/21. Heart rate improved on metoprolol, however somewhat elevated this morning. Dr. Quiñonez discussed with Dr. Montague of cardiology yesterday. Appreciate assistance. Dr. Montague recommends 30 day event monitor as outpatient. = 07/22. No pauses on telemetry. Continue current dose of Toprol. Follow-up with cardiology as outpatient. // Septic shock -now resolved, off pressors //UTI. Enterobacter. Sensitive to Bactrim. //Toxic metabolic encephalopathy likely in the setting of hypercapnia = Resolved. // End-stage renal disease on hemodialysis = Nephrology following for dialysis. Appreciate assistance. //Chronic aspiration status post PEG tube placement. Patient subsequently denies. = Cleared by speech therapy for diet. Will monitor closely. Appreciate pulmonary input. //Clostridium difficile = Patient started on oral vancomycin 07/22/2018 continues to have frequent liquid stools = Continue oral vancomycin and monitor stool output consider adding Questran if patient continues to have high frequency of stool output //abd pain =WBC increasing 26.2 today =patient has acute abd pain with rebound tenderness, supervising physician Dr. Chen and ID Dr. Ma notified =patient re evaluated by Dr. Chen =CT abd/pelvis with contrast ordered to further evaluate =PEG site has pus like drainage present - consult placed to GI to evaluate and remove PEG tube as patient is eating and drinking by mouth =CBC and BMP in AM Discussed case with the patient. nurse, ID specialist Dr Ma
[2018-07-25] MEDS: Senna/Docusate Sodium 8.6/50 MG Tablet PO SCH ×2 (10:39→20:32)
--- NOTE | 2018-07-25 10:58 | P.PNID ---
Subjective Remarks: Patient is a 57-year-old male, brought into the hospital after he was noted to have altered mental status, with decreased level of consciousness at the dialysis center. He apparently lost pulses and CPR was started with return of his pulses. EMS was called and at that time he was found to have pulses. He was noted to be confused. His blood sugars were okay. In the ED he was hypotensive, and was on Levophed briefly. He ended up getting intubated. CT of the abdomen and pelvis showed the known adrenal mass with slight increase in size. CT of the chest did not show any PE but it showed dense bibasilar consolidation. Patient stated that he was at [facility] about 5 months ago and at that time he had pneumonia. He went to a rehab facility and at the rehab he has not really been doing any ambulation. He gets transferred to a wheelchair. He has known COPD, and chronically on oxygen. Patient states he has a chronic cough and brings up some clear phlegm. He has not really noted any increase in his cough or change in the color of his sputum. He denies any chest pain. He was extubated yesterday, and currently denies any shortness of breath. He is on nasal O2 with good oxygen saturation. Patient denies any problem with nausea or vomiting, or any swallowing difficulty. He has not had any choking episodes. During his hospitalization at [facility], he had a PEG tube placed, but the patient stated that they have not been using the tube for nutrition, and he has been taking nutrition orally. He has not been for febrile since admission. His hemodynamics are stable. Patient also had a history of right empyema back in 2010, requiring a right thoracotomy, decortication and pleurectomy, and a right lung wedge resection. Records mentioned that he has had problem with aspiration. Infectious disease consultation has been requested to assist with management of recurrent pneumonia. Notes reviewed Temps ok C/O abdominal Pain, same intensity as yesterday Also having vomiting Urine is very murky - states he voids at least once or the most twice a day C Diff (+) WBC worsening PEG removed yesterday CT A/P with diffuse bowel wall thickening, rectosigmoid is dilated UC with Enterobacter Sputum with PSAE CXR stable infiltrates Antibiotics: Bactrim Levaquin PO vancomycin Past Medical History: Diabetes ESRD (end stage renal disease) on dialysis Empyema lung HTN (hypertension) Renal disease Status post thoracotomy Allergies/Adverse Reactions: Allergies heparin Allergy (Severe, Verified 07/16/18 13:23) Bleeding quetiapine [From Seroquel] Allergy (Intermediate, Verified 07/16/18 13:23) Shakiness cefuroxime Allergy (Verified 07/20/18 18:25) Rash Objective Vital Signs 07/24/18 12:00 07/24/18 20:00 07/25/18 00:00 Temperature 98.2 F 98.2 F 97.8 F Pulse Rate 86 83 101 H Respiratory Rate 18 18 Blood Pressure 106/61 84/54 L 80/53 L Pulse Oximetry 97 96 95 07/25/18 08:00 Temperature 98.6 F Pulse Rate 100 H Respiratory Rate 16 Blood Pressure 75/60 L Pulse Oximetry 97 Intake & Output 07/24/18 07/25/18 07/25/18 18:59 06:59 18:59 Intake Total 740 / 740 770 / 770 Output Total 8 Balance 740 / 740 762 / 762 Intake: IV 100 / 100 650 / 650 Flexbumin 25% Inj 50 ML @ 60 50 / 50 mls/hr IV.SIG ONCE ONE Rx#: [id number] 1/2 Normal Saline Inj 500 ML @ 500 / 500 Wide Open IV.SIG BOLUS ONE Rx#: [id number] Flagyl 500 MG Inj 100 ML @ 100 100 / 100 100 / 100 mls/hr IV.SIG Q8H YOVANA Rx#: [id number] Oral 640 / 640 120 / 120 Output: Stool Other: Date of Last Bowel Movement 07/25/18 # Bowel Movements 6 # Incontinent Bowel Movements 8 Lab - Hematology Results 07/24/18 07/25/18 04:57 07:45 WBC 26.2 H 36.3 H RBC 4.58 4.72 Hgb 12.2 L 12.4 L Hct 39.2 40.9 MCV 85.6 86.7 MCH 26.7 L 26.2 L MCHC 31.1 L 30.2 L RDW 16.4 16.7 Plt Count 321 295 MPV 8.7 8.2 Prelim Diff (Auto) Slide review pending Slide review pending Neut % (Auto) 87.9 H 88.4 H Lymph % (Auto) 3.5 L 3.0 L [place] % (Auto) 8.2 H 7.5 Eos % (Auto) 0.3 0.4 Baso % (Auto) 0.1 0.7 Neut # (Auto) 23.0 H 32.1 H Lymph # (Auto) 0.9 L 1.1 [place] # (Auto) 2.2 H 2.7 H Eos # (Auto) 0.1 0.1 Baso # (Auto) 0.0 0.3 H WBC Differential . Manual diff final Diff Scan Auto diff confirmed Seg Neuts % (Manual) 65 Band Neuts % (Manual) 14 H Lymphocytes % (Manual) 7 L Monocytes % (Manual) 9 H Myelocytes % (Man) 5 H Abs Neuts (Manual) 30.5 H Differential Comment . . Toxic Granulation 2+ H Platelet Estimate Normal Platelet Morphology Normal Ovalocytes 1+ H Lab - Chemistry Results 07/23/18 07/23/18 07/23/18 05:23 12:05 18:30 Sodium Potassium Chloride Carbon Dioxide Anion Gap BUN Creatinine Estimated GFR POC Glucose 83 94 69 Random Glucose Calcium Magnesium 07/23/18 07/23/18 07/24/18 18:37 18:44 01:06 Sodium Potassium Chloride Carbon Dioxide Anion Gap BUN Creatinine Estimated GFR POC Glucose 67 L 80 70 Random Glucose Calcium Magnesium 07/24/18 07/24/18 07/24/18 04:57 06:25 11:35 Sodium 140 Potassium 3.6 Chloride 99 Carbon Dioxide 29.2 Anion Gap 12 BUN 37 H Creatinine 3.56 H Estimated GFR 18 L POC Glucose 92 78 Random Glucose 82 Calcium 8.1 L Magnesium 07/24/18 07/25/18 07/25/18 16:47 01:30 07:45 Sodium 139 Potassium 3.8 Chloride 100 Carbon Dioxide 26.5 Anion Gap 13 BUN 50 H Creatinine 4.51 H Estimated GFR 13 L POC Glucose 122 H 99 Random Glucose 90 Calcium 8.1 L Magnesium 2.4 Imaging: ITS Impressions Chest CTA 07/16/18 13:03 CONCLUSION: 1. No CT evidence for pulmonary artery embolism as questioned. 2. Dense bilateral lower lobe airspace consolidation with trace associated pleural effusions. Findings are concerning for aspiration. 3. Nonspecific right hilar and mediastinal nodes, as above. This may be reactive in etiology. 4. Probable 1.6 cm right adrenal mass that is incompletely imaged on this exam. Although indeterminate in density, this is unchanged from abdominal CT of 06/07/2011 and therefore likely benign. Head CT 07/17/18 00:00 CONCLUSION: 1. Atrophy. 2. Periventricular low attenuation change likely relating to chronic small vessel ischemic change. 3. Fluid throughout the nasal cavity and paranasal sinuses. . Barium Swallow X-Ray 07/20/18 00:00 CONCLUSION: Unremarkable barium swallow, however limited study since only frontal projection could be performed. Abdomen X-Ray 07/24/18 00:00 CONCLUSION: Apparent wall thickening involving the rectosigmoid colon and possibly the distal descending colon suggesting colitis. Clinical correlation is recommended. Abdomen/Pelvis CT 07/24/18 00:00 CONCLUSION: 1. Diffuse wall thickening and distention of the rectosigmoid colon consistent with probable acute colitis. Clinical correlation is recommended. 2. Some ascites within the abdomen or pelvis. 3. Bibasilar alveolar consolidations consistent with atelectasis and/or pneumonia. 4. Tiny pericardial effusion is noted. 5. Stable right adrenal nodule. 6. Tiny left upper pole renal cyst measuring 1 cm. Chest X-Ray 07/25/18 00:00 CONCLUSION: Cardiomegaly and findings of vascular congestion without overt failure. The findings are improved when compared with the prior exam. There is left lower lobe atelectasis versus pneumonia. Physical Exam: GENERAL: awake and alert, NAD. He is on nasal O2 SKIN: Cool and dry. No generalized rash HEAD: Atraumatic. Normocephalic. No temporal wasting, or tenderness. EYES: [place] conjunctiva. No petechia or hemorrhage. No scleral icterus. No injection or drainage. EARS, NOSE AND THROAT: Nose without bleeding or purulent nasal discharge. No sinus tenderness. Mucous membranes pink and moist. No oral lesions noted. NECK: Trachea midline. Supple and not tender, no meningeal signs CARDIOVASCULAR: Regular rate and rhythm. No murmurs, rubs or gallops heard RESPIRATORY: Clear to auscultation. Decreased at bases ABDOMEN: Soft, mildly distended, with diffuse abdominal tenderness. in lower half of his abdomen. No rebound. Bowel sounds present and normoactive. Previous PEG site with bloody drainage, no surrounding cellulitis or induration EXTREMITIES: No clubbing, cyanosis, or edema. No calf tenderness. NEUROLOGICAL: Awake and alert. Cranial nerves grossly intact. PSYCHIATRIC: Normal affect, calm and cooperative. LINE: No evidence of infection Assessment and Plan - Plan Impression Pneumonia, likely aspiration S/P respiratory failure COPD, O2 dependent ESRD on HD MWF UTI, Enterobacter C difficile colitis Leukocytosis, worse likely due to C diff Increased abdominal paibn, C diff, ?other cause - he is refusing CT A/P Recommendation Change Abx to Zosyn - stop Levaquin and bactrim Repeat UA and C/S Agree with checking BC Continue PO Vanco for C diff Continue IV Flagyl Monitor progress D/W RN
[2018-07-25] MEDS ORDERED: Albumin Human 25% Inj 100 ML IV.SIG ONE (11:00)
[2018-07-25] MEDS ORDERED: Piperacil/Tazo 2.25 GM Premix 50 ML IV.SIG ONE (12:00)
--- NOTE | 2018-07-25 15:19 | P.PNNP ---
Subjective Interval history: Patient has hypotensive C. difficile colitis seen during hemodialysis Physical Exam Vital signs: Vital Signs 07/24/18 20:00 07/25/18 00:00 07/25/18 08:00 Temperature 98.2 F 97.8 F 98.6 F Pulse Rate 83 101 H 100 H Respiratory Rate 18 16 Blood Pressure 84/54 L 80/53 L 75/60 L Pulse Oximetry 96 95 97 07/25/18 11:15 07/25/18 12:00 Temperature 97.8 F Pulse Rate 98 H Respiratory Rate 17 Blood Pressure 79/51 L Pulse Oximetry 93 L 96 Intake & Output 07/24/18 07/25/18 07/25/18 18:59 06:59 18:59 Intake Total 740 / 740 770 / 770 1100 / 1100 Output Total Balance 740 / 740 762 / 762 1100 / 1100 Intake: IV 100 / 100 650 / 650 1100 / 1100 Flexbumin 25% Inj 50 ML @ 60 50 / 50 mls/hr IV.SIG ONCE ONE Rx#: [id number] NS Inj 1,000 ML @ Wide Open IV. 1000 / 1000 SIG BOLUS YOVANA Rx#:[id number] 1/2 Normal Saline Inj 500 ML @ 500 / 500 Wide Open IV.SIG BOLUS ONE Rx#: [id number] Flagyl 500 MG Inj 100 ML @ 100 100 / 100 100 / 100 100 / 100 mls/hr IV.SIG Q8H YOVANA Rx#: [id number] Oral 640 / 640 120 / 120 Output: Stool Other: Date of Last Bowel Movement 07/25/18 07/25/18 # Bowel Movements 6 # Incontinent Bowel Movements 8 - Routine HEENT Exam Head: Present: normocephalic - Routine Respiratory Exam Present: decreased breath sounds - Routine Cardiovascular Exam Present: tachycardia - Routine Abdominal Exam Present: distended - Routine Extremities Exam Present: edema - Urinary Catheter Management Indwelling Urethral Catheter Cath placed during this visit: yes Reason for continuing: Other continuation reason Insertion date: 07/16/18 Insertion time: 17:30 Assessment and Plan - Assessment (1) End stage renal disease Code(s): N18.6 - End stage renal disease Status: Acute (2) Acute hypercapnic respiratory failure Code(s): J96.02 - Acute respiratory failure with hypercapnia Status: Acute (3) Pneumonia Code(s): J18.9 - Pneumonia, unspecified organism Status: Acute (4) Encephalopathy Code(s): G93.40 - Encephalopathy, unspecified Status: Acute (5) Septic shock Code(s): A41.9 - Sepsis, unspecified organism; R65.21 - Severe sepsis with septic shock Status: Acute (6) Sepsis Code(s): A41.9 - Sepsis, unspecified organism Status: Acute - Plan Hemodialysis On Monday still with nausea, C. difficile positive ID following treated doing poorly hypotensive given a liter of normal saline albumin blood pressure did improve 88 /37 Enterobacter He also has pneumonia on CT scan ET aspirate. Pseudomonas Once stable and discharged , then follow-up with Dr. Rao Patient to have CT scan with contrast and dialysis scheduled for tomorrow He has abdominal distention and C. difficile positive ID is following
[2018-07-25] MEDS: Epoetin Alfa Inj 4,000 UNIT/ML Vial IV.PUSH PRN (17:38)
[2018-07-25] MEDS: Albumin Human 25% Inj 100 ML IV.SIG PRN ×2 (17:39→17:41)
--- NOTE | 2018-07-25 18:02 | P.PN ---
Subjective Interval history: No new pulmonary problems. He is having loose stools and has nausea. On O2 2 L. CXR is Improved but WBC is 36.3 Physical Exam Vital signs: Vital Signs 07/24/18 20:00 07/25/18 00:00 07/25/18 08:00 Temperature 98.2 F 97.8 F 98.6 F Pulse Rate 83 101 H 100 H Respiratory Rate 18 16 Blood Pressure 84/54 L 80/53 L 75/60 L Pulse Oximetry 96 95 97 07/25/18 11:15 07/25/18 12:00 Temperature 97.8 F Pulse Rate 98 H Respiratory Rate 17 Blood Pressure 79/51 L Pulse Oximetry 93 L 96 Intake & Output 07/24/18 07/25/18 07/25/18 18:59 06:59 18:59 Intake Total 740 / 740 770 / 770 1300 / 1300 Output Total Balance 740 / 740 762 / 762 1300 / 1300 Intake: IV 100 / 100 650 / 650 1300 / 1300 Flexbumin 25% Inj 50 ML @ 60 50 / 50 mls/hr IV.SIG ONCE ONE Rx#: [id number] Flexbumin 25% Inj 100 ML @ 60 200 / 200 mls/hr IV.SIG WITH DIALYSIS PRN Rx#:[id number] NS Inj 1,000 ML @ Wide Open IV. 1000 / 1000 SIG BOLUS YOVANA Rx#:[id number] 1/2 Normal Saline Inj 500 ML @ 500 / 500 Wide Open IV.SIG BOLUS ONE Rx#: [id number] Flagyl 500 MG Inj 100 ML @ 100 100 / 100 100 / 100 100 / 100 mls/hr IV.SIG Q8H YOVANA Rx#: [id number] Oral 640 / 640 120 / 120 Output: Stool Other: Date of Last Bowel Movement 07/25/18 07/25/18 # Bowel Movements 6 # Incontinent Bowel Movements 8 Narrative: GENERAL: Patient alert and oriented,in no distress SKIN: Warm and dry. HEAD: Normocephalic. EYES: No scleral icterus. No injection or drainage. NECK: Supple, trachea midline. No JVD. CARDIOVASCULAR: Regular rate and rhythm RESPIRATORY: Breath sounds equal bilaterally. Occ Basal crackles. No accessory muscle use. GASTROINTESTINAL: Abdomen soft, nondistended, and BS are present MUSCULOSKELETAL: No cyanosis, or edema. Neuro: Has weakness of lower extremities . Back:No CVA tenderness. - Urinary Catheter Management Indwelling Urethral Catheter Cath placed during this visit: yes Reason for continuing: Other continuation reason Insertion date: 07/16/18 Insertion time: 17:30 Results - Labs CBC & Chem 7: 07/25/18 07:45 07/25/18 07:45 Laboratory Results - last 24 hr 07/25/18 07/25/18 07/25/18 01:30 07:45 07:45 WBC 36.3 H RBC 4.72 Hgb 12.4 L Hct 40.9 MCV 86.7 MCH 26.2 L MCHC 30.2 L RDW 16.7 Plt Count 295 MPV 8.2 Prelim Diff (Auto) Slide review pending Neut % (Auto) 88.4 H Lymph % (Auto) 3.0 L [place] % (Auto) 7.5 Eos % (Auto) 0.4 Baso % (Auto) 0.7 Neut # (Auto) 32.1 H Lymph # (Auto) 1.1 [place] # (Auto) 2.7 H Eos # (Auto) 0.1 Baso # (Auto) 0.3 H WBC Differential Manual diff final Seg Neuts % (Manual) 65 Band Neuts % (Manual) 14 H Lymphocytes % (Manual) 7 L Monocytes % (Manual) 9 H Myelocytes % (Man) 5 H Abs Neuts (Manual) 30.5 H Differential Comment . Toxic Granulation 2+ H Platelet Estimate Normal Platelet Morphology Normal Ovalocytes 1+ H Sodium 139 Potassium 3.8 Chloride 100 Carbon Dioxide 26.5 Anion Gap 13 BUN 50 H Creatinine 4.51 H Estimated GFR 13 L POC Glucose 99 Random Glucose 90 Calcium 8.1 L Magnesium 2.4 07/25/18 07/25/18 13:11 16:48 WBC RBC Hgb Hct MCV MCH MCHC RDW Plt Count MPV Prelim Diff (Auto) Neut % (Auto) Lymph % (Auto) [place] % (Auto) Eos % (Auto) Baso % (Auto) Neut # (Auto) Lymph # (Auto) [place] # (Auto) Eos # (Auto) Baso # (Auto) WBC Differential Seg Neuts % (Manual) Band Neuts % (Manual) Lymphocytes % (Manual) Monocytes % (Manual) Myelocytes % (Man) Abs Neuts (Manual) Differential Comment Toxic Granulation Platelet Estimate Platelet Morphology Ovalocytes Sodium Potassium Chloride Carbon Dioxide Anion Gap BUN Creatinine Estimated GFR POC Glucose 79 84 Random Glucose Calcium Magnesium - Imaging Impressions Abdomen X-Ray 07/24/18 00:00 CONCLUSION: Apparent wall thickening involving the rectosigmoid colon and possibly the distal descending colon suggesting colitis. Clinical correlation is recommended. Abdomen/Pelvis CT 07/24/18 00:00 CONCLUSION: 1. Diffuse wall thickening and distention of the rectosigmoid colon consistent with probable acute colitis. Clinical correlation is recommended. 2. Some ascites within the abdomen or pelvis. 3. Bibasilar alveolar consolidations consistent with atelectasis and/or pneumonia. 4. Tiny pericardial effusion is noted. 5. Stable right adrenal nodule. 6. Tiny left upper pole renal cyst measuring 1 cm. Chest X-Ray 07/25/18 00:00 CONCLUSION: Cardiomegaly and findings of vascular congestion without overt failure. The findings are improved when compared with the prior exam. There is left lower lobe atelectasis versus pneumonia. Assessment and Plan - Assessment (1) Aspiration pneumonia Code(s): J69.0 - Pneumonitis due to inhalation of food and vomit Status: Acute (2) Acute hypercapnic respiratory failure Code(s): J96.02 - Acute respiratory failure with hypercapnia Status: Acute (3) Sepsis Code(s): A41.9 - Sepsis, unspecified organism Status: Acute (4) Pneumonia Code(s): J18.9 - Pneumonia, unspecified organism Status: Acute (5) Encephalopathy Code(s): G93.40 - Encephalopathy, unspecified Status: Acute (6) Septic shock Code(s): A41.9 - Sepsis, unspecified organism; R65.21 - Severe sepsis with septic shock Status: Acute (7) Acute metabolic encephalopathy Code(s): G93.41 - Metabolic encephalopathy Status: Acute (8) End stage renal disease Code(s): N18.6 - End stage renal disease Status: Acute (9) Diarrhea Code(s): R19.7 - Diarrhea, unspecified Status: Acute - Plan 1. Continue antibiotics per ID 2. O2 2 L N/C to keep sat >92 3. Cont Duoneb nebs qid. 4. PT and OT Evaluation. 5. CBC, BMP in am 6. Dialysis as planned 7. Po diet as per GI.
[2018-07-25] MEDS: Piperacil/Tazo 2.25 GM Premix 50 ML IV.SIG SCH (18:32)
[2018-07-26] MEDS: Piperacil/Tazo 2.25 GM Premix 50 ML IV.SIG SCH ×5 (00:05→23:20)
[2018-07-26] MEDS: Insulin NovoLIN Regular Correctional Sugar Inj SQ SCH ×5 (00:06→23:20)
[2018-07-26 05:52] LABS: Baso # (Auto) 0.1 th/mm3 (0.0-0.2); Baso % (Auto) 0.2 % (0.0-2.0); Eos # (Auto) 0.2 th/mm3 (0.0-0.4); Eos % (Auto) 0.5 % (0.0-4.0); Hematocrit 38.8 % (39.0-51.0); Hemoglobin 11.9 gm/dL (13.0-17.0); Lymph # (Auto) 1.2 th/mm3 (1.0-4.8); Lymph % (Auto) 2.7 % (9.0-44.0); Mean Corpuscular Hemoglobin 26.7 pg (27.0-34.0); Mean Corpuscular Volume 86.9 fL (80.0-100.0); Mean Platelet Volume 8.9 fL (7.0-11.0); Mono # (Auto) 3.3 th/mm3 (0.0-0.9); Mono % (Auto) 7.2 % (0.0-8.0); Neut # (Auto) 41.5 th/mm3 (1.8-7.7); Neut % (Auto) 89.4 % (16.0-70.0); Platelet Count 168 th/mm3 (150-450); Red Blood Count 4.46 mil/mm3 (4.50-5.90); Red Cell Distribution Width 17.3 % (11.6-17.2); White Blood Count 46.4 th/mm3 (4.0-11.0)
[2018-07-26 06:03] LABS: Mean Corpuscular HGB Conc 30.7 % (32.0-36.0)
[2018-07-26 06:24] LABS: Alanine Aminotransferase 9 U/L (12-78); Albumin 2.8 g/dL (3.4-5.0); Alkaline Phosphatase 90 U/L (45-117); Anion Gap 10 meq/L (5-15); Aspartate Aminotransferase 23 U/L (15-37); Blood Urea Nitrogen 24 mg/dL (7-18); Calcium 7.9 mg/dL (8.5-10.1); Carbon Dioxide 27.3 meq/L (21.0-32.0); Chloride 102 meq/L (98-107); Glomerular Filtration Rate 20 mL/min (>89); Glucose,Random 75 mg/dL (74-106); Potassium 3.4 meq/L (3.5-5.1); Sodium 139 meq/L (136-145); Total Protein 6.2 g/dL (6.4-8.2)
[2018-07-26] MEDS: Metoprolol Tartrate 25 MG Tablet PO SCH ×3 (08:00→22:00)
[2018-07-26] MEDS: Famotidine 20 MG Tablet PO SCH (08:09)
[2018-07-26] MEDS: Lactobacillus Acidophilus/L. Spores Tablet PO SCH ×3 (08:10→17:35)
[2018-07-26 08:13] LABS: Eosinophils 1 % (0-4); Metamyelocytes 4 % (0-1); Monocytes 6 % (0-8); Myelocytes 1 % (0-0); Promyelocyte 3 % (0-0)
[2018-07-26 08:14] LABS: Lymphocytes 6 % (9-44); Ovalocytes 1+; Platelet Estimate Normal (Normal); Platelet Morphology Normal (Normal); Toxic Granulation 1+
[2018-07-26] MEDS: FLORASTOR 250 MG PO SCH (09:34)
[2018-07-26] MEDS: Senna/Docusate Sodium 8.6/50 MG Tablet PO SCH ×2 (11:03→23:24)
--- NOTE | 2018-07-26 12:29 | P.PN ---
Subjective Interval history: He is having some abdominal pains. BP not well controlled On O2 2 L Physical Exam Vital signs: Vital Signs 07/25/18 19:17 07/25/18 20:00 07/26/18 00:00 Temperature 97.8 F 97.2 F L Pulse Rate 91 H 94 H Respiratory Rate 17 18 Blood Pressure 92/55 L 88/50 L Pulse Oximetry 96 96 95 07/26/18 04:00 07/26/18 08:00 07/26/18 09:01 Temperature 97.4 F L 97.1 F L Pulse Rate 89 76 Respiratory Rate 17 16 Blood Pressure 82/58 L 60/36 L Pulse Oximetry 95 95 97 Intake & Output 07/25/18 07/26/18 07/26/18 18:59 06:59 18:59 Intake Total 1500 / 1500 1050 / 1050 150 / 150 Output Total 500 / 500 Balance 1000 / 1000 1050 / 1050 150 / 150 Weight 95.5 kg Intake: IV 1300 / 1300 150 / 150 150 / 150 Flexbumin 25% Inj 100 ML @ 60 200 / 200 mls/hr IV.SIG WITH DIALYSIS PRN Rx#:[id number] Zosyn 2.25 GM Premix 50 ML @ 50 / 50 50 / 50 100 mls/hr IV.SIG Q6H YOVANA Rx#: [id number] NS Inj 1,000 ML @ Wide Open IV. 1000 / 1000 SIG BOLUS YOVANA Rx#:[id number] Flagyl 500 MG Inj 100 ML @ 100 100 / 100 100 / 100 100 / 100 mls/hr IV.SIG Q8H YOVANA Rx#: [id number] Oral 200 / 200 900 / 900 Output: Urine 0 / 0 Hemodialysis Amount 500 / 500 Other: Date of Last Bowel Movement 07/25/18 # Bowel Movements 8 Narrative: GENERAL: Patient alert and oriented,pale in no distress SKIN: Warm and dry. HEAD: Normocephalic. EYES: No scleral icterus. No injection or drainage. NECK: Supple, trachea midline. No JVD. CARDIOVASCULAR: Regular rate and rhythm RESPIRATORY: Breath sounds equal bilaterally. Occ Basal crackles. No accessory muscle use. GASTROINTESTINAL: Abdomen soft, nondistended, and BS are present. Mild tenderness upper abdomen. MUSCULOSKELETAL: No cyanosis, or edema. Neuro: Has weakness of lower extremities . Back:No CVA tenderness. - Urinary Catheter Management Indwelling Urethral Catheter Cath placed during this visit: yes Reason for continuing: Other continuation reason Insertion date: 07/16/18 Insertion time: 17:30 Results - Labs CBC & Chem 7: 07/26/18 05:35 07/26/18 05:35 Laboratory Results - last 24 hr 07/25/18 07/25/18 07/26/18 13:11 16:48 00:05 WBC RBC Hgb Hct MCV MCH MCHC RDW Plt Count MPV Prelim Diff (Auto) Neut % (Auto) Lymph % (Auto) [place] % (Auto) Eos % (Auto) Baso % (Auto) Neut # (Auto) Lymph # (Auto) [place] # (Auto) Eos # (Auto) Baso # (Auto) WBC Differential Seg Neuts % (Manual) Band Neuts % (Manual) Lymphocytes % (Manual) Monocytes % (Manual) Eosinophils % (Manual) Metamyelocytes % (Man) Myelocytes % (Man) Promyelocytes % (Man) Abs Neuts (Manual) Differential Comment Toxic Granulation Platelet Estimate Platelet Morphology Ovalocytes Sodium Potassium Chloride Carbon Dioxide Anion Gap BUN Creatinine Estimated GFR POC Glucose 79 84 84 Random Glucose Calcium Total Bilirubin AST ALT Alkaline Phosphatase Total Protein Albumin 07/26/18 07/26/18 07/26/18 04:57 05:35 05:35 WBC 46.4 H RBC 4.46 L Hgb 11.9 L Hct 38.8 L MCV 86.9 MCH 26.7 L MCHC 30.7 L RDW 17.3 H Plt Count 168 D MPV 8.9 Prelim Diff (Auto) Slide review pending Neut % (Auto) 89.4 H Lymph % (Auto) 2.7 L [place] % (Auto) 7.2 Eos % (Auto) 0.5 Baso % (Auto) 0.2 Neut # (Auto) 41.5 H Lymph # (Auto) 1.2 [place] # (Auto) 3.3 H Eos # (Auto) 0.2 Baso # (Auto) 0.1 WBC Differential Manual diff final Seg Neuts % (Manual) 72 H Band Neuts % (Manual) 9 H Lymphocytes % (Manual) 6 L Monocytes % (Manual) 6 Eosinophils % (Manual) 1 Metamyelocytes % (Man) 4 H Myelocytes % (Man) 1 H Promyelocytes % (Man) 3 H Abs Neuts (Manual) 41.3 H Differential Comment . Toxic Granulation 1+ H Platelet Estimate Normal Platelet Morphology Normal Ovalocytes 1+ H Sodium 139 Potassium 3.4 L Chloride 102 Carbon Dioxide 27.3 Anion Gap 10 BUN 24 H Creatinine 3.18 H Estimated GFR 20 L POC Glucose 73 Random Glucose 75 Calcium 7.9 L Total Bilirubin 0.3 AST 23 ALT 9 L Alkaline Phosphatase 90 Total Protein 6.2 L D Albumin 2.8 L 07/26/18 07/26/18 06:28 11:24 WBC RBC Hgb Hct MCV MCH MCHC RDW Plt Count MPV Prelim Diff (Auto) Neut % (Auto) Lymph % (Auto) [place] % (Auto) Eos % (Auto) Baso % (Auto) Neut # (Auto) Lymph # (Auto) [place] # (Auto) Eos # (Auto) Baso # (Auto) WBC Differential Seg Neuts % (Manual) Band Neuts % (Manual) Lymphocytes % (Manual) Monocytes % (Manual) Eosinophils % (Manual) Metamyelocytes % (Man) Myelocytes % (Man) Promyelocytes % (Man) Abs Neuts (Manual) Differential Comment Toxic Granulation Platelet Estimate Platelet Morphology Ovalocytes Sodium Potassium Chloride Carbon Dioxide Anion Gap BUN Creatinine Estimated GFR POC Glucose 86 87 Random Glucose Calcium Total Bilirubin AST ALT Alkaline Phosphatase Total Protein Albumin Microbiology 07/25/18 11:07 Blood - Peripheral Aerobic Blood Culture - Preliminary No growth in 1 day 07/25/18 11:07 Blood - Peripheral Anaerobic Blood Culture - Preliminary No growth in 1 day 07/25/18 11:12 Blood - Peripheral Aerobic Blood Culture - Preliminary No growth in 1 day 07/25/18 11:12 Blood - Peripheral Anaerobic Blood Culture - Preliminary No growth in 1 day Assessment and Plan - Assessment (1) Aspiration pneumonia Code(s): J69.0 - Pneumonitis due to inhalation of food and vomit Status: Acute (2) Acute hypercapnic respiratory failure Code(s): J96.02 - Acute respiratory failure with hypercapnia Status: Acute (3) Sepsis Code(s): A41.9 - Sepsis, unspecified organism Status: Acute (4) Pneumonia Code(s): J18.9 - Pneumonia, unspecified organism Status: Acute (5) Encephalopathy Code(s): G93.40 - Encephalopathy, unspecified Status: Acute (6) Septic shock Code(s): A41.9 - Sepsis, unspecified organism; R65.21 - Severe sepsis with septic shock Status: Acute (7) Acute metabolic encephalopathy Code(s): G93.41 - Metabolic encephalopathy Status: Acute (8) End stage renal disease Code(s): N18.6 - End stage renal disease Status: Acute (9) Diarrhea Code(s): R19.7 - Diarrhea, unspecified Status: Acute - Plan 1. Continue antibiotics per ID 2. Cont O2 2 L N/C to keep sat >92 3. Cont Duoneb nebs qid. 4. PT and OT Evaluation. 5. To rehab anytime 6. Dialysis as planned 7. Will get F/U CXR in 2 weeks
[2018-07-26] MEDS ORDERED: Sod Chloride 0.9% Inj 1,000 ML IV.SIG SCH (13:00)
--- NOTE | 2018-07-26 13:16 | P.PNID ---
Subjective Remarks: Patient is a 57-year-old male, brought into the hospital after he was noted to have altered mental status, with decreased level of consciousness at the dialysis center. He apparently lost pulses and CPR was started with return of his pulses. EMS was called and at that time he was found to have pulses. He was noted to be confused. His blood sugars were okay. In the ED he was hypotensive, and was on Levophed briefly. He ended up getting intubated. CT of the abdomen and pelvis showed the known adrenal mass with slight increase in size. CT of the chest did not show any PE but it showed dense bibasilar consolidation. Patient stated that he was at [facility] about 5 months ago and at that time he had pneumonia. He went to a rehab facility and at the rehab he has not really been doing any ambulation. He gets transferred to a wheelchair. He has known COPD, and chronically on oxygen. Patient states he has a chronic cough and brings up some clear phlegm. He has not really noted any increase in his cough or change in the color of his sputum. He denies any chest pain. He was extubated yesterday, and currently denies any shortness of breath. He is on nasal O2 with good oxygen saturation. Patient denies any problem with nausea or vomiting, or any swallowing difficulty. He has not had any choking episodes. During his hospitalization at [facility], he had a PEG tube placed, but the patient stated that they have not been using the tube for nutrition, and he has been taking nutrition orally. He has not been for febrile since admission. His hemodynamics are stable. Patient also had a history of right empyema back in 2010, requiring a right thoracotomy, decortication and pleurectomy, and a right lung wedge resection. Records mentioned that he has had problem with aspiration. Infectious disease consultation has been requested to assist with management of recurrent pneumonia. Notes reviewed Temps ok Abdominal pain a little better No appetite BP still running low, getting fluid bolus Had HD yesterday Had 3 BM today - not big volume, liquid Also having vomiting C Diff (+) WBC worsening CT A/P with diffuse bowel wall thickening, rectosigmoid is dilated UC with Enterobacter Sputum with PSAE CXR stable infiltrates Antibiotics: Zosyn PO vancomycin Lines: Permacath RIJ Past Medical History: Diabetes ESRD (end stage renal disease) on dialysis Empyema lung HTN (hypertension) Renal disease Status post thoracotomy Allergies/Adverse Reactions: Allergies heparin Allergy (Severe, Verified 07/16/18 13:23) Bleeding quetiapine [From Seroquel] Allergy (Intermediate, Verified 07/16/18 13:23) Shakiness cefuroxime Allergy (Verified 07/20/18 18:25) Rash Objective Vital Signs 07/25/18 19:17 07/25/18 20:00 07/26/18 00:00 Temperature 97.8 F 97.2 F L Pulse Rate 91 H 94 H Respiratory Rate 17 18 Blood Pressure 92/55 L 88/50 L Pulse Oximetry 96 96 95 07/26/18 04:00 07/26/18 08:00 07/26/18 09:01 Temperature 97.4 F L 97.1 F L Pulse Rate 89 76 Respiratory Rate 17 16 Blood Pressure 82/58 L 60/36 L Pulse Oximetry 95 95 97 07/26/18 12:00 Temperature 97.2 F L Pulse Rate 87 Respiratory Rate 15 Blood Pressure 65/38 L Pulse Oximetry 96 Intake & Output 07/25/18 07/26/18 07/26/18 18:59 06:59 18:59 Intake Total 1500 / 1500 1050 / 1050 200 / 200 Output Total 500 / 500 Balance 1000 / 1000 1050 / 1050 200 / 200 Weight 95.5 kg Intake: IV 1300 / 1300 150 / 150 200 / 200 Flexbumin 25% Inj 100 ML @ 60 200 / 200 mls/hr IV.SIG WITH DIALYSIS PRN Rx#:[id number] Zosyn 2.25 GM Premix 50 ML @ 50 / 50 100 / 100 100 mls/hr IV.SIG Q6H YOVANA Rx#: [id number] NS Inj 1,000 ML @ Wide Open IV. 1000 / 1000 SIG BOLUS YOVANA Rx#:[id number] Flagyl 500 MG Inj 100 ML @ 100 100 / 100 100 / 100 100 / 100 mls/hr IV.SIG Q8H YOVANA Rx#: [id number] Oral 200 / 200 900 / 900 Output: Urine 0 / 0 Hemodialysis Amount 500 / 500 Other: Date of Last Bowel Movement 07/25/18 # Bowel Movements 8 07/25/18 11:07 Blood - Peripheral Aerobic Blood Culture - Preliminary No growth in 1 day 07/25/18 11:07 Blood - Peripheral Anaerobic Blood Culture - Preliminary No growth in 1 day 07/25/18 11:12 Blood - Peripheral Aerobic Blood Culture - Preliminary No growth in 1 day 07/25/18 11:12 Blood - Peripheral Anaerobic Blood Culture - Preliminary No growth in 1 day Lab - Hematology Results 07/25/18 07/26/18 07:45 05:35 WBC 36.3 H 46.4 H RBC 4.72 4.46 L Hgb 12.4 L 11.9 L Hct 40.9 38.8 L MCV 86.7 86.9 MCH 26.2 L 26.7 L MCHC 30.2 L 30.7 L RDW 16.7 17.3 H Plt Count 295 168 D MPV 8.2 8.9 Prelim Diff (Auto) Slide review pending Slide review pending Neut % (Auto) 88.4 H 89.4 H Lymph % (Auto) 3.0 L 2.7 L [place] % (Auto) 7.5 7.2 Eos % (Auto) 0.4 0.5 Baso % (Auto) 0.7 0.2 Neut # (Auto) 32.1 H 41.5 H Lymph # (Auto) 1.1 1.2 [place] # (Auto) 2.7 H 3.3 H Eos # (Auto) 0.1 0.2 Baso # (Auto) 0.3 H 0.1 WBC Differential Manual diff final Manual diff final Seg Neuts % (Manual) 65 72 H Band Neuts % (Manual) 14 H 9 H Lymphocytes % (Manual) 7 L 6 L Monocytes % (Manual) 9 H 6 Eosinophils % (Manual) 1 Metamyelocytes % (Man) 4 H Myelocytes % (Man) 5 H 1 H Promyelocytes % (Man) 3 H Abs Neuts (Manual) 30.5 H 41.3 H Differential Comment . . Toxic Granulation 2+ H 1+ H Platelet Estimate Normal Normal Platelet Morphology Normal Normal Ovalocytes 1+ H 1+ H Lab - Chemistry Results 07/24/18 07/25/18 07/25/18 16:47 01:30 07:45 Sodium 139 Potassium 3.8 Chloride 100 Carbon Dioxide 26.5 Anion Gap 13 BUN 50 H Creatinine 4.51 H Estimated GFR 13 L POC Glucose 122 H 99 Random Glucose 90 Calcium 8.1 L Magnesium 2.4 Total Bilirubin AST ALT Alkaline Phosphatase Total Protein Albumin 07/25/18 07/25/18 07/26/18 13:11 16:48 00:05 Sodium Potassium Chloride Carbon Dioxide Anion Gap BUN Creatinine Estimated GFR POC Glucose 79 84 84 Random Glucose Calcium Magnesium Total Bilirubin AST ALT Alkaline Phosphatase Total Protein Albumin 07/26/18 07/26/18 07/26/18 04:57 05:35 06:28 Sodium 139 Potassium 3.4 L Chloride 102 Carbon Dioxide 27.3 Anion Gap 10 BUN 24 H Creatinine 3.18 H Estimated GFR 20 L POC Glucose 73 86 Random Glucose 75 Calcium 7.9 L Magnesium Total Bilirubin 0.3 AST 23 ALT 9 L Alkaline Phosphatase 90 Total Protein 6.2 L D Albumin 2.8 L 07/26/18 11:24 Sodium Potassium Chloride Carbon Dioxide Anion Gap BUN Creatinine Estimated GFR POC Glucose 87 Random Glucose Calcium Magnesium Total Bilirubin AST ALT Alkaline Phosphatase Total Protein Albumin Imaging: ITS Impressions Chest CTA 07/16/18 13:03 CONCLUSION: 1. No CT evidence for pulmonary artery embolism as questioned. 2. Dense bilateral lower lobe airspace consolidation with trace associated pleural effusions. Findings are concerning for aspiration. 3. Nonspecific right hilar and mediastinal nodes, as above. This may be reactive in etiology. 4. Probable 1.6 cm right adrenal mass that is incompletely imaged on this exam. Although indeterminate in density, this is unchanged from abdominal CT of 06/07/2011 and therefore likely benign. Head CT 07/17/18 00:00 CONCLUSION: 1. Atrophy. 2. Periventricular low attenuation change likely relating to chronic small vessel ischemic change. 3. Fluid throughout the nasal cavity and paranasal sinuses. . Barium Swallow X-Ray 07/20/18 00:00 CONCLUSION: Unremarkable barium swallow, however limited study since only frontal projection could be performed. Abdomen X-Ray 07/24/18 00:00 CONCLUSION: Apparent wall thickening involving the rectosigmoid colon and possibly the distal descending colon suggesting colitis. Clinical correlation is recommended. Abdomen/Pelvis CT 07/24/18 00:00 CONCLUSION: 1. Diffuse wall thickening and distention of the rectosigmoid colon consistent with probable acute colitis. Clinical correlation is recommended. 2. Some ascites within the abdomen or pelvis. 3. Bibasilar alveolar consolidations consistent with atelectasis and/or pneumonia. 4. Tiny pericardial effusion is noted. 5. Stable right adrenal nodule. 6. Tiny left upper pole renal cyst measuring 1 cm. Chest X-Ray 07/25/18 00:00 CONCLUSION: Cardiomegaly and findings of vascular congestion without overt failure. The findings are improved when compared with the prior exam. There is left lower lobe atelectasis versus pneumonia. Physical Exam: GENERAL: awake and alert, NAD. He is on nasal O2 SKIN: Cool and dry. No generalized rash HEAD: Atraumatic. Normocephalic. No temporal wasting, or tenderness. EYES: [place] conjunctiva. No petechia or hemorrhage. No scleral icterus. No injection or drainage. EARS, NOSE AND THROAT: Nose without bleeding or purulent nasal discharge. No sinus tenderness. Mucous membranes pink and moist. No oral lesions noted. NECK: Trachea midline. Supple and not tender, no meningeal signs CARDIOVASCULAR: Regular rate and rhythm. No murmurs, rubs or gallops heard RESPIRATORY: Clear to auscultation. Decreased at bases ABDOMEN: Mildly distended, with abdominal tenderness in lower half of his abdomen. No rebound. Bowel sounds present and normoactive. Previous PEG site with serous drainage, minimal erythema at opening, no induration, not tender EXTREMITIES: No clubbing, cyanosis, or edema. No calf tenderness. NEUROLOGICAL: Awake and alert. Cranial nerves grossly intact. PSYCHIATRIC: Normal affect, calm and cooperative. LINE: No evidence of infection Assessment and Plan - Plan Impression Pneumonia, likely aspiration - clinically better S/P respiratory failure COPD, O2 dependent ESRD on HD MWF UTI, Enterobacter C difficile colitis Leukocytosis, worsening Increased abdominal paibn, C diff, ?other cause Hypotension Recommendation Continue Zosyn Repeat UA and C/S Agree with checking BC Follow C/S Add Micafungin Continue PO Vanco for C diff, will increase dose Continue IV Flagyl Monitor progress D/W ACE
--- NOTE | 2018-07-26 15:38 | P.PNIM ---
Subjective Interval history: No new complaints today. Diarrhea is still present. Hypotension present after patient seen today. He is on dialysis. Physical Exam Vital signs: Vital Signs 07/25/18 19:17 07/25/18 20:00 07/26/18 00:00 Temperature 97.8 F 97.2 F L Pulse Rate 91 H 94 H Respiratory Rate 17 18 Blood Pressure 92/55 L 88/50 L Pulse Oximetry 96 96 95 07/26/18 04:00 07/26/18 08:00 07/26/18 09:01 Temperature 97.4 F L 97.1 F L Pulse Rate 89 76 Respiratory Rate 17 16 Blood Pressure 82/58 L 60/36 L Pulse Oximetry 95 95 97 07/26/18 12:00 Temperature 97.2 F L Pulse Rate 87 Respiratory Rate 15 Blood Pressure 65/38 L Pulse Oximetry 96 Intake & Output 07/25/18 07/26/18 07/26/18 18:59 06:59 18:59 Intake Total 1500 / 1500 1050 / 1050 1300 / 1300 Output Total 500 / 500 Balance 1000 / 1000 1050 / 1050 1300 / 1300 Weight 95.5 kg Intake: IV 1300 / 1300 150 / 150 1300 / 1300 Flexbumin 25% Inj 100 ML @ 60 200 / 200 mls/hr IV.SIG WITH DIALYSIS PRN Rx#:[id number] Mycamine Inj 100 MG In NS Inj 100 / 100 100 ML @ 100 mls/hr IV.SIG Q24H [facility] Rx#:[id number] Zosyn 2.25 GM Premix 50 ML @ 50 / 50 100 / 100 100 mls/hr IV.SIG Q6H [facility] Rx#: [id number] NS Inj 1,000 ML @ Wide Open IV. 1000 / 1000 1000 / 1000 SIG BOLUS [facility] Rx#:[id number] Flagyl 500 MG Inj 100 ML @ 100 100 / 100 100 / 100 100 / 100 mls/hr IV.SIG Q8H [facility] Rx#: [id number] Oral 200 / 200 900 / 900 Output: Urine 0 / 0 Hemodialysis Amount 500 / 500 Other: Date of Last Bowel Movement 07/25/18 # Bowel Movements 8 Narrative: GENERAL: NAD, A&Ox3 HEAD: Normocephalic. NECK: Supple, trachea midline. No lymphadenopathy. EYES: No scleral icterus. No injection or drainage. CARDIOVASCULAR: Regular rate and rhythm without murmurs, gallops, or rubs. RESPIRATORY: Breath sounds equal bilaterally. No accessory muscle use. GASTROINTESTINAL: Abdomen soft, non-tender, nondistended. MUSCULOSKELETAL: No cyanosis, or edema. SKIN: Warm and dry. NEURO: No focal neurological deficits. Generalized weakness. - Urinary Catheter Management Indwelling Urethral Catheter Cath placed during this visit: yes Reason for continuing: Other continuation reason Insertion date: 07/16/18 Insertion time: 17:30 Results - Labs CBC & Chem 7: 07/26/18 05:35 07/26/18 05:35 Laboratory Results - last 24 hr 07/25/18 07/26/18 07/26/18 16:48 00:05 04:57 WBC RBC Hgb Hct MCV MCH MCHC RDW Plt Count MPV Prelim Diff (Auto) Neut % (Auto) Lymph % (Auto) [place] % (Auto) Eos % (Auto) Baso % (Auto) Neut # (Auto) Lymph # (Auto) [place] # (Auto) Eos # (Auto) Baso # (Auto) WBC Differential Seg Neuts % (Manual) Band Neuts % (Manual) Lymphocytes % (Manual) Monocytes % (Manual) Eosinophils % (Manual) Metamyelocytes % (Man) Myelocytes % (Man) Promyelocytes % (Man) Abs Neuts (Manual) Differential Comment Toxic Granulation Platelet Estimate Platelet Morphology Ovalocytes Sodium Potassium Chloride Carbon Dioxide Anion Gap BUN Creatinine Estimated GFR POC Glucose 84 84 73 Random Glucose Calcium Total Bilirubin AST ALT Alkaline Phosphatase Total Protein Albumin 07/26/18 07/26/18 07/26/18 05:35 05:35 06:28 WBC 46.4 H RBC 4.46 L Hgb 11.9 L Hct 38.8 L MCV 86.9 MCH 26.7 L MCHC 30.7 L RDW 17.3 H Plt Count 168 D MPV 8.9 Prelim Diff (Auto) Slide review pending Neut % (Auto) 89.4 H Lymph % (Auto) 2.7 L [place] % (Auto) 7.2 Eos % (Auto) 0.5 Baso % (Auto) 0.2 Neut # (Auto) 41.5 H Lymph # (Auto) 1.2 [place] # (Auto) 3.3 H Eos # (Auto) 0.2 Baso # (Auto) 0.1 WBC Differential Manual diff final Seg Neuts % (Manual) 72 H Band Neuts % (Manual) 9 H Lymphocytes % (Manual) 6 L Monocytes % (Manual) 6 Eosinophils % (Manual) 1 Metamyelocytes % (Man) 4 H Myelocytes % (Man) 1 H Promyelocytes % (Man) 3 H Abs Neuts (Manual) 41.3 H Differential Comment . Toxic Granulation 1+ H Platelet Estimate Normal Platelet Morphology Normal Ovalocytes 1+ H Sodium 139 Potassium 3.4 L Chloride 102 Carbon Dioxide 27.3 Anion Gap 10 BUN 24 H Creatinine 3.18 H Estimated GFR 20 L POC Glucose 86 Random Glucose 75 Calcium 7.9 L Total Bilirubin 0.3 AST 23 ALT 9 L Alkaline Phosphatase 90 Total Protein 6.2 L D Albumin 2.8 L 07/26/18 11:24 WBC RBC Hgb Hct MCV MCH MCHC RDW Plt Count MPV Prelim Diff (Auto) Neut % (Auto) Lymph % (Auto) [place] % (Auto) Eos % (Auto) Baso % (Auto) Neut # (Auto) Lymph # (Auto) [place] # (Auto) Eos # (Auto) Baso # (Auto) WBC Differential Seg Neuts % (Manual) Band Neuts % (Manual) Lymphocytes % (Manual) Monocytes % (Manual) Eosinophils % (Manual) Metamyelocytes % (Man) Myelocytes % (Man) Promyelocytes % (Man) Abs Neuts (Manual) Differential Comment Toxic Granulation Platelet Estimate Platelet Morphology Ovalocytes Sodium Potassium Chloride Carbon Dioxide Anion Gap BUN Creatinine Estimated GFR POC Glucose 87 Random Glucose Calcium Total Bilirubin AST ALT Alkaline Phosphatase Total Protein Albumin Microbiology 07/25/18 11:07 Blood - Peripheral Aerobic Blood Culture - Preliminary No growth in 1 day 07/25/18 11:07 Blood - Peripheral Anaerobic Blood Culture - Preliminary No growth in 1 day 07/25/18 11:12 Blood - Peripheral Aerobic Blood Culture - Preliminary No growth in 1 day 07/25/18 11:12 Blood - Peripheral Anaerobic Blood Culture - Preliminary No growth in 1 day Assessment and Plan - Assessment (1) C. difficile colitis Code(s): A04.72 - Enterocolitis due to Clostridium difficile, not specified as recurrent Status: Acute (2) Diarrhea Code(s): R19.7 - Diarrhea, unspecified Status: Acute - Plan 57-year-old male C. difficile colitis Abdominal pain Continue p.o. vancomycin ID following Monitor for improvement in diarrhea GI following Possible PEG tube removal Dehydration Likely related to fluid losses from diarrhea Bolus provided in patient's blood pressures improved Hypercapnic respiratory failure Hypoxic respiratory failure Recurrent intubations Septic shock Currently these conditions have resolved Monitor for any recurrence of respiratory failure COPD No evidence of exacerbation today Continue to wean steroids Bibasilar pneumonia Aspiration pneumonia Continue Zosyn Continue IV Flagyl ID following Atrial fibrillation Monitor on telemetry Blood pressure medications on hold secondary to hypotension Patient's preference is resumption of nifedipine once blood pressure stabilize UTI Enterobacter. Treatment completed, was sensitive to Bactrim. Toxic metabolic encephalopathy Related to hypercapnia Resolved. End-stage renal disease Continue hemodialysis Nephrology following Chronic aspiration risk Patient declines PEG tube usage Continue diet monitor closely DVT prophylaxis Eliquis
--- NOTE | 2018-07-26 18:58 | P.PNNP ---
Subjective Interval history: Patient complains of abdominal pain Physical Exam Vital signs: Vital Signs 07/25/18 19:17 07/25/18 20:00 07/26/18 00:00 Temperature 97.8 F 97.2 F L Pulse Rate 91 H 94 H Respiratory Rate 17 18 Blood Pressure 92/55 L 88/50 L Pulse Oximetry 96 96 95 07/26/18 04:00 07/26/18 08:00 07/26/18 09:01 Temperature 97.4 F L 97.1 F L Pulse Rate 89 76 Respiratory Rate 17 16 Blood Pressure 82/58 L 60/36 L Pulse Oximetry 95 95 97 07/26/18 12:00 07/26/18 16:00 Temperature 97.2 F L 97.3 F L Pulse Rate 87 92 H Respiratory Rate 15 16 Blood Pressure 65/38 L 86/53 L Pulse Oximetry 96 92 L Intake & Output 07/25/18 07/26/18 07/26/18 18:59 06:59 18:59 Intake Total 1500 / 1500 1050 / 1050 1400 / 1400 Output Total 500 / 500 Balance 1000 / 1000 1050 / 1050 1400 / 1400 Weight 95.5 kg Intake: IV 1300 / 1300 150 / 150 1400 / 1400 Flexbumin 25% Inj 100 ML @ 60 200 / 200 mls/hr IV.SIG WITH DIALYSIS PRN Rx#:[id number] Mycamine Inj 100 MG In NS Inj 100 / 100 100 ML @ 100 mls/hr IV.SIG Q24H [facility] Rx#:[id number] Zosyn 2.25 GM Premix 50 ML @ 50 / 50 100 / 100 100 mls/hr IV.SIG Q6H [facility] Rx#: [id number] NS Inj 1,000 ML @ Wide Open IV. 1000 / 1000 1000 / 1000 SIG BOLUS [facility] Rx#:[id number] Flagyl 500 MG Inj 100 ML @ 100 100 / 100 100 / 100 200 / 200 mls/hr IV.SIG Q8H [facility] Rx#: [id number] Oral 200 / 200 900 / 900 Output: Urine 0 / 0 Hemodialysis Amount 500 / 500 Other: Date of Last Bowel Movement 07/25/18 # Bowel Movements 8 - Constitutional no acute distress - Routine HEENT Exam Head: Present: normocephalic - Routine Respiratory Exam Present: CTA bilaterally - Routine Cardiovascular Exam Present: RRR - Routine Abdominal Exam Present: soft, tenderness - Routine Extremities Exam Present: edema - Urinary Catheter Management Indwelling Urethral Catheter Cath placed during this visit: yes Reason for continuing: Other continuation reason Insertion date: 07/16/18 Insertion time: 17:30 Assessment and Plan - Assessment (1) End stage renal disease Code(s): N18.6 - End stage renal disease Status: Acute (2) Acute hypercapnic respiratory failure Code(s): J96.02 - Acute respiratory failure with hypercapnia Status: Acute (3) Pneumonia Code(s): J18.9 - Pneumonia, unspecified organism Status: Acute (4) Encephalopathy Code(s): G93.40 - Encephalopathy, unspecified Status: Acute (5) Septic shock Code(s): A41.9 - Sepsis, unspecified organism; R65.21 - Severe sepsis with septic shock Status: Acute (6) Sepsis Code(s): A41.9 - Sepsis, unspecified organism Status: Acute - Plan Hemodialysis On Monday Abdominal pain, C. difficile positive ID following UTI Enterobacter He also has pneumonia on CT scan ET aspirate. Pseudomonas Once stable and discharged , then follow-up with Dr. Rao Next hemodialysis on Monday discussed with family He has abdominal distention and C. difficile positive ID is following
--- NOTE | 2018-07-27 00:27 | XR ---
EXAM DATE: 07/27/2018 12:10 AM EDT AGE/SEX: 57 years / Male INDICATIONS: Respiratory failure. CLINICAL DATA: This is the patient's subsequent encounter. Patient reports that signs and symptoms h ave been present for 2 days and indicates a pain score of 0/10. MEDICAL/SURGICAL HISTORY: . Hypertension. Diabetes mellitus type II. Renal disease, end stage. A-fib. . Thoracotomy. COMPARISON: [facility] – [place], CHEST 1V SINGLE AP, 07/25/2018. . FINDINGS: A single AP view of the chest demonstrates mild cardiomegaly with pulmonary vascular engorgement. Bib asilar intralobular opacities. Small effusions. Appearance is stable. Dialysis catheter overlies the right chest. CONCLUSION: Unchanged exam with findings suggesting fluid overload. Electronically signed by: Eddie Billingsley MD 07/27/2018 12:26 AM EDT
--- NOTE | 2018-07-27 02:27 | P.PNADD ---
Addendum to Inpatient Note Reason for Addendum: Additional Documentation Additional information: Residents responded to [facility] around 0145. Per nursing report, Rafia was called due to respiratory distress. He has a history of CKD on dialysis, currently with Cdiff, pneumonia, and hypotension. Had been started on midodrine and was given fluid bolus recently. Pt stated he felt like he "couldn't breathe ". Denied any chest pain, wheezing. No fevers, abdominal pain. Recent CXR had been done, which showed volume overload. Pt also had been drinking lots of fluids PO. Nurse states he is oliguric, due for dialysis on Monday. Vitals: BP 127/70, HR 90, RR 18, SO2 97% Gen: mild distress, improved with breathing treatment and sitting up Neck: No JVD appreciated Skin: Cool and dry CV: RRR w/o murmur Lungs: Crackles bilaterally Ext: no edema 57 y/o male with history of ESRD on dialysis, COPD, Afib, hypotension presents with respiratory distress. CXR shows volume overload Pt had breathing treatment performed, which improved his symptoms. Vitals stable upon exam Respiratory distress likely due to fluid in lungs, but consider PE vs COPD exacerbation vs ACS as well Continue breathing treatments q2H & fluid restriction Primary team had been notified If worsening clinical status, will transfer to ICU
[2018-07-27 05:46] LABS: Hematocrit 44.6 % (39.0-51.0); Hemoglobin 12.8 gm/dL (13.0-17.0); Mean Corpuscular Hemoglobin 26.3 pg (27.0-34.0); Mean Corpuscular Volume 91.8 fL (80.0-100.0); Mean Platelet Volume 9.2 fL (7.0-11.0); Platelet Count 109 th/mm3 (150-450); Red Blood Count 4.86 mil/mm3 (4.50-5.90); White Blood Count 52.6 th/mm3 (4.0-11.0)
[2018-07-27 06:10] LABS: Mean Corpuscular HGB Conc 28.7 % (32.0-36.0)
[2018-07-27 06:16] LABS: Albumin 2.9 g/dL (3.4-5.0); Anion Gap 14 meq/L (5-15); Aspartate Aminotransferase 18 U/L (15-37); Blood Urea Nitrogen 33 mg/dL (7-18); Calcium 8.1 mg/dL (8.5-10.1); Chloride 102 meq/L (98-107); Glomerular Filtration Rate 15 mL/min (>89); Glucose,Random 192 mg/dL (74-106); Potassium 3.5 meq/L (3.5-5.1); Sodium 140 meq/L (136-145)
[2018-07-27 06:18] LABS: Alanine Aminotransferase 8 U/L (12-78); Alkaline Phosphatase 100 U/L (45-117); Total Protein 6.8 g/dL (6.4-8.2)
[2018-07-27] MEDS: Piperacil/Tazo 2.25 GM Premix 50 ML IV.SIG SCH ×2 (06:18→13:43)
[2018-07-27] MEDS: Insulin NovoLIN Regular Correctional Sugar Inj SQ SCH ×3 (06:29→19:00)
[2018-07-27 08:18] LABS: Burr Cells 1+; Eosinophils 1 % (0-4); Metamyelocytes 5 % (0-1); Monocytes 5 % (0-8); Myelocytes 11 % (0-0); Platelet Morphology Normal (Normal)
[2018-07-27] MEDS: Lactobacillus Acidophilus/L. Spores Tablet PO SCH ×3 (08:48→18:59)
[2018-07-27] MEDS: Metoprolol Tartrate 25 MG Tablet PO SCH (08:48)
[2018-07-27] MEDS: Famotidine 20 MG Tablet PO SCH (08:48)
[2018-07-27] MEDS: Senna/Docusate Sodium 8.6/50 MG Tablet PO SCH ×2 (08:51→22:41)
[2018-07-27 10:12] LABS: ABG Base Excess -3.1 mmol/L (-2-2); ABG PCO2 84 mmHg (38-42); ABG PO2 88 mmHg (61-120)
[2018-07-27] MEDS: FLORASTOR 250 MG PO SCH (10:19)
--- NOTE | 2018-07-27 10:47 | P.PNIM ---
Subjective Interval history: Mr. Becker had problems with hypotension yesterday without any problems of hypoxia. One fluid bolus was provided yesterday for possible intravascular dehydration. This worked temporarily and later in the afternoon he had recurrence of hypotension which was treated with midodrine. The patient responded well to midodrine. Overnight he had recurrence of hypertension and was provided with further boluses. This has led to worsening of his fluid overload and this morning he has respiratory distress and hypoxia. Hypotension was occurring again. Patient is transferred to ICU and due to nausea/vomiting patient cannot use BiPAP. At this point he has been stabilized on nonrebreather mask. The potential for recurrence of hypotension is there. The potential for need for intubation is present. Patient will be monitored in ICU. Physical Exam Vital signs: Vital Signs 07/26/18 12:00 07/26/18 16:00 07/26/18 20:00 Temperature 97.2 F L 97.3 F L 98 F Pulse Rate 87 92 H 90 Respiratory Rate 15 16 17 Blood Pressure 65/38 L 86/53 L 79/50 L Pulse Oximetry 96 92 L 93 L 07/26/18 23:33 07/27/18 00:00 07/27/18 01:50 Temperature 98.7 F Pulse Rate 81 89 86 Respiratory Rate 19 18 21 Blood Pressure 74/40 L Pulse Oximetry 88 L 07/27/18 02:00 07/27/18 02:12 07/27/18 04:00 Temperature 97.3 F L Pulse Rate 108 H 106 H Respiratory Rate 18 18 Blood Pressure 79/53 L 70/40 L Pulse Oximetry 95 96 95 07/27/18 05:00 07/27/18 08:00 07/27/18 08:39 Temperature 97.3 F L Pulse Rate 105 H 105 H Respiratory Rate 14 Blood Pressure 78/40 L 84/54 L Pulse Oximetry 96 97 Intake & Output 07/26/18 07/27/18 07/27/18 18:59 06:59 18:59 Intake Total 1450 / 1450 150 / 150 100 / 100 Balance 1450 / 1450 150 / 150 100 / 100 Intake: IV 1450 / 1450 150 / 150 100 / 100 NS + KCl 20 mEq Inj 1,000 ML @ 0 / 0 50 mls/hr IV.CONT .Q20H [facility] Rx# :[id number] Mycamine Inj 100 MG In NS Inj 100 / 100 100 ML @ 100 mls/hr IV.SIG Q24H [facility] Rx#:[id number] Zosyn 2.25 GM Premix 50 ML @ 150 / 150 50 / 50 100 mls/hr IV.SIG Q6H [facility] Rx#: [id number] NS Inj 1,000 ML @ Wide Open IV. 1000 / 1000 SIG BOLUS [facility] Rx#:[id number] Flagyl 500 MG Inj 100 ML @ 100 200 / 200 100 / 100 100 / 100 mls/hr IV.SIG Q8H [facility] Rx#: [id number] Other: # Incontinent Bowel Movements 5 Narrative: GENERAL: NAD, A&Ox3 HEAD: Normocephalic. NECK: Supple, trachea midline. No lymphadenopathy. EYES: No scleral icterus. No injection or drainage. CARDIOVASCULAR: Regular rate and rhythm without murmurs, gallops, or rubs. RESPIRATORY: Breath sounds equal bilaterally. No accessory muscle use. Increased respiratory effort compared to yesterday. Tachypnea. GASTROINTESTINAL: Abdomen soft, non-tender, nondistended. MUSCULOSKELETAL: No cyanosis, or edema. SKIN: Warm and dry. NEURO: No focal neurological deficits. Generalized weakness. - Urinary Catheter Management Indwelling Urethral Catheter Cath placed during this visit: yes Reason for continuing: Other continuation reason Insertion date: 07/16/18 Insertion time: 17:30 Results - Labs CBC & Chem 7: 07/27/18 05:19 07/27/18 05:19 Laboratory Results - last 24 hr 07/26/18 07/26/18 07/26/18 11:24 16:53 21:47 WBC RBC Hgb Hct MCV MCH MCHC RDW Plt Count MPV Prelim Diff (Auto) WBC Differential Seg Neuts % (Manual) Band Neuts % (Manual) Monocytes % (Manual) Eosinophils % (Manual) Metamyelocytes % (Man) Myelocytes % (Man) Abs Neuts (Manual) Differential Comment Platelet Estimate Platelet Morphology Golf Cells Puncture Site Patient Temperature O2 Saturation ABG pH ABG pCO2 ABG pO2 ABG HCO3 ABG O2 Content ABG Base Excess ABG Methemoglobin Thomas Test Hemoglobin Carboxyhemoglobin O2 Delivery Device Liter Flow Inspired O2 Critical Value Sodium Potassium Chloride Carbon Dioxide Anion Gap BUN Creatinine Estimated GFR POC Glucose 87 109 168 H Random Glucose Lactic Acid Calcium Total Bilirubin AST ALT Alkaline Phosphatase B-Natriuretic Peptide Total Protein Albumin 07/27/18 07/27/1807/27/18 00:23 00:23 01:42 WBC RBC Hgb Hct MCV MCH MCHC RDW Plt Count MPV Prelim Diff (Auto) WBC Differential Seg Neuts % (Manual) Band Neuts % (Manual) Monocytes % (Manual) Eosinophils % (Manual) Metamyelocytes % (Man) Myelocytes % (Man) Abs Neuts (Manual) Differential Comment Platelet Estimate Platelet Morphology Golf Cells Puncture Site Patient Temperature O2 Saturation ABG pH ABG pCO2 ABG pO2 ABG HCO3 ABG O2 Content ABG Base Excess ABG Methemoglobin Thomas Test Hemoglobin Carboxyhemoglobin O2 Delivery Device Liter Flow Inspired O2 Critical Value Sodium Potassium Chloride Carbon Dioxide Anion Gap BUN Creatinine Estimated GFR POC Glucose 248 H Random Glucose Lactic Acid 1.2 Calcium Total Bilirubin AST ALT Alkaline Phosphatase B-Natriuretic Peptide 368 H Total Protein Albumin 07/27/18 07/27/18 07/27/18 05:19 05:19 06:18 WBC 52.6 H RBC 4.86 Hgb 12.8 L Hct 44.6 MCV 91.8 D MCH 26.3 L MCHC 28.7 L RDW 18.0 H Plt Count 109 L D MPV 9.2 Prelim Diff (Auto) Manual diff required WBC Differential Manual diff final Seg Neuts % (Manual) 69 Band Neuts % (Manual) 9 H Monocytes % (Manual) 5 Eosinophils % (Manual) 1 Metamyelocytes % (Man) 5 H Myelocytes % (Man) 11 H Abs Neuts (Manual) 49.4 H Differential Comment . Platelet Estimate Low L Platelet Morphology Normal Renetta Cells 1+ H Puncture Site Patient Temperature O2 Saturation ABG pH ABG pCO2 ABG pO2 ABG HCO3 ABG O2 Content ABG Base Excess ABG Methemoglobin Thomas Test Hemoglobin Carboxyhemoglobin O2 Delivery Device Liter Flow Inspired O2 Critical Value Sodium 140 Potassium 3.5 Chloride 102 Carbon Dioxide 24.0 Anion Gap 14 BUN 33 H Creatinine 3.99 H Estimated GFR 15 L POC Glucose 219 H Random Glucose 192 H D Lactic Acid Calcium 8.1 L Total Bilirubin 0.3 AST 18 ALT 8 L Alkaline Phosphatase 100 B-Natriuretic Peptide Total Protein 6.8 D Albumin 2.9 L 07/27/18 07/27/18 10:02 10:07 WBC RBC Hgb Hct MCV MCH MCHC RDW Plt Count MPV Prelim Diff (Auto) WBC Differential Seg Neuts % (Manual) Band Neuts % (Manual) Monocytes % (Manual) Eosinophils % (Manual) Metamyelocytes % (Man) Myelocytes % (Man) Abs Neuts (Manual) Differential Comment Platelet Estimate Platelet Morphology Golf Cells Puncture Site Right radial Patient Temperature 98.6 O2 Saturation 93 ABG pH 7.11 L* ABG pCO2 84 H* ABG pO2 88 ABG HCO3 25 ABG O2 Content 15.8 ABG Base Excess -3.1 L ABG Methemoglobin 1.3 Thomas Test Present Hemoglobin 12.1 Carboxyhemoglobin 1.2 O2 Delivery Device Mask Liter Flow 8.00 Inspired O2 21 Critical Value Yes Sodium Potassium Chloride Carbon Dioxide Anion Gap BUN Creatinine Estimated GFR POC Glucose 174 H Random Glucose Lactic Acid Calcium Total Bilirubin AST ALT Alkaline Phosphatase B-Natriuretic Peptide Total Protein Albumin Microbiology 07/25/18 11:07 Blood - Peripheral Aerobic Blood Culture - Preliminary No growth in 1 day 07/25/18 11:07 Blood - Peripheral Anaerobic Blood Culture - Preliminary No growth in 1 day 07/25/18 11:12 Blood - Peripheral Aerobic Blood Culture - Preliminary No growth in 1 day 07/25/18 11:12 Blood - Peripheral Anaerobic Blood Culture - Preliminary No growth in 1 day - Imaging Impressions Chest X-Ray 07/26/18 00:00 CONCLUSION: Unchanged exam with findings suggesting fluid overload. Assessment and Plan - Assessment (1) C. difficile colitis Code(s): A04.72 - Enterocolitis due to Clostridium difficile, not specified as recurrent Status: Acute (2) Diarrhea Code(s): R19.7 - Diarrhea, unspecified Status: Acute - Plan 57-year-old male admitted secondary to respiratory failure now with complications of C. difficile colitis, hypotension, and respiratory distress. Transferred ICU. Monitor in ICU. Obtain and monitor blood cultures. Lactic acid level ordered. Urinalysis ordered. Continue Zosyn. Continue vancomycin p.o. for C. difficile colitis. C. difficile colitis Abdominal pain Continue p.o. vancomycin ID following Monitor for improvement in diarrhea GI following Possible PEG tube removal Dehydration Likely related to fluid losses from diarrhea Bolus provided in patient's blood pressures improved Hypercapnic respiratory failure Hypoxic respiratory failure Recurrent intubations Septic shock Currently these conditions have resolved Monitor for any recurrence of respiratory failure COPD No evidence of exacerbation today Continue to wean steroids Bibasilar pneumonia Aspiration pneumonia Continue Zosyn Continue IV Flagyl ID following Atrial fibrillation Monitor on telemetry Blood pressure medications on hold secondary to hypotension Patient's preference is resumption of nifedipine once blood pressure stabilize UTI Enterobacter. Treatment completed, was sensitive to Bactrim. Toxic metabolic encephalopathy Related to hypercapnia Resolved. End-stage renal disease Continue hemodialysis Nephrology following Chronic aspiration risk Patient declines PEG tube usage Continue diet monitor closely DVT prophylaxis Eliquis
[2018-07-27] MEDS ORDERED: Midazolam Inj 5 MG/ML 1 ML Vial ONE (11:14)
--- NOTE | 2018-07-27 11:44 | P.PNCC ---
Subjective Subjective Remarks/Hospital Course: Patient is a 57-year-old male with past medical history of end-stage renal disease on hemodialysis, , COPD on home oxygen, hypertension, diabetes type 2, who was brought to the emergency department for altered mental status. He was altered at the dialysis center and apparently during dialysis he lost pulses and CPR was started. By time EMS arrived patient did have pulses. He was confused for EMS. ER workup showed that patient has a white count of 16.7 with left shift indicating sepsis. Patient remained hypotensive after fluid resuscitation and hence was started on Levophed by the ED physician. CT abdomen pelvis showed a previously known adrenal mass slightly increased in size compared to [address] pulmonary angiogram was negative for PE, however showed dense bibasilar consolidation/pneumonia which could be the source of sepsis. Received vancomycin and Zosyn in the ED. ABG prior to intubation in the ED showed severe hypercapnic respiratory failure with a pH of 7.05, PCO2 of 93. I evaluated the patient after arrival to the [facility]. He is intubated critically ill-appearing sedated. On lightening sedation he is able to move all 4 extremities. His source of sepsis most likely is pneumonia. Wong cultures have been sent. His altered mentation is most likely secondary to sepsis and hypercapnia, will check CT of the head to rule out any acute events. 07/17: No events over the night. Since ICU admission patient did not require any vasopressor. Oxygenation is down to 40%. Sedation is achieved with propofol, which is decreased to 20. Patient is arousable, following commands appropriately. Daughter is present at bedside. T-max of 99.6. RECONSULT NOTE 07/27: reconsulted for rapid response from floor. patient with ESRD and c. diff colitis, now with rising wbc, altered mentation, hypotension despite ivf resuscitation. abg with mixed resp/met acidosis, uncompensated. intermittently has periods of syncope. when arousable, patient refusing intubation at this time , saying "I know when I need a tube, and I don't need a tube right now." placed on norepinephrine for vasopressor support and end-organ perfusion. Objective Vital Signs / I&O: Vital Signs 07/26/18 12:00 07/26/18 16:00 07/26/18 20:00 Temperature 36.2 C L 36.3 C L 36.6 C Pulse Rate 87 92 H 90 Respiratory Rate 15 16 17 Blood Pressure 65/38 L 86/53 L 79/50 L Pulse Oximetry 96 92 L 93 L 07/26/18 23:33 07/27/18 00:00 07/27/18 01:50 Temperature 37.1 C Pulse Rate 81 89 86 Respiratory Rate 19 18 21 Blood Pressure 74/40 L Pulse Oximetry 88 L 07/27/18 02:00 07/27/18 02:12 07/27/18 04:00 Temperature 36.3 C L Pulse Rate 108 H 106 H Respiratory Rate 18 18 Blood Pressure 79/53 L 70/40 L Pulse Oximetry 95 96 95 07/27/18 05:00 07/27/18 08:00 07/27/18 08:39 Temperature 36.3 C L Pulse Rate 105 H 105 H Respiratory Rate 14 Blood Pressure 78/40 L 84/54 L Pulse Oximetry 96 97 07/27/18 11:07 Temperature Pulse Rate Respiratory Rate Blood Pressure Pulse Oximetry 96 Intake & Output 07/26/18 07/27/18 07/27/18 18:59 06:59 18:59 Intake Total 1450 / 1450 150 / 150 100 / 100 Balance 1450 / 1450 150 / 150 100 / 100 Intake: IV 1450 / 1450 150 / 150 100 / 100 NS + KCl 20 mEq Inj 1,000 ML @ 0 / 0 50 mls/hr IV.CONT .Q20H [facility] Rx# :[id number] Mycamine Inj 100 MG In NS Inj 100 / 100 100 ML @ 100 mls/hr IV.SIG Q24H [facility] Rx#:[id number] Zosyn 2.25 GM Premix 50 ML @ 150 / 150 50 / 50 100 mls/hr IV.SIG Q6H [facility] Rx#: [id number] NS Inj 1,000 ML @ Wide Open IV. 1000 / 1000 SIG BOLUS [facility] Rx#:[id number] Flagyl 500 MG Inj 100 ML @ 100 200 / 200 100 / 100 100 / 100 mls/hr IV.SIG Q8H [facility] Rx#: [id number] Other: # Incontinent Bowel Movements 5 Result Diagrams: 07/27/18 05:19 07/27/18 05:19 Objective Remarks: General - elderly gentleman, lying in bed. HEENT - pupils equal, reactive, sclerae anicteric, neck supple, no nuchal rigidity CV - normal rate, irregularly irregular rhythm. appears afib by tele and recent EKG. Chest - coarse breath sounds b/l, good air entry, no wheezes. simple face mask o2 at 7 LPM. Abdomen - soft, non-tender, non-distended, no hepatomegaly, no splenomegaly, no guarding. Extremities - warm and well perfused, trace edema, + peripheral pulses, no clubbing Neuro - when awake, he is a RASS -1 and follows commands without any focal deficits. intermittently he appears to become unresponsive, not withdrawing to pain, unarousable to deep stimuli. this lasts for a few seconds, not associated with changes in telemetry, and then he arouses and is completely awake again. Assessment and Plan - Problem List (1) Septic shock Code(s): A41.9 - Sepsis, unspecified organism; R65.21 - Severe sepsis with septic shock Status: Acute (2) Acute metabolic encephalopathy Code(s): G93.41 - Metabolic encephalopathy Status: Acute (3) Acute hypercapnic respiratory failure Code(s): J96.02 - Acute respiratory failure with hypercapnia Status: Acute (4) Pneumonia Code(s): J18.9 - Pneumonia, unspecified organism Status: Acute - Assessment and Plan Plan: Assessment: 57yM with ESRD and now with worsening septic shock. now on vasopressors. Currently refusing intubation and arterial line placement. will continue to have discussions with him: he wishes to be full code with aggressive measures, but at present is temporarily refusing interventions, stating he is "not sick enough yet." Clearly he is critically ill with intermittently altered mentation, organ dysfunction, and refractory hypotension requiring vasopressors. Plan by systems: Neurologic: Acute encephalopathy may be secondary to sepsis EEG MRI frequent neuro checks avoid long-acting sedatives Respiratory: Acute hypoxic and hypercarbic respiratory failure currently refusing intubation. vomiting prevents the use of NIPPV. could be ok with high flow NC if needed. would prefer early intubation to prevent aspiration nebs, hob elevated send sputum culture Cardiovascular: Septic Shock Atrial fibrillation continue home po anticoagulation norepinephrine for goal map > 65mmHg has had 3-5 L crystalloid ivf prior to ICU. may need HD for volume optimization. Renal: End-stage renal disease -- Strict I/Os - nephrology following - may need dialysis today for volume optimization FEN/GI: Acute protein calorie malnutrition- severe Severe hypokalemia Acute metabolic acidosis NPO currently while vomiting prn zofran hold additional ivf correct electrolytes Heme/ID: Septic Shock C. Difficile colitis ID consulted wbc uptrending agree with po vanc and iv flagyl agree with zosyn may need dose of iv vanc repeat blood cultures repeat urine culture send sputum culture trend cbc Endocrine: -- SSI Prophylaxis: GI Prophylaxis protonix DVT Prophylaxis -- SCDs Eliquis Lines: right IJ vascath- keep for dialysis access would ideally like to place arterial line to closely monitor blood pressure and serial abg for acidosis, but patient currently refusing may need to place CVL for vasopressors. Dispo: Admit to ICU. critical care time: 39 minutes, exclusive of separately billable procedures. actively managed septic shock and hypotension, discussion with patient, consultants.
[2018-07-27 13:09] LABS: Color,Urine Yellow (Yellw/Straw); Glucose,Urine (UA) Negative (Negative); Leukocyte Esterase,Urine Large (Negative); Nitrite,Urine Positive (Negative); PH,Urine 5.5 (5.0-8.5); Urobilinogen,Urine 0.2 mg/dL (Less than 2)
[2018-07-27 13:36] LABS: RBC,Urine Innumerable /hpf (0-3); Squamous Epithelial Cell,Urine 0-5 /hpf (0-5); WBC,Urine Innumerable /hpf (0-5)
[2018-07-27 13:37] LABS: Bacteria,Urine Few /hpf; Mucus,Urine Few /lpf (Occasional)
[2018-07-27 13:42] LABS: Bilirubin,Urine Negative (Negative); Clarity,Urine Marked (Clear); Ictotest,Urine Negative (Negative)
--- NOTE | 2018-07-27 14:48 | MG ---
cc: Anderson Hayes MD, PhD TEST NUMBER: [id number] TECHNIQUE: A 17-channel EEG. DESCRIPTION OF PROCEDURE: The background is generally slow and the delta frequency 3-5 Hz, amplitude 20-40 microvolts. There is some more rapid rhythm in the theta range at 6 Hz. There are no lateralizing features. No epileptiform discharges. Photic does not produce a driving response. INTERPRETATION: Abnormal study, consistent with a diffuse encephalopathy. Anderson Hayes MD, PhD TRISTEN/ch , 02:39 PM , 02:42 PM
--- NOTE | 2018-07-27 15:16 | P.PNID ---
Subjective Remarks: Patient is a 57-year-old male, brought into the hospital after he was noted to have altered mental status, with decreased level of consciousness at the dialysis center. He apparently lost pulses and CPR was started with return of his pulses. EMS was called and at that time he was found to have pulses. He was noted to be confused. His blood sugars were okay. In the ED he was hypotensive, and was on Levophed briefly. He ended up getting intubated. CT of the abdomen and pelvis showed the known adrenal mass with slight increase in size. CT of the chest did not show any PE but it showed dense bibasilar consolidation. Patient stated that he was at [facility] about 5 months ago and at that time he had pneumonia. He went to a rehab facility and at the rehab he has not really been doing any ambulation. He gets transferred to a wheelchair. He has known COPD, and chronically on oxygen. Patient states he has a chronic cough and brings up some clear phlegm. He has not really noted any increase in his cough or change in the color of his sputum. He denies any chest pain. He was extubated yesterday, and currently denies any shortness of breath. He is on nasal O2 with good oxygen saturation. Patient denies any problem with nausea or vomiting, or any swallowing difficulty. He has not had any choking episodes. During his hospitalization at [facility], he had a PEG tube placed, but the patient stated that they have not been using the tube for nutrition, and he has been taking nutrition orally. He has not been for febrile since admission. His hemodynamics are stable. Patient also had a history of right empyema back in 2010, requiring a right thoracotomy, decortication and pleurectomy, and a right lung wedge resection. Records mentioned that he has had problem with aspiration. Infectious disease consultation has been requested to assist with management of recurrent pneumonia. Notes reviewed D/W RN Transferred to ICU for respiratory distress BP still low Hypothermic WBC up to 52 On FM CXR with stable bilateral infiltrates C/O Abdominal pain Has diarrhea has had some vomiting Getting HD now He is confused today EEG with diffuse slowing CT A/P with diffuse bowel wall thickening, rectosigmoid is dilated UA with pyuria Antibiotics: Zosyn PO vancomycin [facility] Past Medical History: Diabetes ESRD (end stage renal disease) on dialysis Empyema lung HTN (hypertension) Renal disease Status post thoracotomy Allergies/Adverse Reactions: Allergies heparin Allergy (Severe, Verified 07/16/18 13:23) Bleeding quetiapine [From Seroquel] Allergy (Intermediate, Verified 07/16/18 13:23) Shakiness cefuroxime Allergy (Verified 07/20/18 18:25) Rash Objective Vital Signs 07/26/18 16:00 07/26/18 20:00 07/26/18 23:33 Temperature 97.3 F L 98 F Pulse Rate 92 H 90 81 Respiratory Rate 16 17 19 Blood Pressure 86/53 L 79/50 L Pulse Oximetry 92 L 93 L 07/27/18 00:00 07/27/18 01:50 07/27/18 02:00 Temperature 98.7 F Pulse Rate 89 86 108 H Respiratory Rate 18 21 18 Blood Pressure 74/40 L 79/53 L Pulse Oximetry 88 L 95 07/27/18 02:12 07/27/18 04:00 07/27/18 05:00 Temperature 97.3 F L Pulse Rate 106 H Respiratory Rate 18 Blood Pressure 70/40 L 78/40 L Pulse Oximetry 96 95 07/27/18 08:00 07/27/18 08:39 07/27/18 11:07 Temperature 97.3 F L Pulse Rate 105 H 105 H Respiratory Rate 14 Blood Pressure 84/54 L Pulse Oximetry 96 97 96 07/27/18 12:00 Temperature 97.0 F L Pulse Rate 146 H Respiratory Rate 13 Blood Pressure 97/54 L Pulse Oximetry 93 L Intake & Output 07/26/18 07/27/18 07/27/18 18:59 06:59 18:59 Intake Total 1450 / 1450 200 / 200 100 / 100 Balance 1450 / 1450 200 / 200 100 / 100 Intake: IV 1450 / 1450 200 / 200 100 / 100 NS + KCl 20 mEq Inj 1,000 ML @ 0 / 0 50 mls/hr IV.CONT .Q20H [facility] Rx# :[id number] Mycamine Inj 100 MG In NS Inj 100 / 100 100 ML @ 100 mls/hr IV.SIG Q24H [facility] Rx#:[id number] Zosyn 2.25 GM Premix 50 ML @ 150 / 150 100 / 100 100 mls/hr IV.SIG Q6H [facility] Rx#: [id number] NS Inj 1,000 ML @ Wide Open IV. 1000 / 1000 SIG BOLUS [facility] Rx#:[id number] Flagyl 500 MG Inj 100 ML @ 100 200 / 200 100 / 100 100 / 100 mls/hr IV.SIG Q8H [facility] Rx#: [id number] Other: Date of Last Bowel Movement 07/27/18 # Incontinent Bowel Movements 5 07/27/18 11:20 Catheterized Urine Urine Culture - Pending 07/27/18 11:20 Blood - Peripheral Aerobic Blood Culture - Pending 07/27/18 11:20 Blood - Peripheral Anaerobic Blood Culture - Pending 07/27/18 11:20 Blood - Peripheral Blood Fungal Culture - Pending 07/27/18 11:20 Blood - Peripheral Blood Fungal Culture - Pending 07/27/18 11:25 Blood - Peripheral Aerobic Blood Culture - Pending 07/27/18 11:25 Blood - Peripheral Anaerobic Blood Culture - Pending 07/25/18 11:07 Blood - Peripheral Aerobic Blood Culture - Preliminary No growth in 2 days 07/25/18 11:07 Blood - Peripheral Anaerobic Blood Culture - Preliminary No growth in 2 days 07/25/18 11:12 Blood - Peripheral Aerobic Blood Culture - Preliminary No growth in 2 days 07/25/18 11:12 Blood - Peripheral Anaerobic Blood Culture - Preliminary No growth in 2 days Lab - Hematology Results 07/26/18 07/27/18 05:35 05:19 WBC 46.4 H 52.6 H RBC 4.46 L 4.86 Hgb 11.9 L 12.8 L Hct 38.8 L 44.6 MCV 86.9 91.8 D MCH 26.7 L 26.3 L MCHC 30.7 L 28.7 L RDW 17.3 H 18.0 H Plt Count 168 D 109 L D MPV 8.9 9.2 Prelim Diff (Auto) Slide review pending Manual diff required Neut % (Auto) 89.4 H Lymph % (Auto) 2.7 L [place] % (Auto) 7.2 Eos % (Auto) 0.5 Baso % (Auto) 0.2 Neut # (Auto) 41.5 H Lymph # (Auto) 1.2 [place] # (Auto) 3.3 H Eos # (Auto) 0.2 Baso # (Auto) 0.1 WBC Differential Manual diff final Manual diff final Seg Neuts % (Manual) 72 H 69 Band Neuts % (Manual) 9 H 9 H Lymphocytes % (Manual) 6 L Monocytes % (Manual) 6 5 Eosinophils % (Manual) 1 1 Metamyelocytes % (Man) 4 H 5 H Myelocytes % (Man) 1 H 11 H Promyelocytes % (Man) 3 H Abs Neuts (Manual) 41.3 H 49.4 H Differential Comment . . Toxic Granulation 1+ H Platelet Estimate Normal Low L Platelet Morphology Normal Normal Ovalocytes 1+ H Foley Cells 1+ H Lab - Chemistry Results 07/25/18 07/26/18 07/26/18 16:48 00:05 04:57 Sodium Potassium Chloride Carbon Dioxide Anion Gap BUN Creatinine Estimated GFR POC Glucose 84 84 73 Random Glucose Lactic Acid Calcium Total Bilirubin AST ALT Alkaline Phosphatase B-Natriuretic Peptide Total Protein Albumin 07/26/18 07/26/18 07/26/18 05:35 06:28 11:24 Sodium 139 Potassium 3.4 L Chloride 102 Carbon Dioxide 27.3 Anion Gap 10 BUN 24 H Creatinine 3.18 H Estimated GFR 20 L POC Glucose 86 87 Random Glucose 75 Lactic Acid Calcium 7.9 L Total Bilirubin 0.3 AST 23 ALT 9 L Alkaline Phosphatase 90 B-Natriuretic Peptide Total Protein 6.2 L D Albumin 2.8 L 07/26/18 07/26/18 07/27/18 16:53 21:47 00:23 Sodium Potassium Chloride Carbon Dioxide Anion Gap BUN Creatinine Estimated GFR POC Glucose 109 168 H Random Glucose Lactic Acid 1.2 Calcium Total Bilirubin AST ALT Alkaline Phosphatase B-Natriuretic Peptide Total Protein Albumin 07/27/18 07/27/18 07/27/18 00:23 01:42 05:19 Sodium 140 Potassium 3.5 Chloride 102 Carbon Dioxide 24.0 Anion Gap 14 BUN 33 H Creatinine 3.99 H Estimated GFR 15 L POC Glucose 248 H Random Glucose 192 H D Lactic Acid Calcium 8.1 L Total Bilirubin 0.3 AST 18 ALT 8 L Alkaline Phosphatase 100 B-Natriuretic Peptide 368 H Total Protein 6.8 D Albumin 2.9 L 07/27/18 07/27/18 07/27/18 06:18 10:07 11:21 Sodium Potassium Chloride Carbon Dioxide Anion Gap BUN Creatinine Estimated GFR POC Glucose 219 H 174 H 140 H Random Glucose Lactic Acid Calcium Total Bilirubin AST ALT Alkaline Phosphatase B-Natriuretic Peptide Total Protein Albumin 07/27/18 11:23 Sodium Potassium Chloride Carbon Dioxide Anion Gap BUN Creatinine Estimated GFR POC Glucose Random Glucose Lactic Acid 2.3 H Calcium Total Bilirubin AST ALT Alkaline Phosphatase B-Natriuretic Peptide Total Protein Albumin Imaging: ITS Impressions Chest CTA 07/16/18 13:03 CONCLUSION: 1. No CT evidence for pulmonary artery embolism as questioned. 2. Dense bilateral lower lobe airspace consolidation with trace associated pleural effusions. Findings are concerning for aspiration. 3. Nonspecific right hilar and mediastinal nodes, as above. This may be reactive in etiology. 4. Probable 1.6 cm right adrenal mass that is incompletely imaged on this exam. Although indeterminate in density, this is unchanged from abdominal CT of 06/07/2011 and therefore likely benign. Head CT 07/17/18 00:00 CONCLUSION: 1. Atrophy. 2. Periventricular low attenuation change likely relating to chronic small vessel ischemic change. 3. Fluid throughout the nasal cavity and paranasal sinuses. . Barium Swallow X-Ray 07/20/18 00:00 CONCLUSION: Unremarkable barium swallow, however limited study since only frontal projection could be performed. Abdomen X-Ray 07/24/18 00:00 CONCLUSION: Apparent wall thickening involving the rectosigmoid colon and possibly the distal descending colon suggesting colitis. Clinical correlation is recommended. Abdomen/Pelvis CT 07/24/18 00:00 CONCLUSION: 1. Diffuse wall thickening and distention of the rectosigmoid colon consistent with probable acute colitis. Clinical correlation is recommended. 2. Some ascites within the abdomen or pelvis. 3. Bibasilar alveolar consolidations consistent with atelectasis and/or pneumonia. 4. Tiny pericardial effusion is noted. 5. Stable right adrenal nodule. 6. Tiny left upper pole renal cyst measuring 1 cm. Chest X-Ray 07/26/18 00:00 CONCLUSION: Unchanged exam with findings suggesting fluid overload. Physical Exam: GENERAL: awake and alert, on FM, confused SKIN: Cool and dry. No generalized rash HEAD: Atraumatic. Normocephalic. No temporal wasting, or tenderness. EYES: [facility] conjunctiva. No petechia or hemorrhage. No scleral icterus. No injection or drainage. EARS, NOSE AND THROAT: Nose without bleeding or purulent nasal discharge. No sinus tenderness. Mucous membranes pink and moist. No oral lesions noted. NECK: Trachea midline. Supple and not tender, no meningeal signs CARDIOVASCULAR: Regular rate and rhythm. No murmurs, rubs or gallops heard RESPIRATORY: Clear to auscultation. Decreased at bases ABDOMEN: Mildly distended, with diffuse abdominal tenderness. No rebound. Bowel sounds present and normoactive. Previous PEG site with serous drainage, minimal erythema at opening, no induration, not tender EXTREMITIES: No clubbing, cyanosis, or edema. No calf tenderness. NEUROLOGICAL: Awake and alert. Cranial nerves grossly intact. PSYCHIATRIC: Normal affect, calm and cooperative. LINE: No evidence of infection Assessment and Plan - Plan Impression Pneumonia, likely aspiration, has been on RX Respiratory failure, increasing SOB and O2 requirement - CXR stable infiltrates S/P respiratory failure and extubation - on presentation COPD, O2 dependent ESRD on HD MWF UTI, Enterobacter, on Rx C difficile colitis Leukocytosis, worsening Increased abdominal paibn, C diff, ?other cause Hypotension and hypothermia Recommendation Change Zosyn to Merem Follow new C/S Get BC from permac[facility] Continue micafungin Continue po vanco and IV Flagyl for C diff Agree with one dose of IV vanco today Monitor progress Dr Lees covering this weekend D/W RN
[2018-07-27] MEDS ORDERED: Meropenem Inj 500 MG in Sodium Chlor 0.9% Inj 100 ML IV.SIG STA (15:17)
[2018-07-27] MEDS ORDERED: ASP: Other exception documentation: ( ) OTHER PRN (15:17)
[2018-07-27] MEDS ORDERED: Amiodarone Inj 150 MG in Dextrose 5% in Water Inj 97 ML IV.SIG ONE ×2 (15:30)
[2018-07-27] MEDS: Epoetin Alfa Inj 4,000 UNIT/ML Vial IV.PUSH PRN (15:32)
[2018-07-27] MEDS ORDERED: Acetaminophen 325 MG Tablet PO PRN (15:37)
[2018-07-27] MEDS ORDERED: Sod Chloride 0.9% Inj 1,000 ML OTHER PRN ×2 (15:37)
[2018-07-27] MEDS ORDERED: Gelatin 12 MM/7 MM Topical Foam TOPICAL PRN (15:37)
[2018-07-27] MEDS ORDERED: Sod Chloride 0.9% Inj 1,000 ML IV.CONT PRN (15:37)
[2018-07-27] MEDS ORDERED: Vancomycin Inj 1,750 MG in Sodium Chlor 0.9% Inj 500 ML IV.SIG ONE ×2 (16:00→16:15)
[2018-07-27] MEDS: Albumin Human 25% Inj 100 ML IV.SIG PRN ×2 (16:01→16:02)
--- NOTE | 2018-07-27 17:45 | P.PCN ---
Date of procedure: 07/27/18 Procedure: Central Line Procedure Note 7 Romanian 20 cm left IJ triple-lumen catheter Diagnosis: Septic shock Indications: Need for highly potent vasoactive substances Consent: Obtained from the patient Anesthesia: 1% lidocaine locally Description of the Procedure: The patient was placed in the supine, mild- Trendelenburg position. The area was prepped and draped sterilely. A 19g needle was inserted under negative pressure aspiration and dark venous blood was obtained. A guidewire was inserted easily without resistance. A small incision was made using a #11 blade. Using a modified Seldinger technique, the dilator and 7 Romanian, 20 cm catheter were advanced over the guidewire without resistance. All ports were aspirated and flushed, and had brisk blood return. The line was secured at 16 cm at the skin using 2-0 silk interrupted sutures. Sutures were used instead of a non-suture StatLock device because the non- suture StatLock device would not adhere consistently to the skin. A Biopatch and Transparent sterile dressing were applied. There were no immediate complications noted. There was minimal EBL. The patient tolerated the procedure well. Ultrasound Guidance: Ultrasound guidance was used to identify the left internal jugular vein. The vascular anatomy of the left anterior neck was normal. The vessel was cannulated under direct, real-time ultrasound visualization. After placement of the guidewire, confirmation of the guidewire in the lumen of the vessel was made using ultrasound visualization, before dilation of the tract. A Chest x-ray has been ordered. I personally performed the procedure.
--- NOTE | 2018-07-27 18:46 | P.PNNP ---
Subjective Interval history: critically ill low BP C diff colitis transferred ICU doing poorly Physical Exam Vital signs: Vital Signs 07/26/18 20:00 07/26/18 23:33 07/27/18 00:00 Temperature 98 F 98.7 F Pulse Rate 90 81 89 Respiratory Rate 17 19 18 Blood Pressure 79/50 L 74/40 L Pulse Oximetry 93 L 88 L 07/27/18 01:50 07/27/18 02:00 07/27/18 02:12 Temperature Pulse Rate 86 108 H Respiratory Rate 21 18 Blood Pressure 79/53 L Pulse Oximetry 95 96 07/27/18 04:00 07/27/18 05:00 07/27/18 08:00 Temperature 97.3 F L 97.3 F L Pulse Rate 106 H 105 H Respiratory Rate 18 Blood Pressure 70/40 L 78/40 L 84/54 L Pulse Oximetry 95 96 07/27/18 08:39 07/27/18 11:07 07/27/18 12:00 Temperature 97.0 F L Pulse Rate 105 H 146 H Respiratory Rate 14 13 Blood Pressure 97/54 L Pulse Oximetry 97 96 93 L 07/27/18 16:00 Temperature 98.4 F Pulse Rate 138 H Respiratory Rate 22 Blood Pressure 120/59 L Pulse Oximetry 95 Intake & Output 07/26/18 07/27/18 07/27/18 18:59 06:59 18:59 Intake Total 1450 / 1450 200 / 200 750 / 750 Balance 1450 / 1450 200 / 200 750 / 750 Intake: IV 1450 / 1450 200 / 200 750 / 750 NS + KCl 20 mEq Inj 1,000 ML @ 0 / 0 50 mls/hr IV.CONT .Q20H [facility] Rx# :[id number] Flexbumin 25% Inj 100 ML @ 60 200 / 200 mls/hr IV.SIG WITH DIALYSIS PRN Rx#:[id number] Cordarone Inj 150 MG In D5W Inj 100 / 100 97 ML @ 600 mls/hr IV.SIG ONCE ONE Rx#:[id number] Mycamine Inj 100 MG In NS Inj 100 / 100 100 / 100 100 ML @ 100 mls/hr IV.SIG Q24H [facility] Rx#:[id number] Levophed-Dextrose 4 mg/250 ml 250 / 250 Drip 4 mg In 250 ml @ 2 MCG/MIN 7.5 mls/hr IV.SIG TITRATE PRN Rx#:[id number] Zosyn 2.25 GM Premix 50 ML @ 150 / 150 100 / 100 100 mls/hr IV.SIG Q6H [facility] Rx#: [id number] NS Inj 1,000 ML @ Wide Open IV. 1000 / 1000 SIG BOLUS [facility] Rx#:[id number] Flagyl 500 MG Inj 100 ML @ 100 200 / 200 100 / 100 100 / 100 mls/hr IV.SIG Q8H [facility] Rx#: [id number] Other: Date of Last Bowel Movement 07/27/18 # Incontinent Bowel Movements 5 - Constitutional severe distress - Routine HEENT Exam Eye: Present: EOMI - Routine Respiratory Exam Present: decreased breath sounds, wheezes, crackles - Routine Cardiovascular Exam Present: tachycardia - Routine Abdominal Exam Present: distended - Routine Extremities Exam Present: edema - Urinary Catheter Management Indwelling Urethral Catheter Cath placed during this visit: yes Reason for continuing: Other continuation reason Insertion date: 07/16/18 Insertion time: 17:30 Assessment and Plan - Assessment (1) End stage renal disease Code(s): N18.6 - End stage renal disease Status: Acute (2) Acute hypercapnic respiratory failure Code(s): J96.02 - Acute respiratory failure with hypercapnia Status: Acute (3) Pneumonia Code(s): J18.9 - Pneumonia, unspecified organism Status: Acute (4) Encephalopathy Code(s): G93.40 - Encephalopathy, unspecified Status: Acute (5) Septic shock Code(s): A41.9 - Sepsis, unspecified organism; R65.21 - Severe sepsis with septic shock Status: Acute (6) Sepsis Code(s): A41.9 - Sepsis, unspecified organism Status: Acute - Plan Hemodialysis On Monday BP low and given fluids/albumin during HD Abdominal pain, C. difficile positive ID following UTI Enterobacter He also has pneumonia on CT scan ET aspirate. Pseudomonas Once stable and discharged , then follow-up with Dr. Rao Next hemodialysis on ? Monday He has abdominal distention and C. difficile positive ID is following MRI follow results possibility of Intubation d/w staff HD may need to do it again tomorrow
--- NOTE | 2018-07-27 19:47 | XR ---
EXAM DATE: 07/27/2018 7:34 PM EDT AGE/SEX: 57 years / Male INDICATIONS: Evaluate for central line placement. CLINICAL DATA: This is the patient's subsequent encounter. Patient reports that signs and symptoms h ave been present for 1 day and indicates a pain score of Nonresponsive. MEDICAL/SURGICAL HISTORY: Non-responsive. Non-responsive. [place] [facility] [place]. . FINDINGS: There is a double-lumen central line in place from the right internal jugular approach with the tip o verlying the right atrium. There also appears to be a single lumen catheter at the left internal jugu lar vein with the tip overlying the left innominate vein. A pneumothorax is not seen. The heart size is enlarged. There is hazy density at the mid and lower lungs bilaterally being worse on the left. CONCLUSION: New left internal jugular central line with the tip overlying the left innominate vein region. Hazy density at the lower chest regions likely related to consolidation, atelectasis and/or effusions . Cardiomegaly. Electronically signed by: Ronan Thomas MD 07/27/2018 7:45 PM EDT
[2018-07-27] MEDS ORDERED: Albumin Human 5% Inj 500 ML IV.SIG ONE (20:30)
[2018-07-27] MEDS ORDERED: Succinylcholine Inj 200 MG/10 ML Vial ONE (21:09)
[2018-07-27] MEDS: Vasopressin Inj 40 UNIT in Dextrose 5% in Water Inj 98 ML IV.CONT PRN ×2 (21:15)
[2018-07-27] MEDS ORDERED: Midazolam 50 MG/50 ML Inj 50 MG/50 ML BAG IV.CONT PRN (21:28)
[2018-07-27] MEDS ORDERED: fentaNYL 10 mcg/mL Premix Drip 2,500 MCG/250 ML BAG IV.SIG PRN ×2 (21:29→21:52)
[2018-07-27] MEDS ORDERED: Phenylephrine Inj 40 MG in Dextrose 5% in Water Inj 496 ML IV.CONT PRN ×2 (21:44)
--- NOTE | 2018-07-27 22:15 | XR ---
EXAM DATE: 07/27/2018 9:38 PM EDT AGE/SEX: 57 years / Male INDICATIONS: Status post ET tube placement. CLINICAL DATA: This is the patient's initial encounter. Patient reports that signs and symptoms have been present for 1 day and indicates a pain score of Nonresponsive. MEDICAL/SURGICAL HISTORY: Non-responsive. Non-responsive. [place]PAR[place]: [facility] [place]27/2018. . FINDINGS: The ET tube tip is 2.6 cm from the merly. The NG tube tip is directed into the stomach. There is a d ouble-lumen catheter in place from the right internal jugular approach with the tip overlying the rig ht atrium. There is a left internal jugular central line in place with the tip overlying the left inn ominate vein. The heart size is mildly enlarged. There is hazy density seen at the mid and lower left lung and at the right lower lung. CONCLUSION: ET tube in a good to low position 2.6 cm from the merly. Left mid and lower lung and right lower lung areas of consolidation or atelectasis. Cardiomegaly. Electronically signed by: Ronan Thomas MD 07/27/2018 10:14 PM EDT
[2018-07-27] MEDS: Sodium Bicarbonate 8.4% Inj 150 MEQ in Dextrose 5% in Water Inj 850 ML IV.CONT SCH ×2 (22:46)
--- NOTE | 2018-07-28 00:29 | MR ---
EXAM DATE: 07/27/2018 6:37 PM EDT AGE/SEX: 57 years / Male INDICATIONS: Altered mental status. CLINICAL DATA: This is the patient's initial encounter. Patient reports that signs and symptoms have been present for 1 day and indicates a pain score of 0/10. MEDICAL/SURGICAL HISTORY: Congestive heart failure. Hypertension. Diabetes mellitus type II. . Thoracotomy. Peg tube placement. COMPARISON: [facility] – [place], [place] HEAD W/O CONTRAST, 07/17/2018. . TECHNIQUE: Multiplanar, multisequence examination of the brain was performed without contrast. FINDINGS: There is some patient motion blurring. Cerebrum: The ventricles and cortical sulci are widened. There is increase signal seen in the perive ntricular white matter. Are normal for age. No evidence of midline shift, mass lesion, hemorrhage or acute infarction. No extraaxial fluid collections are seen. There is an empty sella configuration. White Matter: There is increased signal within the periventricular white matter. Posterior Fossa: The cerebellum and brainstem are intact. The 4th ventricle is midline. The cerebel lopontine angle is unremarkable. The cerebellar tonsils are normal in position. Diffusion Imaging: No focal areas of restricted diffusion are seen. No evidence of acute infarction . Extracranial: The visualized portions of the orbits are unremarkable. There is fluid in the ethmoid and sphenoid sinuses. This increased signal seen throughout the left temporal and mastoid air cells. CONCLUSION: 1. No acute intracranial abnormality. 2. Atrophy. 3. Nonspecific periventricular demyelination. This could be from small vessel ischemic change. 4. Fluid in the sinuses. 5. Increased signal/fluid throughout the mastoid/temporal air cells. Electronically signed by: Ronan Thomas MD 07/27/2018 6:41 PM EDT
[2018-07-28 00:31] LABS: ABG Base Excess -4.2 mmol/L (-2-2); ABG PCO2 76 mmHg (38-42); ABG PO2 131 mmHg (61-120)
[2018-07-28] MEDS: Insulin NovoLIN Regular Correctional Sugar Inj SQ SCH ×4 (00:48→17:39)
[2018-07-28 05:07] LABS: Hematocrit 37.4 % (39.0-51.0); Mean Corpuscular Hemoglobin 25.9 pg (27.0-34.0); Mean Platelet Volume 8.4 fL (7.0-11.0); Platelet Count 89 th/mm3 (150-450); Red Blood Count 4.25 mil/mm3 (4.50-5.90); Red Cell Distribution Width 17.6 % (11.6-17.2); White Blood Count 41.8 th/mm3 (4.0-11.0)
[2018-07-28 05:32] LABS: Mean Corpuscular HGB Conc 29.4 % (32.0-36.0)
[2018-07-28 05:53] LABS: Albumin 2.8 g/dL (3.4-5.0); Calcium 7.4 mg/dL (8.5-10.1); Potassium 3.1 meq/L (3.5-5.1); Total Protein 5.9 g/dL (6.4-8.2)
[2018-07-28] MEDS: Sodium Bicarbonate 8.4% Inj 150 MEQ in Dextrose 5% in Water Inj 850 ML IV.CONT SCH ×4 (06:37→14:06)
[2018-07-28 08:19] LABS: Lymphocytes 6 % (9-44); Monocytes 10 % (0-8); Myelocytes 6 % (0-0); Ovalocytes 1+; Platelet Morphology Normal (Normal); Promyelocyte 1 % (0-0); Tallied Nucleated RBC 1 (0-0); Toxic Granulation 1+
[2018-07-28 08:31] LABS: ABG Base Excess 3.1 mmol/L (-2-2); ABG PCO2 28 mmHg (38-42); ABG PO2 120 mmHg (61-120)
[2018-07-28] MEDS: Senna/Docusate Sodium 8.6/50 MG Tablet PO SCH ×3 (09:04→21:30)
[2018-07-28] MEDS: Famotidine 20 MG Tablet PO SCH (09:04)
[2018-07-28] MEDS: Lactobacillus Acidophilus/L. Spores Tablet PO SCH ×3 (09:04→17:30)
[2018-07-28] MEDS: FLORASTOR 250 MG PO SCH (09:05)
--- NOTE | 2018-07-28 10:39 | P.PNCC ---
Subjective Subjective Remarks/Hospital Course: Patient is a 57-year-old male with past medical history of end-stage renal disease on hemodialysis, , COPD on home oxygen, hypertension, diabetes type 2, who was brought to the emergency department for altered mental status. He was altered at the dialysis center and apparently during dialysis he lost pulses and CPR was started. By time EMS arrived patient did have pulses. He was confused for EMS. ER workup showed that patient has a white count of 16.7 with left shift indicating sepsis. Patient remained hypotensive after fluid resuscitation and hence was started on Levophed by the ED physician. CT abdomen pelvis showed a previously known adrenal mass slightly increased in size compared to [address] pulmonary angiogram was negative for PE, however showed dense bibasilar consolidation/pneumonia which could be the source of sepsis. Received vancomycin and Zosyn in the ED. ABG prior to intubation in the ED showed severe hypercapnic respiratory failure with a pH of 7.05, PCO2 of 93. I evaluated the patient after arrival to the [facility]. He is intubated critically ill-appearing sedated. On lightening sedation he is able to move all 4 extremities. His source of sepsis most likely is pneumonia. Wong cultures have been sent. His altered mentation is most likely secondary to sepsis and hypercapnia, will check CT of the head to rule out any acute events. 07/17: No events over the night. Since ICU admission patient did not require any vasopressor. Oxygenation is down to 40%. Sedation is achieved with propofol, which is decreased to 20. Patient is arousable, following commands appropriately. Daughter is present at bedside. T-max of 99.6. RECONSULT NOTE 07/27: reconsulted for rapid response from floor. patient with ESRD and c. diff colitis, now with rising wbc, altered mentation, hypotension despite ivf resuscitation. abg with mixed resp/met acidosis, uncompensated. intermittently has periods of syncope. when arousable, patient refusing intubation at this time , saying "I know when I need a tube, and I don't need a tube right now." placed on norepinephrine for vasopressor support and end-organ perfusion. 07/28: Intubated and placed on mech ventilation last night. On levophed/ amio/ versed/ fentsnyl gtt. Bicarb drip decreased to 40cc/hr. Objective Vital Signs / I&O: Vital Signs 07/27/18 11:07 07/27/18 12:00 07/27/18 16:00 Temperature 97.0 F L 98.4 F Pulse Rate 146 H 138 H Respiratory Rate 13 22 Blood Pressure 97/54 L 120/59 L Pulse Oximetry 96 93 L 95 07/27/18 20:00 07/27/18 20:05 07/27/18 21:00 Temperature 97.8 F Pulse Rate 122 H Respiratory Rate 10 L Blood Pressure 96/46 L Pulse Oximetry 88 L 88 L 100 07/27/18 21:10 07/27/18 23:55 07/28/18 00:00 Temperature 99.1 F Pulse Rate 108 H Respiratory Rate 22 22 22 Blood Pressure 129/70 Pulse Oximetry 100 100 100 07/28/18 03:52 07/28/18 04:00 07/28/18 08:20 Temperature 100.3 F H Pulse Rate 118 H Respiratory Rate 22 22 22 Blood Pressure 172/77 H Pulse Oximetry 100 100 100 Intake & Output 07/27/18 07/28/18 07/28/18 18:59 06:59 18:59 Intake Total 1999 2967.5 / 2967.5 350 / 350 Balance 1999 2967.5 / 2967.5 350 / 350 Weight 110.2 kg Intake: IV 1999 2967.5 / 2967.5 350 / 350 Cordarone Inj 450 MG In D5W Inj 250 / 250 241 ML @ 1 MG/MIN 33.33 mls/hr IV.CONT TITRATE PRN Rx#: [id number] NS + KCl 20 mEq Inj 1,000 ML @ 1000 / 1000 50 mls/hr IV.CONT .Q20H [facility] Rx# :[id number] Sodium Bicarbonate 8.4% Inj 150 1000 / 1000 MEQ In D5W Inj 850 ML @ 125 mls/hr IV.CONT .Q8H [facility] Rx#: [id number] Flexbumin 25% Inj 100 ML @ 60 200 / 200 mls/hr IV.SIG WITH DIALYSIS PRN Rx#:[id number] Alburx 5% Inj 500 ML @ 500 mls/ 500 / 500 hr IV.SIG STAT ONE Rx#:[id number] Cordarone Inj 150 MG In D5W Inj 100 / 100 97 ML @ 600 mls/hr IV.SIG ONCE ONE Rx#:[id number] Merrem Inj 500 MG In NS Inj 100 200 / 200 ML @ 200 mls/hr IV.SIG Q12H [facility] Rx#:[id number] Mycamine Inj 100 MG In NS Inj 100 / 100 100 ML @ 100 mls/hr IV.SIG Q24H [facility] Rx#:[id number] Levophed-Dextrose 4 mg/250 ml 500 / 500 250 / 250 250 / 250 Drip 4 mg In 250 ml @ 2 MCG/MIN 7.5 mls/hr IV.SIG TITRATE PRN Rx#:[id number] Zosyn 2.25 GM Premix 50 ML @ 50 / 50 100 mls/hr IV.SIG Q6H [facility] Rx#: [id number] Vancomycin Inj 1,750 MG In NS 517.5 / 517.5 Inj 500 ML @ 250 mls/hr IV.SIG ONCE ONE Rx#:[id number] Flagyl 500 MG Inj 100 ML @ 100 100 / 100 200 / 200 100 / 100 mls/hr IV.SIG Q8H [facility] Rx#: [id number] Other: Date of Last Bowel Movement 07/27/18 07/27/18 Result Diagrams: 07/28/18 04:55 07/28/18 04:55 Imaging: Impressions Chest X-Ray 07/26/18 00:00 CONCLUSION: Unchanged exam with findings suggesting fluid overload. Chest X-Ray 07/27/18 00:00 CONCLUSION: New left internal jugular central line with the tip overlying the left innominate vein region. Hazy density at the lower chest regions likely related to consolidation, atelectasis and/or effusions. Cardiomegaly. Head MRI 07/27/18 00:00 CONCLUSION: 1. No acute intracranial abnormality. 2. Atrophy. 3. Nonspecific periventricular demyelination. This could be from small vessel ischemic change. 4. Fluid in the sinuses. 5. Increased signal/fluid throughout the mastoid/temporal air cells. Chest X-Ray 07/27/18 21:13 CONCLUSION: ET tube in a good to low position 2.6 cm from the merly. Left mid and lower lung and right lower lung areas of consolidation or atelectasis. Cardiomegaly. Objective Remarks: General - elderly gentleman, lying in bed. HEENT - pupils equal, reactive, sclerae anicteric, neck supple, no nuchal rigidity CV - normal rate, irregularly irregular rhythm. appears afib by tele and recent EKG. Chest - coarse breath sounds b/l, good air entry, no wheezes. simple face mask o2 at 7 LPM. Abdomen - soft, non-tender, non-distended, no hepatomegaly, no splenomegaly, no guarding. Extremities - warm and well perfused, trace edema, + peripheral pulses, no clubbing Neuro - when awake, he is a RASS -1 and follows commands without any focal deficits. intermittently he appears to become unresponsive, not withdrawing to pain, unarousable to deep stimuli. this lasts for a few seconds, not associated with changes in telemetry, and then he arouses and is completely awake again. Assessment and Plan - Problem List (1) Septic shock Code(s): A41.9 - Sepsis, unspecified organism; R65.21 - Severe sepsis with septic shock Status: Acute (2) Acute metabolic encephalopathy Code(s): G93.41 - Metabolic encephalopathy Status: Acute (3) Acute hypercapnic respiratory failure Code(s): J96.02 - Acute respiratory failure with hypercapnia Status: Acute (4) Pneumonia Code(s): J18.9 - Pneumonia, unspecified organism Status: Acute - Assessment and Plan Plan: Assessment: 57yM with ESRD and now with worsening septic shock. now intubated on vasopressors. Plan by systems: Neurologic: Acute encephalopathy may be secondary to sepsis EEG MRI frequent neuro checks Respiratory: Acute hypoxic and hypercarbic respiratory failure Continue mech ventilation, vent bundle. nebs, hob elevated send sputum culture Cardiovascular: Septic Shock Atrial fibrillation On anticoagulation norepinephrine for goal map > 65mmHg HD to keep in even fluid balance. Renal: End-stage renal disease -- Strict I/Os - nephrology following - Hemodialysis per renal. FEN/GI: Acute protein calorie malnutrition- severe Severe hypokalemia Acute metabolic acidosis NPO prn zofran hold additional ivf correct electrolytes Heme/ID: Septic Shock C. Difficile colitis ID consulted wbc uptrending agree with po vanc and iv flagyl agree with zosyn Vanc IV x 1 dose on 8/31. repeat blood cultures repeat urine culture send sputum culture trend cbc Endocrine: -- SSI Prophylaxis: GI Prophylaxis protonix DVT Prophylaxis -- SCDs Eliquis Lines: right IJ vascath- keep for dialysis access Central line/ A line placed 07/28 critical care time: 35 minutes, exclusive of separately billable procedures
[2018-07-28] MEDS: Midazolam 50 MG/50 ML Inj 50 MG/50 ML BAG IV.CONT PRN (10:52)
--- NOTE | 2018-07-28 12:48 | P.PNNP ---
Subjective Interval history: Remains intubated, sedated. On pressors Physical Exam Vital signs: Vital Signs 07/27/18 16:00 07/27/18 20:00 07/27/18 20:05 Temperature 98.4 F 97.8 F Pulse Rate 138 H 122 H Respiratory Rate 22 10 L Blood Pressure 120/59 L 96/46 L Pulse Oximetry 95 88 L 88 L 07/27/18 21:00 07/27/18 21:10 07/27/18 23:55 Temperature Pulse Rate Respiratory Rate 22 22 Blood Pressure Pulse Oximetry 100 100 100 07/28/18 00:00 07/28/18 03:52 07/28/18 04:00 Temperature 99.1 F 100.3 F H Pulse Rate 108 H 118 H Respiratory Rate 22 22 22 Blood Pressure 129/70 172/77 H Pulse Oximetry 100 100 100 07/28/18 08:00 07/28/18 08:20 07/28/18 12:00 Temperature 100.8 F H 100 F H Pulse Rate 106 H 90 Respiratory Rate 18 22 21 Blood Pressure 126/62 127/75 Pulse Oximetry 99 100 100 07/28/18 12:25 Temperature Pulse Rate Respiratory Rate 21 Blood Pressure Pulse Oximetry 100 Intake & Output 07/27/18 07/28/18 07/28/18 18:59 06:59 18:59 Intake Total 1999 2967.5 / 2967.5 350 / 350 Balance 1999 2967.5 / 2967.5 350 / 350 Weight 110.2 kg Intake: IV 1999 2967.5 / 2967.5 350 / 350 Cordarone Inj 450 MG In D5W Inj 250 / 250 241 ML @ 1 MG/MIN 33.33 mls/hr IV.CONT TITRATE PRN Rx#: [id number] NS + KCl 20 mEq Inj 1,000 ML @ 1000 / 1000 50 mls/hr IV.CONT .Q20H [facility] Rx# :[id number] Sodium Bicarbonate 8.4% Inj 150 1000 / 1000 MEQ In D5W Inj 850 ML @ 125 mls/hr IV.CONT .Q8H [facility] Rx#: [id number] Flexbumin 25% Inj 100 ML @ 60 200 / 200 mls/hr IV.SIG WITH DIALYSIS PRN Rx#:[id number] Alburx 5% Inj 500 ML @ 500 mls/ 500 / 500 hr IV.SIG STAT ONE Rx#:[id number] Cordarone Inj 150 MG In D5W Inj 100 / 100 97 ML @ 600 mls/hr IV.SIG ONCE ONE Rx#:[id number] Merrem Inj 500 MG In NS Inj 100 200 / 200 ML @ 200 mls/hr IV.SIG Q12H [facility] Rx#:[id number] Mycamine Inj 100 MG In NS Inj 100 / 100 100 ML @ 100 mls/hr IV.SIG Q24H [facility] Rx#:[id number] Levophed-Dextrose 4 mg/250 ml 500 / 500 250 / 250 250 / 250 Drip 4 mg In 250 ml @ 2 MCG/MIN 7.5 mls/hr IV.SIG TITRATE PRN Rx#:[id number] Zosyn 2.25 GM Premix 50 ML @ 50 / 50 100 mls/hr IV.SIG Q6H [facility] Rx#: [id number] Vancomycin Inj 1,750 MG In NS 517.5 / 517.5 Inj 500 ML @ 250 mls/hr IV.SIG ONCE ONE Rx#:[id number] Flagyl 500 MG Inj 100 ML @ 100 100 / 100 200 / 200 100 / 100 mls/hr IV.SIG Q8H [facility] Rx#: [id number] Other: Date of Last Bowel Movement 07/27/18 07/27/18 - Constitutional no acute distress - Routine HEENT Exam Head: Present: normocephalic - Routine Neck Exam Present: supple - Routine Respiratory Exam Present: patient mechanically ventilated - Routine Cardiovascular Exam Present: RRR - Routine Abdominal Exam Present: soft - Routine Extremities Exam Present: vascular access - Routine Skin Exam Present: intact - Routine Psychiatric Exam Present: unable to assess - Urinary Catheter Management Indwelling Urethral Catheter Cath placed during this visit: yes Reason for continuing: Other continuation reason Insertion date: 07/16/18 Insertion time: 17:30 Assessment and Plan - Assessment (1) End stage renal disease Code(s): N18.6 - End stage renal disease Status: Acute (2) Acute hypercapnic respiratory failure Code(s): J96.02 - Acute respiratory failure with hypercapnia Status: Acute (3) Pneumonia Code(s): J18.9 - Pneumonia, unspecified organism Status: Acute (4) Encephalopathy Code(s): G93.40 - Encephalopathy, unspecified Status: Acute (5) Septic shock Code(s): A41.9 - Sepsis, unspecified organism; R65.21 - Severe sepsis with septic shock Status: Acute (6) Sepsis Code(s): A41.9 - Sepsis, unspecified organism Status: Acute - Plan Hemodialysis On Monday BP low and given fluids/albumin during HD Abdominal pain, C. difficile positive ID following UTI Enterobacter He also has pneumonia on CT scan ET aspirate. Pseudomonas Intubated overnight BP somewhat low - on pressors now Stable with ventilator. Will hold HD today - plan next HD tomorrow or Monday based on labs and clinical status. He has abdominal distention and C. difficile positive ID is following MRI follow results Once stable and discharged , then follow-up with Dr. Dueñas
--- NOTE | 2018-07-28 15:13 | ECG ---
Date Performed: 07/27/2018 Time Performed: 11:02:18 PTAGE: 57 years EKG: Atrial fibrillation with rapid ventricular response. Poor R wave progression - probable nor mal variant Inferior/lateral ST-T changes are nonspecific Abnormal ECG Since PREVIOUS TRACING , no significant change noted PREVIOUS TRACIN07/16/2018 11.51 DOCTOR: Sukh Bunn Interpretating Date/Time 07/28/2018 15:11:14
--- NOTE | 2018-07-28 16:37 | P.PNID ---
Subjective Remarks: ID coverage. Patient is a 57-year-old male, brought into the hospital after he was noted to have altered mental status, with decreased level of consciousness at the dialysis center. He apparently lost pulses and CPR was started with return of his pulses. EMS was called and at that time he was found to have pulses. He was noted to be confused. His blood sugars were okay. In the ED he was hypotensive, and was on Levophed briefly. He ended up getting intubated. CT of the abdomen and pelvis showed the known adrenal mass with slight increase in size. CT of the chest did not show any PE but it showed dense bibasilar consolidation. Patient stated that he was at [facility] about 5 months ago and at that time he had pneumonia. He went to a rehab facility and at the rehab he has not really been doing any ambulation. He gets transferred to a wheelchair. He has known COPD, and chronically on oxygen. Patient states he has a chronic cough and brings up some clear phlegm. He has not really noted any increase in his cough or change in the color of his sputum. He denies any chest pain. He was extubated yesterday, and currently denies any shortness of breath. He is on nasal O2 with good oxygen saturation. Patient denies any problem with nausea or vomiting, or any swallowing difficulty. He has not had any choking episodes. During his hospitalization at [facility], he had a PEG tube placed, but the patient stated that they have not been using the tube for nutrition, and he has been taking nutrition orally. Patient also had a history of right empyema back in 2010, requiring a right thoracotomy, decortication and pleurectomy, and a right lung wedge resection. Records mentioned that he has had problem with aspiration. Infectious disease consultation has been requested to assist with management of recurrent pneumonia. Notes reviewed D/W RN Transferred to ICU for respiratory distress Intubated. Reported to seizure activity this a.m. Currently on Levophed. 3.7 mcg. Has oozing of clear fluid from the hold with the PEG tube was removed. NG tube is protruding through that hole. WBC is still elevated. Has diarrhea Sputum culture has preliminary immature growth Abdominal wound has Alison. Urine culture has yeast. CT A/P with diffuse bowel wall thickening, rectosigmoid is dilated Antibiotics: Zosyn PO vancomycin Micafungin Lines: Permacath RIJ Past Medical History: Diabetes ESRD (end stage renal disease) on dialysis Empyema lung HTN (hypertension) Renal disease Status post thoracotomy Allergies/Adverse Reactions: Allergies heparin Allergy (Severe, Verified 07/16/18 13:23) Bleeding quetiapine [From Seroquel] Allergy (Intermediate, Verified 07/16/18 13:23) Shakiness cefuroxime Allergy (Verified 07/20/18 18:25) Rash Objective Vital Signs 07/27/18 20:00 07/27/18 20:05 07/27/18 21:00 Temperature 97.8 F Pulse Rate 122 H Respiratory Rate 10 L Blood Pressure 96/46 L Pulse Oximetry 88 L 88 L 100 07/27/18 21:10 07/27/18 23:55 07/28/18 00:00 Temperature 99.1 F Pulse Rate 108 H Respiratory Rate 22 22 22 Blood Pressure 129/70 Pulse Oximetry 100 100 100 07/28/18 03:52 07/28/18 04:00 07/28/18 08:00 Temperature 100.3 F H 100.8 F H Pulse Rate 118 H 106 H Respiratory Rate 22 22 18 Blood Pressure 172/77 H 126/62 Pulse Oximetry 100 100 99 07/28/18 08:20 07/28/18 12:00 07/28/18 12:25 Temperature 100 F H Pulse Rate 90 Respiratory Rate 22 21 21 Blood Pressure 127/75 Pulse Oximetry 100 100 100 Intake & Output 07/27/18 07/28/18 07/28/18 18:59 06:59 18:59 Intake Total 1999 2967.5 / 2967.5 835 / 835 Balance 1999 2967.5 / 2967.5 835 / 835 Weight 110.2 kg Intake: IV 1999 2967.5 / 2967.5 835 / 835 Cordarone Inj 450 MG In D5W Inj 250 / 250 250 / 250 241 ML @ 1 MG/MIN 33.33 mls/hr IV.CONT TITRATE PRN Rx#: [id number] Versed Inj 50 mg In 50 ml @ 2 50 / 50 MG/HR 2 mls/hr IV.CONT TITRATE PRN Rx#:[id number] NS + KCl 20 mEq Inj 1,000 ML @ 1000 / 1000 50 mls/hr IV.CONT .Q20H [facility] Rx# :[id number] Sodium Bicarbonate 8.4% Inj 150 1000 / 1000 MEQ In D5W Inj 850 ML @ 125 mls/hr IV.CONT .Q8H [facility] Rx#: [id number] Pitressin Inj 40 UNIT In D5W 85 / 85 Inj 98 ML @ 0.01 UNITS/MIN 1.5 mls/hr IV.CONT TITRATE PRN Rx#: [id number] Flexbumin 25% Inj 100 ML @ 60 200 / 200 mls/hr IV.SIG WITH DIALYSIS PRN Rx#:[id number] Alburx 5% Inj 500 ML @ 500 mls/ 500 / 500 hr IV.SIG STAT ONE Rx#:[id number] Cordarone Inj 150 MG In D5W Inj 100 / 100 97 ML @ 600 mls/hr IV.SIG ONCE ONE Rx#:[id number] Merrem Inj 500 MG In NS Inj 100 200 / 200 ML @ 200 mls/hr IV.SIG Q12H [facility] Rx#:[id number] Mycamine Inj 100 MG In NS Inj 100 / 100 100 ML @ 100 mls/hr IV.SIG Q24H [facility] Rx#:[id number] Levophed-Dextrose 4 mg/250 ml 500 / 500 250 / 250 250 / 250 Drip 4 mg In 250 ml @ 2 MCG/MIN 7.5 mls/hr IV.SIG TITRATE PRN Rx#:[id number] Zosyn 2.25 GM Premix 50 ML @ 50 / 50 100 mls/hr IV.SIG Q6H [facility] Rx#: [id number] Vancomycin Inj 1,750 MG In NS 517.5 / 517.5 Inj 500 ML @ 250 mls/hr IV.SIG ONCE ONE Rx#:[id number] Flagyl 500 MG Inj 100 ML @ 100 100 / 100 200 / 200 200 / 200 mls/hr IV.SIG Q8H [facility] Rx#: [id number] Other: Date of Last Bowel Movement 07/27/18 07/27/18 07/27/18 21:30 Wound - Abdominal Gram Stain - Final 07/27/18 21:30 Wound - Abdominal Wound Culture - Preliminary Alison albicans 07/27/18 21:30 Sputum - Expectorated Sputum Gram Stain - Final 07/27/18 21:30 Sputum - Expectorated Sputum Sputum Culture - Preliminary Immature growth - reincubate 07/27/18 11:20 Catheterized Urine Urine Culture - Preliminary Yeast - ID to follow 07/27/18 16:00 Blood - Other Aerobic Blood Culture - Preliminary No growth in 1 day 07/27/18 16:00 Blood - Other Anaerobic Blood Culture - Preliminary No growth in 1 day 07/27/18 11:20 Blood - Peripheral Aerobic Blood Culture - Preliminary No growth in 1 day 07/27/18 11:20 Blood - Peripheral Anaerobic Blood Culture - Preliminary No growth in 1 day 07/27/18 11:20 Blood - Peripheral Blood Fungal Culture - Pending 07/27/18 11:20 Blood - Peripheral Blood Fungal Culture - Pending 07/27/18 11:25 Blood - Peripheral Aerobic Blood Culture - Preliminary No growth in 1 day 07/27/18 11:25 Blood - Peripheral Anaerobic Blood Culture - Preliminary No growth in 1 day 07/25/18 11:07 Blood - Peripheral Aerobic Blood Culture - Preliminary No growth in 3 days 07/25/18 11:07 Blood - Peripheral Anaerobic Blood Culture - Preliminary No growth in 3 days 07/25/18 11:12 Blood - Peripheral Aerobic Blood Culture - Preliminary No growth in 3 days 07/25/18 11:12 Blood - Peripheral Anaerobic Blood Culture - Preliminary No growth in 3 days Lab - Hematology Results 07/27/18 07/28/18 05:19 04:55 WBC 52.6 H 41.8 H RBC 4.86 4.25 L Hgb 12.8 L 11.0 L Hct 44.6 37.4 L MCV 91.8 D 88.0 D MCH 26.3 L 25.9 L MCHC 28.7 L 29.4 L RDW 18.0 H 17.6 H Plt Count 109 L D 89 L MPV 9.2 8.4 Prelim Diff (Auto) Manual diff required Manual diff required WBC Differential Manual diff final Manual diff final Seg Neuts % (Manual) 69 61 Band Neuts % (Manual) 9 H 16 H Lymphocytes % (Manual) 6 L Monocytes % (Manual) 5 10 H Eosinophils % (Manual) 1 Metamyelocytes % (Man) 5 H Myelocytes % (Man) 11 H 6 H Promyelocytes % (Man) 1 H Abs Neuts (Manual) 49.4 H 35.1 H Nucleated RBCs/100 WBC 1 H Differential Comment . . Toxic Granulation 1+ H Platelet Estimate Low L Low L Platelet Morphology Normal Normal Ovalocytes 1+ H Patton Cells 1+ H Lab - Chemistry Results 07/26/18 07/26/18 07/27/18 16:53 21:47 00:23 Sodium Potassium Chloride Carbon Dioxide Anion Gap BUN Creatinine Estimated GFR POC Glucose 109 168 H Random Glucose Lactic Acid 1.2 Calcium Prot Corrected Calcium Total Bilirubin AST ALT Alkaline Phosphatase B-Natriuretic Peptide Total Protein Albumin Cortisol 07/27/18 07/27/18 07/27/18 00:23 01:42 05:19 Sodium 140 Potassium 3.5 Chloride 102 Carbon Dioxide 24.0 Anion Gap 14 BUN 33 H Creatinine 3.99 H Estimated GFR 15 L POC Glucose 248 H Random Glucose 192 H D Lactic Acid Calcium 8.1 L Prot Corrected Calcium Total Bilirubin 0.3 AST 18 ALT 8 L Alkaline Phosphatase 100 B-Natriuretic Peptide 368 H Total Protein 6.8 D Albumin 2.9 L Cortisol 07/27/18 07/27/18 07/27/18 06:18 10:07 11:21 Sodium Potassium Chloride Carbon Dioxide Anion Gap BUN Creatinine Estimated GFR POC Glucose 219 H 174 H 140 H Random Glucose Lactic Acid Calcium Prot Corrected Calcium Total Bilirubin AST ALT Alkaline Phosphatase B-Natriuretic Peptide Total Protein Albumin Cortisol 07/27/18 07/27/18 07/27/18 11:23 14:49 19:37 Sodium Potassium Chloride Carbon Dioxide Anion Gap BUN Creatinine Estimated GFR POC Glucose 155 H Random Glucose Lactic Acid 2.3 H Calcium Prot Corrected Calcium Total Bilirubin AST ALT Alkaline Phosphatase B-Natriuretic Peptide Total Protein Albumin Cortisol 23.3 07/28/18 07/28/18 07/28/18 00:31 04:55 12:08 Sodium 139 Potassium 3.1 L Chloride 99 Carbon Dioxide 24.0 Anion Gap 16 H BUN 20 H Creatinine 2.96 H Estimated GFR 22 L POC Glucose 223 H 181 H Random Glucose 213 H Lactic Acid Calcium 7.4 L* Prot Corrected Calcium 8.1 L Total Bilirubin 0.5 AST 29 ALT 8 L Alkaline Phosphatase 90 B-Natriuretic Peptide Total Protein 5.9 L D Albumin 2.8 L Cortisol Imaging: ITS Impressions Chest CTA 07/16/18 13:03 CONCLUSION: 1. No CT evidence for pulmonary artery embolism as questioned. 2. Dense bilateral lower lobe airspace consolidation with trace associated pleural effusions. Findings are concerning for aspiration. 3. Nonspecific right hilar and mediastinal nodes, as above. This may be reactive in etiology. 4. Probable 1.6 cm right adrenal mass that is incompletely imaged on this exam. Although indeterminate in density, this is unchanged from abdominal CT of 06/07/2011 and therefore likely benign. Head CT 07/17/18 00:00 CONCLUSION: 1. Atrophy. 2. Periventricular low attenuation change likely relating to chronic small vessel ischemic change. 3. Fluid throughout the nasal cavity and paranasal sinuses. . Barium Swallow X-Ray 07/20/18 00:00 CONCLUSION: Unremarkable barium swallow, however limited study since only frontal projection could be performed. Abdomen X-Ray 07/24/18 00:00 CONCLUSION: Apparent wall thickening involving the rectosigmoid colon and possibly the distal descending colon suggesting colitis. Clinical correlation is recommended. Abdomen/Pelvis CT 07/24/18 00:00 CONCLUSION: 1. Diffuse wall thickening and distention of the rectosigmoid colon consistent with probable acute colitis. Clinical correlation is recommended. 2. Some ascites within the abdomen or pelvis. 3. Bibasilar alveolar consolidations consistent with atelectasis and/or pneumonia. 4. Tiny pericardial effusion is noted. 5. Stable right adrenal nodule. 6. Tiny left upper pole renal cyst measuring 1 cm. Head MRI 07/27/18 00:00 CONCLUSION: 1. No acute intracranial abnormality. 2. Atrophy. 3. Nonspecific periventricular demyelination. This could be from small vessel ischemic change. 4. Fluid in the sinuses. 5. Increased signal/fluid throughout the mastoid/temporal air cells. Chest X-Ray 07/27/18 21:13 CONCLUSION: ET tube in a good to low position 2.6 cm from the merly. Left mid and lower lung and right lower lung areas of consolidation or atelectasis. Cardiomegaly. Physical Exam: GENERAL: On the ventilator. No distress. SKIN: Cool and dry. No generalized rash HEAD: Atraumatic. Normocephalic. No temporal wasting, or tenderness. EYES: Peculiar conjunctiva. No petechia or hemorrhage. No scleral icterus. No injection or drainage. EARS, NOSE AND THROAT: Nose without bleeding or purulent nasal discharge. No sinus tenderness. NECK: Trachea midline. Supple and not tender, no meningeal signs CARDIOVASCULAR: Regular rate and rhythm. No murmurs, rubs or gallops heard RESPIRATORY: Slight basilar rhonchi. ABDOMEN: Mildly distended, no tenderness appreciated. No rebound. Bowel sounds present and normoactive. Previous PEG site with serous drainage, minimal erythema at opening, no induration. EXTREMITIES: No clubbing, cyanosis, or edema. No calf tenderness. NEUROLOGICAL: Awake and alert. Cranial nerves grossly intact. PSYCHIATRIC: Normal affect, calm and cooperative. LINE: No evidence of infection Assessment and Plan - Plan Impression Pneumonia, likely aspiration, has been on RX. Culture has premature growth. Respiratory failure, increasing SOB and O2 requirement - CXR stable infiltrates S/P respiratory failure and extubation - on presentation COPD, O2 dependent ESRD on HD MWF UTI, Enterobacter, on Rx C difficile colitis. Leukocytosis. Increased abdominal paibn, C diff, ?other cause. NG tube protruded through PEG entry Alison UTI. Recommendation Continue Merem Follow new C/S Continue micafungin Continue po vanco and IV Flagyl for C diff Monitor progress Discussed with Dr Tapia. Consider KUB eval of abdomen.
[2018-07-28] MEDS: Vasopressin Inj 40 UNIT in Dextrose 5% in Water Inj 98 ML IV.CONT PRN ×2 (17:31)
[2018-07-29] MEDS: Sodium Bicarbonate 8.4% Inj 150 MEQ in Dextrose 5% in Water Inj 850 ML IV.CONT SCH ×8 (00:18→23:06)
[2018-07-29] MEDS: Insulin NovoLIN Regular Correctional Sugar Inj SQ SCH ×5 (00:19→23:20)
[2018-07-29 04:49] LABS: Hematocrit 39.7 % (39.0-51.0); Hemoglobin 12.3 gm/dL (13.0-17.0); Mean Corpuscular Hemoglobin 26.4 pg (27.0-34.0); Mean Corpuscular Volume 85.2 fL (80.0-100.0); Mean Platelet Volume 8.3 fL (7.0-11.0); Platelet Count 101 th/mm3 (150-450); Red Blood Count 4.66 mil/mm3 (4.50-5.90); Red Cell Distribution Width 17.1 % (11.6-17.2); White Blood Count 18.9 th/mm3 (4.0-11.0)
[2018-07-29 05:13] LABS: Albumin 2.2 g/dL (3.4-5.0); Calcium 7.2 mg/dL (8.5-10.1); Carbon Dioxide 23.5 meq/L (21.0-32.0); Magnesium 1.8 mg/dL (1.5-2.5); Phosphorus 1.1 mg/dL (2.5-4.9); Total Protein 5.6 g/dL (6.4-8.2)
[2018-07-29 05:15] LABS: Potassium 2.6 meq/L (3.5-5.1)
[2018-07-29 05:32] LABS: Mean Corpuscular HGB Conc 30.9 % (32.0-36.0)
[2018-07-29] MEDS ORDERED: Potassium Chlor 20 mEq Premix 20 MEQ/100 ML PIGGYBACK IV.SIG ONE ×2 (07:00→20:00)
[2018-07-29] MEDS: Lactobacillus Acidophilus/L. Spores Tablet PO SCH ×3 (09:45→17:04)
[2018-07-29] MEDS: Senna/Docusate Sodium 8.6/50 MG Tablet PO SCH ×2 (09:50→20:29)
[2018-07-29] MEDS: Famotidine 20 MG Tablet PO SCH (09:50)
[2018-07-29] MEDS: FLORASTOR 250 MG PO SCH (09:50)
[2018-07-29] MEDS: Vasopressin Inj 40 UNIT in Dextrose 5% in Water Inj 98 ML IV.CONT PRN ×2 (10:06)
[2018-07-29] MEDS ORDERED: Diatrizoate Meglum/Diatrizoate Sod Liq 9 ML UDC PO ONE (10:39)
--- NOTE | 2018-07-29 12:11 | P.PNCC ---
Subjective Subjective Remarks/Hospital Course: Patient is a 57-year-old male with past medical history of end-stage renal disease on hemodialysis, , COPD on home oxygen, hypertension, diabetes type 2, who was brought to the emergency department for altered mental status. He was altered at the dialysis center and apparently during dialysis he lost pulses and CPR was started. By time EMS arrived patient did have pulses. He was confused for EMS. ER workup showed that patient has a white count of 16.7 with left shift indicating sepsis. Patient remained hypotensive after fluid resuscitation and hence was started on Levophed by the ED physician. CT abdomen pelvis showed a previously known adrenal mass slightly increased in size compared to [address] pulmonary angiogram was negative for PE, however showed dense bibasilar consolidation/pneumonia which could be the source of sepsis. Received vancomycin and Zosyn in the ED. ABG prior to intubation in the ED showed severe hypercapnic respiratory failure with a pH of 7.05, PCO2 of 93. I evaluated the patient after arrival to the [facility]. He is intubated critically ill-appearing sedated. On lightening sedation he is able to move all 4 extremities. His source of sepsis most likely is pneumonia. Wong cultures have been sent. His altered mentation is most likely secondary to sepsis and hypercapnia, will check CT of the head to rule out any acute events. 07/17: No events over the night. Since ICU admission patient did not require any vasopressor. Oxygenation is down to 40%. Sedation is achieved with propofol, which is decreased to 20. Patient is arousable, following commands appropriately. Daughter is present at bedside. T-max of 99.6. RECONSULT NOTE 07/27: reconsulted for rapid response from floor. patient with ESRD and c. diff colitis, now with rising wbc, altered mentation, hypotension despite ivf resuscitation. abg with mixed resp/met acidosis, uncompensated. intermittently has periods of syncope. when arousable, patient refusing intubation at this time , saying "I know when I need a tube, and I don't need a tube right now." placed on norepinephrine for vasopressor support and end-organ perfusion. 07/28: Intubated and placed on [facility] ventilation last night. On levophed/ amio/ versed/ fentanyl gtt. Bicarb drip decreased to 40cc/hr. 07/29: Remains sedated, orally intubated on [facility] vent. OGT coming out of PEG site so pulled back and ordered CT Abd with oral contrast for further evaluation. Objective Vital Signs / I&O: Vital Signs 07/28/18 12:25 07/28/18 16:00 07/28/18 18:39 Temperature 99.8 F H Pulse Rate 89 Respiratory Rate 21 18 18 Blood Pressure 146/84 H Pulse Oximetry 100 100 100 07/28/18 20:00 07/28/18 20:57 07/29/18 00:00 Temperature 99.3 F 99.3 F Pulse Rate 90 96 H Respiratory Rate 21 18 19 Blood Pressure 130/76 116/66 Pulse Oximetry 100 100 98 07/29/18 00:45 07/29/18 04:00 07/29/18 04:54 Temperature 99.9 F H Pulse Rate 97 H Respiratory Rate 20 18 18 Blood Pressure 99/57 L Pulse Oximetry 100 97 95 07/29/18 08:10 Temperature Pulse Rate Respiratory Rate 18 Blood Pressure Pulse Oximetry 98 Intake & Output 07/28/18 07/29/18 07/29/18 18:59 06:59 18:59 Intake Total 1050 / 1050 1450 / 1450 200 / 200 Balance 1050 / 1050 1450 / 1450 200 / 200 Weight 110.2 kg 110.2 kg Intake: IV 1050 / 1050 1450 / 1450 200 / 200 Cordarone Inj 450 MG In D5W Inj 250 / 250 250 / 250 241 ML @ 1 MG/MIN 33.33 mls/hr IV.CONT TITRATE PRN Rx#: [id number] Versed Inj 50 mg In 50 ml @ 2 50 / 50 MG/HR 2 mls/hr IV.CONT TITRATE PRN Rx#:[id number] Sodium Bicarbonate 8.4% Inj 150 1000 / 1000 MEQ In D5W Inj 850 ML @ 125 mls/hr IV.CONT .Q8H [facility] Rx#: [id number] Pitressin Inj 40 UNIT In D5W 100 / 100 100 / 100 Inj 98 ML @ 0.01 UNITS/MIN 1.5 mls/hr IV.CONT TITRATE PRN Rx#: [id number] Merrem Inj 500 MG In NS Inj 100 100 / 100 100 / 100 ML @ 200 mls/hr IV.SIG Q12H [facility] Rx#:[id number] Mycamine Inj 100 MG In NS Inj 100 / 100 100 ML @ 100 mls/hr IV.SIG Q24H [facility] Rx#:[id number] Levophed-Dextrose 4 mg/250 ml 250 / 250 Drip 4 mg In 250 ml @ 2 MCG/MIN 7.5 mls/hr IV.SIG TITRATE PRN Rx#:[id number] Flagyl 500 MG Inj 100 ML @ 100 200 / 200 100 / 100 100 / 100 mls/hr IV.SIG Q8H [facility] Rx#: [id number] Other: Date of Last Bowel Movement 07/29/18 # Incontinent Bowel Movements 1 Result Diagrams: 07/29/18 04:10 07/29/18 04:10 Objective Remarks: General - elderly gentleman, lying in bed. HEENT - pupils equal, reactive, sclerae anicteric, neck supple, no nuchal rigidity CV - normal rate, irregularly irregular rhythm. appears afib by tele and recent EKG. Chest - orally intubated on mech vent, coarse breath sounds b/l, good air entry , no wheezes. Abdomen - soft, non-tender, non-distended, no hepatomegaly, no splenomegaly, no guarding. Dressing over PEG site Extremities - warm and well perfused, trace edema, + peripheral pulses, no clubbing Neuro - Sedated, orally intubated on mech vent. Assessment and Plan - Problem List (1) Septic shock Code(s): A41.9 - Sepsis, unspecified organism; R65.21 - Severe sepsis with septic shock Status: Acute (2) Acute metabolic encephalopathy Code(s): G93.41 - Metabolic encephalopathy Status: Acute (3) Acute hypercapnic respiratory failure Code(s): J96.02 - Acute respiratory failure with hypercapnia Status: Acute (4) Pneumonia Code(s): J18.9 - Pneumonia, unspecified organism Status: Acute - Assessment and Plan Plan: Assessment: 57yM with ESRD and now with worsening septic shock. now intubated on vasopressors. Plan by systems: Neurologic: Acute encephalopathy may be secondary to sepsis EEG MRI frequent neuro checks Respiratory: Acute hypoxic and hypercarbic respiratory failure Continue mech ventilation, vent bundle. nebs, hob elevated send sputum culture Cardiovascular: Septic Shock Atrial fibrillation On anticoagulation norepinephrine/ vasopressin for goal map > 65mmHg HD to keep in even fluid balance. Renal: End-stage renal disease -- Strict I/Os - nephrology following - Hemodialysis per renal. FEN/GI: Acute protein calorie malnutrition- severe Severe hypokalemia Acute metabolic acidosis resume tube feed via OGT if CT abd/pelvis OK GI reconsulted for OGT coming out of PEG site for possibly replacing PEG. prn zofran hold additional ivf correct electrolytes Heme/ID: Septic Shock C. Difficile colitis ID consulted wbc uptrending agree with po vanc and iv flagyl agree with zosyn Vanc IV x 1 dose on 07/27. repeat blood cultures repeat urine culture send sputum culture trend cbc Endocrine: -- SSI Prophylaxis: GI Prophylaxis protonix DVT Prophylaxis -- SCDs Eliquis Lines: right IJ vascath- keep for dialysis access Central line/ A line placed 07/28 critical care time: 35 minutes, exclusive of separately billable procedures
--- NOTE | 2018-07-29 14:02 | P.PNNP ---
Subjective Interval history: Remains intubated Physical Exam Vital signs: Vital Signs 07/28/18 16:00 07/28/18 18:39 07/28/18 20:00 Temperature 99.8 F H 99.3 F Pulse Rate 89 90 Respiratory Rate 18 18 21 Blood Pressure 146/84 H 130/76 Pulse Oximetry 100 100 100 07/28/18 20:57 07/29/18 00:00 07/29/18 00:45 Temperature 99.3 F Pulse Rate 96 H Respiratory Rate 18 19 20 Blood Pressure 116/66 Pulse Oximetry 100 98 100 07/29/18 04:00 07/29/18 04:54 07/29/18 08:10 Temperature 99.9 F H Pulse Rate 97 H Respiratory Rate 18 18 18 Blood Pressure 99/57 L Pulse Oximetry 97 95 98 07/29/18 12:33 Temperature Pulse Rate Respiratory Rate 18 Blood Pressure Pulse Oximetry 100 Intake & Output 07/28/18 07/29/18 07/29/18 18:59 06:59 18:59 Intake Total 1050 / 1050 1450 / 1450 200 / 200 Balance 1050 / 1050 1450 / 1450 200 / 200 Weight 110.2 kg 110.2 kg Intake: IV 1050 / 1050 1450 / 1450 200 / 200 Cordarone Inj 450 MG In D5W Inj 250 / 250 250 / 250 241 ML @ 1 MG/MIN 33.33 mls/hr IV.CONT TITRATE PRN Rx#: [id number] Versed Inj 50 mg In 50 ml @ 2 50 / 50 MG/HR 2 mls/hr IV.CONT TITRATE PRN Rx#:[id number] Sodium Bicarbonate 8.4% Inj 150 1000 / 1000 MEQ In D5W Inj 850 ML @ 125 mls/hr IV.CONT .Q8H [facility] Rx#: [id number] Pitressin Inj 40 UNIT In D5W 100 / 100 100 / 100 Inj 98 ML @ 0.01 UNITS/MIN 1.5 mls/hr IV.CONT TITRATE PRN Rx#: [id number] Merrem Inj 500 MG In NS Inj 100 100 / 100 100 / 100 ML @ 200 mls/hr IV.SIG Q12H [facility] Rx#:[id number] Mycamine Inj 100 MG In NS Inj 100 / 100 100 ML @ 100 mls/hr IV.SIG Q24H [facility] Rx#:[id number] Levophed-Dextrose 4 mg/250 ml 250 / 250 Drip 4 mg In 250 ml @ 2 MCG/MIN 7.5 mls/hr IV.SIG TITRATE PRN Rx#:[id number] Flagyl 500 MG Inj 100 ML @ 100 200 / 200 100 / 100 100 / 100 mls/hr IV.SIG Q8H [facility] Rx#: [id number] Other: Date of Last Bowel Movement 07/29/18 # Incontinent Bowel Movements 1 - Constitutional no acute distress - Routine HEENT Exam Head: Present: normocephalic - Routine Neck Exam Present: supple - Routine Respiratory Exam Present: diminished air movement - Routine Cardiovascular Exam Present: RRR - Routine Abdominal Exam Present: soft - Routine Extremities Exam Present: vascular access - Routine Skin Exam Present: intact - Routine Psychiatric Exam Present: unable to assess - Urinary Catheter Management Indwelling Urethral Catheter Cath placed during this visit: yes Reason for continuing: Other continuation reason Insertion date: 07/16/18 Insertion time: 17:30 Assessment and Plan - Assessment (1) End stage renal disease Code(s): N18.6 - End stage renal disease Status: Acute (2) Acute hypercapnic respiratory failure Code(s): J96.02 - Acute respiratory failure with hypercapnia Status: Acute (3) Pneumonia Code(s): J18.9 - Pneumonia, unspecified organism Status: Acute (4) Encephalopathy Code(s): G93.40 - Encephalopathy, unspecified Status: Acute (5) Septic shock Code(s): A41.9 - Sepsis, unspecified organism; R65.21 - Severe sepsis with septic shock Status: Acute (6) Sepsis Code(s): A41.9 - Sepsis, unspecified organism Status: Acute - Plan Hemodialysis On Monday BP low and given fluids/albumin during HD Monday Abdominal pain, C. difficile positive ID following UTI Enterobacter He also has pneumonia on CT scan ET aspirate. Pseudomonas Intubated Monday BP somewhat low - on pressors now Stable with ventilator. Will plan for HD Monday with UF as tolerated He has abdominal distention and C. difficile positive ID is following Hypokalemia with potassium losses from bowel movements, anuric. K+ replacement ordered, further adjust with HD bath tomorrow. Once stable and discharged , then follow-up with Dr. Dueñas
--- NOTE | 2018-07-29 14:56 | P.PNID ---
Subjective Remarks: ID coverage. Patient is a 57-year-old male, brought into the hospital after he was noted to have altered mental status, with decreased level of consciousness at the dialysis center. He apparently lost pulses and CPR was started with return of his pulses. EMS was called and at that time he was found to have pulses. He was noted to be confused. His blood sugars were okay. In the ED he was hypotensive, and was on Levophed briefly. He ended up getting intubated. CT of the abdomen and pelvis showed the known adrenal mass with slight increase in size. CT of the chest did not show any PE but it showed dense bibasilar consolidation. Patient stated that he was at [facility] about 5 months ago and at that time he had pneumonia. He went to a rehab facility and at the rehab he has not really been doing any ambulation. He gets transferred to a wheelchair. He has known COPD, and chronically on oxygen. Patient states he has a chronic cough and brings up some clear phlegm. He has not really noted any increase in his cough or change in the color of his sputum. He denies any chest pain. He was extubated yesterday, and currently denies any shortness of breath. He is on nasal O2 with good oxygen saturation. Patient denies any problem with nausea or vomiting, or any swallowing difficulty. He has not had any choking episodes. During his hospitalization at [facility], he had a PEG tube placed, but the patient stated that they have not been using the tube for nutrition, and he has been taking nutrition orally. Patient also had a history of right empyema back in 2010, requiring a right thoracotomy, decortication and pleurectomy, and a right lung wedge resection. Records mentioned that he has had problem with aspiration. Infectious disease consultation has been requested to assist with management of recurrent pneumonia. Notes reviewed D/W RN Transferred to ICU for respiratory distress. Intubated. Reported to seizure activity this a.m. Currently on Levophed. 3.7 mcg. NG tube was pulled back drainage from the abdomen PEG site has stopped. WBC is normal. Has diarrhea Sputum culture has MRSA. Abdominal wound has Alison. Urine culture has yeast. CT A/P with diffuse bowel wall thickening, rectosigmoid is dilated. Antibiotics: Meropenem PO vancomycin [facility] Medical History: Diabetes ESRD (end stage renal disease) on dialysis Empyema lung HTN (hypertension) Renal disease Status post thoracotomy Allergies/Adverse Reactions: Allergies heparin Allergy (Severe, Verified 07/16/18 13:23) Bleeding quetiapine [From Seroquel] Allergy (Intermediate, Verified 07/16/18 13:23) Shakiness cefuroxime Allergy (Verified 07/20/18 18:25) Rash Objective Vital Signs 07/28/18 16:00 07/28/18 18:39 07/28/18 20:00 Temperature 99.8 F H 99.3 F Pulse Rate 89 90 Respiratory Rate 18 18 21 Blood Pressure 146/84 H 130/76 Pulse Oximetry 100 100 100 07/28/18 20:57 07/29/18 00:00 07/29/18 00:45 Temperature 99.3 F Pulse Rate 96 H Respiratory Rate 18 19 20 Blood Pressure 116/66 Pulse Oximetry 100 98 100 07/29/18 04:00 07/29/18 04:54 07/29/18 08:10 Temperature 99.9 F H Pulse Rate 97 H Respiratory Rate 18 18 18 Blood Pressure 99/57 L Pulse Oximetry 97 95 98 07/29/18 12:33 Temperature Pulse Rate Respiratory Rate 18 Blood Pressure Pulse Oximetry 100 Intake & Output 07/28/18 07/29/18 07/29/18 18:59 06:59 18:59 Intake Total 1050 / 1050 1450 / 1450 400 / 400 Balance 1050 / 1050 1450 / 1450 400 / 400 Weight 110.2 kg 110.2 kg Intake: IV 1050 / 1050 1450 / 1450 400 / 400 Cordarone Inj 450 MG In D5W Inj 250 / 250 250 / 250 241 ML @ 1 MG/MIN 33.33 mls/hr IV.CONT TITRATE PRN Rx#: [id number] Versed Inj 50 mg In 50 ml @ 2 50 / 50 MG/HR 2 mls/hr IV.CONT TITRATE PRN Rx#:[id number] Sodium Bicarbonate 8.4% Inj 150 1000 / 1000 MEQ In D5W Inj 850 ML @ 125 mls/hr IV.CONT .Q8H [facility] Rx#: [id number] Pitressin Inj 40 UNIT In D5W 100 / 100 100 / 100 Inj 98 ML @ 0.01 UNITS/MIN 1.5 mls/hr IV.CONT TITRATE PRN Rx#: [id number] Merrem Inj 500 MG In NS Inj 100 100 / 100 100 / 100 ML @ 200 mls/hr IV.SIG Q12H [facility] Rx#:[id number] Mycamine Inj 100 MG In NS Inj 100 / 100 100 / 100 100 ML @ 100 mls/hr IV.SIG Q24H [facility] Rx#:[id number] Levophed-Dextrose 4 mg/250 ml 250 / 250 Drip 4 mg In 250 ml @ 2 MCG/MIN 7.5 mls/hr IV.SIG TITRATE PRN Rx#:[id number] KCl 20 mEq Premix Inj 20 meq In 100 / 100 100 ml @ 50 mls/hr IV.SIG NOW ONE Rx#:[id number] Flagyl 500 MG Inj 100 ML @ 100 200 / 200 100 / 100 100 / 100 mls/hr IV.SIG Q8H [facility] Rx#: [id number] Other: Date of Last Bowel Movement 07/29/18 # Incontinent Bowel Movements 1 07/27/18 21:30 Wound - Abdominal Gram Stain - Final 07/27/18 21:30 Wound - Abdominal Wound Culture - Preliminary Alison albicans 07/27/18 21:30 Sputum - Expectorated Sputum Gram Stain - Final 07/27/18 21:30 Sputum - Expectorated Sputum Sputum Culture - Final S. aureus MRSA 07/27/18 16:00 Blood - Other Aerobic Blood Culture - Preliminary No growth in 2 days 07/27/18 16:00 Blood - Other Anaerobic Blood Culture - Preliminary No growth in 2 days 07/27/18 11:20 Blood - Peripheral Aerobic Blood Culture - Preliminary No growth in 2 days 07/27/18 11:20 Blood - Peripheral Anaerobic Blood Culture - Preliminary No growth in 2 days 07/27/18 11:20 Blood - Peripheral Blood Fungal Culture - Pending 07/27/18 11:20 Blood - Peripheral Blood Fungal Culture - Pending 07/27/18 11:25 Blood - Peripheral Aerobic Blood Culture - Preliminary No growth in 2 days 07/27/18 11:25 Blood - Peripheral Anaerobic Blood Culture - Preliminary No growth in 2 days 07/25/18 11:07 Blood - Peripheral Aerobic Blood Culture - Preliminary No growth in 4 days 07/25/18 11:07 Blood - Peripheral Anaerobic Blood Culture - Preliminary No growth in 4 days 07/25/18 11:12 Blood - Peripheral Aerobic Blood Culture - Preliminary No growth in 4 days 07/25/18 11:12 Blood - Peripheral Anaerobic Blood Culture - Preliminary No growth in 4 days 07/27/18 11:20 Catheterized Urine Urine Culture - Final Alison albicans Lab - Hematology Results 07/28/18 07/29/18 04:55 04:10 WBC 41.8 H 18.9 H D RBC 4.25 L 4.66 Hgb 11.0 L 12.3 L Hct 37.4 L 39.7 MCV 88.0 D 85.2 MCH 25.9 L 26.4 L MCHC 29.4 L 30.9 L RDW 17.6 H 17.1 Plt Count 89 L 101 L MPV 8.4 8.3 Prelim Diff (Auto) Manual diff required WBC Differential Manual diff final Seg Neuts % (Manual) 61 Band Neuts % (Manual) 16 H Lymphocytes % (Manual) 6 L Monocytes % (Manual) 10 H Myelocytes % (Man) 6 H Promyelocytes % (Man) 1 H Abs Neuts (Manual) 35.1 H Nucleated RBCs/100 WBC 1 H Differential Comment . Toxic Granulation 1+ H Platelet Estimate Low L Platelet Morphology Normal Ovalocytes 1+ H Lab - Chemistry Results 07/27/18 07/27/18 07/28/18 14:49 19:37 00:31 Sodium Potassium Chloride Carbon Dioxide Anion Gap BUN Creatinine Estimated GFR POC Glucose 155 H 223 H Random Glucose Calcium Prot Corrected Calcium Phosphorus Magnesium Total Bilirubin AST ALT Alkaline Phosphatase Total Protein Albumin Cortisol 23.3 07/28/18 07/28/18 07/28/18 04:55 12:08 17:38 Sodium 139 Potassium 3.1 L Chloride 99 Carbon Dioxide 24.0 Anion Gap 16 H BUN 20 H Creatinine 2.96 H Estimated GFR 22 L POC Glucose 181 H 200 H Random Glucose 213 H Calcium 7.4 L* Prot Corrected Calcium 8.1 L Phosphorus Magnesium Total Bilirubin 0.5 AST 29 ALT 8 L Alkaline Phosphatase 90 Total Protein 5.9 L D Albumin 2.8 L Cortisol 07/29/18 07/29/18 07/29/18 00:15 04:10 12:15 Sodium 137 Potassium 2.6 L* Chloride 97 L Carbon Dioxide 23.5 Anion Gap 17 H BUN 28 H Creatinine 3.64 H Estimated GFR 17 L POC Glucose 262 H 294 H Random Glucose 272 H Calcium 7.2 L* Prot Corrected Calcium 8.0 L Phosphorus 1.1 L Magnesium 1.8 Total Bilirubin 0.4 AST 11 L ALT 6 L Alkaline Phosphatase 88 Total Protein 5.6 L Albumin 2.2 L D Cortisol Imaging: ITS Impressions Chest CTA 07/16/18 13:03 CONCLUSION: 1. No CT evidence for pulmonary artery embolism as questioned. 2. Dense bilateral lower lobe airspace consolidation with trace associated pleural effusions. Findings are concerning for aspiration. 3. Nonspecific right hilar and mediastinal nodes, as above. This may be reactive in etiology. 4. Probable 1.6 cm right adrenal mass that is incompletely imaged on this exam. Although indeterminate in density, this is unchanged from abdominal CT of 06/07/2011 and therefore likely benign. Head CT 07/17/18 00:00 CONCLUSION: 1. Atrophy. 2. Periventricular low attenuation change likely relating to chronic small vessel ischemic change. 3. Fluid throughout the nasal cavity and paranasal sinuses. . Barium Swallow X-Ray 07/20/18 00:00 CONCLUSION: Unremarkable barium swallow, however limited study since only frontal projection could be performed. Abdomen X-Ray 07/24/18 00:00 CONCLUSION: Apparent wall thickening involving the rectosigmoid colon and possibly the distal descending colon suggesting colitis. Clinical correlation is recommended. Abdomen/Pelvis CT 07/24/18 00:00 CONCLUSION: 1. Diffuse wall thickening and distention of the rectosigmoid colon consistent with probable acute colitis. Clinical correlation is recommended. 2. Some ascites within the abdomen or pelvis. 3. Bibasilar alveolar consolidations consistent with atelectasis and/or pneumonia. 4. Tiny pericardial effusion is noted. 5. Stable right adrenal nodule. 6. Tiny left upper pole renal cyst measuring 1 cm. Head MRI 07/27/18 00:00 CONCLUSION: 1. No acute intracranial abnormality. 2. Atrophy. 3. Nonspecific periventricular demyelination. This could be from small vessel ischemic change. 4. Fluid in the sinuses. 5. Increased signal/fluid throughout the mastoid/temporal air cells. Chest X-Ray 07/27/18 21:13 CONCLUSION: ET tube in a good to low position 2.6 cm from the merly. Left mid and lower lung and right lower lung areas of consolidation or atelectasis. Cardiomegaly. Physical Exam: GENERAL: On the ventilator. No distress. SKIN: Cool and dry. No generalized rash HEAD: Atraumatic. Normocephalic. No temporal wasting, or tenderness. EYES: [place] conjunctiva. No petechia or hemorrhage. No scleral icterus. No injection or drainage. EARS, NOSE AND THROAT: Nose without bleeding or purulent nasal discharge. NECK: Trachea midline. Supple and not tender, no meningeal signs CARDIOVASCULAR: Regular rate and rhythm. No murmurs, rubs or gallops heard RESPIRATORY: Slight basilar rhonchi. ABDOMEN: Mildly distended, soft, no tenderness appreciated. Previous PEG site with minimal erythema at opening, no induration. EXTREMITIES: No clubbing, cyanosis, or edema. No calf tenderness. NEUROLOGICAL: Unable to assess. PSYCHIATRIC: Unable to assess. Patient is on the ventilator. LINE: No evidence of infection Assessment and Plan - Plan Impression Pneumonia, likely aspiration, has been on RX. MRSA. Respiratory failure, increasing SOB and O2 requirement - CXR stable infiltrates S/P respiratory failure and extubation - on presentation COPD, O2 dependent ESRD on HD MWF UTI, Enterobacter, on Rx C difficile colitis. Leukocytosis. Improved. Reportedly did not have abdominal pain today. The abdomen is less distended. C diff, ?other cause. NG tube protruded through PEG entry. CT scan ordered for evaluation. Alison UTI. Recommendation Stop Merem. Continue micafungin Continue po vanco and IV Flagyl for C diff Obtain vancomycin level for re-dosing for C. difficile. Count is low and therefore would avoid linezolid. Monitor progress Discussed with daughter and sister at bedside. Discussed with RN.
[2018-07-29] MEDS: Midazolam 50 MG/50 ML Inj 50 MG/50 ML BAG IV.CONT PRN (17:05)
[2018-07-29 18:00] LABS: Vancomycin,Random 18.1 Comment
[2018-07-29 18:06] LABS: Potassium 2.6 meq/L (3.5-5.1)
--- NOTE | 2018-07-29 18:57 | CT ---
EXAM DATE: 07/29/2018 6:48 PM EDT AGE/SEX: 57 years / Male INDICATIONS: Status post PEG tube removal. Evaluate for leak at site of PEG tube. CLINICAL DATA: This is the patient's initial encounter. Patient reports that signs and symptoms have been present for 1 day and indicates a pain score of Nonresponsive. MEDICAL/SURGICAL HISTORY: Hypertension. Diabetes. . PEG tube placement RADIATION DOSE: 19.79 CTDI (mGy) ; Patient body habitus COMPARISON: [facility], CT ABDOMEN & PELVIS W CONTRAST, 07/24/2018. . TECHNIQUE: Multiple contiguous axial images were obtained through the abdomen. Images were obtained using multiple row detector helical technique. Using automated exposure control and adjustment of the mA and/or kV according to patient size, radiation dose was kept as low as reasonably achievable to o btain optimal diagnostic quality images. DICOM format image data is available electronically for rev iew and comparison. FINDINGS: Abdomen CT: The liver, spleen, pancreas, kidneys, adrenals are unremarkable. There is no evidence for any appreci able pathological adenopathy, or bowel obstruction. Small left pleural effusion is present with den se left lung base consolidation. There is also slight atelectasis and/or infiltrate right lower lobe. Moderate pericardial effusion is seen. There is significant amount of ascites throughout the abdomen and pelvis with passive congestion of the mesentery and mild degree of anasarca. The sigmoid colon i s distended filled with stool and fluid measures 6.2 cm in transverse diameter. There are gas bubbles in the wall of the stomach anteriorly at this site of the G-tube removed. NG tube is present with ti p in the stomach. Pelvic CT: There is no evidence for mass, abscess formation, or any significant adenopathy within the pelvis. T he ascending colon is collapsed and transverse colon also collapse and possibility of submucosal jessica a difficult to exclude. colon CONCLUSION: 1. Significant worsening of ascites since the prior exam. 2. Small left pleural effusion, moderate pericardial effusion and bibasilar consolidation worse on t he left. 3. Distended sigmoid colon and slightly worse since the prior examination possibility of colitis karlene uld be entertained. The ascending colon and transverse colon are collapsed not adequately characteriz ed. Electronically signed by: Yojana Hassan MD 07/29/2018 6:55 PM EDT
[2018-07-30] MEDS: Vasopressin Inj 40 UNIT in Dextrose 5% in Water Inj 98 ML IV.CONT PRN ×4 (01:36→20:10)
[2018-07-30 06:03] LABS: Hematocrit 38.5 % (39.0-51.0); Hemoglobin 12.2 gm/dL (13.0-17.0); Mean Corpuscular HGB Conc 31.7 % (32.0-36.0); Mean Platelet Volume 8.2 fL (7.0-11.0); Platelet Count 117 th/mm3 (150-450); Red Cell Distribution Width 17.2 % (11.6-17.2); White Blood Count 12.9 th/mm3 (4.0-11.0)
[2018-07-30 06:37] LABS: Alanine Aminotransferase 10 U/L (12-78); Albumin 2.2 g/dL (3.4-5.0); Alkaline Phosphatase 80 U/L (45-117); Anion Gap 14 meq/L (5-15); Aspartate Aminotransferase 11 U/L (15-37); Blood Urea Nitrogen 36 mg/dL (7-18); Calcium 7.5 mg/dL (8.5-10.1); Carbon Dioxide 26.6 meq/L (21.0-32.0); Chloride 95 meq/L (98-107); Glomerular Filtration Rate 15 mL/min (>89); Glucose,Random 257 mg/dL (74-106); Magnesium 1.7 mg/dL (1.5-2.5); Phosphorus 0.8 mg/dL (2.5-4.9); Sodium 136 meq/L (136-145); Total Protein 5.7 g/dL (6.4-8.2)
[2018-07-30 06:40] LABS: Potassium 2.4 meq/L (3.5-5.1)
[2018-07-30] MEDS: Midazolam 50 MG/50 ML Inj 50 MG/50 ML BAG IV.CONT PRN (06:46)
[2018-07-30] MEDS: Sodium Bicarbonate 8.4% Inj 150 MEQ in Dextrose 5% in Water Inj 850 ML IV.CONT SCH ×4 (08:00→14:15)
[2018-07-30] MEDS: Insulin NovoLIN Regular Correctional Sugar Inj SQ SCH ×3 (08:00→17:32)
[2018-07-30] MEDS ORDERED: ASP: Other exception documentation: ( ) OTHER PRN (08:17)
[2018-07-30] MEDS: Famotidine 20 MG Tablet PO SCH (08:21)
[2018-07-30] MEDS: Senna/Docusate Sodium 8.6/50 MG Tablet PO SCH ×2 (08:21→20:51)
[2018-07-30] MEDS: Lactobacillus Acidophilus/L. Spores Tablet PO SCH ×3 (08:21→17:29)
[2018-07-30] MEDS: FLORASTOR 250 MG PO SCH (08:25)
--- NOTE | 2018-07-30 08:27 | P.PNID ---
Subjective Remarks: Patient is a 57-year-old male, brought into the hospital after he was noted to have altered mental status, with decreased level of consciousness at the dialysis center. He apparently lost pulses and CPR was started with return of his pulses. EMS was called and at that time he was found to have pulses. He was noted to be confused. His blood sugars were okay. In the ED he was hypotensive, and was on Levophed briefly. He ended up getting intubated. CT of the abdomen and pelvis showed the known adrenal mass with slight increase in size. CT of the chest did not show any PE but it showed dense bibasilar consolidation. Patient stated that he was at [facility] months ago and at that time he had pneumonia. He went to a rehab facility and at the rehab he has not really been doing any ambulation. He gets transferred to a wheelchair. He has known COPD, and chronically on oxygen. Patient states he has a chronic cough and brings up some clear phlegm. He has not really noted any increase in his cough or change in the color of his sputum. He denies any chest pain. He was extubated yesterday, and currently denies any shortness of breath. He is on nasal O2 with good oxygen saturation. Patient denies any problem with nausea or vomiting, or any swallowing difficulty. He has not had any choking episodes. During his hospitalization at [facility], he had a PEG tube placed, but the patient stated that they have not been using the tube for nutrition, and he has been taking nutrition orally. Patient also had a history of right empyema back in 2010, requiring a right thoracotomy, decortication and pleurectomy, and a right lung wedge resection. Records mentioned that he has had problem with aspiration. Infectious disease consultation has been requested to assist with management of recurrent pneumonia. Notes reviewed D/W RN Patient required intubation this weekend Hypotensive requiring Levophed and Vasopressin Temps ok Not a lot of stool Sedated on the vent Previous PEG still putting out yellow fluid WBC better UC and PEg site C/S Alison albicans Sputum with MRSA BC negative Repeat CT with dilated sigmoid, collapsed colon Antibiotics: PO vancomycin Micafungin IV Flagyl IV vanco intermittent Lines: Permacath RIJ Central line Past Medical History: Diabetes ESRD (end stage renal disease) on dialysis Empyema lung HTN (hypertension) Renal disease Status post thoracotomy Allergies/Adverse Reactions: Allergies heparin Allergy (Severe, Verified 07/16/18 13:23) Bleeding quetiapine [From Seroquel] Allergy (Intermediate, Verified 07/16/18 13:23) Shakiness cefuroxime Allergy (Verified 07/20/18 18:25) Rash Objective Vital Signs 07/29/18 12:00 07/29/18 12:33 07/29/18 15:04 Temperature 98.8 F Pulse Rate 94 H Respiratory Rate 21 18 18 Blood Pressure 115/68 Pulse Oximetry 97 100 99 07/29/18 16:00 07/29/18 20:00 07/29/18 20:17 Temperature 98.2 F 97.5 F L Pulse Rate 93 H 88 Respiratory Rate 18 18 18 Blood Pressure 120/72 122/74 Pulse Oximetry 97 98 97 07/29/18 23:32 07/30/18 00:00 07/30/18 04:00 Temperature 97.9 F 97.8 F Pulse Rate 88 84 Respiratory Rate 18 18 18 Blood Pressure 120/74 116/74 Pulse Oximetry 98 98 99 07/30/18 04:32 07/30/18 07:35 Temperature Pulse Rate Respiratory Rate 19 18 Blood Pressure Pulse Oximetry 100 98 Intake & Output 07/29/18 07/30/18 07/30/18 18:59 06:59 18:59 Intake Total 1410 / 1410 1145 / 1145 1100 / 1100 Output Total 500 / 500 0 / 0 Balance 910 / 910 1145 / 1145 1100 / 1100 Weight 108.3 kg Intake: IV 1170 / 1170 1025 / 1025 1100 / 1100 Cordarone Inj 450 MG In D5W Inj 175 / 175 75 / 75 241 ML @ 1 MG/MIN 33.33 mls/hr IV.CONT TITRATE PRN Rx#: [id number] Versed Inj 50 mg In 50 ml @ 2 95 / 95 50 / 50 MG/HR 2 mls/hr IV.CONT TITRATE PRN Rx#:[id number] Sodium Bicarbonate 8.4% Inj 150 400 / 400 600 / 600 1000 / 1000 MEQ In D5W Inj 850 ML @ 125 mls/hr IV.CONT .Q8H YOVANA Rx#: [id number] Pitressin Inj 40 UNIT In D5W 100 / 100 100 / 100 Inj 98 ML @ 0.01 UNITS/MIN 1.5 mls/hr IV.CONT TITRATE PRN Rx#: [id number] Mycamine Inj 100 MG In NS Inj 100 / 100 100 ML @ 100 mls/hr IV.SIG Q24H [facility] Rx#:[id number] KCl 20 mEq Premix Inj 20 meq In 100 / 100 100 / 100 100 ml @ 50 mls/hr IV.SIG ONCE ONE Rx#:[id number] Flagyl 500 MG Inj 100 ML @ 100 200 / 200 100 / 100 100 / 100 mls/hr IV.SIG Q8H [facility] Rx#: [id number] Tube Irrigant 240 / 240 120 / 120 Output: Urine 0 / 0 Hemodialysis Amount 500 / 500 Other: Date of Last Bowel Movement 07/29/18 07/29/18 # Incontinent Bowel Movements 1 07/27/18 21:30 Wound - Abdominal Gram Stain - Final 07/27/18 21:30 Wound - Abdominal Wound Culture - Preliminary Alison albicans 07/27/18 21:30 Sputum - Expectorated Sputum Gram Stain - Final 07/27/18 21:30 Sputum - Expectorated Sputum Sputum Culture - Final S. aureus MRSA 07/27/18 16:00 Blood - Other Aerobic Blood Culture - Preliminary No growth in 2 days 07/27/18 16:00 Blood - Other Anaerobic Blood Culture - Preliminary No growth in 2 days 07/27/18 11:20 Blood - Peripheral Aerobic Blood Culture - Preliminary No growth in 2 days 07/27/18 11:20 Blood - Peripheral Anaerobic Blood Culture - Preliminary No growth in 2 days 07/27/18 11:20 Blood - Peripheral Blood Fungal Culture - Pending 07/27/18 11:20 Blood - Peripheral Blood Fungal Culture - Pending 07/27/18 11:25 Blood - Peripheral Aerobic Blood Culture - Preliminary No growth in 2 days 07/27/18 11:25 Blood - Peripheral Anaerobic Blood Culture - Preliminary No growth in 2 days 07/25/18 11:07 Blood - Peripheral Aerobic Blood Culture - Preliminary No growth in 4 days 07/25/18 11:07 Blood - Peripheral Anaerobic Blood Culture - Preliminary No growth in 4 days 07/25/18 11:12 Blood - Peripheral Aerobic Blood Culture - Preliminary No growth in 4 days 07/25/18 11:12 Blood - Peripheral Anaerobic Blood Culture - Preliminary No growth in 4 days 07/27/18 11:20 Catheterized Urine Urine Culture - Final Alison albicans Lab - Hematology Results 07/29/18 07/30/18 04:10 05:40 WBC 18.9 H D 12.9 H RBC 4.66 4.70 Hgb 12.3 L 12.2 L Hct 39.7 38.5 L MCV 85.2 82.0 MCH 26.4 L 26.0 L MCHC 30.9 L 31.7 L RDW 17.1 17.2 Plt Count 101 L 117 L MPV 8.3 8.2 Lab - Chemistry Results 07/28/18 07/28/18 07/29/18 12:08 17:38 00:15 Sodium Potassium Chloride Carbon Dioxide Anion Gap BUN Creatinine Estimated GFR POC Glucose 181 H 200 H 262 H Random Glucose Calcium Prot Corrected Calcium Phosphorus Magnesium Total Bilirubin AST ALT Alkaline Phosphatase Total Protein Albumin 07/29/18 07/29/18 07/29/18 04:10 12:15 16:25 Sodium 137 Potassium 2.6 L* 2.6 L* Chloride 97 L Carbon Dioxide 23.5 Anion Gap 17 H BUN 28 H Creatinine 3.64 H Estimated GFR 17 L POC Glucose 294 H Random Glucose 272 H Calcium 7.2 L* Prot Corrected Calcium 8.0 L Phosphorus 1.1 L Magnesium 1.8 Total Bilirubin 0.4 AST 11 L ALT 6 L Alkaline Phosphatase 88 Total Protein 5.6 L Albumin 2.2 L D 07/29/18 07/29/18 07/30/18 16:53 23:15 05:40 Sodium 136 Potassium 2.4 L* Chloride 95 L Carbon Dioxide 26.6 Anion Gap 14 BUN 36 H Creatinine 4.02 H Estimated GFR 15 L POC Glucose 252 H 266 H Random Glucose 257 H Calcium 7.5 L Prot Corrected Calcium Phosphorus 0.8 L Magnesium 1.7 Total Bilirubin 0.5 AST 11 L ALT 10 L Alkaline Phosphatase 80 Total Protein 5.7 L Albumin 2.2 L Imaging: ITS Impressions Chest CTA 07/16/18 13:03 CONCLUSION: 1. No CT evidence for pulmonary artery embolism as questioned. 2. Dense bilateral lower lobe airspace consolidation with trace associated pleural effusions. Findings are concerning for aspiration. 3. Nonspecific right hilar and mediastinal nodes, as above. This may be reactive in etiology. 4. Probable 1.6 cm right adrenal mass that is incompletely imaged on this exam. Although indeterminate in density, this is unchanged from abdominal CT of 06/07/2011 and therefore likely benign. Head CT 07/17/18 00:00 CONCLUSION: 1. Atrophy. 2. Periventricular low attenuation change likely relating to chronic small vessel ischemic change. 3. Fluid throughout the nasal cavity and paranasal sinuses. . Barium Swallow X-Ray 07/20/18 00:00 CONCLUSION: Unremarkable barium swallow, however limited study since only frontal projection could be performed. Abdomen X-Ray 07/24/18 00:00 CONCLUSION: Apparent wall thickening involving the rectosigmoid colon and possibly the distal descending colon suggesting colitis. Clinical correlation is recommended. Head MRI 07/27/18 00:00 CONCLUSION: 1. No acute intracranial abnormality. 2. Atrophy. 3. Nonspecific periventricular demyelination. This could be from small vessel ischemic change. 4. Fluid in the sinuses. 5. Increased signal/fluid throughout the mastoid/temporal air cells. Chest X-Ray 07/27/18 21:13 CONCLUSION: ET tube in a good to low position 2.6 cm from the merly. Left mid and lower lung and right lower lung areas of consolidation or atelectasis. Cardiomegaly. Abdomen/Pelvis CT 07/29/18 00:00 CONCLUSION: 1. Significant worsening of ascites since the prior exam. 2. Small left pleural effusion, moderate pericardial effusion and bibasilar consolidation worse on the left. 3. Distended sigmoid colon and slightly worse since the prior examination possibility of colitis should be entertained. The ascending colon and transverse colon are collapsed not adequately characterized. Physical Exam: GENERAL: On the ventilator. No distress. Sedated SKIN: Cool and dry. No generalized rash HEAD: Atraumatic. Normocephalic. No temporal wasting, or tenderness. EYES: [place] conjunctiva. No petechia or hemorrhage. No scleral icterus. No injection or drainage. EARS, NOSE AND THROAT: Nose without bleeding or purulent nasal discharge. NECK: Trachea midline. Supple and not tender, no meningeal signs CARDIOVASCULAR: Regular rate and rhythm. No murmurs, rubs or gallops heard RESPIRATORY: Slight basilar rhonchi. ABDOMEN: soft, no reaction to palpation, BS hypoactive. Previous PEG site with some output, no surrounding redness or induration EXTREMITIES: No clubbing, cyanosis, or edema. No calf tenderness. NEUROLOGICAL: Unable to assess. PSYCHIATRIC: Unable to assess. Patient is on the ventilator. LINE: No evidence of infection Assessment and Plan - Plan Impression Pneumonia, likely aspiration, has been on RX. MRSA. Respiratory failure, increasing SOB and O2 requirement - CXR stable infiltrates S/P respiratory failure and extubation - on presentation COPD, O2 dependent ESRD on HD MWF UTI, Enterobacter, on Rx C difficile colitis. Leukocytosis. Improved. Alison UTI. Recommendation Resume Merem to keep GNR coverage since he is still very hypotensive Change micafungin to Diflucan Continue po vanco and IV Flagyl for C diff Continue IV vanco for MRSA Monitor progress GI to reevaluate patient D/W Dr Barry ([facility]) D/W RN
[2018-07-30] MEDS ORDERED: Potassium Chloride 20 MEQ Pwd Pkt NG/OG ONE (08:29)
[2018-07-30] MEDS ORDERED: Meropenem Inj 500 MG in Sodium Chlor 0.9% Inj 100 ML IV.SIG STA (08:40)
--- NOTE | 2018-07-30 08:53 | P.PNCC ---
Subjective Subjective Remarks/Hospital Course: Patient is a 57-year-old male with past medical history of end-stage renal disease on hemodialysis, , COPD on home oxygen, hypertension, diabetes type 2, who was brought to the emergency department for altered mental status. He was altered at the dialysis center and apparently during dialysis he lost pulses and CPR was started. By time EMS arrived patient did have pulses. He was confused for EMS. ER workup showed that patient has a white count of 16.7 with left shift indicating sepsis. Patient remained hypotensive after fluid resuscitation and hence was started on Levophed by the ED physician. CT abdomen pelvis showed a previously known adrenal mass slightly increased in size compared to [address] pulmonary angiogram was negative for PE, however showed dense bibasilar consolidation/pneumonia which could be the source of sepsis. Received vancomycin and Zosyn in the ED. ABG prior to intubation in the ED showed severe hypercapnic respiratory failure with a pH of 7.05, PCO2 of 93. I evaluated the patient after arrival to the [facility]. He is intubated critically ill-appearing sedated. On lightening sedation he is able to move all 4 extremities. His source of sepsis most likely is pneumonia. Wong cultures have been sent. His altered mentation is most likely secondary to sepsis and hypercapnia, will check CT of the head to rule out any acute events. 07/17: No events over the night. Since ICU admission patient did not require any vasopressor. Oxygenation is down to 40%. Sedation is achieved with propofol, which is decreased to 20. Patient is arousable, following commands appropriately. Daughter is present at bedside. T-max of 99.6. RECONSULT NOTE 07/27: reconsulted for rapid response from floor. patient with ESRD and c. diff colitis, now with rising wbc, altered mentation, hypotension despite ivf resuscitation. abg with mixed resp/met acidosis, uncompensated. intermittently has periods of syncope. when arousable, patient refusing intubation at this time , saying "I know when I need a tube, and I don't need a tube right now." placed on norepinephrine for vasopressor support and end-organ perfusion. 07/28: Intubated and placed on mech ventilation last night. On levophed/ amio/ versed/ fentanyl gtt. Bicarb drip decreased to 40cc/hr. 07/29: Remains sedated, orally intubated on mech vent. OGT coming out of PEG site so pulled back and ordered CT Abd with oral contrast for further evaluation. 07/30: Remains intubated sedated and septic. Currently remains on Levophed and vasopressin. CT abdomen pelvis showed significant worsening of ascites since the prior exam, small pl and moderate pericardial effusion and bibasilar consolidation worse on the left. Also distended sigmoid colon and slightly worse since the prior examination possibility of colitis. Ascending colon and transverse colon are collapsed. D/W Dr. Ma, will resume gram negative coverage. GI consult is pending at this time Objective Vital Signs / I&O: Vital Signs 07/29/18 12:00 07/29/18 12:33 07/29/18 15:04 Temperature 98.8 F Pulse Rate 94 H Respiratory Rate 21 18 18 Blood Pressure 115/68 Pulse Oximetry 97 100 99 07/29/18 16:00 07/29/18 20:00 07/29/18 20:17 Temperature 98.2 F 97.5 F L Pulse Rate 93 H 88 Respiratory Rate 18 18 18 Blood Pressure 120/72 122/74 Pulse Oximetry 97 98 97 07/29/18 23:32 07/30/18 00:00 07/30/18 04:00 Temperature 97.9 F 97.8 F Pulse Rate 88 84 Respiratory Rate 18 18 18 Blood Pressure 120/74 116/74 Pulse Oximetry 98 98 99 07/30/18 04:32 07/30/18 07:35 Temperature Pulse Rate Respiratory Rate 19 18 Blood Pressure Pulse Oximetry 100 98 Intake & Output 07/29/18 07/30/18 07/30/18 18:59 06:59 18:59 Intake Total 1410 / 1410 1145 / 1145 1100 / 1100 Output Total 500 / 500 0 / 0 Balance 910 / 910 1145 / 1145 1100 / 1100 Weight 108.3 kg Intake: IV 1170 / 1170 1025 / 1025 1100 / 1100 Cordarone Inj 450 MG In D5W Inj 175 / 175 75 / 75 241 ML @ 1 MG/MIN 33.33 mls/hr IV.CONT TITRATE PRN Rx#: [id number] Versed Inj 50 mg In 50 ml @ 2 95 / 95 50 / 50 MG/HR 2 mls/hr IV.CONT TITRATE PRN Rx#:[id number] Sodium Bicarbonate 8.4% Inj 150 400 / 400 600 / 600 1000 / 1000 MEQ In D5W Inj 850 ML @ 125 mls/hr IV.CONT .Q8H YOVANA Rx#: [id number] Pitressin Inj 40 UNIT In D5W 100 / 100 100 / 100 Inj 98 ML @ 0.01 UNITS/MIN 1.5 mls/hr IV.CONT TITRATE PRN Rx#: [id number] Mycamine Inj 100 MG In NS Inj 100 / 100 100 ML @ 100 mls/hr IV.SIG Q24H [facility] Rx#:[id number] KCl 20 mEq Premix Inj 20 meq In 100 / 100 100 / 100 100 ml @ 50 mls/hr IV.SIG ONCE ONE Rx#:[id number] Flagyl 500 MG Inj 100 ML @ 100 200 / 200 100 / 100 100 / 100 mls/hr IV.SIG Q8H YOVANA Rx#: [id number] Tube Irrigant 240 / 240 120 / 120 Output: Urine 0 / 0 Hemodialysis Amount 500 / 500 Other: Date of Last Bowel Movement 07/29/18 07/29/18 # Incontinent Bowel Movements 1 Result Diagrams: 07/30/18 05:40 07/30/18 05:40 Objective Remarks: General - elderly gentleman, lying in bed. HEENT - pupils equal, reactive, sclerae anicteric, neck supple, no nuchal rigidity CV - Irregularly irregular rhythm. appears afib by tele. No murmurs. Currently on Levophed and vasopressin Chest - orally intubated on mech vent, coarse breath sounds b/l, good air entry , bilateral mild expiratory wheezing. Abdomen - soft, non-tender, distended, no hepatomegaly, no splenomegaly, no guarding. Previous PEG tube site without significant discharge Extremities - warm and well perfused, trace edema, + peripheral pulses, no clubbing Neuro - Sedated, orally intubated on mech vent. On lightening sedation moves all extremities Assessment and Plan - Problem List (1) Septic shock Code(s): A41.9 - Sepsis, unspecified organism; R65.21 - Severe sepsis with septic shock Status: Acute (2) Acute metabolic encephalopathy Code(s): G93.41 - Metabolic encephalopathy Status: Acute (3) Acute hypercapnic respiratory failure Code(s): J96.02 - Acute respiratory failure with hypercapnia Status: Acute (4) Pneumonia Code(s): J18.9 - Pneumonia, unspecified organism Status: Acute - Assessment and Plan Plan: Assessment: 57yM with ESRD and now with worsening septic shock. now intubated on vasopressors. Plan by systems: Neurologic: Acute encephalopathy Secondary to sepsis EEG-showing diffuse encephalopathy MRI-no acute findings frequent neuro checks -Daily sedation medication Respiratory: Acute hypoxic and hypercarbic respiratory failure Continue mech ventilation, vent bundle. nebs, hob elevated DuoNeb every 6 hours scheduled and as needed 07/27 sputum culture Cardiovascular: Septic Shock Atrial fibrillation Pericardial effusion On anticoagulation norepinephrine/ vasopressin for goal map > 65mmHg HD to keep in even fluid balance. Repeat Echo to evaluate pericardial effusion rule out tamponade Renal: End-stage renal disease - Strict I/Os - nephrology following - Hemodialysis per renal. FEN/GI: Acute protein calorie malnutrition- severe Severe hypokalemia Acute metabolic acidosis CT abd pelvis-distended thick sigmoid colon with collapsed ascending and transverse colon Significant ascites plan for paracentesis and further studies GI reconsulted for OGT coming out of PEG site for possibly replacing PEG- Consult is pending at this time prn zofran hold ivf correct electrolytes Heme/ID: Septic Shock C. Difficile colitis ID following wbc downtrending agree with po vanc and iv flagyl Resume Merem to keep GNR coverage, ID changed micafungin to Diflucan Continue po vanco and IV Flagyl for C diff. Continue IV vanco for MRSA F/U cultures Endocrine: -- SSI Prophylaxis: GI Prophylaxis Protonix DVT Prophylaxis -SCDs Eliquis Lines: right IJ vascath- keep for dialysis access Central line placed 07/28 critical care time: 35 minutes, exclusive of separately billable procedures Code Status: Full
[2018-07-30] MEDS ORDERED: Potassium Chloride 25 MEQ Effervescent Tablet NG/OG ONE (09:00)
[2018-07-30] MEDS ORDERED: Potassium Chlor 40 mEq Premix 40 MEQ/100 ML PIGGYBACK IV.SIG ONE (09:00)
--- NOTE | 2018-07-30 11:02 | ECHRPT ---
Indication: MODERATE P EFFUSION ON CT CONCLUSIONS Normal left ventricular size. Wall thickness is normal. The left ventricular systolic function is low normal with an estimated ejection fraction in the rang e of 50- 55%. Mitral annular calcification is present. The pulmonary valve is not well visualized. There is a small pericardial effusion present. A small left sided pleural effusion is noted. No obvious hemodynamically significant echocardiographic features were observed (no pre-tamponade physiology). technically limited study, right atrium suboptimally imaged BP: / HR: Rhythm: MEASUREMENTS (Male / Female) Normal Values Technical Quality:Technically difficult study 2D ECHO LV Diastolic Diameter PLAX 4.1 cm 4.2 - 5.9 / 3.9 - 5.3 cm LV Systolic Diameter PLAX 3.1 cm IVS Diastolic Thickness 1.1 cm 0.6 - 1.0 / 0.6 - 0.9 cm LVPW Diastolic Thickness 1.2 cm 0.6 - 1.0 / 0.6 - 0.9 cm LV Relative Wall Thickness 0.6 LA Systolic Diameter LX 2.8 cm 3.0 - 4.0 / 2.7 - 3.8 cm FINDINGS LEFT VENTRICLE Normal left ventricular size. Wall thickness is normal. The left ventricular systolic function is low normal with an estimated ejection fraction in the rang e of 50- 55%. RIGHT VENTRICLE Normal right ventricular size and systolic function. LEFT ATRIUM The left atrial size is normal. RIGHT ATRIUM The right atrial size is normal. ATRIAL SEPTUM Normal atrial septal thickness without atrial level shunting by limited color doppler interrogation. AORTA The aortic root and proximal ascending aorta are normal in size on limited imaging. MITRAL VALVE Mitral annular calcification is present. AORTIC VALVE Trileaflet aortic valve. No aortic valve stenosis or regurgitation. TRICUSPID VALVE Structurally normal tricuspid valve. No tricuspid valve stenosis or regurgitation. PULMONARY VALVE The pulmonary valve is not well visualized. VESSELS The inferior vena cava is normal in size. PERICARDIUM There is a small pericardial effusion present. A small left sided pleural effusion is noted. No hemodynamically significant echocardiographic features were observed (no pre-tamponade physiology). Farooq Norman MD, FACC, [facility] (Electronically Signed) Final Date:30 July 2018 11:01
--- NOTE | 2018-07-30 12:40 | P.PN ---
Subjective Interval history: On Vent support and critical.FIO2 at 40 % On Pressors.Remains sedated. Physical Exam Vital signs: Vital Signs 07/29/18 15:04 07/29/18 16:00 07/29/18 20:00 Temperature 98.2 F 97.5 F L Pulse Rate 93 H 88 Respiratory Rate 18 18 18 Blood Pressure 120/72 122/74 Pulse Oximetry 99 97 98 07/29/18 20:17 07/29/18 23:32 07/30/18 00:00 Temperature 97.9 F Pulse Rate 88 Respiratory Rate 18 18 18 Blood Pressure 120/74 Pulse Oximetry 97 98 98 07/30/18 04:00 07/30/18 04:32 07/30/18 07:35 Temperature 97.8 F Pulse Rate 84 Respiratory Rate 18 19 18 Blood Pressure 116/74 Pulse Oximetry 99 100 98 07/30/18 08:54 07/30/18 11:30 Temperature Pulse Rate 76 Respiratory Rate 18 18 Blood Pressure Pulse Oximetry 100 Intake & Output 07/29/18 07/30/18 07/30/18 18:59 06:59 18:59 Intake Total 1410 / 1410 1145 / 1145 1355 / 1355 Output Total 500 / 500 0 / 0 1999 / 1999 Balance 910 / 910 1145 / 1145 -645 / -645 Weight 108.3 kg Intake: IV 1170 / 1170 1025 / 1025 1355 / 1355 Cordarone Inj 450 MG In D5W Inj 175 / 175 75 / 75 250 / 250 241 ML @ 1 MG/MIN 33.33 mls/hr IV.CONT TITRATE PRN Rx#: [id number] Versed Inj 50 mg In 50 ml @ 2 95 / 95 50 / 50 5 / 5 MG/HR 2 mls/hr IV.CONT TITRATE PRN Rx#:[id number] Sodium Bicarbonate 8.4% Inj 150 400 / 400 600 / 600 1000 / 1000 MEQ In D5W Inj 850 ML @ 125 mls/hr IV.CONT .Q8H [facility] Rx#: [id number] Pitressin Inj 40 UNIT In D5W 100 / 100 100 / 100 Inj 98 ML @ 0.01 UNITS/MIN 1.5 mls/hr IV.CONT TITRATE PRN Rx#: [id number] Mycamine Inj 100 MG In NS Inj 100 / 100 100 ML @ 100 mls/hr IV.SIG Q24H [facility] Rx#:[id number] KCl 20 mEq Premix Inj 20 meq In 100 / 100 100 / 100 100 ml @ 50 mls/hr IV.SIG ONCE ONE Rx#:[id number] Flagyl 500 MG Inj 100 ML @ 100 200 / 200 100 / 100 100 / 100 mls/hr IV.SIG Q8H [facility] Rx#: [id number] Tube Irrigant 240 / 240 120 / 120 Output: Urine 0 / 0 Hemodialysis Amount 500 / 500 1999 Other: Date of Last Bowel Movement 07/29/18 07/29/18 # Incontinent Bowel Movements 1 Narrative: GENERAL:Intubated and on the Vent HEAD: Normocephalic. NECK: Supple, trachea midline. No lymphadenopathy.ET Tube EYES: No scleral icterus. No injection or drainage. CARDIOVASCULAR: Regular rate and rhythm without murmurs, gallops, or rubs. RESPIRATORY: Breath sounds equal bilaterally. Increased respiratory effort .Crackles at bases GASTROINTESTINAL: Abdomen soft, distended. Ascites + MUSCULOSKELETAL: No cyanosis, and 1 + edema. SKIN: Cool and dry. NEURO: Sedated - Urinary Catheter Management Indwelling Urethral Catheter Cath placed during this visit: yes Reason for continuing: Other continuation reason Insertion date: 07/16/18 Insertion time: 17:30 Results - Labs CBC & Chem 7: 07/30/18 05:40 07/30/18 05:40 Laboratory Results - last 24 hr 07/29/18 07/29/18 07/29/18 16:25 16:53 23:15 WBC RBC Hgb Hct MCV MCH MCHC RDW Plt Count MPV Sodium Potassium 2.6 L* Chloride Carbon Dioxide Anion Gap BUN Creatinine Estimated GFR POC Glucose 252 H 266 H Random Glucose Calcium Phosphorus Magnesium Total Bilirubin AST ALT Alkaline Phosphatase Total Protein Albumin Random Vancomycin 18.1 07/30/18 07/30/18 07/30/18 05:40 05:40 11:54 WBC 12.9 H RBC 4.70 Hgb 12.2 L Hct 38.5 L MCV 82.0 MCH 26.0 L MCHC 31.7 L RDW 17.2 Plt Count 117 L MPV 8.2 Sodium 136 Potassium 2.4 L* Chloride 95 L Carbon Dioxide 26.6 Anion Gap 14 BUN 36 H Creatinine 4.02 H Estimated GFR 15 L POC Glucose 156 H Random Glucose 257 H Calcium 7.5 L Phosphorus 0.8 L Magnesium 1.7 Total Bilirubin 0.5 AST 11 L ALT 10 L Alkaline Phosphatase 80 Total Protein 5.7 L Albumin 2.2 L Random Vancomycin Microbiology 07/27/18 16:00 Blood - Other Aerobic Blood Culture - Preliminary No growth in 3 days 07/27/18 16:00 Blood - Other Anaerobic Blood Culture - Preliminary No growth in 3 days 07/27/18 11:20 Blood - Peripheral Aerobic Blood Culture - Preliminary No growth in 3 days 07/27/18 11:20 Blood - Peripheral Anaerobic Blood Culture - Preliminary No growth in 3 days 07/27/18 11:25 Blood - Peripheral Aerobic Blood Culture - Preliminary No growth in 3 days 07/27/18 11:25 Blood - Peripheral Anaerobic Blood Culture - Preliminary No growth in 3 days 07/25/18 11:07 Blood - Peripheral Aerobic Blood Culture - Final No growth in 5 days 07/25/18 11:07 Blood - Peripheral Anaerobic Blood Culture - Final No growth in 5 days 07/25/18 11:12 Blood - Peripheral Aerobic Blood Culture - Final No growth in 5 days 07/25/18 11:12 Blood - Peripheral Anaerobic Blood Culture - Final No growth in 5 days 07/27/18 21:30 Wound - Abdominal Gram Stain - Final 07/27/18 21:30 Wound - Abdominal Wound Culture - Preliminary Alison albicans Staphylococcus aureus 07/27/18 21:30 Sputum - Expectorated Sputum Gram Stain - Final 07/27/18 21:30 Sputum - Expectorated Sputum Sputum Culture - Final S. aureus MRSA 07/27/18 11:20 Catheterized Urine Urine Culture - Final Alison albicans - Imaging Impressions Abdomen/Pelvis CT 07/29/18 00:00 CONCLUSION: 1. Significant worsening of ascites since the prior exam. 2. Small left pleural effusion, moderate pericardial effusion and bibasilar consolidation worse on the left. 3. Distended sigmoid colon and slightly worse since the prior examination possibility of colitis should be entertained. The ascending colon and transverse colon are collapsed not adequately characterized. Assessment and Plan - Assessment (1) Aspiration pneumonia Code(s): J69.0 - Pneumonitis due to inhalation of food and vomit Status: Acute (2) Acute hypercapnic respiratory failure Code(s): J96.02 - Acute respiratory failure with hypercapnia Status: Acute (3) Sepsis Code(s): A41.9 - Sepsis, unspecified organism Status: Acute (4) Pneumonia Code(s): J18.9 - Pneumonia, unspecified organism Status: Acute (5) Encephalopathy Code(s): G93.40 - Encephalopathy, unspecified Status: Acute (6) Septic shock Code(s): A41.9 - Sepsis, unspecified organism; R65.21 - Severe sepsis with septic shock Status: Acute (7) Acute metabolic encephalopathy Code(s): G93.41 - Metabolic encephalopathy Status: Acute (8) End stage renal disease Code(s): N18.6 - End stage renal disease Status: Acute (9) Diarrhea Code(s): R19.7 - Diarrhea, unspecified Status: Acute (10) Septic shock due to Clostridium difficile Status: Acute - Plan 1. Continue antibiotics per ID 2. Cont Vent support and wean Vent rates and FIO2 3. Cont Duoneb nebs qid. 4. PT and OT Evaluation. 5. Continue to wean pressors. 6. Dialysis as planned 7. CXR ,CBC,BMP in am 8. Tap Abdomen for ascites.
[2018-07-30 12:45] LABS: ABG Base Excess 3.4 mmol/L (-2-2); ABG PCO2 27 mmHg (38-42); ABG PO2 122 mmHg (61-120)
--- NOTE | 2018-07-30 13:15 | P.PNNP ---
Subjective Interval history: On ventilator, vasopressors Physical Exam Vital signs: Vital Signs 07/29/18 15:04 07/29/18 16:00 07/29/18 20:00 Temperature 98.2 F 97.5 F L Pulse Rate 93 H 88 Respiratory Rate 18 18 18 Blood Pressure 120/72 122/74 Pulse Oximetry 99 97 98 07/29/18 20:17 07/29/18 23:32 07/30/18 00:00 Temperature 97.9 F Pulse Rate 88 Respiratory Rate 18 18 18 Blood Pressure 120/74 Pulse Oximetry 97 98 98 07/30/18 04:00 07/30/18 04:32 07/30/18 07:35 Temperature 97.8 F Pulse Rate 84 Respiratory Rate 18 19 18 Blood Pressure 116/74 Pulse Oximetry 99 100 98 07/30/18 08:54 07/30/18 11:30 Temperature Pulse Rate 76 Respiratory Rate 18 18 Blood Pressure Pulse Oximetry 100 Intake & Output 07/29/18 07/30/18 07/30/18 18:59 06:59 18:59 Intake Total 1410 / 1410 1145 / 1145 1355 / 1355 Output Total 500 / 500 0 / 0 1999 / 1999 Balance 910 / 910 1145 / 1145 -645 / -645 Weight 108.3 kg Intake: IV 1170 / 1170 1025 / 1025 1355 / 1355 Cordarone Inj 450 MG In D5W Inj 175 / 175 75 / 75 250 / 250 241 ML @ 1 MG/MIN 33.33 mls/hr IV.CONT TITRATE PRN Rx#: [id number] Versed Inj 50 mg In 50 ml @ 2 95 / 95 50 / 50 5 / 5 MG/HR 2 mls/hr IV.CONT TITRATE PRN Rx#:[id number] Sodium Bicarbonate 8.4% Inj 150 400 / 400 600 / 600 1000 / 1000 MEQ In D5W Inj 850 ML @ 125 mls/hr IV.CONT .Q8H [facility] Rx#: [id number] Pitressin Inj 40 UNIT In D5W 100 / 100 100 / 100 Inj 98 ML @ 0.01 UNITS/MIN 1.5 mls/hr IV.CONT TITRATE PRN Rx#: [id number] Mycamine Inj 100 MG In NS Inj 100 / 100 100 ML @ 100 mls/hr IV.SIG Q24H [facility] Rx#:[id number] KCl 20 mEq Premix Inj 20 meq In 100 / 100 100 / 100 100 ml @ 50 mls/hr IV.SIG ONCE ONE Rx#:[id number] Flagyl 500 MG Inj 100 ML @ 100 200 / 200 100 / 100 100 / 100 mls/hr IV.SIG Q8H [facility] Rx#: [id number] Tube Irrigant 240 / 240 120 / 120 Output: Urine 0 / 0 Hemodialysis Amount 500 / 500 1999 Other: Date of Last Bowel Movement 07/29/18 07/29/18 # Incontinent Bowel Movements 1 - Constitutional no acute distress - Routine HEENT Exam Head: Present: normocephalic - Routine Neck Exam Present: supple - Routine Respiratory Exam Present: CTA bilaterally - Routine Cardiovascular Exam Present: S1, S2, irregular rhythm - Routine Abdominal Exam Present: soft, distended - Routine Extremities Exam Present: edema - Urinary Catheter Management Indwelling Urethral Catheter Cath placed during this visit: yes Reason for continuing: Other continuation reason Insertion date: 07/16/18 Insertion time: 17:30 Assessment and Plan - Assessment (1) End stage renal disease Code(s): N18.6 - End stage renal disease Status: Acute (2) Acute hypercapnic respiratory failure Code(s): J96.02 - Acute respiratory failure with hypercapnia Status: Acute (3) Pneumonia Code(s): J18.9 - Pneumonia, unspecified organism Status: Acute (4) Encephalopathy Code(s): G93.40 - Encephalopathy, unspecified Status: Acute (5) Septic shock Code(s): A41.9 - Sepsis, unspecified organism; R65.21 - Severe sepsis with septic shock Status: Acute (6) Sepsis Code(s): A41.9 - Sepsis, unspecified organism Status: Acute - Plan Hemodialysis On Monday BP low and given fluids/albumin during HD Monday Abdominal pain, C. difficile positive ID following UTI Enterobacter He also has pneumonia on CT scan ET aspirate. Pseudomonas Intubated Monday BP somewhat low - on pressors now Stable with ventilator. Hemodialysis done 2 L removed He has abdominal distention and C. difficile positive ID is following Hypokalemia with potassium losses from bowel movements, anuric. K+ replacement ordered, Once stable and discharged , then follow-up with Dr. Dueñas
[2018-07-31] MEDS: Insulin NovoLIN Regular Correctional Sugar Inj SQ SCH ×4 (00:11→17:49)
[2018-07-31] MEDS: Sodium Bicarbonate 8.4% Inj 150 MEQ in Dextrose 5% in Water Inj 850 ML IV.CONT SCH ×8 (00:44→13:15)
[2018-07-31 04:38] LABS: Hematocrit 36.6 % (39.0-51.0); Hemoglobin 11.8 gm/dL (13.0-17.0); Mean Corpuscular HGB Conc 32.3 % (32.0-36.0); Mean Corpuscular Hemoglobin 26.4 pg (27.0-34.0); Mean Corpuscular Volume 81.7 fL (80.0-100.0); Mean Platelet Volume 8.3 fL (7.0-11.0); Platelet Count 102 th/mm3 (150-450); Red Blood Count 4.48 mil/mm3 (4.50-5.90); Red Cell Distribution Width 17.3 % (11.6-17.2); White Blood Count 9.4 th/mm3 (4.0-11.0)
[2018-07-31 05:06] LABS: Alkaline Phosphatase 76 U/L (45-117); Anion Gap 11 meq/L (5-15); Aspartate Aminotransferase 9 U/L (15-37); Blood Urea Nitrogen 25 mg/dL (7-18); Calcium 7.4 mg/dL (8.5-10.1); Carbon Dioxide 29.6 meq/L (21.0-32.0); Chloride 99 meq/L (98-107); Glomerular Filtration Rate 20 mL/min (>89); Glucose,Random 225 mg/dL (74-106); Magnesium 1.7 mg/dL (1.5-2.5); Phosphorus 1.5 mg/dL (2.5-4.9); Sodium 140 meq/L (136-145); Total Protein 5.5 g/dL (6.4-8.2)
[2018-07-31 05:11] LABS: Potassium 2.9 meq/L (3.5-5.1)
--- NOTE | 2018-07-31 05:31 | XR ---
EXAM DATE: 07/31/2018 5:12 AM EDT AGE/SEX: 57 years / Male INDICATIONS: Respiratory disease. CLINICAL DATA: This is the patient's subsequent encounter. Patient reports that signs and symptoms h ave been present for 3 days and indicates a pain score of Nonresponsive. MEDICAL/SURGICAL HISTORY: Non-responsive. Non-responsive. COMPARISON: C, CHEST 1V SINGLE AP, 07/27/2018. . FINDINGS: Portable AP view of the chest demonstrates a normal-sized cardiac silhouette. ETT, nasogastric tube, and right IJ line remain present without significant change in position. Left IJ distal tip is also i n stable position. Lungs are underinflated with bibasilar opacities, left slightly greater than right . No pneumothorax is identified. CONCLUSION: Improved aeration but continued bibasilar airspace opacity, left greater than right, which could be s econdary to atelectasis or consolidation. Electronically signed by: Ronan Grayson MD 07/31/2018 5:30 AM EDT
[2018-07-31] MEDS: Potassium Chlor 40 mEq Premix 40 MEQ/100 ML PIGGYBACK IV.SIG SCH ×2 (07:56→10:49)
[2018-07-31] MEDS: FLORASTOR 250 MG PO SCH (08:38)
[2018-07-31] MEDS: Lactobacillus Acidophilus/L. Spores Tablet PO SCH ×3 (08:38→17:43)
[2018-07-31] MEDS: Famotidine 20 MG Tablet PO SCH (08:38)
[2018-07-31] MEDS: Senna/Docusate Sodium 8.6/50 MG Tablet PO SCH ×2 (08:38→20:03)
[2018-07-31] MEDS: Midazolam 50 MG/50 ML Inj 50 MG/50 ML BAG IV.CONT PRN (10:52)
--- NOTE | 2018-07-31 10:55 | P.PNID ---
Subjective Remarks: Patient is a 57-year-old male, brought into the hospital after he was noted to have altered mental status, with decreased level of consciousness at the dialysis center. He apparently lost pulses and CPR was started with return of his pulses. EMS was called and at that time he was found to have pulses. He was noted to be confused. His blood sugars were okay. In the ED he was hypotensive, and was on Levophed briefly. He ended up getting intubated. CT of the abdomen and pelvis showed the known adrenal mass with slight increase in size. CT of the chest did not show any PE but it showed dense bibasilar consolidation. Patient stated that he was at [facility] about 5 months ago and at that time he had pneumonia. He went to a rehab facility and at the rehab he has not really been doing any ambulation. He gets transferred to a wheelchair. He has known COPD, and chronically on oxygen. Patient states he has a chronic cough and brings up some clear phlegm. He has not really noted any increase in his cough or change in the color of his sputum. He denies any chest pain. He was extubated yesterday, and currently denies any shortness of breath. He is on nasal O2 with good oxygen saturation. Patient denies any problem with nausea or vomiting, or any swallowing difficulty. He has not had any choking episodes. During his hospitalization at [facility], he had a PEG tube placed, but the patient stated that they have not been using the tube for nutrition, and he has been taking nutrition orally. Patient also had a history of right empyema back in 2010, requiring a right thoracotomy, decortication and pleurectomy, and a right lung wedge resection. Records mentioned that he has had problem with aspiration. Infectious disease consultation has been requested to assist with management of recurrent pneumonia. Notes reviewed D/W RN Patient required intubation this weekend Hypotensive requiring Levophed and Vasopressin Temps ok Not a lot of stool Sedated on the vent Previous PEG still putting out yellow fluid WBC better UC and PEg site C/S Alison albicans Sputum with MRSA BC negative Repeat CT with dilated sigmoid, collapsed colon Antibiotics: PO vancomycin Micafungin IV Flagyl IV vanco intermittent Meropenem Lines: Permacath RIJ Central line Past Medical History: Diabetes ESRD (end stage renal disease) on dialysis Empyema lung HTN (hypertension) Renal disease Status post thoracotomy Allergies/Adverse Reactions: Allergies heparin Allergy (Severe, Verified 07/16/18 13:23) Bleeding quetiapine [From Seroquel] Allergy (Intermediate, Verified 07/16/18 13:23) Shakiness cefuroxime Allergy (Verified 07/20/18 18:25) Rash Objective Vital Signs 07/30/18 11:30 07/30/18 12:00 07/30/18 14:00 Temperature 98 F Pulse Rate 89 93 H Respiratory Rate 18 14 Blood Pressure 104/65 Pulse Oximetry 100 99 07/30/18 15:39 07/30/18 16:00 07/30/18 18:00 Temperature 98.1 F Pulse Rate 78 78 90 Respiratory Rate 14 14 Blood Pressure 147/90 H Pulse Oximetry 100 99 07/30/18 19:18 07/30/18 20:00 07/30/18 22:00 Temperature 98.0 F Pulse Rate 85 82 82 Respiratory Rate 15 14 Blood Pressure 86/50 L Pulse Oximetry 98 95 07/31/18 00:00 07/31/18 02:00 07/31/18 03:34 Temperature 95.5 F L Pulse Rate 82 75 73 Respiratory Rate 14 14 Blood Pressure 136/82 Pulse Oximetry 99 98 07/31/18 04:00 07/31/18 06:00 07/31/18 07:39 Temperature 97.7 F Pulse Rate 80 89 Respiratory Rate 14 14 Blood Pressure 122/76 Pulse Oximetry 99 97 07/31/18 08:43 Temperature Pulse Rate 82 Respiratory Rate 14 Blood Pressure Pulse Oximetry Intake & Output 07/30/18 07/31/18 07/31/18 18:59 06:59 18:59 Intake Total 2440 / 2440 1445 / 1445 410 / 410 Output Total 2200 / 2200 0 / 0 Balance 240 / 240 1445 / 1445 410 / 410 Weight 111.2 kg Intake: IV 2360 / 2360 1360 / 1360 410 / 410 Cordarone Inj 450 MG In D5W Inj 250 / 250 250 / 250 241 ML @ 1 MG/MIN 33.33 mls/hr IV.CONT TITRATE PRN Rx#: [id number] Versed Inj 50 mg In 50 ml @ 2 20 / 20 50 / 50 MG/HR 2 mls/hr IV.CONT TITRATE PRN Rx#:[id number] Sodium Bicarbonate 8.4% Inj 150 1400 / 1400 600 / 600 150 / 150 MEQ In D5W Inj 850 ML @ 125 mls/hr IV.CONT .Q8H [facility] Rx#: [id number] Pitressin Inj 40 UNIT In D5W 90 / 90 10 / 10 Inj 98 ML @ 0.01 UNITS/MIN 1.5 mls/hr IV.CONT TITRATE PRN Rx#: [id number] Ofirmev Inj 1,000 mg In 100 ml 100 / 100 @ 400 mls/hr IV.SIG ONCE ONE Rx #:[id number] Diflucan 200 mg Premix Bag 100 100 / 100 100 / 100 ML @ 100 mls/hr IV.SIG Q24H [facility] Rx#:[id number] Merrem Inj 500 MG In NS Inj 100 100 / 100 100 / 100 ML @ 200 mls/hr IV.SIG Q12H [facility] Rx#:[id number] Levophed-Dextrose 4 mg/250 ml 250 / 250 Drip 4 mg In 250 ml @ 2 MCG/MIN 7.5 mls/hr IV.SIG TITRATE PRN Rx#:[id number] KCl 40 mEq Premix Inj 40 meq In 100 / 100 60 / 60 100 ml @ 25 mls/hr IV.SIG Q4H [facility] Rx#:[id number] Flagyl 500 MG Inj 100 ML @ 100 200 / 200 100 / 100 100 / 100 mls/hr IV.SIG Q8H [facility] Rx#: [id number] Tube Irrigant 80 / 80 85 / 85 Output: Urine 0 / 0 Hemodialysis Amount 1999 / 1999 Gastric Drainage 200 / 200 Left Nare Nasogastric Tube 200 / 200 Other: Date of Last Bowel Movement 07/30/18 07/30/18 # Incontinent Bowel Movements 1 07/27/18 16:00 Blood - Other Aerobic Blood Culture - Preliminary No growth in 3 days 07/27/18 16:00 Blood - Other Anaerobic Blood Culture - Preliminary No growth in 3 days 07/27/18 11:20 Blood - Peripheral Aerobic Blood Culture - Preliminary No growth in 3 days 07/27/18 11:20 Blood - Peripheral Anaerobic Blood Culture - Preliminary No growth in 3 days 07/27/18 11:20 Blood - Peripheral Blood Fungal Culture - Pending 07/27/18 11:20 Blood - Peripheral Blood Fungal Culture - Pending 07/27/18 11:25 Blood - Peripheral Aerobic Blood Culture - Preliminary No growth in 3 days 07/27/18 11:25 Blood - Peripheral Anaerobic Blood Culture - Preliminary No growth in 3 days 07/25/18 11:07 Blood - Peripheral Aerobic Blood Culture - Final No growth in 5 days 07/25/18 11:07 Blood - Peripheral Anaerobic Blood Culture - Final No growth in 5 days 07/25/18 11:12 Blood - Peripheral Aerobic Blood Culture - Final No growth in 5 days 07/25/18 11:12 Blood - Peripheral Anaerobic Blood Culture - Final No growth in 5 days 07/27/18 21:30 Wound - Abdominal Gram Stain - Final 07/27/18 21:30 Wound - Abdominal Wound Culture - Preliminary Alison albicans Staphylococcus aureus 07/27/18 21:30 Sputum - Expectorated Sputum Gram Stain - Final 07/27/18 21:30 Sputum - Expectorated Sputum Sputum Culture - Final S. aureus MRSA 07/27/18 11:20 Catheterized Urine Urine Culture - Final Alison albicans Lab - Hematology Results 07/30/18 07/31/18 05:40 04:25 WBC 12.9 H 9.4 RBC 4.70 4.48 L Hgb 12.2 L 11.8 L Hct 38.5 L 36.6 L MCV 82.0 81.7 MCH 26.0 L 26.4 L MCHC 31.7 L 32.3 RDW 17.2 17.3 H Plt Count 117 L 102 L MPV 8.2 8.3 Lab - Chemistry Results 07/29/18 07/29/18 07/29/18 12:15 16:25 16:53 Sodium Potassium 2.6 L* Chloride Carbon Dioxide Anion Gap BUN Creatinine Estimated GFR POC Glucose 294 H 252 H Random Glucose Calcium Prot Corrected Calcium Phosphorus Magnesium Total Bilirubin AST ALT Alkaline Phosphatase Total Protein Albumin 07/29/18 07/30/18 07/30/18 23:15 05:40 11:54 Sodium 136 Potassium 2.4 L* Chloride 95 L Carbon Dioxide 26.6 Anion Gap 14 BUN 36 H Creatinine 4.02 H Estimated GFR 15 L POC Glucose 266 H 156 H Random Glucose 257 H Calcium 7.5 L Prot Corrected Calcium Phosphorus 0.8 L Magnesium 1.7 Total Bilirubin 0.5 AST 11 L ALT 10 L Alkaline Phosphatase 80 Total Protein 5.7 L Albumin 2.2 L 07/30/18 07/30/18 07/31/18 17:31 22:55 00:07 Sodium Potassium 2.9 L* Chloride Carbon Dioxide Anion Gap BUN Creatinine Estimated GFR POC Glucose 206 H 226 H Random Glucose Calcium Prot Corrected Calcium Phosphorus Magnesium Total Bilirubin AST ALT Alkaline Phosphatase Total Protein Albumin 07/31/18 07/31/18 04:13 04:25 Sodium 140 Potassium 2.9 L* Chloride 99 Carbon Dioxide 29.6 Anion Gap 11 BUN 25 H Creatinine 3.16 H Estimated GFR 20 L POC Glucose 181 H Random Glucose 225 H Calcium 7.4 L* Prot Corrected Calcium 8.3 L Phosphorus 1.5 L Magnesium 1.7 Total Bilirubin 0.5 AST 9 L ALT Less than 6 L Alkaline Phosphatase 76 Total Protein 5.5 L Albumin 2.0 L Imaging: ITS Impressions Chest CTA 07/16/18 13:03 CONCLUSION: 1. No CT evidence for pulmonary artery embolism as questioned. 2. Dense bilateral lower lobe airspace consolidation with trace associated pleural effusions. Findings are concerning for aspiration. 3. Nonspecific right hilar and mediastinal nodes, as above. This may be reactive in etiology. 4. Probable 1.6 cm right adrenal mass that is incompletely imaged on this exam. Although indeterminate in density, this is unchanged from abdominal CT of 06/07/2011 and therefore likely benign. Head CT 07/17/18 00:00 CONCLUSION: 1. Atrophy. 2. Periventricular low attenuation change likely relating to chronic small vessel ischemic change. 3. Fluid throughout the nasal cavity and paranasal sinuses. . Barium Swallow X-Ray 07/20/18 00:00 CONCLUSION: Unremarkable barium swallow, however limited study since only frontal projection could be performed. Abdomen X-Ray 07/24/18 00:00 CONCLUSION: Apparent wall thickening involving the rectosigmoid colon and possibly the distal descending colon suggesting colitis. Clinical correlation is recommended. Head MRI 07/27/18 00:00 CONCLUSION: 1. No acute intracranial abnormality. 2. Atrophy. 3. Nonspecific periventricular demyelination. This could be from small vessel ischemic change. 4. Fluid in the sinuses. 5. Increased signal/fluid throughout the mastoid/temporal air cells. Abdomen/Pelvis CT 07/29/18 00:00 CONCLUSION: 1. Significant worsening of ascites since the prior exam. 2. Small left pleural effusion, moderate pericardial effusion and bibasilar consolidation worse on the left. 3. Distended sigmoid colon and slightly worse since the prior examination possibility of colitis should be entertained. The ascending colon and transverse colon are collapsed not adequately characterized. Chest X-Ray 07/31/18 06:00 CONCLUSION: Improved aeration but continued bibasilar airspace opacity, left greater than right, which could be secondary to atelectasis or consolidation. Physical Exam: GENERAL: On the ventilator. No distress. Sedated SKIN: Cool and dry. No generalized rash HEAD: Atraumatic. Normocephalic. No temporal wasting, or tenderness. EYES: [place] conjunctiva. No petechia or hemorrhage. No scleral icterus. No injection or drainage. EARS, NOSE AND THROAT: Nose without bleeding or purulent nasal discharge. NECK: Trachea midline. Supple and not tender, no meningeal signs CARDIOVASCULAR: Regular rate and rhythm. No murmurs, rubs or gallops heard RESPIRATORY: Slight basilar rhonchi. ABDOMEN: soft, no reaction to palpation, BS hypoactive. Previous PEG site with some output, no surrounding redness or induration EXTREMITIES: No clubbing, cyanosis, or edema. No calf tenderness. NEUROLOGICAL: Unable to assess. PSYCHIATRIC: Unable to assess. Patient is on the ventilator. LINE: No evidence of infection Assessment and Plan - Plan Impression Pneumonia, likely aspiration, has been on RX. MRSA. Respiratory failure, increasing SOB and O2 requirement - CXR stable infiltrates S/P respiratory failure and extubation - on presentation COPD, O2 dependent ESRD on HD MWF UTI, Enterobacter, on Rx C difficile colitis. Leukocytosis. Improved. Aliosn UTI. Recommendation Resume Merem to keep GNR coverage since he is still very hypotensive Change micafungin to Diflucan Continue po vanco and IV Flagyl for C diff Continue IV vanco for MRSA Monitor progress GI to reevaluate patient D/W Dr Barry ([facility]) D/W RN
--- NOTE | 2018-07-31 12:41 | P.PN ---
Subjective Interval history: He is on the vent and FIO2 at 40 %. Paracentesis being done. Sedated. Physical Exam Vital signs: Vital Signs 07/30/18 14:00 07/30/18 15:39 07/30/18 16:00 Temperature 98.1 F Pulse Rate 93 H 78 78 Respiratory Rate 14 14 Blood Pressure 147/90 H Pulse Oximetry 100 99 07/30/18 18:00 07/30/18 19:18 07/30/18 20:00 Temperature 98.0 F Pulse Rate 90 85 82 Respiratory Rate 15 14 Blood Pressure 86/50 L Pulse Oximetry 98 95 07/30/18 22:00 07/31/18 00:00 07/31/18 02:00 Temperature 95.5 F L Pulse Rate 82 82 75 Respiratory Rate 14 Blood Pressure 136/82 Pulse Oximetry 99 07/31/18 03:34 07/31/18 04:00 07/31/18 06:00 Temperature 97.7 F Pulse Rate 73 80 89 Respiratory Rate 14 14 Blood Pressure 122/76 Pulse Oximetry 98 99 07/31/18 07:39 07/31/18 08:43 07/31/18 11:08 Temperature Pulse Rate 82 Respiratory Rate 14 14 14 Blood Pressure Pulse Oximetry 97 99 Intake & Output 07/30/18 07/31/18 07/31/18 18:59 06:59 18:59 Intake Total 2440 / 2440 1445 / 1445 410 / 410 Output Total 2200 / 2200 0 / 0 Balance 240 / 240 1445 / 1445 410 / 410 Weight 111.2 kg Intake: IV 2360 / 2360 1360 / 1360 410 / 410 Cordarone Inj 450 MG In D5W Inj 250 / 250 250 / 250 241 ML @ 1 MG/MIN 33.33 mls/hr IV.CONT TITRATE PRN Rx#: [id number] Versed Inj 50 mg In 50 ml @ 2 20 / 20 50 / 50 MG/HR 2 mls/hr IV.CONT TITRATE PRN Rx#:[id number] Sodium Bicarbonate 8.4% Inj 150 1400 / 1400 600 / 600 150 / 150 MEQ In D5W Inj 850 ML @ 125 mls/hr IV.CONT .Q8H [facility] Rx#: [id number] Pitressin Inj 40 UNIT In D5W 90 / 90 10 / 10 Inj 98 ML @ 0.01 UNITS/MIN 1.5 mls/hr IV.CONT TITRATE PRN Rx#: [id number] Ofirmev Inj 1,000 mg In 100 ml 100 / 100 @ 400 mls/hr IV.SIG ONCE ONE Rx #:[id number] Diflucan 200 mg Premix Bag 100 100 / 100 100 / 100 ML @ 100 mls/hr IV.SIG Q24H [facility] Rx#:[id number] Merrem Inj 500 MG In NS Inj 100 100 / 100 100 / 100 ML @ 200 mls/hr IV.SIG Q12H [facility] Rx#:[id number] Levophed-Dextrose 4 mg/250 ml 250 / 250 Drip 4 mg In 250 ml @ 2 MCG/MIN 7.5 mls/hr IV.SIG TITRATE PRN Rx#:[id number] KCl 40 mEq Premix Inj 40 meq In 100 / 100 60 / 60 100 ml @ 25 mls/hr IV.SIG Q4H [facility] Rx#:[id number] Flagyl 500 MG Inj 100 ML @ 100 200 / 200 100 / 100 100 / 100 mls/hr IV.SIG Q8H [facility] Rx#: [id number] Tube Irrigant 80 / 80 85 / 85 Output: Urine 0 / 0 Hemodialysis Amount 1999 Gastric Drainage 200 / 200 Left Nare Nasogastric Tube 200 / 200 Other: Date of Last Bowel Movement 07/30/18 07/30/18 # Incontinent Bowel Movements 1 Narrative: GENERAL:Intubated and on the Vent, Assists the vent. HEAD: Normocephalic. NECK: Supple, trachea midline. No lymphadenopathy.ET Tube EYES: No scleral icterus. No injection or drainage. CARDIOVASCULAR: Regular rate and rhythm without murmurs, gallops, or rubs. RESPIRATORY: Breath sounds equal bilaterally. Bilateral wheeze.Crackles at bases GASTROINTESTINAL: Abdomen soft, distended. Ascites + MUSCULOSKELETAL: No cyanosis, and 1 + edema. SKIN: Cool and dry. NEURO: Sedated - Urinary Catheter Management Indwelling Urethral Catheter Cath placed during this visit: yes Reason for continuing: Other continuation reason Insertion date: 07/16/18 Insertion time: 17:30 Results - Labs CBC & Chem 7: 07/31/18 04:25 07/31/18 04:25 Laboratory Results - last 24 hr 07/30/18 07/30/18 07/30/18 12:38 17:31 22:55 WBC RBC Hgb Hct MCV MCH MCHC RDW Plt Count MPV Puncture Site Art line Patient Temperature 98.6 O2 Saturation 97 ABG pH 7.58 H* ABG pCO2 27 L ABG pO2 122 H ABG HCO3 26 ABG O2 Content 17.2 ABG Base Excess 3.4 H ABG Methemoglobin 1.1 Hemoglobin 12.6 Carboxyhemoglobin 1.2 O2 Delivery Device Ventilator Vent Setting Prvc/ac Inspired O2 40 Critical Value Yes Sodium Potassium 2.9 L* Chloride Carbon Dioxide Anion Gap BUN Creatinine Estimated GFR POC Glucose 206 H Random Glucose Calcium Prot Corrected Calcium Phosphorus Magnesium Total Bilirubin AST ALT Alkaline Phosphatase Total Protein Albumin 07/31/18 07/31/18 07/31/18 00:07 04:13 04:25 WBC 9.4 RBC 4.48 L Hgb 11.8 L Hct 36.6 L MCV 81.7 MCH 26.4 L MCHC 32.3 RDW 17.3 H Plt Count 102 L MPV 8.3 Puncture Site Patient Temperature O2 Saturation ABG pH ABG pCO2 ABG pO2 ABG HCO3 ABG O2 Content ABG Base Excess ABG Methemoglobin Hemoglobin Carboxyhemoglobin O2 Delivery Device Vent Setting Inspired O2 Critical Value Sodium Potassium Chloride Carbon Dioxide Anion Gap BUN Creatinine Estimated GFR POC Glucose 226 H 181 H Random Glucose Calcium Prot Corrected Calcium Phosphorus Magnesium Total Bilirubin AST ALT Alkaline Phosphatase Total Protein Albumin 07/31/18 04:25 WBC RBC Hgb Hct MCV MCH MCHC RDW Plt Count MPV Puncture Site Patient Temperature O2 Saturation ABG pH ABG pCO2 ABG pO2 ABG HCO3 ABG O2 Content ABG Base Excess ABG Methemoglobin Hemoglobin Carboxyhemoglobin O2 Delivery Device Vent Setting Inspired O2 Critical Value Sodium 140 Potassium 2.9 L* Chloride 99 Carbon Dioxide 29.6 Anion Gap 11 BUN 25 H Creatinine 3.16 H Estimated GFR 20 L POC Glucose Random Glucose 225 H Calcium 7.4 L* Prot Corrected Calcium 8.3 L Phosphorus 1.5 L Magnesium 1.7 Total Bilirubin 0.5 AST 9 L ALT Less than 6 L Alkaline Phosphatase 76 Total Protein 5.5 L Albumin 2.0 L Microbiology 07/27/18 21:30 Wound - Abdominal Gram Stain - Final 07/27/18 21:30 Wound - Abdominal Wound Culture - Final Alison albicans S. aureus MRSA 07/27/18 16:00 Blood - Other Aerobic Blood Culture - Preliminary No growth in 4 days 07/27/18 16:00 Blood - Other Anaerobic Blood Culture - Preliminary No growth in 4 days 07/27/18 11:20 Blood - Peripheral Aerobic Blood Culture - Preliminary No growth in 4 days 07/27/18 11:20 Blood - Peripheral Anaerobic Blood Culture - Preliminary No growth in 4 days 07/27/18 11:25 Blood - Peripheral Aerobic Blood Culture - Preliminary No growth in 4 days 07/27/18 11:25 Blood - Peripheral Anaerobic Blood Culture - Preliminary No growth in 4 days 07/25/18 11:07 Blood - Peripheral Aerobic Blood Culture - Final No growth in 5 days 07/25/18 11:07 Blood - Peripheral Anaerobic Blood Culture - Final No growth in 5 days 07/25/18 11:12 Blood - Peripheral Aerobic Blood Culture - Final No growth in 5 days 07/25/18 11:12 Blood - Peripheral Anaerobic Blood Culture - Final No growth in 5 days - Imaging Impressions Chest X-Ray 07/31/18 06:00 CONCLUSION: Improved aeration but continued bibasilar airspace opacity, left greater than right, which could be secondary to atelectasis or consolidation. Assessment and Plan - Assessment (1) Aspiration pneumonia Code(s): J69.0 - Pneumonitis due to inhalation of food and vomit Status: Acute (2) Acute hypercapnic respiratory failure Code(s): J96.02 - Acute respiratory failure with hypercapnia Status: Acute (3) Sepsis Code(s): A41.9 - Sepsis, unspecified organism Status: Acute (4) Pneumonia Code(s): J18.9 - Pneumonia, unspecified organism Status: Acute (5) Encephalopathy Code(s): G93.40 - Encephalopathy, unspecified Status: Acute (6) Septic shock Code(s): A41.9 - Sepsis, unspecified organism; R65.21 - Severe sepsis with septic shock Status: Acute (7) Acute metabolic encephalopathy Code(s): G93.41 - Metabolic encephalopathy Status: Acute (8) End stage renal disease Code(s): N18.6 - End stage renal disease Status: Acute (9) Diarrhea Code(s): R19.7 - Diarrhea, unspecified Status: Acute (10) Septic shock due to Clostridium difficile Status: Acute - Plan 1. Continue antibiotics per ID 2. Cont Vent support and wean Vent rates and FIO2 3. Cont Duoneb nebs qid. 4. Paracentesis per DR Ferraro 5. Continue to wean pressors. 6. Dialysis as planned 7. CBC,BMP in am 8. CXR in am
--- NOTE | 2018-07-31 12:52 | P.PCN ---
Date of procedure: 07/31/18 Pre-op diagnosis: Ascitic fluid Post-op diagnosis: same Procedure: US guided paracentesis CONSENT: Consent was obtained from FAMILY prior to the procedure. Indications, risks, and benefits were explained at length. PROCEDURE SUMMARY: A time-out was performed. My hands were washed immediately prior to the procedure. I wore a surgical cap, mask with protective eyewear, sterile gown and sterile gloves throughout the procedure. The area was cleansed and draped in usual sterile fashion using chlorhexidine scrub. Anesthesia was achieved with 1% lidocaine. The llq of the abdomen was prepped and draped in a sterile fashion using chlorhexidine scrub after site was confirmed with US. 1% lidocaine was used to numb the skin, soft tissue and peritoneum. The paracentesis catheter was inserted and advanced with negative pressure until dark straw-colored fluid was aspirated. Approximately 60 mL of ascitic fluid was collected and sent for laboratory analysis. The catheter was then connected to the vaccutainer and 3.2 liters of additional ascitic fluid were drained. The catheter was removed and no leaking was noted. A bandaid was placed over the puncture wound. The patient tolerated the procedure well without any immediate complications. Estimated blood loss was <1 ml. Anesthesia: local Surgeon: Arely Ferraro Estimated blood loss (mL): 1 Pathology: other Condition: critical Disposition: ICU (Fluid studies and culture sent)
[2018-07-31 13:22] LABS: Total Protein 5.5 g/dL (6.4-8.2)
[2018-07-31 13:32] LABS: Glucose,Peritoneal Fluid 211 mg/dL; LDH,Peritoneal Fluid 157 U/L
[2018-07-31 13:33] LABS: Total Protein,Peritoneal Fluid 3.5 gm/dL
--- NOTE | 2018-07-31 13:41 | P.PNCC ---
Subjective Subjective Remarks/Hospital Course: Patient is a 57-year-old male with past medical history of end-stage renal disease on hemodialysis, , COPD on home oxygen, hypertension, diabetes type 2, who was brought to the emergency department for altered mental status. He was altered at the dialysis center and apparently during dialysis he lost pulses and CPR was started. By time EMS arrived patient did have pulses. He was confused for EMS. ER workup showed that patient has a white count of 16.7 with left shift indicating sepsis. Patient remained hypotensive after fluid resuscitation and hence was started on Levophed by the ED physician. CT abdomen pelvis showed a previously known adrenal mass slightly increased in size compared to [address] pulmonary angiogram was negative for PE, however showed dense bibasilar consolidation/pneumonia which could be the source of sepsis. Received vancomycin and Zosyn in the ED. ABG prior to intubation in the ED showed severe hypercapnic respiratory failure with a pH of 7.05, PCO2 of 93. I evaluated the patient after arrival to the [facility]. He is intubated critically ill-appearing sedated. On lightening sedation he is able to move all 4 extremities. His source of sepsis most likely is pneumonia. Wong cultures have been sent. His altered mentation is most likely secondary to sepsis and hypercapnia, will check CT of the head to rule out any acute events. 07/17: No events over the night. Since ICU admission patient did not require any vasopressor. Oxygenation is down to 40%. Sedation is achieved with propofol, which is decreased to 20. Patient is arousable, following commands appropriately. Daughter is present at bedside. T-max of 99.6. RECONSULT NOTE 07/27: reconsulted for rapid response from floor. patient with ESRD and c. diff colitis, now with rising wbc, altered mentation, hypotension despite ivf resuscitation. abg with mixed resp/met acidosis, uncompensated. intermittently has periods of syncope. when arousable, patient refusing intubation at this time , saying "I know when I need a tube, and I don't need a tube right now." placed on norepinephrine for vasopressor support and end-organ perfusion. 07/28: Intubated and placed on mech ventilation last night. On levophed/ amio/ versed/ fentanyl gtt. Bicarb drip decreased to 40cc/hr. 07/29: Remains sedated, orally intubated on mech vent. OGT coming out of PEG site so pulled back and ordered CT Abd with oral contrast for further evaluation. 07/30: Remains intubated sedated and septic. Currently remains on Levophed and vasopressin. CT abdomen pelvis showed significant worsening of ascites since the prior exam, small pl and moderate pericardial effusion and bibasilar consolidation worse on the left. Also distended sigmoid colon and slightly worse since the prior examination possibility of colitis. Ascending colon and transverse colon are collapsed. D/W Dr. Ma, will resume gram negative coverage. GI consult is pending at this time 07/31: Remains on Levophed 1 mcg/min and vasopressin at 0.04 international units, more alert though follows commands on sedation hold. Bedside ultrasound consistently showed large ascites. Paracentesis was performed and approximately 3.2 L of fluid removed. WBC count improving though patient remains critically ill, showing some signs of improvement. PEG site culture growing Alison and MRSA Objective Vital Signs / I&O: Vital Signs 07/30/18 14:00 07/30/18 15:39 07/30/18 16:00 Temperature 98.1 F Pulse Rate 93 H 78 78 Respiratory Rate 14 14 Blood Pressure 147/90 H Pulse Oximetry 100 99 07/30/18 18:00 07/30/18 19:18 07/30/18 20:00 Temperature 98.0 F Pulse Rate 90 85 82 Respiratory Rate 15 14 Blood Pressure 86/50 L Pulse Oximetry 98 95 07/30/18 22:00 07/31/18 00:00 07/31/18 02:00 Temperature 95.5 F L Pulse Rate 82 82 75 Respiratory Rate 14 Blood Pressure 136/82 Pulse Oximetry 99 07/31/18 03:34 07/31/18 04:00 07/31/18 06:00 Temperature 97.7 F Pulse Rate 73 80 89 Respiratory Rate 14 14 Blood Pressure 122/76 Pulse Oximetry 98 99 07/31/18 07:39 07/31/18 08:43 07/31/18 11:08 Temperature Pulse Rate 82 Respiratory Rate 14 14 14 Blood Pressure Pulse Oximetry 97 99 Intake & Output 07/30/18 07/31/18 07/31/18 18:59 06:59 18:59 Intake Total 2440 / 2440 1445 / 1445 525 / 525 Output Total 2200 / 2200 0 / 0 Balance 240 / 240 1445 / 1445 525 / 525 Weight 111.2 kg Intake: IV 2360 / 2360 1360 / 1360 525 / 525 Cordarone Inj 450 MG In D5W Inj 250 / 250 250 / 250 241 ML @ 1 MG/MIN 33.33 mls/hr IV.CONT TITRATE PRN Rx#: [id number] Versed Inj 50 mg In 50 ml @ 2 20 / 20 50 / 50 15 / 15 MG/HR 2 mls/hr IV.CONT TITRATE PRN Rx#:[id number] Sodium Bicarbonate 8.4% Inj 150 1400 / 1400 600 / 600 150 / 150 MEQ In D5W Inj 850 ML @ 125 mls/hr IV.CONT .Q8H [facility] Rx#: [id number] Pitressin Inj 40 UNIT In D5W 90 / 90 10 / 10 Inj 98 ML @ 0.01 UNITS/MIN 1.5 mls/hr IV.CONT TITRATE PRN Rx#: [id number] Ofirmev Inj 1,000 mg In 100 ml 100 / 100 @ 400 mls/hr IV.SIG ONCE ONE Rx #:[id number] Diflucan 200 mg Premix Bag 100 100 / 100 100 / 100 ML @ 100 mls/hr IV.SIG Q24H [facility] Rx#:[id number] Merrem Inj 500 MG In NS Inj 100 100 / 100 100 / 100 100 / 100 ML @ 200 mls/hr IV.SIG Q12H [facility] Rx#:[id number] Levophed-Dextrose 4 mg/250 ml 250 / 250 Drip 4 mg In 250 ml @ 2 MCG/MIN 7.5 mls/hr IV.SIG TITRATE PRN Rx#:[id number] KCl 40 mEq Premix Inj 40 meq In 100 / 100 60 / 60 100 ml @ 25 mls/hr IV.SIG Q4H [facility] Rx#:[id number] Flagyl 500 MG Inj 100 ML @ 100 200 / 200 100 / 100 100 / 100 mls/hr IV.SIG Q8H [facility] Rx#: [id number] Tube Irrigant 80 / 80 85 / 85 Output: Urine 0 / 0 Hemodialysis Amount 1999 Gastric Drainage 200 / 200 Left Nare Nasogastric Tube 200 / 200 Other: Date of Last Bowel Movement 07/30/18 07/30/18 # Incontinent Bowel Movements 1 Result Diagrams: 07/31/18 04:25 07/31/18 04:25 Objective Remarks: General - elderly gentleman, lying in bed. Intubated sedated HEENT - pupils equal, reactive, sclerae anicteric, neck supple, no nuchal rigidity CV - Irregularly irregular rhythm. appears afib by tele. No murmurs. Currently on Levophed and vasopressin Chest - orally intubated on mech vent, coarse breath sounds b/l, good air entry , bilateral mild expiratory wheezing. Abdomen - soft, non-tender, distended, no hepatomegaly, no splenomegaly, no guarding. Previous PEG tube site without significant discharge. Moderate to large ascites Extremities - warm and well perfused, trace edema, + peripheral pulses, no clubbing Neuro -Sedated, orally intubated on mech vent. On lightening sedation moves all extremities, following commands Assessment and Plan - Problem List (1) Septic shock Code(s): A41.9 - Sepsis, unspecified organism; R65.21 - Severe sepsis with septic shock Status: Acute (2) Acute metabolic encephalopathy Code(s): G93.41 - Metabolic encephalopathy Status: Acute (3) Acute hypercapnic respiratory failure Code(s): J96.02 - Acute respiratory failure with hypercapnia Status: Acute (4) Pneumonia Code(s): J18.9 - Pneumonia, unspecified organism Status: Acute - Assessment and Plan Plan: Assessment: 57yM with ESRD and now with worsening septic shock. now intubated on vasopressors. Plan by systems: Neurologic: Acute encephalopathy Secondary to sepsis, improving EEG-showing diffuse encephalopathy, MRI-no acute findings frequent neuro checks Daily sedation medication Respiratory: Acute hypoxic and hypercarbic respiratory failure Continue [facility] ventilation, vent bundle. nebs, hob elevated. DuoNeb every 6 hours scheduled and as needed 07/27 sputum culture growing MRSA Start weaning trials Cardiovascular: Septic Shock Atrial fibrillation Pericardial effusion norepinephrine/ vasopressin for goal map > 65mmHg HD to keep in even fluid balance. Repeat Echo to evaluate pericardial effusion rule out tamponade-small pericardial effusion no tamponade physiology On anticoagulation Renal: End-stage renal disease - Strict I/Os - nephrology following - Hemodialysis per renal. FEN/GI: Acute protein calorie malnutrition- severe Severe hypokalemia Acute metabolic acidosis CT abd pelvis-distended thick sigmoid colon with collapsed ascending and transverse colon Significant ascites s/p paracentesis and a 3.2 L fluid removal today GI reconsulted for OGT coming out of PEG site for possibly replacing PEG-Full Consult is pending at this time prn zofran correct electrolytes, replace K Heme/ID: Septic Shock C. Difficile colitis, PEG site infection ID following. wbc downtrending Merem to keep GNR. Continue Diflucan Continue po vanco and IV Flagyl for C diff Continue IV vanco for MRSA Endocrine: -SSI Prophylaxis: GI Prophylaxis Protonix DVT Prophylaxis -SCDs Eliquis Lines: right IJ vascath- keep for dialysis access Central line placed 07/28 critical care time: 35 minutes, exclusive of separately billable procedures Code Status: Full
[2018-07-31 14:01] LABS: Neutrophils,Peritoneal Fluid 95 %
[2018-07-31 14:02] LABS: RBC,Peritoneal Fluid 9762 /mm3 (0-0)
--- NOTE | 2018-07-31 14:14 | P.PNID ---
Subjective Remarks: Patient is a 57-year-old male, brought into the hospital after he was noted to have altered mental status, with decreased level of consciousness at the dialysis center. He apparently lost pulses and CPR was started with return of his pulses. EMS was called and at that time he was found to have pulses. He was noted to be confused. His blood sugars were okay. In the ED he was hypotensive, and was on Levophed briefly. He ended up getting intubated. CT of the abdomen and pelvis showed the known adrenal mass with slight increase in size. CT of the chest did not show any PE but it showed dense bibasilar consolidation. Patient stated that he was at [facility] about 5 months ago and at that time he had pneumonia. He went to a rehab facility and at the rehab he has not really been doing any ambulation. He gets transferred to a wheelchair. He has known COPD, and chronically on oxygen. Patient states he has a chronic cough and brings up some clear phlegm. He has not really noted any increase in his cough or change in the color of his sputum. He denies any chest pain. He was extubated yesterday, and currently denies any shortness of breath. He is on nasal O2 with good oxygen saturation. Patient denies any problem with nausea or vomiting, or any swallowing difficulty. He has not had any choking episodes. During his hospitalization at [facility], he had a PEG tube placed, but the patient stated that they have not been using the tube for nutrition, and he has been taking nutrition orally. Patient also had a history of right empyema back in 2010, requiring a right thoracotomy, decortication and pleurectomy, and a right lung wedge resection. Records mentioned that he has had problem with aspiration. Infectious disease consultation has been requested to assist with management of recurrent pneumonia. Notes reviewed D/W RN On the vent, awake Remains on Levophed and Vasopressin Had paracentesis today - took out >3L fluid - 1467 WBC, 95% neutrophils, 3.5 protein Temps ok Not a lot of stool NGT to LIWS WBC better UC Larissa albicans PEG site Larissa and MRSA Sputum with MRSA BC negative Repeat CT with dilated sigmoid, collapsed colon Antibiotics: PO vancomycin Diflucan IV Flagyl IV vanco intermittent Meropenem Lines: Permacath RIJ Central line Past Medical History: Diabetes ESRD (end stage renal disease) on dialysis Empyema lung HTN (hypertension) Renal disease Status post thoracotomy Allergies/Adverse Reactions: Allergies heparin Allergy (Severe, Verified 07/16/18 13:23) Bleeding quetiapine [From Seroquel] Allergy (Intermediate, Verified 07/16/18 13:23) Shakiness cefuroxime Allergy (Verified 07/20/18 18:25) Rash Objective Vital Signs 07/30/18 15:39 07/30/18 16:00 07/30/18 18:00 Temperature 98.1 F Pulse Rate 78 78 90 Respiratory Rate 14 14 Blood Pressure 147/90 H Pulse Oximetry 100 99 07/30/18 19:18 07/30/18 20:00 07/30/18 22:00 Temperature 98.0 F Pulse Rate 85 82 82 Respiratory Rate 15 14 Blood Pressure 86/50 L Pulse Oximetry 98 95 07/31/18 00:00 07/31/18 02:00 07/31/18 03:34 Temperature 95.5 F L Pulse Rate 82 75 73 Respiratory Rate 14 14 Blood Pressure 136/82 Pulse Oximetry 99 98 07/31/18 04:00 07/31/18 06:00 07/31/18 07:39 Temperature 97.7 F Pulse Rate 80 89 Respiratory Rate 14 14 Blood Pressure 122/76 Pulse Oximetry 99 97 07/31/18 08:43 07/31/18 11:08 Temperature Pulse Rate 82 Respiratory Rate 14 14 Blood Pressure Pulse Oximetry 99 Intake & Output 07/30/18 07/31/18 07/31/18 18:59 06:59 18:59 Intake Total 2440 / 2440 1445 / 1445 525 / 525 Output Total 2200 / 2200 0 / 0 Balance 240 / 240 1445 / 1445 525 / 525 Weight 111.2 kg Intake: IV 2360 / 2360 1360 / 1360 525 / 525 Cordarone Inj 450 MG In D5W Inj 250 / 250 250 / 250 241 ML @ 1 MG/MIN 33.33 mls/hr IV.CONT TITRATE PRN Rx#: [id number] Versed Inj 50 mg In 50 ml @ 2 20 / 20 50 / 50 15 / 15 MG/HR 2 mls/hr IV.CONT TITRATE PRN Rx#:[id number] Sodium Bicarbonate 8.4% Inj 150 1400 / 1400 600 / 600 150 / 150 MEQ In D5W Inj 850 ML @ 125 mls/hr IV.CONT .Q8H [facility] Rx#: [id number] Pitressin Inj 40 UNIT In D5W 90 / 90 10 / 10 Inj 98 ML @ 0.01 UNITS/MIN 1.5 mls/hr IV.CONT TITRATE PRN Rx#: [id number] Ofirmev Inj 1,000 mg In 100 ml 100 / 100 @ 400 mls/hr IV.SIG ONCE ONE Rx #:[id number] Diflucan 200 mg Premix Bag 100 100 / 100 100 / 100 ML @ 100 mls/hr IV.SIG Q24H [facility] Rx#:[id number] Merrem Inj 500 MG In NS Inj 100 100 / 100 100 / 100 100 / 100 ML @ 200 mls/hr IV.SIG Q12H [facility] Rx#:[id number] Levophed-Dextrose 4 mg/250 ml 250 / 250 Drip 4 mg In 250 ml @ 2 MCG/MIN 7.5 mls/hr IV.SIG TITRATE PRN Rx#:[id number] KCl 40 mEq Premix Inj 40 meq In 100 / 100 60 / 60 100 ml @ 25 mls/hr IV.SIG Q4H [facility] Rx#:[id number] Flagyl 500 MG Inj 100 ML @ 100 200 / 200 100 / 100 100 / 100 mls/hr IV.SIG Q8H [facility] Rx#: [id number] Tube Irrigant 80 / 80 85 / 85 Output: Urine 0 / 0 Hemodialysis Amount 1999 Gastric Drainage 200 / 200 Left Nare Nasogastric Tube 200 / 200 Other: Date of Last Bowel Movement 07/30/18 07/30/18 # Incontinent Bowel Movements 1 07/31/18 12:45 Fluid - Peritoneal fluid Gram Stain - Pending 07/31/18 12:45 Fluid - Peritoneal fluid Body Fluid Culture - Pending 07/31/18 12:45 Fluid - Ascites Fluid Fungal Smear - Pending 07/31/18 12:45 Fluid - Ascites Fluid Fungal Culture - Pending 07/27/18 21:30 Wound - Abdominal Gram Stain - Final 07/27/18 21:30 Wound - Abdominal Wound Culture - Final Larissa albicans S. aureus MRSA 07/27/18 16:00 Blood - Other Aerobic Blood Culture - Preliminary No growth in 4 days 07/27/18 16:00 Blood - Other Anaerobic Blood Culture - Preliminary No growth in 4 days 07/27/18 11:20 Blood - Peripheral Aerobic Blood Culture - Preliminary No growth in 4 days 07/27/18 11:20 Blood - Peripheral Anaerobic Blood Culture - Preliminary No growth in 4 days 07/27/18 11:20 Blood - Peripheral Blood Fungal Culture - Pending 07/27/18 11:20 Blood - Peripheral Blood Fungal Culture - Pending 07/27/18 11:25 Blood - Peripheral Aerobic Blood Culture - Preliminary No growth in 4 days 07/27/18 11:25 Blood - Peripheral Anaerobic Blood Culture - Preliminary No growth in 4 days 07/25/18 11:07 Blood - Peripheral Aerobic Blood Culture - Final No growth in 5 days 07/25/18 11:07 Blood - Peripheral Anaerobic Blood Culture - Final No growth in 5 days 07/25/18 11:12 Blood - Peripheral Aerobic Blood Culture - Final No growth in 5 days 07/25/18 11:12 Blood - Peripheral Anaerobic Blood Culture - Final No growth in 5 days 07/27/18 21:30 Sputum - Expectorated Sputum Gram Stain - Final 07/27/18 21:30 Sputum - Expectorated Sputum Sputum Culture - Final S. aureus MRSA 07/27/18 11:20 Catheterized Urine Urine Culture - Final Larissa albicans Lab - Hematology Results 07/30/18 07/31/18 05:40 04:25 WBC 12.9 H 9.4 RBC 4.70 4.48 L Hgb 12.2 L 11.8 L Hct 38.5 L 36.6 L MCV 82.0 81.7 MCH 26.0 L 26.4 L MCHC 31.7 L 32.3 RDW 17.2 17.3 H Plt Count 117 L 102 L MPV 8.2 8.3 Lab - Chemistry Results 07/29/18 07/29/18 07/29/18 16:25 16:53 23:15 Sodium Potassium 2.6 L* Chloride Carbon Dioxide Anion Gap BUN Creatinine Estimated GFR POC Glucose 252 H 266 H Random Glucose Calcium Prot Corrected Calcium Phosphorus Magnesium Total Bilirubin AST ALT Alkaline Phosphatase Lactate Dehydrogenase Total Protein Albumin 07/30/18 07/30/18 07/30/18 05:40 11:54 17:31 Sodium 136 Potassium 2.4 L* Chloride 95 L Carbon Dioxide 26.6 Anion Gap 14 BUN 36 H Creatinine 4.02 H Estimated GFR 15 L POC Glucose 156 H 206 H Random Glucose 257 H Calcium 7.5 L Prot Corrected Calcium Phosphorus 0.8 L Magnesium 1.7 Total Bilirubin 0.5 AST 11 L ALT 10 L Alkaline Phosphatase 80 Lactate Dehydrogenase Total Protein 5.7 L Albumin 2.2 L 07/30/18 07/31/18 07/31/18 22:55 00:07 04:13 Sodium Potassium 2.9 L* Chloride Carbon Dioxide Anion Gap BUN Creatinine Estimated GFR POC Glucose 226 H 181 H Random Glucose Calcium Prot Corrected Calcium Phosphorus Magnesium Total Bilirubin AST ALT Alkaline Phosphatase Lactate Dehydrogenase Total Protein Albumin 07/31/18 07/31/18 07/31/18 04:25 04:25 12:45 Sodium 140 Potassium 2.9 L* Chloride 99 Carbon Dioxide 29.6 Anion Gap 11 BUN 25 H Creatinine 3.16 H Estimated GFR 20 L POC Glucose 194 H Random Glucose 225 H Calcium 7.4 L* Prot Corrected Calcium 8.3 L Phosphorus 1.5 L Magnesium 1.7 Total Bilirubin 0.5 AST 9 L ALT Less than 6 L Alkaline Phosphatase 76 Lactate Dehydrogenase 145 Total Protein 5.5 L 5.5 L Albumin 2.0 L Imaging: ITS Impressions Chest CTA 07/16/18 13:03 CONCLUSION: 1. No CT evidence for pulmonary artery embolism as questioned. 2. Dense bilateral lower lobe airspace consolidation with trace associated pleural effusions. Findings are concerning for aspiration. 3. Nonspecific right hilar and mediastinal nodes, as above. This may be reactive in etiology. 4. Probable 1.6 cm right adrenal mass that is incompletely imaged on this exam. Although indeterminate in density, this is unchanged from abdominal CT of 06/07/2011 and therefore likely benign. Head CT 07/17/18 00:00 CONCLUSION: 1. Atrophy. 2. Periventricular low attenuation change likely relating to chronic small vessel ischemic change. 3. Fluid throughout the nasal cavity and paranasal sinuses. . Barium Swallow X-Ray 07/20/18 00:00 CONCLUSION: Unremarkable barium swallow, however limited study since only frontal projection could be performed. Abdomen X-Ray 07/24/18 00:00 CONCLUSION: Apparent wall thickening involving the rectosigmoid colon and possibly the distal descending colon suggesting colitis. Clinical correlation is recommended. Head MRI 07/27/18 00:00 CONCLUSION: 1. No acute intracranial abnormality. 2. Atrophy. 3. Nonspecific periventricular demyelination. This could be from small vessel ischemic change. 4. Fluid in the sinuses. 5. Increased signal/fluid throughout the mastoid/temporal air cells. Abdomen/Pelvis CT 07/29/18 00:00 CONCLUSION: 1. Significant worsening of ascites since the prior exam. 2. Small left pleural effusion, moderate pericardial effusion and bibasilar consolidation worse on the left. 3. Distended sigmoid colon and slightly worse since the prior examination possibility of colitis should be entertained. The ascending colon and transverse colon are collapsed not adequately characterized. Chest X-Ray 07/31/18 06:00 CONCLUSION: Improved aeration but continued bibasilar airspace opacity, left greater than right, which could be secondary to atelectasis or consolidation. Physical Exam: GENERAL: On the ventilator. No distress. Opens eyes when stimulated SKIN: Cool and dry. No generalized rash HEAD: Atraumatic. Normocephalic. No temporal wasting, or tenderness. EYES: [place] conjunctiva. No petechia or hemorrhage. No scleral icterus. No injection or drainage. EARS, NOSE AND THROAT: Nose without bleeding or purulent nasal discharge. NECK: Trachea midline. Supple and not tender, no meningeal signs CARDIOVASCULAR: Regular rate and rhythm. No murmurs, rubs or gallops heard RESPIRATORY: Slight basilar rhonchi. ABDOMEN: soft, not tender, BS hypoactive. No guarding, no rebound Previous PEG site with some output, no surrounding redness or induration EXTREMITIES: No clubbing, cyanosis, or edema. No calf tenderness. NEUROLOGICAL: Eyes open PSYCHIATRIC: Unable to assess. LINE: No evidence of infection Assessment and Plan - Plan Impression Pneumonia, likely aspiration, has been on RX. MRSA. Respiratory failure, increasing SOB and O2 requirement - CXR stable infiltrates S/P respiratory failure and extubation - on presentation COPD, O2 dependent ESRD on HD MWF UTI, Enterobacter, on Rx C difficile colitis. Leukocytosis. Improved. Larissa UTI. Ascites, elevated WBC, exudative, no peritoneal sign on exam Recommendation Continue Merem to keep GNR coverage since he is still very hypotensive Continue Diflucan Continue po vanco and IV Flagyl for C diff Continue IV vanco for MRSA Monitor progress Follow new C/S D/W RN
--- NOTE | 2018-07-31 15:00 | XR ---
EXAM DATE: 07/31/2018 2:56 PM EDT AGE/SEX: 57 years / Male INDICATIONS: Sigmoid colon distention. CLINICAL DATA: This is the patient's initial encounter. Patient reports that signs and symptoms have been present for 3 weeks and indicates a pain score of Nonresponsive. MEDICAL/SURGICAL HISTORY: Diabetes. Hypertension. Renal disease, end stage. Dialysis. Empyem a. A-fib. . Thoracotomy. [place] [facility] [place]. . FINDINGS: Supine and upright views of the abdomen were performed. The abdominal bowel gas pattern is grossly wi thin normal limits. There is some air-filled transverse colon which does not appear to be significant ly dilated. No definite dilatation of the sigmoid colon is demonstrated. No definite dilatation of th e small bowel is demonstrated. There is an NG tube in the stomach. The bony structures are stable com pared to the prior exam.. No definite calcifications overlying the kidneys. CONCLUSION: 1. The bowel gas pattern is grossly within normal limits. There is some air in the transverse colon which is nondistended. 2. Benign appearing abdomen. 3. NG tube in stomach. Electronically signed by: Eric Nelson MD 07/31/2018 2:58 PM EDT
[2018-07-31] MEDS: Vasopressin Inj 40 UNIT in Dextrose 5% in Water Inj 98 ML IV.CONT PRN ×2 (16:28)
--- NOTE | 2018-07-31 21:10 | P.PNNP ---
Subjective Interval history: Patient on ventilator Physical Exam Vital signs: Vital Signs 07/30/18 22:00 07/31/18 00:00 07/31/18 02:00 Temperature 95.5 F L Pulse Rate 82 82 75 Respiratory Rate 14 Blood Pressure 136/82 Pulse Oximetry 99 07/31/18 03:34 07/31/18 04:00 07/31/18 06:00 Temperature 97.7 F Pulse Rate 73 80 89 Respiratory Rate 14 14 Blood Pressure 122/76 Pulse Oximetry 98 99 07/31/18 07:39 07/31/18 08:00 07/31/18 08:43 Temperature 98 F Pulse Rate 82 82 Respiratory Rate 14 14 14 Blood Pressure 111/69 Pulse Oximetry 97 99 07/31/18 10:00 07/31/18 11:08 07/31/18 12:00 Temperature 98.6 F Pulse Rate 85 88 Respiratory Rate 14 14 Blood Pressure 139/89 Pulse Oximetry 99 98 07/31/18 14:00 07/31/18 14:52 07/31/18 16:00 Temperature 98.3 F Pulse Rate 85 74 82 Respiratory Rate 18 14 Blood Pressure 125/66 Pulse Oximetry 99 97 07/31/18 18:00 07/31/18 19:37 07/31/18 20:00 Temperature 98.2 F Pulse Rate 83 91 H 80 Respiratory Rate 14 16 Blood Pressure 130/75 Pulse Oximetry 99 99 Intake & Output 07/31/18 07/31/18 08/01/18 06:59 18:59 06:59 Intake Total 1445 / 1445 1100 / 1100 Output Total 0 / 0 3450 / 3450 Balance 1445 / 1445 -2350 / -2350 Weight 111.2 kg Intake: IV 1360 / 1360 1020 / 1020 Cordarone Inj 450 MG In D5W Inj 250 / 250 250 / 250 241 ML @ 1 MG/MIN 33.33 mls/hr IV.CONT TITRATE PRN Rx#: [id number] Versed Inj 50 mg In 50 ml @ 2 50 / 50 20 / 20 MG/HR 2 mls/hr IV.CONT TITRATE PRN Rx#:[id number] Sodium Bicarbonate 8.4% Inj 150 600 / 600 150 / 150 MEQ In D5W Inj 850 ML @ 125 mls/hr IV.CONT .Q8H [facility] Rx#: [id number] Pitressin Inj 40 UNIT In D5W 10 / 10 100 / 100 Inj 98 ML @ 0.01 UNITS/MIN 1.5 mls/hr IV.CONT TITRATE PRN Rx#: [id number] Diflucan 200 mg Premix Bag 100 100 / 100 ML @ 100 mls/hr IV.SIG Q24H [facility] Rx#:[id number] Merrem Inj 500 MG In NS Inj 100 100 / 100 100 / 100 ML @ 200 mls/hr IV.SIG Q12H [facility] Rx#:[id number] Levophed-Dextrose 4 mg/250 ml 250 / 250 Drip 4 mg In 250 ml @ 2 MCG/MIN 7.5 mls/hr IV.SIG TITRATE PRN Rx#:[id number] KCl 40 mEq Premix Inj 40 meq In 100 / 100 100 ml @ 25 mls/hr IV.SIG Q4H [facility] Rx#:[id number] Flagyl 500 MG Inj 100 ML @ 100 100 / 100 200 / 200 mls/hr IV.SIG Q8H [facility] Rx#: [id number] Tube Irrigant 85 / 85 80 / 80 Output: Urine 0 / 0 Gastric Drainage 250 / 250 Left Nare Nasogastric Tube 250 / 250 Wound Drainage 3200 / 3200 Left Abdomen 3200 / 3200 Other: Date of Last Bowel Movement 07/30/18 07/30/18 07/31/18 # Incontinent Bowel Movements 2 - Constitutional no acute distress - Routine HEENT Exam Eye: Present: EOMI - Routine Neck Exam Present: supple - Routine Respiratory Exam Present: CTA bilaterally - Routine Cardiovascular Exam Present: RRR - Routine Abdominal Exam Present: soft, normoactive bowel sounds - Routine Extremities Exam Present: edema - Urinary Catheter Management Indwelling Urethral Catheter Cath placed during this visit: yes Reason for continuing: Other continuation reason Insertion date: 07/16/18 Insertion time: 17:30 Assessment and Plan - Assessment (1) End stage renal disease Code(s): N18.6 - End stage renal disease Status: Acute (2) Acute hypercapnic respiratory failure Code(s): J96.02 - Acute respiratory failure with hypercapnia Status: Acute (3) Pneumonia Code(s): J18.9 - Pneumonia, unspecified organism Status: Acute (4) Encephalopathy Code(s): G93.40 - Encephalopathy, unspecified Status: Acute (5) Septic shock Code(s): A41.9 - Sepsis, unspecified organism; R65.21 - Severe sepsis with septic shock Status: Acute (6) Sepsis Code(s): A41.9 - Sepsis, unspecified organism Status: Acute - Plan Hemodialysis On Monday BP low and given fluids/albumin during HD Monday Abdominal pain, C. difficile positive ID following UTI Enterobacter He also has pneumonia on CT scan ET aspirate. Pseudomonas Intubated Monday BP somewhat low - on pressors now Stable with ventilator. Hemodialysis next tomorrow Has paracentesis done 3.2 L removed He has abdominal distention and C. difficile positive ID is following Hypokalemia with potassium losses from bowel movements, anuric. K+ replacement ordered, Once stable and discharged , then follow-up with Dr. Dueñas
[2018-08-01] MEDS: Midazolam 50 MG/50 ML Inj 50 MG/50 ML BAG IV.CONT PRN ×2 (00:02→08:48)
[2018-08-01] MEDS: Insulin NovoLIN Regular Correctional Sugar Inj SQ SCH ×5 (00:13→23:11)
[2018-08-01] MEDS: Sodium Bicarbonate 8.4% Inj 150 MEQ in Dextrose 5% in Water Inj 850 ML IV.CONT SCH ×8 (00:14→22:43)
[2018-08-01 04:33] LABS: Hematocrit 34.2 % (39.0-51.0); Hemoglobin 10.8 gm/dL (13.0-17.0); Mean Corpuscular HGB Conc 31.5 % (32.0-36.0); Mean Corpuscular Hemoglobin 26.3 pg (27.0-34.0); Mean Corpuscular Volume 83.4 fL (80.0-100.0); Mean Platelet Volume 7.9 fL (7.0-11.0); Platelet Count 76 th/mm3 (150-450); Red Cell Distribution Width 17.3 % (11.6-17.2); White Blood Count 7.1 th/mm3 (4.0-11.0)
[2018-08-01 05:05] LABS: Alkaline Phosphatase 68 U/L (45-117); Anion Gap 12 meq/L (5-15); Aspartate Aminotransferase 8 U/L (15-37); Blood Urea Nitrogen 29 mg/dL (7-18); Calcium 7.4 mg/dL (8.5-10.1); Carbon Dioxide 29.3 meq/L (21.0-32.0); Chloride 99 meq/L (98-107); Glomerular Filtration Rate 18 mL/min (>89); Glucose,Random 166 mg/dL (74-106); Magnesium 1.7 mg/dL (1.5-2.5); Phosphorus 1.7 mg/dL (2.5-4.9); Sodium 140 meq/L (136-145); Total Protein 5.1 g/dL (6.4-8.2)
[2018-08-01 05:08] LABS: Potassium 2.9 meq/L (3.5-5.1)
--- NOTE | 2018-08-01 05:25 | XR ---
EXAM DATE: 08/01/2018 5:19 AM EDT AGE/SEX: 57 years / Male INDICATIONS: Shortness of breath. CLINICAL DATA: This is the patient's subsequent encounter. Patient reports that signs and symptoms h ave been present for 4 - 6 days and indicates a pain score of Nonresponsive. MEDICAL/SURGICAL HISTORY: Non-responsive. Non-responsive. COMPARISON: [facility] [place], CHEST 1V SINGLE AP, 07/31/2018. . FINDINGS: Portable AP view of the chest demonstrates cardiac silhouette size at the upper limits for normal. ET T, left IJ line, right IJ line, and nasogastric tube remain present. EKG lines overlie the patient. L ungs are underinflated with stable atelectasis at the right base. There is a small left basilar pleur al-parenchymal opacity that is also stable. No pneumothorax is visualized. CONCLUSION: Stable small left basilar opacity likely representing pleural effusion with associated volume loss an d/or airspace consolidation. Atelectasis at the right lung base is stable. Electronically signed by: Ronan Grayson MD 08/01/2018 5:24 AM EDT
--- NOTE | 2018-08-01 07:30 | MB ---
cc: Steve Hyaes MD DATE: 07/31/2018 REASON FOR CONSULTATION: Evaluation of ascites and a dilated sigmoid colon, history of Clostridium difficile colitis. HISTORY OF PRESENT ILLNESS: This is a 57-year-old male who has a complicated medical history of multiple admissions to several institutions including [facility] in [place] and [facility]. He currently is being treated for respiratory failure and renal insufficiency, anasarca and ascites. He is due to have a paracentesis today by the planning consultant. I spoke to his regarding his history, which is rather complicated. He has a history of aspiration pneumonitis, renal failure and he is currently intubated. He has developed increasing ascites noted on CT study. The CT study also revealed mesenteric edema and anasarca and also there was evidence of a dilated sigmoid colon, 6.3 cm. He does have ongoing Clostridium difficile colitis as well with ongoing diarrhea. He has been receiving multiple antibiotics including vancomycin and Flagyl. He has been followed by the renal and ID service. In addition, he has a pericardial effusion ongoing as well, followed by cardiology. He has multisystem disease. Creatinine is in the 3 range. White count has normalized. Hemoglobin is 11. Platelet count, however, is between 80 and 100,000. His reports he has had previously fatty liver disease. We discussed the possibility of its progression to fibrosis and even cirrhosis causing a component of his ascites. His ascites could be due to several factors including cardiac, renal factors and IV fluid overload. Currently, he is not diuresing well. He does receive hemodialysis as well. We were asked to evaluate him further with regard to the dilated sigmoid colon and Clostridium difficile colitis. We explained this could be due to several factors including ischemic colitis as well. CURRENT MEDICATIONS: His current medications were reviewed: He is on: 1. Albuterol. 2. Amiodarone. 3. Eliquis 4. Benadryl. 5. BuSpar. 6. Fentanyl 7. Epogen. 8. Pepcid. 9. Fluconazole. 10. Lactobacillus. 11. 12. Lactulose. 13. Metoclopramide. 14. Metronidazole. 15. Midodrine. 16. Nitroglycerin. 17. Norepinephrine. He is maintained on 2 pressors at this time. FAMILY HISTORY: There is no history of colon cancer or liver disease. SOCIAL HISTORY: There is no history of alcohol, illicit drug use. ALLERGIES: INCLUDE HEPARIN AND QUETIAPINE AND CEFUROXIME. REVIEW OF SYSTEMS: A 12-point review of systems is as stated in the HPI. He has had no gastrointestinal bleeding. No history of ascites in the past. PHYSICAL EXAMINATION: GENERAL: He is a critically ill male who is somewhat sedated because of Versed on IV pressors. VITAL SIGNS: He is afebrile. HEART: Rate is regular. He is normotensive for now. He has an NG tube inserted as well. HEENT: Normocephalic. Sclerae are anicteric. NECK: Supple. No masses. CARDIAC: S1, S2, slightly irregular. LUNGS: Decreased breath sounds at the bases. ABDOMEN: Protuberant with ascites. Bowel sounds present. No rebound tenderness noted. RECTAL: Deferred. He is passing [place] stools. EXTREMITIES: Without edema. NEUROLOGIC: There are no focal defects at this time, but he is sedated as mentioned above. IMPRESSION: 1. End-stage renal disease. 2. Metabolic encephalopathy. 3. Sepsis syndrome. 4. Clostridium difficile colitis. 5. Ascites. 6. History of cerebral spinal fluid leakage in the past. 7. Multiple factors leading to possible ascites. 8. Dilated sigmoid colon, probably as a result of underlying poor motility, Clostridium difficile colitis and/or possibly ischemic colitis with the hypotension and sepsis syndrome. PLAN: Continue aggressive measures. I will order a followup abdominal flat plate and upright film to compare the dimensions of the sigmoid colon. Should this worsen, he may need to have decompression either rectal tube and/or endoscopic decompression, but I would tend to reserve this as a last resort due to the possibility of underlying ischemic colitis. I have discussed this in detail with the patient's at the bedside. Incidentally, his liver enzymes are within normal range. PT and INR are stable. His hemoglobin has also been stable. Continue antimicrobial therapy for his Clostridium difficile colitis as well. ID is on the case also. Thank you kindly for this consult. MD NIDHI Brand/ct , 02:17 PM , 02:29 PM
--- NOTE | 2018-08-01 07:39 | P.PNGI ---
Subjective Interval history: Patient intubated and seen at bedside. He appears to be awake. No overt bleeding. Some loose stooling. Abdominal flat plate shows no acute changes. Patient intubated and cannot give an adequate review of symptoms Physical Exam Vital signs: Vital Signs 07/31/18 07:39 07/31/18 08:00 07/31/18 08:43 Temperature 98 F Pulse Rate 82 82 Respiratory Rate 14 14 14 Blood Pressure 111/69 Pulse Oximetry 97 99 07/31/18 10:00 07/31/18 11:08 07/31/18 12:00 Temperature 98.6 F Pulse Rate 85 88 Respiratory Rate 14 14 Blood Pressure 139/89 Pulse Oximetry 99 98 07/31/18 14:00 07/31/18 14:52 07/31/18 16:00 Temperature 98.3 F Pulse Rate 85 74 82 Respiratory Rate 18 14 Blood Pressure 125/66 Pulse Oximetry 99 97 07/31/18 18:00 07/31/18 19:37 07/31/18 20:00 Temperature 98.2 F Pulse Rate 83 91 H 80 Respiratory Rate 14 16 Blood Pressure 130/75 Pulse Oximetry 99 99 07/31/18 22:00 08/01/18 00:00 08/01/18 01:14 Temperature 98.7 F Pulse Rate 70 61 Respiratory Rate 16 14 Blood Pressure 104/64 Pulse Oximetry 97 98 08/01/18 02:00 08/01/18 03:37 08/01/18 04:00 Temperature 97.5 F L Pulse Rate 58 L 57 L 60 Respiratory Rate 14 14 Blood Pressure 106/68 Pulse Oximetry 97 08/01/18 04:08 08/01/18 06:00 Temperature Pulse Rate 59 L Respiratory Rate 14 Blood Pressure Pulse Oximetry 98 Intake & Output 07/31/18 08/01/18 08/01/18 18:59 06:59 18:59 Intake Total 1100 / 1100 1660 / 1660 Output Total 3450 / 3450 25 / 25 Balance -2350 / -2350 1635 / 1635 Weight 109.1 kg Intake: IV 1020 / 1020 1580 / 1580 Cordarone Inj 450 MG In D5W Inj 250 / 250 250 / 250 241 ML @ 1 MG/MIN 33.33 mls/hr IV.CONT TITRATE PRN Rx#: [id number] Versed Inj 50 mg In 50 ml @ 2 20 / 20 30 / 30 MG/HR 2 mls/hr IV.CONT TITRATE PRN Rx#:[id number] Sodium Bicarbonate 8.4% Inj 150 150 / 150 1000 / 1000 MEQ In D5W Inj 850 ML @ 125 mls/hr IV.CONT .Q8H YOVANA Rx#: [id number] Pitressin Inj 40 UNIT In D5W 100 / 100 Inj 98 ML @ 0.01 UNITS/MIN 1.5 mls/hr IV.CONT TITRATE PRN Rx#: [id number] Diflucan 200 mg Premix Bag 100 100 / 100 ML @ 100 mls/hr IV.SIG Q24H YOVANA Rx#:[id number] Merrem Inj 500 MG In NS Inj 100 100 / 100 100 / 100 ML @ 200 mls/hr IV.SIG Q12H YOVANA Rx#:[id number] KCl 40 mEq Premix Inj 40 meq In 100 / 100 100 ml @ 25 mls/hr IV.SIG Q4H YOVANA Rx#:[id number] Flagyl 500 MG Inj 100 ML @ 100 200 / 200 200 / 200 mls/hr IV.SIG Q8H YOVANA Rx#: [id number] Tube Irrigant 80 / 80 80 / 80 Output: Gastric Drainage 250 / 250 25 / 25 Left Nare Nasogastric Tube 250 / 250 25 / 25 Wound Drainage 3200 / 3200 Left Abdomen 3200 / 3200 Other: Date of Last Bowel Movement 07/30/18 07/31/18 # Incontinent Bowel Movements 2 - Constitutional no acute distress - Routine Neck Exam Present: supple - Routine Abdominal Exam Present: distended. Absent: tenderness, rebound Comments: Abdomen is mildly distended. Bowel sounds are present but minimal - Routine Extremities Exam Absent: clubbing - Urinary Catheter Management Indwelling Urethral Catheter Cath placed during this visit: yes Reason for continuing: Other continuation reason Insertion date: 07/16/18 Insertion time: 17:30 Results - Labs CBC & Chem 7: 08/01/18 04:15 08/01/18 04:15 Laboratory Results - last 24 hr 07/31/18 07/31/18 07/31/18 04:25 12:45 12:45 WBC RBC Hgb Hct MCV MCH MCHC RDW Plt Count MPV Sodium Potassium Chloride Carbon Dioxide Anion Gap BUN Creatinine Estimated GFR POC Glucose 194 H Random Glucose Calcium Prot Corrected Calcium Phosphorus Magnesium Total Bilirubin AST ALT Alkaline Phosphatase Lactate Dehydrogenase 145 Total Protein 5.5 L Albumin Peritoneal RBC 9762 H Periton Nuc Cells 1467 H Periton Neutrophils 95 Periton Lymphocytes 3 Peritoneal Monocytes 2 Peritoneal Other Cells Peritoneal Fld Comment Peritoneal Tot Protein Peritoneal Albumin Peritoneal LDH Peritoneal Glucose Peritoneal Amylase 07/31/18 07/31/18 07/31/18 12:45 13:40 17:46 WBC RBC Hgb Hct MCV MCH MCHC RDW Plt Count MPV Sodium Potassium 3.3 L Chloride Carbon Dioxide Anion Gap BUN Creatinine Estimated GFR POC Glucose 154 H Random Glucose Calcium Prot Corrected Calcium Phosphorus Magnesium Total Bilirubin AST ALT Alkaline Phosphatase Lactate Dehydrogenase Total Protein Albumin Peritoneal RBC Periton Nuc Cells Periton Neutrophils Periton Lymphocytes Peritoneal Monocytes Peritoneal Other Cells Peritoneal Fld Comment Peritoneal Tot Protein 3.5 Peritoneal Albumin 1.8 Peritoneal LDH 157 Peritoneal Glucose 211 Peritoneal Amylase Less than 5 08/01/18 08/01/18 08/01/18 00:08 04:15 04:15 WBC 7.1 RBC 4.10 L Hgb 10.8 L Hct 34.2 L MCV 83.4 MCH 26.3 L MCHC 31.5 L RDW 17.3 H Plt Count 76 L MPV 7.9 Sodium 140 Potassium 2.9 L* Chloride 99 Carbon Dioxide 29.3 Anion Gap 12 BUN 29 H Creatinine 3.45 H Estimated GFR 18 L POC Glucose 152 H Random Glucose 166 H Calcium 7.4 L* Prot Corrected Calcium 8.5 Phosphorus 1.7 L Magnesium 1.7 Total Bilirubin 0.5 AST 8 L ALT Less than 6 L Alkaline Phosphatase 68 Lactate Dehydrogenase Total Protein 5.1 L Albumin 2.0 L Peritoneal RBC Periton Nuc Cells Periton Neutrophils Periton Lymphocytes Peritoneal Monocytes Peritoneal Other Cells Peritoneal Fld Comment Peritoneal Tot Protein Peritoneal Albumin Peritoneal LDH Peritoneal Glucose Peritoneal Amylase Microbiology 07/31/18 12:45 Fluid - Ascites Fluid Fungal Smear - Final No fungal elements seen 07/31/18 12:45 Fluid - Peritoneal fluid Gram Stain - Final 07/27/18 21:30 Wound - Abdominal Gram Stain - Final 07/27/18 21:30 Wound - Abdominal Wound Culture - Final Alison albicans S. aureus MRSA 07/27/18 16:00 Blood - Other Aerobic Blood Culture - Preliminary No growth in 4 days 07/27/18 16:00 Blood - Other Anaerobic Blood Culture - Preliminary No growth in 4 days 07/27/18 11:20 Blood - Peripheral Aerobic Blood Culture - Preliminary No growth in 4 days 07/27/18 11:20 Blood - Peripheral Anaerobic Blood Culture - Preliminary No growth in 4 days 07/27/18 11:25 Blood - Peripheral Aerobic Blood Culture - Preliminary No growth in 4 days 07/27/18 11:25 Blood - Peripheral Anaerobic Blood Culture - Preliminary No growth in 4 days - Imaging Impressions Abdomen X-Ray 07/31/18 00:00 CONCLUSION: 1. The bowel gas pattern is grossly within normal limits. There is some air in the transverse colon which is nondistended. 2. Benign appearing abdomen. 3. NG tube in stomach. Chest X-Ray 08/01/18 06:00 CONCLUSION: Stable small left basilar opacity likely representing pleural effusion with associated volume loss and/or airspace consolidation. Atelectasis at the right lung base is stable. Assessment and Plan - Attending Attestation Impression: 1. C. difficile colitison treatment 2. Ascitesetiology multifactorial. Patient is status post bedside paracentesis 3. Status post PEG tube removal 4. Dilated sigmoid on CAT scanabdominal x-ray yesterday does not show any significant distention PLAN: 1. Continue antibiotics for C. difficile 2. Monitor for worsening abdominal distention from ascites as well as colonic distention
[2018-08-01] MEDS: Lactobacillus Acidophilus/L. Spores Tablet PO SCH ×3 (08:46→17:53)
[2018-08-01] MEDS: Vasopressin Inj 40 UNIT in Dextrose 5% in Water Inj 98 ML IV.CONT PRN ×2 (08:46)
[2018-08-01] MEDS: Senna/Docusate Sodium 8.6/50 MG Tablet PO SCH ×2 (08:46→20:32)
[2018-08-01] MEDS: Famotidine 20 MG Tablet PO SCH (08:46)
--- NOTE | 2018-08-01 08:56 | P.PNID ---
Subjective Remarks: Patient is a 57-year-old male, brought into the hospital after he was noted to have altered mental status, with decreased level of consciousness at the dialysis center. He apparently lost pulses and CPR was started with return of his pulses. EMS was called and at that time he was found to have pulses. He was noted to be confused. His blood sugars were okay. In the ED he was hypotensive, and was on Levophed briefly. He ended up getting intubated. CT of the abdomen and pelvis showed the known adrenal mass with slight increase in size. CT of the chest did not show any PE but it showed dense bibasilar consolidation. Patient stated that he was at [facility] about 5 months ago and at that time he had pneumonia. He went to a rehab facility and at the rehab he has not really been doing any ambulation. He gets transferred to a wheelchair. He has known COPD, and chronically on oxygen. Patient states he has a chronic cough and brings up some clear phlegm. He has not really noted any increase in his cough or change in the color of his sputum. He denies any chest pain. He was extubated yesterday, and currently denies any shortness of breath. He is on nasal O2 with good oxygen saturation. Patient denies any problem with nausea or vomiting, or any swallowing difficulty. He has not had any choking episodes. During his hospitalization at [facility], he had a PEG tube placed, but the patient stated that they have not been using the tube for nutrition, and he has been taking nutrition orally. Patient also had a history of right empyema back in 2010, requiring a right thoracotomy, decortication and pleurectomy, and a right lung wedge resection. Records mentioned that he has had problem with aspiration. Infectious disease consultation has been requested to assist with management of recurrent pneumonia. Notes reviewed D/W RN On the vent, on CPAP this morning Remains on Vasopressin Had paracentesis yesterday - took out >3L fluid - 1467 WBC, 95% neutrophils, 3.5 protein Temps ok Not a lot of stool NGT to LIWS WBC better UC Larissa albicans PEG site Larissa and MRSA Sputum with MRSA BC negative Repeat CT with dilated sigmoid, collapsed colon Antibiotics: PO vancomycin Diflucan IV Flagyl IV vanco intermittent Meropenem Lines: Permacath RIJ Central line Past Medical History: Diabetes ESRD (end stage renal disease) on dialysis Empyema lung HTN (hypertension) Renal disease Status post thoracotomy Allergies/Adverse Reactions: Allergies heparin Allergy (Severe, Verified 07/16/18 13:23) Bleeding quetiapine [From Seroquel] Allergy (Intermediate, Verified 07/16/18 13:23) Shakiness cefuroxime Allergy (Verified 07/20/18 18:25) Rash Objective Vital Signs 07/31/18 10:00 07/31/18 11:08 07/31/18 12:00 Temperature 98.6 F Pulse Rate 85 88 Respiratory Rate 14 14 Blood Pressure 139/89 Pulse Oximetry 99 98 07/31/18 14:00 07/31/18 14:52 07/31/18 16:00 Temperature 98.3 F Pulse Rate 85 74 82 Respiratory Rate 18 14 Blood Pressure 125/66 Pulse Oximetry 99 97 07/31/18 18:00 07/31/18 19:37 07/31/18 20:00 Temperature 98.2 F Pulse Rate 83 91 H 80 Respiratory Rate 14 16 Blood Pressure 130/75 Pulse Oximetry 99 99 07/31/18 22:00 08/01/18 00:00 08/01/18 01:14 Temperature 98.7 F Pulse Rate 70 61 Respiratory Rate 16 14 Blood Pressure 104/64 Pulse Oximetry 97 98 08/01/18 02:00 08/01/18 03:37 08/01/18 04:00 Temperature 97.5 F L Pulse Rate 58 L 57 L 60 Respiratory Rate 14 14 Blood Pressure 106/68 Pulse Oximetry 97 08/01/18 04:08 08/01/18 06:00 08/01/18 08:10 Temperature Pulse Rate 59 L 58 L Respiratory Rate 14 14 Blood Pressure Pulse Oximetry 98 100 Intake & Output 07/31/18 08/01/18 08/01/18 18:59 06:59 18:59 Intake Total 1100 / 1100 1660 / 1660 150 / 150 Output Total 3450 / 3450 25 / 25 Balance -2350 / -2350 1635 / 1635 150 / 150 Weight 109.1 kg Intake: IV 1020 / 1020 1580 / 1580 150 / 150 Cordarone Inj 450 MG In D5W Inj 250 / 250 250 / 250 241 ML @ 1 MG/MIN 33.33 mls/hr IV.CONT TITRATE PRN Rx#: [id number] Versed Inj 50 mg In 50 ml @ 2 20 / 20 30 / 30 50 / 50 MG/HR 2 mls/hr IV.CONT TITRATE PRN Rx#:[id number] Sodium Bicarbonate 8.4% Inj 150 150 / 150 1000 / 1000 MEQ In D5W Inj 850 ML @ 125 mls/hr IV.CONT .Q8H YOVANA Rx#: [id number] Pitressin Inj 40 UNIT In D5W 100 / 100 100 / 100 Inj 98 ML @ 0.01 UNITS/MIN 1.5 mls/hr IV.CONT TITRATE PRN Rx#: [id number] Diflucan 200 mg Premix Bag 100 100 / 100 ML @ 100 mls/hr IV.SIG Q24H YOVANA Rx#:[id number] Merrem Inj 500 MG In NS Inj 100 100 / 100 100 / 100 ML @ 200 mls/hr IV.SIG Q12H YOVANA Rx#:[id number] KCl 40 mEq Premix Inj 40 meq In 100 / 100 100 ml @ 25 mls/hr IV.SIG Q4H YOVANA Rx#:[id number] Flagyl 500 MG Inj 100 ML @ 100 200 / 200 200 / 200 mls/hr IV.SIG Q8H YOVANA Rx#: [id number] Tube Irrigant 80 / 80 80 / 80 Output: Gastric Drainage 250 / 250 25 / 25 Left Nare Nasogastric Tube 250 / 250 25 / 25 Wound Drainage 3200 / 3200 Left Abdomen 3200 / 3200 Other: Date of Last Bowel Movement 07/30/18 07/31/18 # Incontinent Bowel Movements 2 07/31/18 12:45 Fluid - Ascites Fluid Fungal Smear - Final No fungal elements seen 07/31/18 12:45 Fluid - Ascites Fluid Fungal Culture - Pending 07/31/18 12:45 Fluid - Peritoneal fluid Gram Stain - Final 07/31/18 12:45 Fluid - Peritoneal fluid Body Fluid Culture - Pending 07/27/18 21:30 Wound - Abdominal Gram Stain - Final 07/27/18 21:30 Wound - Abdominal Wound Culture - Final Larissa albicans S. aureus MRSA 07/27/18 16:00 Blood - Other Aerobic Blood Culture - Preliminary No growth in 4 days 07/27/18 16:00 Blood - Other Anaerobic Blood Culture - Preliminary No growth in 4 days 07/27/18 11:20 Blood - Peripheral Aerobic Blood Culture - Preliminary No growth in 4 days 07/27/18 11:20 Blood - Peripheral Anaerobic Blood Culture - Preliminary No growth in 4 days 07/27/18 11:20 Blood - Peripheral Blood Fungal Culture - Pending 07/27/18 11:20 Blood - Peripheral Blood Fungal Culture - Pending 07/27/18 11:25 Blood - Peripheral Aerobic Blood Culture - Preliminary No growth in 4 days 07/27/18 11:25 Blood - Peripheral Anaerobic Blood Culture - Preliminary No growth in 4 days 07/25/18 11:07 Blood - Peripheral Aerobic Blood Culture - Final No growth in 5 days 07/25/18 11:07 Blood - Peripheral Anaerobic Blood Culture - Final No growth in 5 days 07/25/18 11:12 Blood - Peripheral Aerobic Blood Culture - Final No growth in 5 days 07/25/18 11:12 Blood - Peripheral Anaerobic Blood Culture - Final No growth in 5 days 07/27/18 21:30 Sputum - Expectorated Sputum Gram Stain - Final 07/27/18 21:30 Sputum - Expectorated Sputum Sputum Culture - Final S. aureus MRSA 07/27/18 11:20 Catheterized Urine Urine Culture - Final Larissa albicans Lab - Hematology Results 07/31/18 08/01/18 04:25 04:15 WBC 9.4 7.1 RBC 4.48 L 4.10 L Hgb 11.8 L 10.8 L Hct 36.6 L 34.2 L MCV 81.7 83.4 MCH 26.4 L 26.3 L MCHC 32.3 31.5 L RDW 17.3 H 17.3 H Plt Count 102 L 76 L MPV 8.3 7.9 Lab - Chemistry Results 07/30/18 07/30/18 07/30/18 11:54 17:31 22:55 Sodium Potassium 2.9 L* Chloride Carbon Dioxide Anion Gap BUN Creatinine Estimated GFR POC Glucose 156 H 206 H Random Glucose Calcium Prot Corrected Calcium Phosphorus Magnesium Total Bilirubin AST ALT Alkaline Phosphatase Lactate Dehydrogenase Total Protein Albumin 07/31/18 07/31/18 07/31/18 00:07 04:13 04:25 Sodium 140 Potassium 2.9 L* Chloride 99 Carbon Dioxide 29.6 Anion Gap 11 BUN 25 H Creatinine 3.16 H Estimated GFR 20 L POC Glucose 226 H 181 H Random Glucose 225 H Calcium 7.4 L* Prot Corrected Calcium 8.3 L Phosphorus 1.5 L Magnesium 1.7 Total Bilirubin 0.5 AST 9 L ALT Less than 6 L Alkaline Phosphatase 76 Lactate Dehydrogenase Total Protein 5.5 L Albumin 2.0 L 07/31/18 07/31/18 07/31/18 04:25 12:45 13:40 Sodium Potassium 3.3 L Chloride Carbon Dioxide Anion Gap BUN Creatinine Estimated GFR POC Glucose 194 H Random Glucose Calcium Prot Corrected Calcium Phosphorus Magnesium Total Bilirubin AST ALT Alkaline Phosphatase Lactate Dehydrogenase 145 Total Protein 5.5 L Albumin 07/31/18 08/01/18 08/01/18 17:46 00:08 04:15 Sodium 140 Potassium 2.9 L* Chloride 99 Carbon Dioxide 29.3 Anion Gap 12 BUN 29 H Creatinine 3.45 H Estimated GFR 18 L POC Glucose 154 H 152 H Random Glucose 166 H Calcium 7.4 L* Prot Corrected Calcium 8.5 Phosphorus 1.7 L Magnesium 1.7 Total Bilirubin 0.5 AST 8 L ALT Less than 6 L Alkaline Phosphatase 68 Lactate Dehydrogenase Total Protein 5.1 L Albumin 2.0 L Imaging: ITS Impressions Chest CTA 07/16/18 13:03 CONCLUSION: 1. No CT evidence for pulmonary artery embolism as questioned. 2. Dense bilateral lower lobe airspace consolidation with trace associated pleural effusions. Findings are concerning for aspiration. 3. Nonspecific right hilar and mediastinal nodes, as above. This may be reactive in etiology. 4. Probable 1.6 cm right adrenal mass that is incompletely imaged on this exam. Although indeterminate in density, this is unchanged from abdominal CT of 06/07/2011 and therefore likely benign. Head CT 07/17/18 00:00 CONCLUSION: 1. Atrophy. 2. Periventricular low attenuation change likely relating to chronic small vessel ischemic change. 3. Fluid throughout the nasal cavity and paranasal sinuses. . Barium Swallow X-Ray 07/20/18 00:00 CONCLUSION: Unremarkable barium swallow, however limited study since only frontal projection could be performed. Head MRI 07/27/18 00:00 CONCLUSION: 1. No acute intracranial abnormality. 2. Atrophy. 3. Nonspecific periventricular demyelination. This could be from small vessel ischemic change. 4. Fluid in the sinuses. 5. Increased signal/fluid throughout the mastoid/temporal air cells. Abdomen/Pelvis CT 07/29/18 00:00 CONCLUSION: 1. Significant worsening of ascites since the prior exam. 2. Small left pleural effusion, moderate pericardial effusion and bibasilar consolidation worse on the left. 3. Distended sigmoid colon and slightly worse since the prior examination possibility of colitis should be entertained. The ascending colon and transverse colon are collapsed not adequately characterized. Abdomen X-Ray 07/31/18 00:00 CONCLUSION: 1. The bowel gas pattern is grossly within normal limits. There is some air in the transverse colon which is nondistended. 2. Benign appearing abdomen. 3. NG tube in stomach. Chest X-Ray 08/01/18 06:00 CONCLUSION: Stable small left basilar opacity likely representing pleural effusion with associated volume loss and/or airspace consolidation. Atelectasis at the right lung base is stable. Physical Exam: GENERAL: On the ventilator. No distress. Opens eyes when stimulated SKIN: Cool and dry. No generalized rash HEAD: Atraumatic. Normocephalic. No temporal wasting, or tenderness. EYES: [place] conjunctiva. No petechia or hemorrhage. No scleral icterus. No injection or drainage. EARS, NOSE AND THROAT: Nose without bleeding or purulent nasal discharge. NECK: Trachea midline. Supple and not tender, no meningeal signs CARDIOVASCULAR: Regular rate and rhythm. No murmurs, rubs or gallops heard RESPIRATORY: Slight basilar rhonchi. ABDOMEN: soft, not tender, BS hypoactive. No guarding, no rebound Previous PEG site with small amount of drainage, no surrounding redness or induration EXTREMITIES: No clubbing, cyanosis, or edema. No calf tenderness. NEUROLOGICAL: Eyes open PSYCHIATRIC: Unable to assess. LINE: No evidence of infection Assessment and Plan - Plan Impression Pneumonia, likely aspiration, has been on RX. MRSA. Respiratory failure, increasing SOB and O2 requirement - CXR stable infiltrates S/P respiratory failure and extubation - on presentation COPD, O2 dependent ESRD on HD MWF UTI, Enterobacter, on Rx C difficile colitis. Leukocytosis. Improved. Larissa UTI. Ascites, elevated WBC, exudative, no peritoneal sign on exam Recommendation Continue Merem to keep GNR coverage Continue Diflucan Continue po vanco and IV Flagyl for C diff Continue IV vanco for MRSA Monitor progress Follow new C/S Weaning per [facility] D/W RN I will be off Aug 02- Other ID MD covering in my absence
--- NOTE | 2018-08-01 10:07 | P.PNCC ---
Subjective Subjective Remarks/Hospital Course: Patient is a 57-year-old male with past medical history of end-stage renal disease on hemodialysis, , COPD on home oxygen, hypertension, diabetes type 2, who was brought to the emergency department for altered mental status. He was altered at the dialysis center and apparently during dialysis he lost pulses and CPR was started. By time EMS arrived patient did have pulses. He was confused for EMS. ER workup showed that patient has a white count of 16.7 with left shift indicating sepsis. Patient remained hypotensive after fluid resuscitation and hence was started on Levophed by the ED physician. CT abdomen pelvis showed a previously known adrenal mass slightly increased in size compared to [address] pulmonary angiogram was negative for PE, however showed dense bibasilar consolidation/pneumonia which could be the source of sepsis. Received vancomycin and Zosyn in the ED. ABG prior to intubation in the ED showed severe hypercapnic respiratory failure with a pH of 7.05, PCO2 of 93. I evaluated the patient after arrival to the [facility]. He is intubated critically ill-appearing sedated. On lightening sedation he is able to move all 4 extremities. His source of sepsis most likely is pneumonia. Wong cultures have been sent. His altered mentation is most likely secondary to sepsis and hypercapnia, will check CT of the head to rule out any acute events. 07/17: No events over the night. Since ICU admission patient did not require any vasopressor. Oxygenation is down to 40%. Sedation is achieved with propofol, which is decreased to 20. Patient is arousable, following commands appropriately. Daughter is present at bedside. T-max of 99.6. RECONSULT NOTE 07/27: reconsulted for rapid response from floor. patient with ESRD and c. diff colitis, now with rising wbc, altered mentation, hypotension despite ivf resuscitation. abg with mixed resp/met acidosis, uncompensated. intermittently has periods of syncope. when arousable, patient refusing intubation at this time , saying "I know when I need a tube, and I don't need a tube right now." placed on norepinephrine for vasopressor support and end-organ perfusion. 07/28: Intubated and placed on mech ventilation last night. On levophed/ amio/ versed/ fentanyl gtt. Bicarb drip decreased to 40cc/hr. 07/29: Remains sedated, orally intubated on mech vent. OGT coming out of PEG site so pulled back and ordered CT Abd with oral contrast for further evaluation. 07/30: Remains intubated sedated and septic. Currently remains on Levophed and vasopressin. CT abdomen pelvis showed significant worsening of ascites since the prior exam, small pl and moderate pericardial effusion and bibasilar consolidation worse on the left. Also distended sigmoid colon and slightly worse since the prior examination possibility of colitis. Ascending colon and transverse colon are collapsed. D/W Dr. Ma, will resume gram negative coverage. GI consult is pending at this time 07/31: Remains on Levophed 1 mcg/min and vasopressin at 0.04 international units, more alert though follows commands on sedation hold. Bedside ultrasound consistently showed large ascites. Paracentesis was performed and approximately 3.2 L of fluid removed. WBC count improving though patient remains critically ill, showing some signs of improvement. PEG site culture growing Alison and MRSA 08/01: Currently remains intubated on Versed at 3 mg/h tolerating CPAP. Follows commands but remains lethargic. Persistent left lower lobe infiltrate. Paracentesis performed on 3 L fluid removed yesterday studies concerning for SBP. On broad-spectrum antibiotics and antifungals per ID Objective Vital Signs / I&O: Vital Signs 07/31/18 10:00 07/31/18 11:08 07/31/18 12:00 Temperature 98.6 F Pulse Rate 85 88 Respiratory Rate 14 14 Blood Pressure 139/89 Pulse Oximetry 99 98 07/31/18 14:00 07/31/18 14:52 07/31/18 16:00 Temperature 98.3 F Pulse Rate 85 74 82 Respiratory Rate 18 14 Blood Pressure 125/66 Pulse Oximetry 99 97 07/31/18 18:00 07/31/18 19:37 07/31/18 20:00 Temperature 98.2 F Pulse Rate 83 91 H 80 Respiratory Rate 14 16 Blood Pressure 130/75 Pulse Oximetry 99 99 07/31/18 22:00 08/01/18 00:00 08/01/18 01:14 Temperature 98.7 F Pulse Rate 70 61 Respiratory Rate 16 14 Blood Pressure 104/64 Pulse Oximetry 97 98 08/01/18 02:00 08/01/18 03:37 08/01/18 04:00 Temperature 97.5 F L Pulse Rate 58 L 57 L 60 Respiratory Rate 14 14 Blood Pressure 106/68 Pulse Oximetry 97 08/01/18 04:08 08/01/18 06:00 08/01/18 08:10 Temperature Pulse Rate 59 L 58 L Respiratory Rate 14 14 Blood Pressure Pulse Oximetry 98 100 08/01/18 09:15 Temperature Pulse Rate Respiratory Rate 14 Blood Pressure Pulse Oximetry Intake & Output 07/31/18 08/01/18 08/01/18 18:59 06:59 18:59 Intake Total 1100 / 1100 1660 / 1660 150 / 150 Output Total 3450 / 3450 25 / 25 Balance -2350 / -2350 1635 / 1635 150 / 150 Weight 109.1 kg Intake: IV 1020 / 1020 1580 / 1580 150 / 150 Cordarone Inj 450 MG In D5W Inj 250 / 250 250 / 250 241 ML @ 1 MG/MIN 33.33 mls/hr IV.CONT TITRATE PRN Rx#: [id number] Versed Inj 50 mg In 50 ml @ 2 20 / 20 30 / 30 50 / 50 MG/HR 2 mls/hr IV.CONT TITRATE PRN Rx#:[id number] Sodium Bicarbonate 8.4% Inj 150 150 / 150 1000 / 1000 MEQ In D5W Inj 850 ML @ 125 mls/hr IV.CONT .Q8H YOVANA Rx#: [id number] Pitressin Inj 40 UNIT In D5W 100 / 100 100 / 100 Inj 98 ML @ 0.01 UNITS/MIN 1.5 mls/hr IV.CONT TITRATE PRN Rx#: [id number] Diflucan 200 mg Premix Bag 100 100 / 100 ML @ 100 mls/hr IV.SIG Q24H YOVANA Rx#:[id number] Merrem Inj 500 MG In NS Inj 100 100 / 100 100 / 100 ML @ 200 mls/hr IV.SIG Q12H YOVANA Rx#:[id number] KCl 40 mEq Premix Inj 40 meq In 100 / 100 100 ml @ 25 mls/hr IV.SIG Q4H YOVANA Rx#:[id number] Flagyl 500 MG Inj 100 ML @ 100 200 / 200 200 / 200 mls/hr IV.SIG Q8H YOVANA Rx#: [id number] Tube Irrigant 80 / 80 80 / 80 Output: Gastric Drainage 250 / 250 25 / 25 Left Nare Nasogastric Tube 250 / 250 25 / 25 Wound Drainage 3200 / 3200 Left Abdomen 3200 / 3200 Other: Date of Last Bowel Movement 07/30/18 07/31/18 # Incontinent Bowel Movements 2 Result Diagrams: 08/01/18 04:15 08/01/18 04:15 Objective Remarks: General - 57 yo gentleman, lying in bed. Intubated sedated HEENT - pupils equal, reactive, sclerae anicteric, neck supple, no nuchal rigidity CV - Irregularly irregular rhythm, on amiodarone. appears afib by tele. No murmurs. Currently on vasopressin Chest - orally intubated on mech vent, coarse breath sounds b/l, good air entry , bilateral mild expiratory wheezing. Abdomen - soft, non-tender, distended, no hepatomegaly, no splenomegaly, no guarding. Previous PEG tube site without significant discharge. s/p paracentesis Extremities - warm and well perfused, trace edema, + peripheral pulses, no clubbing Neuro -Sedated, orally intubated on mech vent. On lightening sedation moves all extremities, following commands Assessment and Plan - Problem List (1) Septic shock Code(s): A41.9 - Sepsis, unspecified organism; R65.21 - Severe sepsis with septic shock Status: Acute (2) Acute metabolic encephalopathy Code(s): G93.41 - Metabolic encephalopathy Status: Acute (3) Acute hypercapnic respiratory failure Code(s): J96.02 - Acute respiratory failure with hypercapnia Status: Acute (4) Pneumonia Code(s): J18.9 - Pneumonia, unspecified organism Status: Acute - Assessment and Plan Plan: Assessment: 57yM with ESRD and now with worsening septic shock. now intubated on vasopressors. Plan by systems: Neurologic: Metabolic encephalopathy Secondary to sepsis, improving EEG-showing diffuse encephalopathy, MRI-no acute findings frequent neuro checks Daily sedation vacation Respiratory: Acute hypoxic and hypercarbic respiratory failure Continue mech ventilation, vent bundle. nebs, hob elevated. DuoNeb every 6 hours scheduled and as needed 07/27 sputum culture growing MRSA Start weaning trials/ SBT Cardiovascular: Septic Shock Atrial fibrillation Pericardial effusion Vasopressin for goal map > 65mmHg HD to keep in even fluid balance. Repeat Echo to evaluate pericardial effusion rule out tamponade-small pericardial effusion no tamponade physiology On anticoagulation Renal: End-stage renal disease Strict I/Os Nephrology following Hemodialysis per renal. FEN/GI: Acute protein calorie malnutrition- severe Severe hypokalemia Acute metabolic acidosis CT abd pelvis-distended thick sigmoid colon with collapsed ascending and transverse colon Significant ascites s/p paracentesis and a 3.2 L fluid removal 07/31/18 GI reconsulted for OGT coming out of prev PEG site, KUB now shows no significant distention correct electrolytes, replace K Heme/ID: Septic Shock C. Difficile colitis, PEG site infection, MRSA pneumonia ID following. wbc downtrending Merem to keep GNR coverage. Continue Diflucan Continue po vanco and IV Flagyl for C diff Continue IV vanco for MRSA pneumonia and wound site infection Endocrine: -SSI Prophylaxis: GI Prophylaxis Protonix DVT Prophylaxis -SCDs Eliquis Lines: right IJ vascath- keep for dialysis access Central line placed 07/28 critical care time: 32 minutes, exclusive of separately billable procedures Remains critically ill from septic shock and respiratory failure. Stable still requiring vasopressin for pressor support. Start weaning trials Code Status: Full
[2018-08-01] MEDS: FLORASTOR 250 MG PO SCH (10:11)
[2018-08-01] MEDS: Amiodarone 200 MG Tablet PO SCH (11:29)
[2018-08-01] MEDS: Epoetin Alfa Inj 4,000 UNIT/ML Vial IV.PUSH PRN (12:36)
[2018-08-01] MEDS: Vancomycin Inj 1,000 MG in Sodium Chlor 0.9% Inj 250 ML IV.SIG SCH (12:37)
[2018-08-01] MEDS: Albumin Human 25% Inj 100 ML IV.SIG PRN (12:37)
--- NOTE | 2018-08-01 13:20 | P.PNNP ---
Subjective Interval history: Patient on ventilator seen during hemodialysis Physical Exam Vital signs: Vital Signs 07/31/18 14:00 07/31/18 14:52 07/31/18 16:00 Temperature 98.3 F Pulse Rate 85 74 82 Respiratory Rate 18 14 Blood Pressure 125/66 Pulse Oximetry 99 97 07/31/18 18:00 07/31/18 19:37 07/31/18 20:00 Temperature 98.2 F Pulse Rate 83 91 H 80 Respiratory Rate 14 16 Blood Pressure 130/75 Pulse Oximetry 99 99 07/31/18 22:00 08/01/18 00:00 08/01/18 01:14 Temperature 98.7 F Pulse Rate 70 61 Respiratory Rate 16 14 Blood Pressure 104/64 Pulse Oximetry 97 98 08/01/18 02:00 08/01/18 03:37 08/01/18 04:00 Temperature 97.5 F L Pulse Rate 58 L 57 L 60 Respiratory Rate 14 14 Blood Pressure 106/68 Pulse Oximetry 97 08/01/18 04:08 08/01/18 06:00 08/01/18 08:00 Temperature 96.8 F L Pulse Rate 59 L 60 Respiratory Rate 14 14 Blood Pressure 98/60 L Pulse Oximetry 98 100 08/01/18 08:10 08/01/18 09:15 08/01/18 10:00 Temperature Pulse Rate 58 L 66 Respiratory Rate 14 14 Blood Pressure Pulse Oximetry 100 08/01/18 11:25 Temperature Pulse Rate Respiratory Rate 20 Blood Pressure Pulse Oximetry 97 Intake & Output 07/31/18 08/01/18 08/01/18 18:59 06:59 18:59 Intake Total 1100 / 1100 1660 / 1660 350 / 350 Output Total 3450 / 3450 25 / 25 Balance -2350 / -2350 1635 / 1635 350 / 350 Weight 109.1 kg Intake: IV 1020 / 1020 1580 / 1580 350 / 350 Cordarone Inj 450 MG In D5W Inj 250 / 250 250 / 250 241 ML @ 1 MG/MIN 33.33 mls/hr IV.CONT TITRATE PRN Rx#: [id number] Versed Inj 50 mg In 50 ml @ 2 20 / 20 30 / 30 50 / 50 MG/HR 2 mls/hr IV.CONT TITRATE PRN Rx#:[id number] Sodium Bicarbonate 8.4% Inj 150 150 / 150 1000 / 1000 MEQ In D5W Inj 850 ML @ 125 mls/hr IV.CONT .Q8H YOVANA Rx#: [id number] Pitressin Inj 40 UNIT In D5W 100 / 100 100 / 100 Inj 98 ML @ 0.01 UNITS/MIN 1.5 mls/hr IV.CONT TITRATE PRN Rx#: [id number] Diflucan 200 mg Premix Bag 100 100 / 100 100 / 100 ML @ 100 mls/hr IV.SIG Q24H YOVANA Rx#:[id number] Merrem Inj 500 MG In NS Inj 100 100 / 100 100 / 100 100 / 100 ML @ 200 mls/hr IV.SIG Q12H YOVANA Rx#:[id number] KCl 40 mEq Premix Inj 40 meq In 100 / 100 100 ml @ 25 mls/hr IV.SIG Q4H YOVANA Rx#:[id number] Flagyl 500 MG Inj 100 ML @ 100 200 / 200 200 / 200 mls/hr IV.SIG Q8H YOVANA Rx#: [id number] Tube Irrigant 80 / 80 80 / 80 Output: Gastric Drainage 250 / 250 25 / 25 Left Nare Nasogastric Tube 250 / 250 25 / 25 Wound Drainage 3200 / 3200 Left Abdomen 3200 / 3200 Other: Date of Last Bowel Movement 07/30/18 07/31/18 07/31/18 # Incontinent Bowel Movements 2 - Constitutional no acute distress - Routine HEENT Exam Head: Present: normocephalic - Routine Respiratory Exam Present: CTA bilaterally - Routine Cardiovascular Exam Present: irregular rhythm - Routine Abdominal Exam Present: soft - Routine Extremities Exam Present: edema - Urinary Catheter Management Indwelling Urethral Catheter Cath placed during this visit: yes Reason for continuing: Other continuation reason Insertion date: 07/16/18 Insertion time: 17:30 Assessment and Plan - Assessment (1) End stage renal disease Code(s): N18.6 - End stage renal disease Status: Acute (2) Acute hypercapnic respiratory failure Code(s): J96.02 - Acute respiratory failure with hypercapnia Status: Acute (3) Pneumonia Code(s): J18.9 - Pneumonia, unspecified organism Status: Acute (4) Encephalopathy Code(s): G93.40 - Encephalopathy, unspecified Status: Acute (5) Septic shock Code(s): A41.9 - Sepsis, unspecified organism; R65.21 - Severe sepsis with septic shock Status: Acute (6) Sepsis Code(s): A41.9 - Sepsis, unspecified organism Status: Acute - Plan Hemodialysis On Monday BP low and given fluids/albumin during HD Monday Abdominal pain, C. difficile positive ID following UTI Enterobacter He also has pneumonia on CT scan ET aspirate. Pseudomonas Intubated Monday BP somewhat low - on pressors now Stable with ventilator. Hemodialysis seen during hemodialysis 3 L on 4K bath He has abdominal distention and C. difficile positive ID is following Hypokalemia with potassium losses from bowel movements, anuric. K+ replacement ordered, Once stable and discharged , then follow-up with Dr. Dueñas
[2018-08-01] MEDS ORDERED: Potassium Chlor 40 mEq Premix 40 MEQ/100 ML PIGGYBACK IV.SIG ONE (15:00)
--- NOTE | 2018-08-01 17:58 | P.PN ---
Subjective Interval history: On the vent and is alert. Being dialyzed today. O2 sat 97 on 40 % No Fever. Physical Exam Vital signs: Vital Signs 07/31/18 18:00 07/31/18 19:37 07/31/18 20:00 Temperature 98.2 F Pulse Rate 83 91 H 80 Respiratory Rate 14 16 Blood Pressure 130/75 Pulse Oximetry 99 99 07/31/18 22:00 08/01/18 00:00 08/01/18 01:14 Temperature 98.7 F Pulse Rate 70 61 Respiratory Rate 16 14 Blood Pressure 104/64 Pulse Oximetry 97 98 08/01/18 02:00 08/01/18 03:37 08/01/18 04:00 Temperature 97.5 F L Pulse Rate 58 L 57 L 60 Respiratory Rate 14 14 Blood Pressure 106/68 Pulse Oximetry 97 08/01/18 04:08 08/01/18 06:00 08/01/18 08:00 Temperature 96.8 F L Pulse Rate 59 L 60 Respiratory Rate 14 14 Blood Pressure 98/60 L Pulse Oximetry 98 100 08/01/18 08:10 08/01/18 09:15 08/01/18 10:00 Temperature Pulse Rate 58 L 66 Respiratory Rate 14 14 Blood Pressure Pulse Oximetry 100 08/01/18 11:25 08/01/18 12:00 08/01/18 14:00 Temperature 97.8 F Pulse Rate 62 62 Respiratory Rate 20 16 Blood Pressure 106/64 Pulse Oximetry 97 100 08/01/18 15:49 Temperature Pulse Rate 61 Respiratory Rate 16 Blood Pressure Pulse Oximetry 100 Intake & Output 07/31/18 08/01/18 08/01/18 18:59 06:59 18:59 Intake Total 1100 / 1100 1660 / 1660 550 / 550 Output Total 3450 / 3450 25 / 25 Balance -2350 / -2350 1635 / 1635 550 / 550 Weight 109.1 kg Intake: IV 1020 / 1020 1580 / 1580 550 / 550 Cordarone Inj 450 MG In D5W Inj 250 / 250 250 / 250 100 / 100 241 ML @ 1 MG/MIN 33.33 mls/hr IV.CONT TITRATE PRN Rx#: [id number] Versed Inj 50 mg In 50 ml @ 2 20 / 20 30 / 30 50 / 50 MG/HR 2 mls/hr IV.CONT TITRATE PRN Rx#:[id number] Sodium Bicarbonate 8.4% Inj 150 150 / 150 1000 / 1000 MEQ In D5W Inj 850 ML @ 125 mls/hr IV.CONT .Q8H YOVANA Rx#: [id number] Pitressin Inj 40 UNIT In D5W 100 / 100 100 / 100 Inj 98 ML @ 0.01 UNITS/MIN 1.5 mls/hr IV.CONT TITRATE PRN Rx#: [id number] Diflucan 200 mg Premix Bag 100 100 / 100 100 / 100 ML @ 100 mls/hr IV.SIG Q24H YOVANA Rx#:[id number] Merrem Inj 500 MG In NS Inj 100 100 / 100 100 / 100 100 / 100 ML @ 200 mls/hr IV.SIG Q12H YOVANA Rx#:[id number] KCl 40 mEq Premix Inj 40 meq In 100 / 100 100 ml @ 25 mls/hr IV.SIG Q4H YOVANA Rx#:[id number] Flagyl 500 MG Inj 100 ML @ 100 200 / 200 200 / 200 100 / 100 mls/hr IV.SIG Q8H YOVANA Rx#: [id number] Tube Irrigant 80 / 80 80 / 80 Output: Gastric Drainage 250 / 250 25 / 25 Left Nare Nasogastric Tube 250 / 250 25 / 25 Wound Drainage 3200 / 3200 Left Abdomen 3200 / 3200 Other: Date of Last Bowel Movement 07/30/18 07/31/18 07/31/18 # Incontinent Bowel Movements 2 Narrative: GENERAL:Intubated and on the Vent, awake and Assists the vent. HEAD: Normocephalic. NECK: Supple, trachea midline. No lymphadenopathy.ET Tube EYES: No scleral icterus. No injection or drainage. CARDIOVASCULAR: Regular rate and rhythm without murmurs, gallops, or rubs. RESPIRATORY: Breath sounds equal bilaterally. Bilateral wheeze.Crackles at bases GASTROINTESTINAL: Abdomen soft, distended. Ascites + MUSCULOSKELETAL: No cyanosis, and 1 + edema. SKIN: Cool and dry. NEURO: Sedated - Urinary Catheter Management Indwelling Urethral Catheter Cath placed during this visit: yes Reason for continuing: Other continuation reason Insertion date: 07/16/18 Insertion time: 17:30 Results - Labs CBC & Chem 7: 08/01/18 04:15 08/01/18 04:15 Laboratory Results - last 24 hr 08/01/18 08/01/18 08/01/18 00:08 04:15 04:15 WBC 7.1 RBC 4.10 L Hgb 10.8 L Hct 34.2 L MCV 83.4 MCH 26.3 L MCHC 31.5 L RDW 17.3 H Plt Count 76 L MPV 7.9 Sodium 140 Potassium 2.9 L* Chloride 99 Carbon Dioxide 29.3 Anion Gap 12 BUN 29 H Creatinine 3.45 H Estimated GFR 18 L POC Glucose 152 H Random Glucose 166 H Calcium 7.4 L* Prot Corrected Calcium 8.5 Phosphorus 1.7 L Magnesium 1.7 Total Bilirubin 0.5 AST 8 L ALT Less than 6 L Alkaline Phosphatase 68 Total Protein 5.1 L Albumin 2.0 L 08/01/18 11:52 WBC RBC Hgb Hct MCV MCH MCHC RDW Plt Count MPV Sodium Potassium Chloride Carbon Dioxide Anion Gap BUN Creatinine Estimated GFR POC Glucose 146 H Random Glucose Calcium Prot Corrected Calcium Phosphorus Magnesium Total Bilirubin AST ALT Alkaline Phosphatase Total Protein Albumin Microbiology 07/31/18 12:45 Fluid - Peritoneal fluid Gram Stain - Final 07/31/18 12:45 Fluid - Peritoneal fluid Body Fluid Culture - Preliminary No growth in 24 hours 07/27/18 16:00 Blood - Other Aerobic Blood Culture - Final No growth in 5 days 07/27/18 16:00 Blood - Other Anaerobic Blood Culture - Final No growth in 5 days 07/27/18 11:20 Blood - Peripheral Aerobic Blood Culture - Final No growth in 5 days 07/27/18 11:20 Blood - Peripheral Anaerobic Blood Culture - Final No growth in 5 days 07/27/18 11:25 Blood - Peripheral Aerobic Blood Culture - Final No growth in 5 days 07/27/18 11:25 Blood - Peripheral Anaerobic Blood Culture - Final No growth in 5 days 07/31/18 12:45 Fluid - Ascites Fluid Fungal Smear - Final No fungal elements seen - Imaging Impressions Chest X-Ray 08/01/18 06:00 CONCLUSION: Stable small left basilar opacity likely representing pleural effusion with associated volume loss and/or airspace consolidation. Atelectasis at the right lung base is stable. Assessment and Plan - Assessment (1) Aspiration pneumonia Code(s): J69.0 - Pneumonitis due to inhalation of food and vomit Status: Acute (2) Acute hypercapnic respiratory failure Code(s): J96.02 - Acute respiratory failure with hypercapnia Status: Acute (3) Sepsis Code(s): A41.9 - Sepsis, unspecified organism Status: Acute (4) Pneumonia Code(s): J18.9 - Pneumonia, unspecified organism Status: Acute (5) Encephalopathy Code(s): G93.40 - Encephalopathy, unspecified Status: Acute (6) Septic shock Code(s): A41.9 - Sepsis, unspecified organism; R65.21 - Severe sepsis with septic shock Status: Acute (7) Acute metabolic encephalopathy Code(s): G93.41 - Metabolic encephalopathy Status: Acute (8) End stage renal disease Code(s): N18.6 - End stage renal disease Status: Acute (9) Diarrhea Code(s): R19.7 - Diarrhea, unspecified Status: Acute (10) Septic shock due to Clostridium difficile Status: Acute - Plan 1. Continue antibiotics per ID 2. Cont Vent support and wean FIO2 3. Cont Duoneb nebs qid. 4. CPAP trial in am 5. wean sedation. 6. Dialysis as planned 7. CBC,BMP in am
[2018-08-02] MEDS: Vasopressin Inj 40 UNIT in Dextrose 5% in Water Inj 98 ML IV.CONT PRN ×4 (03:15→20:23)
[2018-08-02 05:06] LABS: Hematocrit 35.8 % (39.0-51.0); Hemoglobin 11.1 gm/dL (13.0-17.0); Mean Corpuscular HGB Conc 31.1 % (32.0-36.0); Mean Corpuscular Hemoglobin 25.9 pg (27.0-34.0); Mean Corpuscular Volume 83.4 fL (80.0-100.0); Mean Platelet Volume 9.2 fL (7.0-11.0); Platelet Count 88 th/mm3 (150-450); Red Blood Count 4.29 mil/mm3 (4.50-5.90); Red Cell Distribution Width 17.3 % (11.6-17.2)
[2018-08-02 05:33] LABS: Albumin 2.7 g/dL (3.4-5.0); Alkaline Phosphatase 71 U/L (45-117); Anion Gap 13 meq/L (5-15); Aspartate Aminotransferase 9 U/L (15-37); Blood Urea Nitrogen 20 mg/dL (7-18); Calcium 7.8 mg/dL (8.5-10.1); Chloride 103 meq/L (98-107); Glomerular Filtration Rate 25 mL/min (>89); Glucose,Random 134 mg/dL (74-106); Magnesium 1.7 mg/dL (1.5-2.5); Phosphorus 2.1 mg/dL (2.5-4.9); Potassium 3.4 meq/L (3.5-5.1); Sodium 143 meq/L (136-145); Total Protein 5.6 g/dL (6.4-8.2)
[2018-08-02] MEDS: Insulin NovoLIN Regular Correctional Sugar Inj SQ SCH ×3 (06:30→18:29)
[2018-08-02] MEDS: Sodium Bicarbonate 8.4% Inj 150 MEQ in Dextrose 5% in Water Inj 850 ML IV.CONT SCH ×6 (06:30→22:31)
[2018-08-02] MEDS: Famotidine 20 MG Tablet PO SCH (08:57)
[2018-08-02] MEDS: Amiodarone 200 MG Tablet PO SCH (08:57)
[2018-08-02] MEDS: Senna/Docusate Sodium 8.6/50 MG Tablet PO SCH ×2 (08:57→20:51)
[2018-08-02] MEDS: Lactobacillus Acidophilus/L. Spores Tablet PO SCH ×3 (08:57→18:31)
[2018-08-02] MEDS: FLORASTOR 250 MG PO SCH (08:58)
--- NOTE | 2018-08-02 15:04 | P.PNCC ---
Subjective Subjective Remarks/Hospital Course: Patient is a 57-year-old male with past medical history of end-stage renal disease on hemodialysis, , COPD on home oxygen, hypertension, diabetes type 2, who was brought to the emergency department for altered mental status. He was altered at the dialysis center and apparently during dialysis he lost pulses and CPR was started. By time EMS arrived patient did have pulses. He was confused for EMS. ER workup showed that patient has a white count of 16.7 with left shift indicating sepsis. Patient remained hypotensive after fluid resuscitation and hence was started on Levophed by the ED physician. CT abdomen pelvis showed a previously known adrenal mass slightly increased in size compared to [address] pulmonary angiogram was negative for PE, however showed dense bibasilar consolidation/pneumonia which could be the source of sepsis. Received vancomycin and Zosyn in the ED. ABG prior to intubation in the ED showed severe hypercapnic respiratory failure with a pH of 7.05, PCO2 of 93. I evaluated the patient after arrival to the [facility]. He is intubated critically ill-appearing sedated. On lightening sedation he is able to move all 4 extremities. His source of sepsis most likely is pneumonia. Wong cultures have been sent. His altered mentation is most likely secondary to sepsis and hypercapnia, will check CT of the head to rule out any acute events. 07/17: No events over the night. Since ICU admission patient did not require any vasopressor. Oxygenation is down to 40%. Sedation is achieved with propofol, which is decreased to 20. Patient is arousable, following commands appropriately. Daughter is present at bedside. T-max of 99.6. RECONSULT NOTE 07/27: reconsulted for rapid response from floor. patient with ESRD and c. diff colitis, now with rising wbc, altered mentation, hypotension despite ivf resuscitation. abg with mixed resp/met acidosis, uncompensated. intermittently has periods of syncope. when arousable, patient refusing intubation at this time , saying "I know when I need a tube, and I don't need a tube right now." placed on norepinephrine for vasopressor support and end-organ perfusion. 07/28: Intubated and placed on mech ventilation last night. On levophed/ amio/ versed/ fentanyl gtt. Bicarb drip decreased to 40cc/hr. 07/29: Remains sedated, orally intubated on mech vent. OGT coming out of PEG site so pulled back and ordered CT Abd with oral contrast for further evaluation. 07/30: Remains intubated sedated and septic. Currently remains on Levophed and vasopressin. CT abdomen pelvis showed significant worsening of ascites since the prior exam, small pl and moderate pericardial effusion and bibasilar consolidation worse on the left. Also distended sigmoid colon and slightly worse since the prior examination possibility of colitis. Ascending colon and transverse colon are collapsed. D/W Dr. Ma, will resume gram negative coverage. GI consult is pending at this time 07/31: Remains on Levophed 1 mcg/min and vasopressin at 0.04 international units, more alert though follows commands on sedation hold. Bedside ultrasound consistently showed large ascites. Paracentesis was performed and approximately 3.2 L of fluid removed. WBC count improving though patient remains critically ill, showing some signs of improvement. PEG site culture growing Alison and MRSA 08/01: Currently remains intubated on Versed at 3 mg/h tolerating CPAP. Follows commands but remains lethargic. Persistent left lower lobe infiltrate. Paracentesis performed on 3 L fluid removed yesterday studies concerning for SBP. On broad-spectrum antibiotics and antifungals per ID 08/02: Remains drowsy, arousable, orally intubated on mechanical ventilation. On CPAP trial. Objective Vital Signs / I&O: Vital Signs 08/01/18 15:49 08/01/18 16:00 08/01/18 18:00 Temperature 97.8 F Pulse Rate 61 66 67 Respiratory Rate 16 21 Blood Pressure 142/72 H Pulse Oximetry 100 100 08/01/18 20:00 08/01/18 20:26 08/01/18 20:29 Temperature 97.7 F Pulse Rate 64 66 Respiratory Rate 14 14 14 Blood Pressure 130/70 Pulse Oximetry 100 08/01/18 22:00 08/02/18 00:00 08/02/18 00:21 Temperature 97.6 F Pulse Rate 68 68 Respiratory Rate 14 14 Blood Pressure 98/60 L Pulse Oximetry 99 99 08/02/18 02:00 08/02/18 03:58 08/02/18 04:00 Temperature 97.9 F Pulse Rate 66 57 L 68 Respiratory Rate 14 18 Blood Pressure 114/64 Pulse Oximetry 100 08/02/18 06:00 08/02/18 08:10 08/02/18 08:15 Temperature Pulse Rate 61 76 Respiratory Rate 20 20 Blood Pressure Pulse Oximetry 100 08/02/18 11:25 Temperature Pulse Rate Respiratory Rate 18 Blood Pressure Pulse Oximetry 98 Intake & Output 08/01/18 08/02/18 08/02/18 18:59 06:59 18:59 Intake Total 1000 / 1000 300 / 300 100 / 100 Output Total 0 / 0 400 / 400 Balance 1000 / 1000 -100 / -100 100 / 100 Weight 105.7 kg Intake: IV 1000 / 1000 300 / 300 100 / 100 Cordarone Inj 450 MG In D5W Inj 100 / 100 241 ML @ 1 MG/MIN 33.33 mls/hr IV.CONT TITRATE PRN Rx#: [id number] Versed Inj 50 mg In 50 ml @ 2 50 / 50 MG/HR 2 mls/hr IV.CONT TITRATE PRN Rx#:[id number] Pitressin Inj 40 UNIT In D5W 100 / 100 100 / 100 Inj 98 ML @ 0.01 UNITS/MIN 1.5 mls/hr IV.CONT TITRATE PRN Rx#: [id number] Flexbumin 25% Inj 100 ML @ 60 100 / 100 mls/hr IV.SIG WITH DIALYSIS PRN Rx#:[id number] Diflucan 200 mg Premix Bag 100 100 / 100 ML @ 100 mls/hr IV.SIG Q24H YOVANA Rx#:[id number] Merrem Inj 500 MG In NS Inj 100 100 / 100 100 / 100 ML @ 200 mls/hr IV.SIG Q12H YOVANA Rx#:[id number] KCl 40 mEq Premix Inj 40 meq In 100 / 100 100 ml @ 25 mls/hr IV.SIG ONCE ONE Rx#:[id number] Vancomycin Inj 1,000 MG In NS 250 / 250 Inj 250 ML @ 250 mls/hr IV.SIG WITH DIALYSIS YOVANA Rx#:[id number] Flagyl 500 MG Inj 100 ML @ 100 100 / 100 100 / 100 100 / 100 mls/hr IV.SIG Q8H YOVANA Rx#: [id number] Output: Urine 0 / 0 Gastric Drainage 400 / 400 Right Nare 400 / 400 Other: Date of Last Bowel Movement 07/31/18 08/02/18 # Bowel Movements 1 Result Diagrams: 08/02/18 04:50 08/02/18 04:50 Objective Remarks: General - 57 yo gentleman, lying in bed. Intubated, drowsy, arousable, following commands HEENT - pupils equal, reactive, sclerae anicteric, neck supple, no nuchal rigidity CV - Irregularly irregular rhythm, on amiodarone. appears afib by tele. No murmurs. Currently on vasopressin Chest - orally intubated on mech vent, coarse breath sounds b/l, good air entry , bilateral mild expiratory wheezing. Abdomen - soft, non-tender, distended, no hepatomegaly, no splenomegaly, no guarding. Previous PEG tube site without significant discharge. s/p paracentesis Extremities - warm and well perfused, trace edema, + peripheral pulses, no clubbing Neuro -drowsy, arousable, orally intubated on mech vent. On lightening sedation moves all extremities, following commands Assessment and Plan - Problem List (1) Septic shock Code(s): A41.9 - Sepsis, unspecified organism; R65.21 - Severe sepsis with septic shock Status: Acute (2) Acute metabolic encephalopathy Code(s): G93.41 - Metabolic encephalopathy Status: Acute (3) Acute hypercapnic respiratory failure Code(s): J96.02 - Acute respiratory failure with hypercapnia Status: Acute (4) Pneumonia Code(s): J18.9 - Pneumonia, unspecified organism Status: Acute - Assessment and Plan Plan: Assessment: 57yM with ESRD and now with worsening septic shock. now intubated on vasopressors. Plan by systems: Neurologic: Metabolic encephalopathy Secondary to sepsis, improving EEG-showing diffuse encephalopathy, MRI-no acute findings frequent neuro checks Daily sedation vacation Respiratory: Acute hypoxic and hypercarbic respiratory failure Continue mech ventilation, vent bundle. nebs, hob elevated. DuoNeb every 6 hours scheduled and as needed 07/27 sputum culture growing MRSA Daily CPAP trials ongoing. If tolerated will extubate. Cardiovascular: Septic Shock Atrial fibrillation Pericardial effusion Vasopressin for goal map > 65mmHg HD to keep in even fluid balance. Repeat Echo to evaluate pericardial effusion rule out tamponade-small pericardial effusion no tamponade physiology On anticoagulation Renal: End-stage renal disease Strict I/Os Nephrology following Hemodialysis per renal. FEN/GI: Acute protein calorie malnutrition- severe Severe hypokalemia Acute metabolic acidosis CT abd pelvis-distended thick sigmoid colon with collapsed ascending and transverse colon Significant ascites s/p paracentesis and a 3.2 L fluid removal 07/31/18 GI reconsulted for OGT coming out of prev PEG site, KUB now shows no significant distention correct electrolytes, replace K Heme/ID: Septic Shock C. Difficile colitis, PEG site infection, MRSA pneumonia ID following. wbc downtrending Merem to keep GNR coverage. Continue Diflucan Continue po vanco and IV Flagyl for C diff Continue IV vanco for MRSA pneumonia and wound site infection Endocrine: -SSI Prophylaxis: GI Prophylaxis Protonix DVT Prophylaxis -SCDs Eliquis Lines: right IJ vascath- keep for dialysis access Central line placed 07/28 critical care time: 30 minutes, exclusive of separately billable procedures
[2018-08-02 15:39] LABS: ABG Base Excess 5.3 mmol/L (-2-2); ABG PCO2 53 mmHg (38-42); ABG PO2 75 mmHg (61-120)
--- NOTE | 2018-08-02 18:22 | P.PNGI ---
Subjective Interval history: Not much changed from the GI standpoint. There is no gross GI bleeding. Still some drainage from the PEG tube site. No major diarrhea Physical Exam Vital signs: Vital Signs 08/01/18 20:00 08/01/18 20:26 08/01/18 20:29 Temperature 97.7 F Pulse Rate 64 66 Respiratory Rate 14 14 14 Blood Pressure 130/70 Pulse Oximetry 100 08/01/18 22:00 08/02/18 00:00 08/02/18 00:21 Temperature 97.6 F Pulse Rate 68 68 Respiratory Rate 14 14 Blood Pressure 98/60 L Pulse Oximetry 99 99 08/02/18 02:00 08/02/18 03:58 08/02/18 04:00 Temperature 97.9 F Pulse Rate 66 57 L 68 Respiratory Rate 14 18 Blood Pressure 114/64 Pulse Oximetry 100 08/02/18 06:00 08/02/18 08:00 08/02/18 08:10 Temperature Pulse Rate 61 72 Respiratory Rate 20 Blood Pressure Pulse Oximetry 100 08/02/18 08:15 08/02/18 10:00 08/02/18 11:25 Temperature Pulse Rate 76 70 Respiratory Rate 20 18 Blood Pressure Pulse Oximetry 98 08/02/18 12:00 08/02/18 14:00 08/02/18 16:00 Temperature Pulse Rate 70 70 66 Respiratory Rate Blood Pressure Pulse Oximetry 08/02/18 16:31 08/02/18 17:40 Temperature Pulse Rate Respiratory Rate 22 16 Blood Pressure Pulse Oximetry 97 98 Intake & Output 08/01/18 08/02/18 08/02/18 18:59 06:59 18:59 Intake Total 1000 / 1000 300 / 300 100 / 100 Output Total 0 / 0 400 / 400 Balance 1000 / 1000 -100 / -100 100 / 100 Weight 105.7 kg Intake: IV 1000 / 1000 300 / 300 100 / 100 Cordarone Inj 450 MG In D5W Inj 100 / 100 241 ML @ 1 MG/MIN 33.33 mls/hr IV.CONT TITRATE PRN Rx#: [id number] Versed Inj 50 mg In 50 ml @ 2 50 / 50 MG/HR 2 mls/hr IV.CONT TITRATE PRN Rx#:[id number] Pitressin Inj 40 UNIT In D5W 100 / 100 100 / 100 Inj 98 ML @ 0.01 UNITS/MIN 1.5 mls/hr IV.CONT TITRATE PRN Rx#: [id number] Flexbumin 25% Inj 100 ML @ 60 100 / 100 mls/hr IV.SIG WITH DIALYSIS PRN Rx#:[id number] Diflucan 200 mg Premix Bag 100 100 / 100 ML @ 100 mls/hr IV.SIG Q24H YOVANA Rx#:[id number] Merrem Inj 500 MG In NS Inj 100 100 / 100 100 / 100 ML @ 200 mls/hr IV.SIG Q12H YOVANA Rx#:[id number] KCl 40 mEq Premix Inj 40 meq In 100 / 100 100 ml @ 25 mls/hr IV.SIG ONCE ONE Rx#:[id number] Vancomycin Inj 1,000 MG In NS 250 / 250 Inj 250 ML @ 250 mls/hr IV.SIG WITH DIALYSIS OYVANA Rx#:[id number] Flagyl 500 MG Inj 100 ML @ 100 100 / 100 100 / 100 100 / 100 mls/hr IV.SIG Q8H YOVANA Rx#: [id number] Output: Urine 0 / 0 Gastric Drainage 400 / 400 Right Nare 400 / 400 Other: Date of Last Bowel Movement 07/31/18 08/02/18 08/02/18 # Bowel Movements 1 - Constitutional Comments: Patient intubated and his eyes do follow me across the room - Routine HEENT Exam Head: Present: normocephalic - Routine Respiratory Exam Present: rhonchi - Routine Cardiovascular Exam Present: RRR - Routine Abdominal Exam Present: soft Comments: Even though abdomen is soft it is protuberant. Bowel sounds present but minimal - Routine Extremities Exam Absent: cyanosis - Routine Skin Exam Absent: cyanosis - Urinary Catheter Management Indwelling Urethral Catheter Cath placed during this visit: yes Reason for continuing: Other continuation reason Insertion date: 07/16/18 Insertion time: 17:30 Results - Labs CBC & Chem 7: 08/02/18 04:50 08/02/18 04:50 Laboratory Results - last 24 hr 08/01/18 08/02/18 08/02/18 22:50 04:50 04:50 WBC 7.0 RBC 4.29 L Hgb 11.1 L Hct 35.8 L MCV 83.4 MCH 25.9 L MCHC 31.1 L RDW 17.3 H Plt Count 88 L MPV 9.2 Puncture Site Patient Temperature O2 Saturation ABG pH ABG pCO2 ABG pO2 ABG HCO3 ABG O2 Content ABG Base Excess ABG Methemoglobin Thomas Test Hemoglobin Carboxyhemoglobin O2 Delivery Device Vent Setting Inspired O2 Critical Value Sodium 143 Potassium 3.4 L 3.4 L Chloride 103 Carbon Dioxide 27.0 Anion Gap 13 BUN 20 H Creatinine 2.68 H Estimated GFR 25 L POC Glucose Random Glucose 134 H Calcium 7.8 L Phosphorus 2.1 L Magnesium 1.7 Total Bilirubin 0.6 AST 9 L ALT Less than 6 L Alkaline Phosphatase 71 Total Protein 5.6 L Albumin 2.7 L D 08/02/18 08/02/18 13:14 15:18 WBC RBC Hgb Hct MCV MCH MCHC RDW Plt Count MPV Puncture Site Left radial Patient Temperature 98.6 O2 Saturation 91 ABG pH 7.38 ABG pCO2 53 H* ABG pO2 75 ABG HCO3 30 H ABG O2 Content 14.4 ABG Base Excess 5.3 H ABG Methemoglobin 1.3 Thomas Test Present Hemoglobin 11.2 L Carboxyhemoglobin 1.1 O2 Delivery Device Vent Vent Setting 7/ Inspired O2 35 Critical Value Yes Sodium Potassium Chloride Carbon Dioxide Anion Gap BUN Creatinine Estimated GFR POC Glucose 114 H Random Glucose Calcium Phosphorus Magnesium Total Bilirubin AST ALT Alkaline Phosphatase Total Protein Albumin Microbiology 07/31/18 12:45 Fluid - Peritoneal fluid Gram Stain - Final 07/31/18 12:45 Fluid - Peritoneal fluid Body Fluid Culture - Preliminary No growth in 48 hours Assessment and Plan - Attending Attestation Impression: 1. C. difficile colitison treatment 2. Ascitesetiology multifactorial. Patient is status post bedside paracentesis 3. Status post PEG tube removal-some drainage from the fistula site. Suspect this is gastric fluid. If this continues patient needs to be eval by general surgery 4. Dilated sigmoid on CAT scanabdominal x-ray does not show any significant distention PLAN: 1. Continue antibiotics for C. difficile 2. Monitor for worsening abdominal distention from ascites as well as colonic distention 3. General surgery evaluation if the drainage from the gastric fistula (PEG site)becomes problematic and continues
[2018-08-02] MEDS ORDERED: Potassium Chlor 20 mEq Premix 20 MEQ/100 ML PIGGYBACK IV.SIG ONE (19:38)
--- NOTE | 2018-08-02 19:41 | P.PNNP ---
Subjective Interval history: Patient remains on ventilator stable Physical Exam Vital signs: Vital Signs 08/01/18 20:00 08/01/18 20:26 08/01/18 20:29 Temperature 97.7 F Pulse Rate 64 66 Respiratory Rate 14 14 14 Blood Pressure 130/70 Pulse Oximetry 100 08/01/18 22:00 08/02/18 00:00 08/02/18 00:21 Temperature 97.6 F Pulse Rate 68 68 Respiratory Rate 14 14 Blood Pressure 98/60 L Pulse Oximetry 99 99 08/02/18 02:00 08/02/18 03:58 08/02/18 04:00 Temperature 97.9 F Pulse Rate 66 57 L 68 Respiratory Rate 14 18 Blood Pressure 114/64 Pulse Oximetry 100 08/02/18 06:00 08/02/18 08:00 08/02/18 08:10 Temperature 98.1 F Pulse Rate 61 72 Respiratory Rate 14 20 Blood Pressure 108/64 Pulse Oximetry 100 100 08/02/18 08:15 08/02/18 10:00 08/02/18 11:25 Temperature Pulse Rate 76 70 Respiratory Rate 20 18 Blood Pressure Pulse Oximetry 98 08/02/18 12:00 08/02/18 14:00 08/02/18 16:00 Temperature 98.0 F 97.9 F Pulse Rate 70 70 70 Respiratory Rate 15 10 L Blood Pressure 109/63 92/55 L Pulse Oximetry 100 100 08/02/18 16:31 08/02/18 17:40 08/02/18 18:00 Temperature Pulse Rate 65 Respiratory Rate 22 16 Blood Pressure Pulse Oximetry 97 98 Intake & Output 08/02/18 08/02/18 08/03/18 06:59 18:59 06:59 Intake Total 300 / 300 280 / 280 Output Total 400 / 400 3400 / 3400 Balance -100 / -100 -3120 / -3120 Weight 105.7 kg Intake: IV 300 / 300 200 / 200 Pitressin Inj 40 UNIT In D5W 100 / 100 Inj 98 ML @ 0.01 UNITS/MIN 1.5 mls/hr IV.CONT TITRATE PRN Rx#: [id number] Merrem Inj 500 MG In NS Inj 100 100 / 100 100 / 100 ML @ 200 mls/hr IV.SIG Q12H YOVANA Rx#:[id number] Flagyl 500 MG Inj 100 ML @ 100 100 / 100 100 / 100 mls/hr IV.SIG Q8H YOVANA Rx#: [id number] Tube Irrigant 80 / 80 Output: Urine 0 / 0 Gastric Drainage 400 / 400 200 / 200 Right Nare 400 / 400 200 / 200 Wound Drainage 3200 / 3200 Left Abdomen 3200 / 3200 Other: Date of Last Bowel Movement 08/02/18 08/02/18 # Bowel Movements 1 1 # Incontinent Bowel Movements 1 - Constitutional no acute distress - Routine Respiratory Exam Present: CTA bilaterally - Routine Cardiovascular Exam Present: RRR - Routine Abdominal Exam Present: distended - Routine Extremities Exam Present: edema - Urinary Catheter Management Indwelling Urethral Catheter Cath placed during this visit: yes Reason for continuing: Other continuation reason Insertion date: 07/16/18 Insertion time: 17:30 Assessment and Plan - Assessment (1) End stage renal disease Code(s): N18.6 - End stage renal disease Status: Acute (2) Acute hypercapnic respiratory failure Code(s): J96.02 - Acute respiratory failure with hypercapnia Status: Acute (3) Pneumonia Code(s): J18.9 - Pneumonia, unspecified organism Status: Acute (4) Encephalopathy Code(s): G93.40 - Encephalopathy, unspecified Status: Acute (5) Septic shock Code(s): A41.9 - Sepsis, unspecified organism; R65.21 - Severe sepsis with septic shock Status: Acute (6) Sepsis Code(s): A41.9 - Sepsis, unspecified organism Status: Acute - Plan Hemodialysis On Monday BP low and given fluids/albumin during HD Monday Abdominal pain, C. difficile positive ID following UTI Enterobacter He also has pneumonia on CT scan ET aspirate. Pseudomonas Intubated Monday BP somewhat low - on pressors now Stable with ventilator. Hemodialysis next dialysis tomorrow PEG tube site has small leak or GI note He has abdominal distention and C. difficile positive ID is following Hypokalemia with potassium losses from bowel movements, . K+ replacement ordered, check magnesium Once stable and discharged , then follow-up with Dr. Dueñas
[2018-08-03] MEDS: Insulin NovoLIN Regular Correctional Sugar Inj SQ SCH ×4 (00:45→18:32)
[2018-08-03 05:07] LABS: Baso # (Auto) 0.1 th/mm3 (0.0-0.2); Baso % (Auto) 1.2 % (0.0-2.0); Eos # (Auto) 0.1 th/mm3 (0.0-0.4); Eos % (Auto) 1.3 % (0.0-4.0); Hematocrit 36.3 % (39.0-51.0); Hemoglobin 11.4 gm/dL (13.0-17.0); Lymph # (Auto) 1.3 th/mm3 (1.0-4.8); Lymph % (Auto) 13.4 % (9.0-44.0); Mean Corpuscular HGB Conc 31.4 % (32.0-36.0); Mean Corpuscular Hemoglobin 26.3 pg (27.0-34.0); Mean Corpuscular Volume 83.8 fL (80.0-100.0); Mean Platelet Volume 9.4 fL (7.0-11.0); Mono # (Auto) 1.1 th/mm3 (0.0-0.9); Mono % (Auto) 11.2 % (0.0-8.0); Neut # (Auto) 7.1 th/mm3 (1.8-7.7); Neut % (Auto) 72.9 % (16.0-70.0); Platelet Count 90 th/mm3 (150-450); Red Blood Count 4.34 mil/mm3 (4.50-5.90); Red Cell Distribution Width 17.1 % (11.6-17.2); White Blood Count 9.8 th/mm3 (4.0-11.0)
[2018-08-03 05:35] LABS: Calcium 7.7 mg/dL (8.5-10.1); Carbon Dioxide 26.2 meq/L (21.0-32.0); Magnesium 1.6 mg/dL (1.5-2.5); Potassium 3.9 meq/L (3.5-5.1)
[2018-08-03] MEDS: Sodium Bicarbonate 8.4% Inj 150 MEQ in Dextrose 5% in Water Inj 850 ML IV.CONT SCH ×4 (06:30→17:34)
[2018-08-03 06:43] LABS: Platelet Morphology Normal (Normal)
[2018-08-03] MEDS: Albumin Human 25% Inj 100 ML IV.SIG PRN (11:21)
[2018-08-03] MEDS: Epoetin Alfa Inj 4,000 UNIT/ML Vial IV.PUSH PRN (11:21)
[2018-08-03] MEDS: Vancomycin Inj 1,000 MG in Sodium Chlor 0.9% Inj 250 ML IV.SIG SCH (11:22)
--- NOTE | 2018-08-03 13:22 | P.PNWCN ---
Wound Care Nurse Consult Description: Received consult for possible pressure ulcer to R buttock from Doctor Ronan Communicated with: ACE Briggs [address] and Doctor Recommendation: 1.Please cleanse wound to R side of the coccyx with normal saline only and pat dry. 2. Apply haile thickness Santyl ointment to wound bed only. 3. Cut maxorb II to fit just on wound bed over santyl, and apply, do not let maxorb II overlap onto surrounding skin. 4. Apply Calazime skin protectant paste to denuded skin and partial thickness skin loss surrounding wound. (periwound) 5. Apply skin barrier film to intact skin before securing bordered gauze in place. 6 change daily. 7 Please turn and reposition patient every 2 hours from L side to R side. Please limit time spent on back for P.T. and meals. 8 . Please do not allow patient sit on bottom for more than [address] patinet on [employer] bed or K4 bed from [facility] 10. Do not place cotton underpads under patient, please use ultrasorb pad only. Wound/Pressure Injury - Patient Status Premedicated for Pain Prior to Dressing Change: No - Wound Right side of coccyx Wound Staging: Unstageable Wound Assessment: Ongoing Wound Type: Pressure Injury Is This a Chronic Wound: No Requested from Provider a Wound Care Consult: Yes Length: 2.5 (~2.5cm) Width: 2 (~2cm) Depth: 0 (eschar) Wound Bed Appearance: Wound bed presents with ~40% eschar and ~60% red non granulation tissue.Periwound presents with denuded peeling skin and partial thickness skin loss. Surrounding Tissue Temperature: Cool Drainage Description: Serosanguinous Drainage Amount: Minimal Drainage Odor: No Odor Dressing Status: Changed Cleansing Solution: Saline Cover Dressing: Bordered gauze Wound Dressing Change Date: 08/03/18 Wound Margin Description: Wound margins are open and well defined - Additional Information Patient seen on [address] [place] [address] for evaluation of possible R buttock pressure injury. Patient is intubated, but is alert and able to follow commands.Patient was then turned with the assistance Brigitte BELLO [address] [place] [address] and field underwriter to reveal denuded skin and partial thickness skin loss to bilateral buttocks. Wound is noted to R inner buttock on the R side of the coccyx katiana prominence. Wound is an unstageable pressure injury due to eschar in the wound bed. Wound presents with mixed etiology of pressure, moisture and friction. Wound description, measurements and wound care recommendations are noted above. Wound was cleansed with normal saline and patted dry. Periwound denuded skin with partial thickness skin loss was cleansed with normal saline gently and patted dry. Applied cavilon skin barrier film before applying bordered gauze in place. Incision - Patient Status Premedicated for Pain Prior to Dressing Change: No
[2018-08-03] MEDS: Amiodarone 200 MG Tablet PO SCH (13:49)
[2018-08-03] MEDS: FLORASTOR 250 MG PO SCH (13:50)
[2018-08-03] MEDS: Lactobacillus Acidophilus/L. Spores Tablet PO SCH ×3 (13:50→18:36)
[2018-08-03] MEDS: Famotidine 20 MG Tablet PO SCH (13:51)
[2018-08-03] MEDS: Senna/Docusate Sodium 8.6/50 MG Tablet PO SCH ×2 (13:51→21:09)
--- NOTE | 2018-08-03 14:32 | P.PNID ---
Subjective Remarks: Patient is a 57-year-old male, brought into the hospital after he was noted to have altered mental status, with decreased level of consciousness at the dialysis center. He apparently lost pulses and CPR was started with return of his pulses. EMS was called and at that time he was found to have pulses. He was noted to be confused. His blood sugars were okay. In the ED he was hypotensive, and was on Levophed briefly. He ended up getting intubated. CT of the abdomen and pelvis showed the known adrenal mass with slight increase in size. CT of the chest did not show any PE but it showed dense bibasilar consolidation. Patient stated that he was at [facility] about 5 months ago and at that time he had pneumonia. He went to a rehab facility and at the rehab he has not really been doing any ambulation. He gets transferred to a wheelchair. He has known COPD, and chronically on oxygen. Patient states he has a chronic cough and brings up some clear phlegm. He has not really noted any increase in his cough or change in the color of his sputum. He denies any chest pain. He was extubated yesterday, and currently denies any shortness of breath. He is on nasal O2 with good oxygen saturation. Patient denies any problem with nausea or vomiting, or any swallowing difficulty. He has not had any choking episodes. During his hospitalization at [facility], he had a PEG tube placed, but the patient stated that they have not been using the tube for nutrition, and he has been taking nutrition orally. Patient also had a history of right empyema back in 2010, requiring a right thoracotomy, decortication and pleurectomy, and a right lung wedge resection. Records mentioned that he has had problem with aspiration. Infectious disease consultation has been requested to assist with management of recurrent pneumonia. Notes reviewed D/W RN On the vent, on CPAP this morning Remains on Vasopressin Had paracentesis yesterday - took out >3L fluid - 1467 WBC, 95% neutrophils, 3.5 protein Temps ok CPAP trials ongoing. Awake and follows commands. UC Larissa albicans PEG site Larissa and MRSA Sputum with MRSA BC negative Repeat CT with dilated sigmoid, collapsed colon Antibiotics: PO vancomycin Diflucan IV Flagyl IV vanco intermittent Meropenem Lines: Permacath RIJ Central line Past Medical History: Diabetes ESRD (end stage renal disease) on dialysis Empyema lung HTN (hypertension) Renal disease Status post thoracotomy Allergies/Adverse Reactions: Allergies heparin Allergy (Severe, Verified 07/16/18 13:23) Bleeding quetiapine [From Seroquel] Allergy (Intermediate, Verified 07/16/18 13:23) Shakiness cefuroxime Allergy (Verified 07/20/18 18:25) Rash Objective Vital Signs 08/02/18 16:00 08/02/18 16:31 08/02/18 17:40 Temperature 97.9 F Pulse Rate 70 Respiratory Rate 10 L 22 16 Blood Pressure 92/55 L Pulse Oximetry 100 97 98 08/02/18 18:00 08/02/18 20:20 08/02/18 23:42 Temperature Pulse Rate 65 63 Respiratory Rate 14 14 Blood Pressure Pulse Oximetry 98 08/03/18 03:31 08/03/18 03:35 08/03/18 08:30 Temperature Pulse Rate 56 L Respiratory Rate 15 15 14 Blood Pressure Pulse Oximetry 99 98 08/03/18 08:36 08/03/18 12:55 Temperature Pulse Rate 77 Respiratory Rate 14 22 Blood Pressure Pulse Oximetry 97 Intake & Output 08/02/18 08/03/18 08/03/18 18:59 06:59 18:59 Intake Total 280 / 280 605 / 605 100 / 100 Output Total 3400 / 3400 500 / 500 3300 / 3300 Balance -3120 / -3120 105 / 105 -3200 / -3200 Weight 107.2 kg Intake: IV 200 / 200 605 / 605 100 / 100 Versed Inj 50 mg In 50 ml @ 2 5 / 5 MG/HR 2 mls/hr IV.CONT TITRATE PRN Rx#:[id number] Pitressin Inj 40 UNIT In D5W 100 / 100 Inj 98 ML @ 0.01 UNITS/MIN 1.5 mls/hr IV.CONT TITRATE PRN Rx#: [id number] Diflucan 200 mg Premix Bag 100 100 / 100 ML @ 100 mls/hr IV.SIG Q24H [facility] Rx#:[id number] Merrem Inj 500 MG In NS Inj 100 100 / 100 100 / 100 ML @ 200 mls/hr IV.SIG Q12H [facility] Rx#:[id number] KCl 20 mEq Premix Inj 20 meq In 100 / 100 100 ml @ 50 mls/hr IV.SIG ONCE ONE Rx#:[id number] Flagyl 500 MG Inj 100 ML @ 100 100 / 100 200 / 200 100 / 100 mls/hr IV.SIG Q8H [facility] Rx#: [id number] Tube Irrigant 80 / 80 Output: Urine 0 / 0 Hemodialysis Amount 3300 / 3300 Gastric Drainage 200 / 200 500 / 500 Right Nare 200 / 200 500 / 500 Wound Drainage 3200 / 3200 Left Abdomen 3200 / 3200 Other: Date of Last Bowel Movement 08/02/18 08/03/18 # Bowel Movements 1 1 # Incontinent Bowel Movements 1 07/27/18 11:20 Blood - Peripheral Aerobic Blood Culture - Final No growth in 5 days 07/27/18 11:20 Blood - Peripheral Anaerobic Blood Culture - Final No growth in 5 days 07/27/18 11:20 Blood - Peripheral Blood Fungal Culture - Preliminary No growth in 1 week 07/27/18 11:20 Blood - Peripheral Blood Fungal Culture - Preliminary No growth in 1 week 07/31/18 12:45 Fluid - Peritoneal fluid Gram Stain - Final 07/31/18 12:45 Fluid - Peritoneal fluid Body Fluid Culture - Final No growth in 72 hours (aerobically and anaerobically ) 07/27/18 16:00 Blood - Other Aerobic Blood Culture - Final No growth in 5 days 07/27/18 16:00 Blood - Other Anaerobic Blood Culture - Final No growth in 5 days 07/27/18 11:25 Blood - Peripheral Aerobic Blood Culture - Final No growth in 5 days 07/27/18 11:25 Blood - Peripheral Anaerobic Blood Culture - Final No growth in 5 days 07/31/18 12:45 Fluid - Ascites Fluid Fungal Smear - Final No fungal elements seen 07/31/18 12:45 Fluid - Ascites Fluid Fungal Culture - Pending 07/27/18 21:30 Wound - Abdominal Gram Stain - Final 07/27/18 21:30 Wound - Abdominal Wound Culture - Final Larissa albicans S. aureus MRSA Lab - Hematology Results 08/02/18 08/03/18 04:50 04:50 WBC 7.0 9.8 RBC 4.29 L 4.34 L Hgb 11.1 L 11.4 L Hct 35.8 L 36.3 L MCV 83.4 83.8 MCH 25.9 L 26.3 L MCHC 31.1 L 31.4 L RDW 17.3 H 17.1 Plt Count 88 L 90 L MPV 9.2 9.4 Prelim Diff (Auto) Slide review pending Neut % (Auto) 72.9 H Lymph % (Auto) 13.4 Wise % (Auto) 11.2 H Eos % (Auto) 1.3 Baso % (Auto) 1.2 Neut # (Auto) 7.1 Lymph # (Auto) 1.3 Wise # (Auto) 1.1 H Eos # (Auto) 0.1 Baso # (Auto) 0.1 WBC Differential . Diff Scan Auto diff confirmed Differential Comment . Platelet Estimate Low L Platelet Morphology Normal Lab - Chemistry Results 08/01/18 08/01/18 08/02/18 17:59 22:50 04:50 Sodium 143 Potassium 3.4 L 3.4 L Chloride 103 Carbon Dioxide 27.0 Anion Gap 13 BUN 20 H Creatinine 2.68 H Estimated GFR 25 L POC Glucose 106 Random Glucose 134 H Calcium 7.8 L Phosphorus 2.1 L Magnesium 1.7 Total Bilirubin 0.6 AST 9 L ALT Less than 6 L Alkaline Phosphatase 71 Total Protein 5.6 L Albumin 2.7 L D 08/02/18 08/03/18 08/03/18 13:14 01:08 04:50 Sodium 141 Potassium 3.9 Chloride 103 Carbon Dioxide 26.2 Anion Gap 12 BUN 27 H Creatinine 3.42 H Estimated GFR 19 L POC Glucose 114 H 150 H Random Glucose 136 H Calcium 7.7 L Phosphorus Magnesium 1.6 Total Bilirubin AST ALT Alkaline Phosphatase Total Protein Albumin Imaging: ITS Impressions Chest CTA 07/16/18 13:03 CONCLUSION: 1. No CT evidence for pulmonary artery embolism as questioned. 2. Dense bilateral lower lobe airspace consolidation with trace associated pleural effusions. Findings are concerning for aspiration. 3. Nonspecific right hilar and mediastinal nodes, as above. This may be reactive in etiology. 4. Probable 1.6 cm right adrenal mass that is incompletely imaged on this exam. Although indeterminate in density, this is unchanged from abdominal CT of 06/07/2011 and therefore likely benign. Head CT 07/17/18 00:00 CONCLUSION: 1. Atrophy. 2. Periventricular low attenuation change likely relating to chronic small vessel ischemic change. 3. Fluid throughout the nasal cavity and paranasal sinuses. . Barium Swallow X-Ray 07/20/18 00:00 CONCLUSION: Unremarkable barium swallow, however limited study since only frontal projection could be performed. Head MRI 07/27/18 00:00 CONCLUSION: 1. No acute intracranial abnormality. 2. Atrophy. 3. Nonspecific periventricular demyelination. This could be from small vessel ischemic change. 4. Fluid in the sinuses. 5. Increased signal/fluid throughout the mastoid/temporal air cells. Abdomen/Pelvis CT 07/29/18 00:00 CONCLUSION: 1. Significant worsening of ascites since the prior exam. 2. Small left pleural effusion, moderate pericardial effusion and bibasilar consolidation worse on the left. 3. Distended sigmoid colon and slightly worse since the prior examination possibility of colitis should be entertained. The ascending colon and transverse colon are collapsed not adequately characterized. Abdomen X-Ray 07/31/18 00:00 CONCLUSION: 1. The bowel gas pattern is grossly within normal limits. There is some air in the transverse colon which is nondistended. 2. Benign appearing abdomen. 3. NG tube in stomach. Chest X-Ray 08/01/18 06:00 CONCLUSION: Stable small left basilar opacity likely representing pleural effusion with associated volume loss and/or airspace consolidation. Atelectasis at the right lung base is stable. Physical Exam: GENERAL: On the ventilator. No distress. Opens eyes when stimulated SKIN: Cool and dry. No generalized rash HEAD: Atraumatic. Normocephalic. No temporal wasting, or tenderness. EYES: [place] conjunctiva. No petechia or hemorrhage. No scleral icterus. No injection or drainage. EARS, NOSE AND THROAT: Nose without bleeding or purulent nasal discharge. NECK: Trachea midline. Supple and not tender, no meningeal signs CARDIOVASCULAR: Regular rate and rhythm. No murmurs, rubs or gallops heard RESPIRATORY: Slight basilar rhonchi. ABDOMEN: soft, not tender, BS hypoactive. No guarding, no rebound Previous PEG site with small amount of drainage, no surrounding redness or induration EXTREMITIES: No clubbing, cyanosis, or edema. No calf tenderness. NEUROLOGICAL: Eyes open PSYCHIATRIC: Unable to assess. LINE: No evidence of infection Assessment and Plan - Plan Impression Pneumonia, likely aspiration, has been on RX. MRSA. Respiratory failure, increasing SOB and O2 requirement - CXR stable infiltrates S/P respiratory failure and extubation - on presentation COPD, O2 dependent ESRD on HD MWF UTI, Enterobacter, on Rx C difficile colitis. Leukocytosis. Improved. Larissa UTI. Ascites, elevated WBC, exudative, no peritoneal sign on exam Recommendation Continue Merem to keep GNR coverage Continue Diflucan Continue po vanco and IV Flagyl for C diff Continue IV vanco for MRSA Monitor progress Follow new C/S Weaning per [facility] D/W RN
--- NOTE | 2018-08-03 17:24 | P.PNNP ---
Subjective Interval history: Patient received dialysis earlier Physical Exam Vital signs: Vital Signs 08/02/18 17:40 08/02/18 18:00 08/02/18 20:20 Pulse Rate 65 63 Respiratory Rate 16 14 Pulse Oximetry 98 98 08/02/18 23:42 08/03/18 03:31 08/03/18 03:35 Pulse Rate 56 L Respiratory Rate 14 15 15 Pulse Oximetry 99 08/03/18 08:30 08/03/18 08:36 08/03/18 12:55 Pulse Rate 77 Respiratory Rate 14 14 22 Pulse Oximetry 98 97 08/03/18 15:35 Pulse Rate Respiratory Rate Pulse Oximetry 97 Intake & Output 08/02/18 08/03/18 08/03/18 18:59 06:59 18:59 Intake Total 280 / 280 605 / 605 100 / 100 Output Total 3400 / 3400 500 / 500 3300 / 3300 Balance -3120 / -3120 105 / 105 -3200 / -3200 Weight 107.2 kg Intake: IV 200 / 200 605 / 605 100 / 100 Versed Inj 50 mg In 50 ml @ 2 5 / 5 MG/HR 2 mls/hr IV.CONT TITRATE PRN Rx#:[id number] Pitressin Inj 40 UNIT In D5W 100 / 100 Inj 98 ML @ 0.01 UNITS/MIN 1.5 mls/hr IV.CONT TITRATE PRN Rx#: [id number] Diflucan 200 mg Premix Bag 100 100 / 100 ML @ 100 mls/hr IV.SIG Q24H [facility] Rx#:[id number] Merrem Inj 500 MG In NS Inj 100 100 / 100 100 / 100 ML @ 200 mls/hr IV.SIG Q12H [facility] Rx#:[id number] KCl 20 mEq Premix Inj 20 meq In 100 / 100 100 ml @ 50 mls/hr IV.SIG ONCE ONE Rx#:[id number] Flagyl 500 MG Inj 100 ML @ 100 100 / 100 200 / 200 100 / 100 mls/hr IV.SIG Q8H [facility] Rx#: [id number] Tube Irrigant 80 / 80 Output: Urine 0 / 0 Hemodialysis Amount 3300 / 3300 Gastric Drainage 200 / 200 500 / 500 Right Nare 200 / 200 500 / 500 Wound Drainage 3200 / 3200 Left Abdomen 3200 / 3200 Other: Date of Last Bowel Movement 08/02/18 08/03/18 # Bowel Movements 1 1 # Incontinent Bowel Movements 1 - Constitutional no acute distress - Routine HEENT Exam Eye: Present: EOMI - Routine Respiratory Exam Present: decreased breath sounds (At basis) - Routine Cardiovascular Exam Present: S1, S2, irregular rhythm - Routine Abdominal Exam Present: soft, distended - Routine Extremities Exam Present: edema - Urinary Catheter Management Indwelling Urethral Catheter Cath placed during this visit: yes Reason for continuing: Other continuation reason Insertion date: 07/16/18 Insertion time: 17:30 Assessment and Plan - Assessment (1) End stage renal disease Code(s): N18.6 - End stage renal disease Status: Acute (2) Acute hypercapnic respiratory failure Code(s): J96.02 - Acute respiratory failure with hypercapnia Status: Acute (3) Pneumonia Code(s): J18.9 - Pneumonia, unspecified organism Status: Acute (4) Encephalopathy Code(s): G93.40 - Encephalopathy, unspecified Status: Acute (5) Septic shock Code(s): A41.9 - Sepsis, unspecified organism; R65.21 - Severe sepsis with septic shock Status: Acute (6) Sepsis Code(s): A41.9 - Sepsis, unspecified organism Status: Acute - Plan Hemodialysis On Monday BP low and given fluids/albumin during HD Monday Abdominal pain, C. difficile positive ID following UTI Enterobacter He also has pneumonia on CT scan ET aspirate. Pseudomonas Intubated Monday, extubated today BP somewhat low - on pressors now Stable with ventilator. Hemodialysis done 3.3 L taken off PEG tube site has small leak /GI note He has abdominal distention and C. difficile positive ID is following Hypokalemia with potassium losses from bowel movements, . K+ replacement ordered, check magnesium Once stable and discharged , then follow-up with Dr. Dueñas
--- NOTE | 2018-08-03 18:13 | P.PNCC ---
Subjective Subjective Remarks/Hospital Course: Patient is a 57-year-old male with past medical history of end-stage renal disease on hemodialysis, , COPD on home oxygen, hypertension, diabetes type 2, who was brought to the emergency department for altered mental status. He was altered at the dialysis center and apparently during dialysis he lost pulses and CPR was started. By time EMS arrived patient did have pulses. He was confused for EMS. ER workup showed that patient has a white count of 16.7 with left shift indicating sepsis. Patient remained hypotensive after fluid resuscitation and hence was started on Levophed by the ED physician. CT abdomen pelvis showed a previously known adrenal mass slightly increased in size compared to [address] pulmonary angiogram was negative for PE, however showed dense bibasilar consolidation/pneumonia which could be the source of sepsis. Received vancomycin and Zosyn in the ED. ABG prior to intubation in the ED showed severe hypercapnic respiratory failure with a pH of 7.05, PCO2 of 93. I evaluated the patient after arrival to the [facility]. He is intubated critically ill-appearing sedated. On lightening sedation he is able to move all 4 extremities. His source of sepsis most likely is pneumonia. Wong cultures have been sent. His altered mentation is most likely secondary to sepsis and hypercapnia, will check CT of the head to rule out any acute events. 07/17: No events over the night. Since ICU admission patient did not require any vasopressor. Oxygenation is down to 40%. Sedation is achieved with propofol, which is decreased to 20. Patient is arousable, following commands appropriately. Daughter is present at bedside. T-max of 99.6. RECONSULT NOTE 07/27: reconsulted for rapid response from floor. patient with ESRD and c. diff colitis, now with rising wbc, altered mentation, hypotension despite ivf resuscitation. abg with mixed resp/met acidosis, uncompensated. intermittently has periods of syncope. when arousable, patient refusing intubation at this time , saying "I know when I need a tube, and I don't need a tube right now." placed on norepinephrine for vasopressor support and end-organ perfusion. 07/28: Intubated and placed on mech ventilation last night. On levophed/ amio/ versed/ fentanyl gtt. Bicarb drip decreased to 40cc/hr. 07/29: Remains sedated, orally intubated on mech vent. OGT coming out of PEG site so pulled back and ordered CT Abd with oral contrast for further evaluation. 07/30: Remains intubated sedated and septic. Currently remains on Levophed and vasopressin. CT abdomen pelvis showed significant worsening of ascites since the prior exam, small pl and moderate pericardial effusion and bibasilar consolidation worse on the left. Also distended sigmoid colon and slightly worse since the prior examination possibility of colitis. Ascending colon and transverse colon are collapsed. D/W Dr. Ma, will resume gram negative coverage. GI consult is pending at this time 07/31: Remains on Levophed 1 mcg/min and vasopressin at 0.04 international units, more alert though follows commands on sedation hold. Bedside ultrasound consistently showed large ascites. Paracentesis was performed and approximately 3.2 L of fluid removed. WBC count improving though patient remains critically ill, showing some signs of improvement. PEG site culture growing Alison and MRSA 08/01: Currently remains intubated on Versed at 3 mg/h tolerating CPAP. Follows commands but remains lethargic. Persistent left lower lobe infiltrate. Paracentesis performed on 3 L fluid removed yesterday studies concerning for SBP. On broad-spectrum antibiotics and antifungals per ID 08/02: Remains drowsy, arousable, orally intubated on mechanical ventilation. On CPAP trial. 08/03: Awake and alert, following commands orally intubated on mechanical ventilation earlier at the time of my evaluation. Tolerated CPAP trial and ordered extubation Objective Vital Signs / I&O: Vital Signs 08/02/18 20:20 08/02/18 23:42 08/03/18 03:31 Pulse Rate 63 Respiratory Rate 14 14 15 Pulse Oximetry 98 99 08/03/18 03:35 08/03/18 08:30 08/03/18 08:36 Pulse Rate 56 L 77 Respiratory Rate 15 14 14 Pulse Oximetry 98 08/03/18 12:55 08/03/18 15:35 Pulse Rate Respiratory Rate 22 Pulse Oximetry 97 97 Intake & Output 08/02/18 08/03/18 08/03/18 18:59 06:59 18:59 Intake Total 280 / 280 605 / 605 200 / 200 Output Total 3400 / 3400 500 / 500 3300 / 3300 Balance -3120 / -3120 105 / 105 -3100 / -3100 Weight 107.2 kg Intake: IV 200 / 200 605 / 605 200 / 200 Versed Inj 50 mg In 50 ml @ 2 5 / 5 MG/HR 2 mls/hr IV.CONT TITRATE PRN Rx#:[id number] Pitressin Inj 40 UNIT In D5W 100 / 100 Inj 98 ML @ 0.01 UNITS/MIN 1.5 mls/hr IV.CONT TITRATE PRN Rx#: [id number] Diflucan 200 mg Premix Bag 100 100 / 100 ML @ 100 mls/hr IV.SIG Q24H [facility] Rx#:[id number] Merrem Inj 500 MG In NS Inj 100 100 / 100 100 / 100 100 / 100 ML @ 200 mls/hr IV.SIG Q12H [facility] Rx#:[id number] KCl 20 mEq Premix Inj 20 meq In 100 / 100 100 ml @ 50 mls/hr IV.SIG ONCE ONE Rx#:[id number] Flagyl 500 MG Inj 100 ML @ 100 100 / 100 200 / 200 100 / 100 mls/hr IV.SIG Q8H [facility] Rx#: [id number] Tube Irrigant 80 / 80 Output: Urine 0 / 0 Hemodialysis Amount 3300 / 3300 Gastric Drainage 200 / 200 500 / 500 Right Nare 200 / 200 500 / 500 Wound Drainage 3200 / 3200 Left Abdomen 3200 / 3200 Other: Date of Last Bowel Movement 08/02/18 08/03/18 # Bowel Movements 1 1 # Incontinent Bowel Movements 1 Result Diagrams: 08/03/18 04:50 08/03/18 04:50 Objective Remarks: General - 57 yo gentleman, lying in bed. Intubated, drowsy, arousable, following commands HEENT - pupils equal, reactive, sclerae anicteric, neck supple, no nuchal rigidity CV - Irregularly irregular rhythm, on amiodarone. appears afib by tele. No murmurs. Currently on vasopressin Chest - orally intubated on mech vent, coarse breath sounds b/l, good air entry , bilateral mild expiratory wheezing. Abdomen - soft, non-tender, distended, no hepatomegaly, no splenomegaly, no guarding. Previous PEG tube site without significant discharge. s/p paracentesis Extremities - warm and well perfused, trace edema, + peripheral pulses, no clubbing Neuro -drowsy, arousable, orally intubated on mech vent. On lightening sedation moves all extremities, following commands Assessment and Plan - Problem List (1) Septic shock Code(s): A41.9 - Sepsis, unspecified organism; R65.21 - Severe sepsis with septic shock Status: Acute (2) Acute metabolic encephalopathy Code(s): G93.41 - Metabolic encephalopathy Status: Acute (3) Acute hypercapnic respiratory failure Code(s): J96.02 - Acute respiratory failure with hypercapnia Status: Acute (4) Pneumonia Code(s): J18.9 - Pneumonia, unspecified organism Status: Acute - Assessment and Plan Plan: Assessment: 57yM with ESRD and now with worsening septic shock. now intubated on vasopressors. Plan by systems: Neurologic: Metabolic encephalopathy Secondary to sepsis, improving EEG-showing diffuse encephalopathy, MRI-no acute findings frequent neuro checks Daily sedation vacation Respiratory: Acute hypoxic and hypercarbic respiratory failure nebs, hob elevated. DuoNeb every 6 hours scheduled and as needed 07/27 sputum culture growing MRSA Tolerated CPAP trial and extubated to nasal cannula on 08/03. Cardiovascular: Septic Shock Atrial fibrillation Pericardial effusion Vasopressin/levophed for goal map > 65mmHg HD to keep in even fluid balance. Repeat Echo to evaluate pericardial effusion rule out tamponade-small pericardial effusion no tamponade physiology On anticoagulation Renal: End-stage renal disease Strict I/Os Nephrology following Hemodialysis per renal. FEN/GI: Acute protein calorie malnutrition- severe Severe hypokalemia Acute metabolic acidosis CT abd pelvis-distended thick sigmoid colon with collapsed ascending and transverse colon Significant ascites s/p paracentesis and a 3.2 L fluid removal 07/31/18 GI reconsulted for OGT coming out of prev PEG site, KUB now shows no significant distention correct electrolytes, replace K Heme/ID: Septic Shock C. Difficile colitis, PEG site infection, MRSA pneumonia ID following. wbc downtrending Merem to keep GNR coverage. Continue Diflucan Continue po vanco and IV Flagyl for C diff Continue IV vanco for MRSA pneumonia and wound site infection Endocrine: -SSI Prophylaxis: GI Prophylaxis Protonix DVT Prophylaxis -SCDs Eliquis Lines: right IJ vascath- keep for dialysis access Central line placed 07/28 critical care time: 30 minutes, exclusive of separately billable procedures
[2018-08-03] MEDS: Collagenase Oint 30 GM Tube TOPICAL SCH (18:33)
[2018-08-03] MEDS: Nystatin/Diphenhydramine/Lidocaine Mouthwash (Adult) 120 ML Botttle SWISH-SWAL SCH (18:33)
--- NOTE | 2018-08-03 19:05 | P.PN ---
Subjective Interval history: He is alert and tolerates CPAP. FIo2 at 40 % Had Dialysis. Abdomen is soft after paracentesis Physical Exam Vital signs: Vital Signs 08/02/18 20:20 08/02/18 23:42 08/03/18 03:31 Pulse Rate 63 Respiratory Rate 14 14 15 Pulse Oximetry 98 99 08/03/18 03:35 08/03/18 08:30 08/03/18 08:36 Pulse Rate 56 L 77 Respiratory Rate 15 14 14 Pulse Oximetry 98 08/03/18 12:55 08/03/18 15:35 Pulse Rate Respiratory Rate 22 Pulse Oximetry 97 97 Intake & Output 08/03/18 08/03/18 08/04/18 06:59 18:59 06:59 Intake Total 605 / 605 200 / 200 Output Total 500 / 500 3300 / 3300 Balance 105 / 105 -3100 / -3100 Weight 107.2 kg Intake: IV 605 / 605 200 / 200 Versed Inj 50 mg In 50 ml @ 2 5 / 5 MG/HR 2 mls/hr IV.CONT TITRATE PRN Rx#:[id number] Pitressin Inj 40 UNIT In D5W 100 / 100 Inj 98 ML @ 0.01 UNITS/MIN 1.5 mls/hr IV.CONT TITRATE PRN Rx#: [id number] Diflucan 200 mg Premix Bag 100 100 / 100 ML @ 100 mls/hr IV.SIG Q24H YOVANA Rx#:[id number] Merrem Inj 500 MG In NS Inj 100 100 / 100 100 / 100 ML @ 200 mls/hr IV.SIG Q12H YOVANA Rx#:[id number] KCl 20 mEq Premix Inj 20 meq In 100 / 100 100 ml @ 50 mls/hr IV.SIG ONCE ONE Rx#:[id number] Flagyl 500 MG Inj 100 ML @ 100 200 / 200 100 / 100 mls/hr IV.SIG Q8H YOVANA Rx#: [id number] Output: Hemodialysis Amount 3300 / 3300 Gastric Drainage 500 / 500 Right Nare 500 / 500 Other: Date of Last Bowel Movement 08/03/18 # Bowel Movements 1 Narrative: GENERAL:Intubated and on the Vent, awake and Assists the vent. HEAD: Normocephalic. NECK: Supple, trachea midline. No lymphadenopathy.ET Tube EYES: No scleral icterus. No injection or drainage. CARDIOVASCULAR: Regular rate and rhythm without murmurs, gallops, or rubs. RESPIRATORY: Breath sounds equal bilaterally. Bilateral wheeze.Occ Crackles at bases GASTROINTESTINAL: Abdomen soft, non tender. No mass. MUSCULOSKELETAL: No cyanosis, and 1 + edema. SKIN: Cool and dry. NEURO: awake and responds to commands - Urinary Catheter Management Indwelling Urethral Catheter Cath placed during this visit: yes Reason for continuing: Other continuation reason Insertion date: 07/16/18 Insertion time: 17:30 Results - Labs CBC & Chem 7: 08/03/18 04:50 08/03/18 04:50 Laboratory Results - last 24 hr 08/03/18 08/03/18 08/03/18 01:08 04:50 04:50 WBC 9.8 RBC 4.34 L Hgb 11.4 L Hct 36.3 L MCV 83.8 MCH 26.3 L MCHC 31.4 L RDW 17.1 Plt Count 90 L MPV 9.4 Prelim Diff (Auto) Slide review pending Neut % (Auto) 72.9 H Lymph % (Auto) 13.4 [place] % (Auto) 11.2 H Eos % (Auto) 1.3 Baso % (Auto) 1.2 Neut # (Auto) 7.1 Lymph # (Auto) 1.3 [place] # (Auto) 1.1 H Eos # (Auto) 0.1 Baso # (Auto) 0.1 WBC Differential . Diff Scan Auto diff confirmed Differential Comment . Platelet Estimate Low L Platelet Morphology Normal Sodium 141 Potassium 3.9 Chloride 103 Carbon Dioxide 26.2 Anion Gap 12 BUN 27 H Creatinine 3.42 H Estimated GFR 19 L POC Glucose 150 H Random Glucose 136 H Calcium 7.7 L Magnesium 1.6 Microbiology 07/27/18 11:20 Blood - Peripheral Aerobic Blood Culture - Final No growth in 5 days 07/27/18 11:20 Blood - Peripheral Anaerobic Blood Culture - Final No growth in 5 days 07/27/18 11:20 Blood - Peripheral Blood Fungal Culture - Preliminary No growth in 1 week 07/27/18 11:20 Blood - Peripheral Blood Fungal Culture - Preliminary No growth in 1 week 07/31/18 12:45 Fluid - Peritoneal fluid Gram Stain - Final 07/31/18 12:45 Fluid - Peritoneal fluid Body Fluid Culture - Final No growth in 72 hours (aerobically and anaerobically ) Assessment and Plan - Assessment (1) Aspiration pneumonia Code(s): J69.0 - Pneumonitis due to inhalation of food and vomit Status: Acute (2) Acute hypercapnic respiratory failure Code(s): J96.02 - Acute respiratory failure with hypercapnia Status: Acute (3) Sepsis Code(s): A41.9 - Sepsis, unspecified organism Status: Acute (4) Pneumonia Code(s): J18.9 - Pneumonia, unspecified organism Status: Acute (5) Encephalopathy Code(s): G93.40 - Encephalopathy, unspecified Status: Acute (6) Septic shock Code(s): A41.9 - Sepsis, unspecified organism; R65.21 - Severe sepsis with septic shock Status: Acute (7) Acute metabolic encephalopathy Code(s): G93.41 - Metabolic encephalopathy Status: Acute (8) End stage renal disease Code(s): N18.6 - End stage renal disease Status: Acute (9) Diarrhea Code(s): R19.7 - Diarrhea, unspecified Status: Acute (10) Septic shock due to Clostridium difficile Status: Acute - Plan 1. Continue antibiotics per ID 2. Place on CPAP 5/5 and FIo2 35 %. 3. Cont Duoneb nebs qid. 4. NIF,FVC and ABG and try to extubate 5. Stop sedation. 6. Dialysis as planned 7. Tube feeds at 50 CC
[2018-08-04] MEDS: Insulin NovoLIN Regular Correctional Sugar Inj SQ SCH (00:39)
[2018-08-04] MEDS: Nystatin/Diphenhydramine/Lidocaine Mouthwash (Adult) 120 ML Botttle SWISH-SWAL SCH ×4 (00:39→20:23)
[2018-08-04] MEDS: Vasopressin Inj 40 UNIT in Dextrose 5% in Water Inj 98 ML IV.CONT PRN ×2 (02:41)
[2018-08-04 06:06] LABS: Baso # (Auto) 0.1 th/mm3 (0.0-0.2); Baso % (Auto) 1.1 % (0.0-2.0); Eos # (Auto) 0.3 th/mm3 (0.0-0.4); Eos % (Auto) 2.5 % (0.0-4.0); Hematocrit 35.2 % (39.0-51.0); Hemoglobin 10.6 gm/dL (13.0-17.0); Lymph # (Auto) 1.2 th/mm3 (1.0-4.8); Lymph % (Auto) 10.4 % (9.0-44.0); Mean Corpuscular Volume 86.1 fL (80.0-100.0); Mean Platelet Volume 10.1 fL (7.0-11.0); Mono # (Auto) 1.2 th/mm3 (0.0-0.9); Mono % (Auto) 10.7 % (0.0-8.0); Neut # (Auto) 8.7 th/mm3 (1.8-7.7); Neut % (Auto) 75.3 % (16.0-70.0); Platelet Count 111 th/mm3 (150-450); Red Blood Count 4.09 mil/mm3 (4.50-5.90); Red Cell Distribution Width 17.8 % (11.6-17.2); White Blood Count 11.6 th/mm3 (4.0-11.0)
[2018-08-04 06:09] LABS: Mean Corpuscular HGB Conc 30.2 % (32.0-36.0)
[2018-08-04 06:25] LABS: Calcium 7.7 mg/dL (8.5-10.1); Carbon Dioxide 30.6 meq/L (21.0-32.0)
--- NOTE | 2018-08-04 09:20 | XR ---
EXAM DATE: 08/04/2018 9:16 AM EDT AGE/SEX: 57 years / Male INDICATIONS: Respiratory failure. CLINICAL DATA: This is the patient's subsequent encounter. Patient reports that signs and symptoms h ave been present for 1 week and indicates a pain score of Nonresponsive. MEDICAL/SURGICAL HISTORY: Non-responsive. Non-responsive. COMPARISON: [facility], CHEST 1V SINGLE AP, 08/01/2018. . FINDINGS: The patient has an NG tube, right IJ Vas-Cath and a left IJ central line. There is persistent consoli dation left lung with very little aerated lung. Clearly worse than on the fifth. Mild atelectasis rig ht lung base. Bones are unremarkable. CONCLUSION: Significant consolidation throughout the left lung clearly worse than on the fifth. Very little remai renee aerated lung on the left with some air bronchograms. Small infiltrate right lung base Electronically signed by: Max Malik MD 08/04/2018 9:19 AM EDT
[2018-08-04 09:37] LABS: ABG Base Excess 2.5 mmol/L (-2-2); ABG PCO2 85 mmHg (38-42); ABG PO2 71 mmHg (61-120)
[2018-08-04] MEDS: Famotidine 20 MG Tablet PO SCH (09:56)
[2018-08-04] MEDS: Amiodarone 200 MG Tablet PO SCH (09:56)
[2018-08-04] MEDS: Lactobacillus Acidophilus/L. Spores Tablet PO SCH ×3 (09:57→17:41)
[2018-08-04] MEDS: Senna/Docusate Sodium 8.6/50 MG Tablet PO SCH ×2 (10:01→20:17)
--- NOTE | 2018-08-04 11:58 | P.PNGI ---
Subjective Interval history: Patient without apparent GI bleeding. No gross diarrhea. Patient on tube feedings Physical Exam Vital signs: Vital Signs 08/03/18 12:00 08/03/18 12:55 08/03/18 14:00 Temperature 98.5 F Pulse Rate 86 78 Respiratory Rate 14 22 Blood Pressure 139/81 Pulse Oximetry 100 97 08/03/18 15:35 08/03/18 16:00 08/03/18 18:00 Temperature 97.9 F Pulse Rate 68 68 Respiratory Rate 17 Blood Pressure 132/66 Pulse Oximetry 97 100 08/03/18 20:00 08/03/18 20:08 08/03/18 22:00 Temperature 97.7 F Pulse Rate 72 68 Respiratory Rate 18 Blood Pressure 104/48 L Pulse Oximetry 99 99 08/04/18 00:00 08/04/18 02:00 08/04/18 04:00 Temperature 97.7 F 97.5 F L Pulse Rate 72 68 72 Respiratory Rate 16 16 Blood Pressure 96/46 L 80/40 L Pulse Oximetry 96 89 L 08/04/18 06:00 08/04/18 07:51 08/04/18 11:44 Temperature Pulse Rate 71 Respiratory Rate Blood Pressure Pulse Oximetry 88 L 92 L Intake & Output 08/03/18 08/04/18 08/04/18 18:59 06:59 18:59 Intake Total 1380 / 1380 320 / 320 100 / 100 Output Total 24676 / 80591 0 / 0 Balance -8928 / -8928 320 / 320 100 / 100 Weight 104.7 kg Intake: IV 400 / 400 200 / 200 100 / 100 Pitressin Inj 40 UNIT In D5W 100 / 100 Inj 98 ML @ 0.01 UNITS/MIN 1.5 mls/hr IV.CONT TITRATE PRN Rx#: [id number] Diflucan 200 mg Premix Bag 100 100 / 100 ML @ 100 mls/hr IV.SIG Q24H YOVANA Rx#:[id number] Merrem Inj 500 MG In NS Inj 100 100 / 100 100 / 100 ML @ 200 mls/hr IV.SIG Q12H YOVANA Rx#:[id number] Flagyl 500 MG Inj 100 ML @ 100 100 / 100 200 / 200 mls/hr IV.SIG Q8H YOVANA Rx#: [id number] Oral 900 / 900 Tube Irrigant 80 / 80 120 / 120 Output: Urine 0 / 0 0 / 0 Stool 8 / 8 Hemodialysis Amount 6600 / 6600 Gastric Drainage 500 / 500 Right Nare 500 / 500 Wound Drainage 3200 / 3200 Left Abdomen 3200 / 3200 Other: # Voids 2 0 Date of Last Bowel Movement 08/03/18 08/03/18 # Bowel Movements 1 # Incontinent Bowel Movements 1 - Constitutional no acute distress - Routine Neck Exam Present: supple - Routine Abdominal Exam Present: soft, normoactive bowel sounds - Routine Skin Exam Absent: cyanosis - Urinary Catheter Management Indwelling Urethral Catheter Cath placed during this visit: yes Reason for continuing: Other continuation reason Insertion date: 07/16/18 Insertion time: 17:30 Results - Labs CBC & Chem 7: 08/04/18 05:40 08/04/18 05:40 Laboratory Results - last 24 hr 08/03/18 08/04/18 08/04/18 23:59 05:40 05:40 WBC 11.6 H RBC 4.09 L Hgb 10.6 L Hct 35.2 L MCV 86.1 MCH 26.0 L MCHC 30.2 L RDW 17.8 H Plt Count 111 L MPV 10.1 Neut % (Auto) 75.3 H Lymph % (Auto) 10.4 [place] % (Auto) 10.7 H Eos % (Auto) 2.5 Baso % (Auto) 1.1 Neut # (Auto) 8.7 H Lymph # (Auto) 1.2 [place] # (Auto) 1.2 H Eos # (Auto) 0.3 Baso # (Auto) 0.1 WBC Differential . Differential Comment Auto diff final Puncture Site Patient Temperature O2 Saturation ABG pH ABG pCO2 ABG pO2 ABG HCO3 ABG O2 Content ABG Base Excess ABG Methemoglobin Hemoglobin Carboxyhemoglobin O2 Delivery Device Liter Flow Inspired O2 Critical Value Sodium 145 Potassium 4.0 Chloride 105 Carbon Dioxide 30.6 Anion Gap 9 BUN 19 H Creatinine 2.98 H Estimated GFR 22 L POC Glucose 87 Random Glucose 82 Calcium 7.7 L 08/04/18 09:29 WBC RBC Hgb Hct MCV MCH MCHC RDW Plt Count MPV Neut % (Auto) Lymph % (Auto) [place] % (Auto) Eos % (Auto) Baso % (Auto) Neut # (Auto) Lymph # (Auto) [place] # (Auto) Eos # (Auto) Baso # (Auto) WBC Differential Differential Comment Puncture Site Art line Patient Temperature 98.6 O2 Saturation 87 L* ABG pH 7.18 L* ABG pCO2 85 H* ABG pO2 71 ABG HCO3 30 H ABG O2 Content 13.3 ABG Base Excess 2.5 H ABG Methemoglobin 1.4 Hemoglobin 10.8 L Carboxyhemoglobin 1.0 O2 Delivery Device Nasal cannula Liter Flow 6.00 Inspired O2 0 Critical Value Yes Sodium Potassium Chloride Carbon Dioxide Anion Gap BUN Creatinine Estimated GFR POC Glucose Random Glucose Calcium Microbiology 07/27/18 11:20 Blood - Peripheral Aerobic Blood Culture - Final No growth in 5 days 07/27/18 11:20 Blood - Peripheral Anaerobic Blood Culture - Final No growth in 5 days 07/27/18 11:20 Blood - Peripheral Blood Fungal Culture - Preliminary No growth in 1 week 07/27/18 11:20 Blood - Peripheral Blood Fungal Culture - Preliminary No growth in 1 week 07/31/18 12:45 Fluid - Peritoneal fluid Gram Stain - Final 07/31/18 12:45 Fluid - Peritoneal fluid Body Fluid Culture - Final No growth in 72 hours (aerobically and anaerobically ) - Imaging Impressions Chest X-Ray 08/04/18 08:36 CONCLUSION: Significant consolidation throughout the left lung clearly worse than on the fifth. Very little remaining aerated lung on the left with some air bronchograms. Small infiltrate right lung base Assessment and Plan - Attending Attestation 1. C. difficile colitison treatment by ID 2. Ascitesetiology multifactorial. Patient is status post bedside paracentesis 3. Status post PEG tube removal-some drainage from the fistula site. If this continues patient needs to be eval by general surgery 4. Dilated sigmoid on CAT scanclinically and radiologically this is better PLAN: 1. Continue antibiotics for C. difficile 2. Monitor for worsening abdominal distention from ascites as well as colonic distention 3. General surgery evaluation if the drainage from the gastric fistula (PEG site)becomes problematic and continues 4. If a repeat G-tube is needed I would recommend interventional radiology place this tube
--- NOTE | 2018-08-04 12:46 | P.PNCC ---
Subjective Subjective Remarks/Hospital Course: Patient is a 57-year-old male with past medical history of end-stage renal disease on hemodialysis, , COPD on home oxygen, hypertension, diabetes type 2, who was brought to the emergency department for altered mental status. He was altered at the dialysis center and apparently during dialysis he lost pulses and CPR was started. By time EMS arrived patient did have pulses. He was confused for EMS. ER workup showed that patient has a white count of 16.7 with left shift indicating sepsis. Patient remained hypotensive after fluid resuscitation and hence was started on Levophed by the ED physician. CT abdomen pelvis showed a previously known adrenal mass slightly increased in size compared to [address] pulmonary angiogram was negative for PE, however showed dense bibasilar consolidation/pneumonia which could be the source of sepsis. Received vancomycin and Zosyn in the ED. ABG prior to intubation in the ED showed severe hypercapnic respiratory failure with a pH of 7.05, PCO2 of 93. I evaluated the patient after arrival to the [facility]. He is intubated critically ill-appearing sedated. On lightening sedation he is able to move all 4 extremities. His source of sepsis most likely is pneumonia. Wong cultures have been sent. His altered mentation is most likely secondary to sepsis and hypercapnia, will check CT of the head to rule out any acute events. 07/17: No events over the night. Since ICU admission patient did not require any vasopressor. Oxygenation is down to 40%. Sedation is achieved with propofol, which is decreased to 20. Patient is arousable, following commands appropriately. Daughter is present at bedside. T-max of 99.6. RECONSULT NOTE 07/27: reconsulted for rapid response from floor. patient with ESRD and c. diff colitis, now with rising wbc, altered mentation, hypotension despite ivf resuscitation. abg with mixed resp/met acidosis, uncompensated. intermittently has periods of syncope. when arousable, patient refusing intubation at this time , saying "I know when I need a tube, and I don't need a tube right now." placed on norepinephrine for vasopressor support and end-organ perfusion. 07/28: Intubated and placed on mech ventilation last night. On levophed/ amio/ versed/ fentanyl gtt. Bicarb drip decreased to 40cc/hr. 07/29: Remains sedated, orally intubated on mech vent. OGT coming out of PEG site so pulled back and ordered CT Abd with oral contrast for further evaluation. 07/30: Remains intubated sedated and septic. Currently remains on Levophed and vasopressin. CT abdomen pelvis showed significant worsening of ascites since the prior exam, small pl and moderate pericardial effusion and bibasilar consolidation worse on the left. Also distended sigmoid colon and slightly worse since the prior examination possibility of colitis. Ascending colon and transverse colon are collapsed. D/W Dr. Ma, will resume gram negative coverage. GI consult is pending at this time 07/31: Remains on Levophed 1 mcg/min and vasopressin at 0.04 international units, more alert though follows commands on sedation hold. Bedside ultrasound consistently showed large ascites. Paracentesis was performed and approximately 3.2 L of fluid removed. WBC count improving though patient remains critically ill, showing some signs of improvement. PEG site culture growing Alison and MRSA 08/01: Currently remains intubated on Versed at 3 mg/h tolerating CPAP. Follows commands but remains lethargic. Persistent left lower lobe infiltrate. Paracentesis performed on 3 L fluid removed yesterday studies concerning for SBP. On broad-spectrum antibiotics and antifungals per ID 08/02: Remains drowsy, arousable, orally intubated on mechanical ventilation. On CPAP trial. 08/03: Awake and alert, following commands orally intubated on mechanical ventilation earlier at the time of my evaluation. Tolerated CPAP trial and ordered extubation 08/04: Patient was extubated yesterday was on nasal cannula initially. Overnight his respiratory status has worsened and his O2 sats are in the mid 80s on Ventimask. Patient refusing intubation. Chest x-ray shows worsening left- sided infiltrate. Will initiate BiPAP in order to avoid intubation. Objective Vital Signs / I&O: Vital Signs 08/03/18 12:55 08/03/18 14:00 08/03/18 15:35 Temperature Pulse Rate 78 Respiratory Rate 22 Blood Pressure Pulse Oximetry 97 97 08/03/18 16:00 08/03/18 18:00 08/03/18 20:00 Temperature 97.9 F 97.7 F Pulse Rate 68 68 72 Respiratory Rate 17 18 Blood Pressure 132/66 104/48 L Pulse Oximetry 100 99 08/03/18 20:08 08/03/18 22:00 08/04/18 00:00 Temperature 97.7 F Pulse Rate 68 72 Respiratory Rate 16 Blood Pressure 96/46 L Pulse Oximetry 99 96 08/04/18 02:00 08/04/18 04:00 08/04/18 06:00 Temperature 97.5 F L Pulse Rate 68 72 71 Respiratory Rate 16 Blood Pressure 80/40 L Pulse Oximetry 89 L 08/04/18 07:51 08/04/18 11:44 Temperature Pulse Rate Respiratory Rate Blood Pressure Pulse Oximetry 88 L 92 L Intake & Output 08/03/18 08/04/18 08/04/18 18:59 06:59 18:59 Intake Total 1380 / 1380 320 / 320 100 / 100 Output Total 24633 / 85618 0 / 0 Balance -8928 / -8928 320 / 320 100 / 100 Weight 104.7 kg Intake: IV 400 / 400 200 / 200 100 / 100 Pitressin Inj 40 UNIT In D5W 100 / 100 Inj 98 ML @ 0.01 UNITS/MIN 1.5 mls/hr IV.CONT TITRATE PRN Rx#: [id number] Diflucan 200 mg Premix Bag 100 100 / 100 ML @ 100 mls/hr IV.SIG Q24H YOVANA Rx#:[id number] Merrem Inj 500 MG In NS Inj 100 100 / 100 100 / 100 ML @ 200 mls/hr IV.SIG Q12H YOVANA Rx#:[id number] Flagyl 500 MG Inj 100 ML @ 100 100 / 100 200 / 200 mls/hr IV.SIG Q8H YOVANA Rx#: [id number] Oral 900 / 900 Tube Irrigant 80 / 80 120 / 120 Output: Urine 0 / 0 0 / 0 Stool 8 / 8 Hemodialysis Amount 6600 / 6600 Gastric Drainage 500 / 500 Right Nare 500 / 500 Wound Drainage 3200 / 3200 Left Abdomen 3200 / 3200 Other: # Voids 2 0 Date of Last Bowel Movement 08/03/18 08/03/18 # Bowel Movements 1 # Incontinent Bowel Movements 1 Result Diagrams: 08/04/18 05:40 08/04/18 05:40 Objective Remarks: General - 57 yo gentleman, lying in bed. Awake and alert, following commands. On Ventimask earlier. HEENT - pupils equal, reactive, sclerae anicteric, neck supple, no nuchal rigidity CV - Irregularly irregular rhythm, on amiodarone. appears afib by tele. No murmurs. Currently on vasopressin Chest -on Ventimask, coarse breath sounds b/l, good air entry, scattered rhonchi and crackles. No wheezing. Abdomen - soft, non-tender, distended, no hepatomegaly, no splenomegaly, no guarding. Previous PEG tube site without significant discharge. s/p paracentesis Extremities - warm and well perfused, trace edema, + peripheral pulses, no clubbing Neuro -awake, alert, following commands. On Ventimask. Moving all extremities. Assessment and Plan - Problem List (1) Septic shock Code(s): A41.9 - Sepsis, unspecified organism; R65.21 - Severe sepsis with septic shock Status: Acute (2) Acute metabolic encephalopathy Code(s): G93.41 - Metabolic encephalopathy Status: Acute (3) Acute hypercapnic respiratory failure Code(s): J96.02 - Acute respiratory failure with hypercapnia Status: Acute (4) Pneumonia Code(s): J18.9 - Pneumonia, unspecified organism Status: Acute - Assessment and Plan Plan: Assessment: 57yM with ESRD and now with worsening septic shock. now intubated on vasopressors. Plan by systems: Neurologic: Metabolic encephalopathy Secondary to sepsis, improving EEG-showing diffuse encephalopathy, MRI-no acute findings frequent neuro checks Daily sedation vacation Respiratory: Acute hypoxic and hypercarbic respiratory failure nebs, hob elevated. DuoNeb every 6 hours scheduled and as needed 07/27 sputum culture growing MRSA Tolerated CPAP trial and extubated to nasal cannula on 08/03. Increasing O2 requirement. Worsening chest x-ray on 08/04 noted. Will use as needed BiPAP. Patient refusing intubation. Cardiovascular: Septic Shock Atrial fibrillation Pericardial effusion Vasopressin/levophed for goal map > 65mmHg HD for fluid removal. Repeat Echo to evaluate pericardial effusion rule out tamponade-small pericardial effusion no tamponade physiology On anticoagulation Renal: End-stage renal disease Strict I/Os Nephrology following Hemodialysis per renal. FEN/GI: Acute protein calorie malnutrition- severe Severe hypokalemia Acute metabolic acidosis CT abd pelvis-distended thick sigmoid colon with collapsed ascending and transverse colon Significant ascites s/p paracentesis and a 3.2 L fluid removal 07/31/18 GI reconsulted for OGT coming out of prev PEG site, KUB now shows no significant distention correct electrolytes, replace K Heme/ID: Septic Shock C. Difficile colitis, PEG site infection, MRSA pneumonia ID following. wbc downtrending Merem to keep GNR coverage. Continue Diflucan Continue po vanco and IV Flagyl for C diff Continue IV vanco for MRSA pneumonia and wound site infection Endocrine: -SSI Prophylaxis: GI Prophylaxis Protonix DVT Prophylaxis -SCDs Eliquis Lines: right IJ vascath- keep for dialysis access Central line placed 07/28 Condition remains critical. Patient may require intubation. Await arrival of family to discuss further. critical care time: 30 minutes, exclusive of separately billable procedures
--- NOTE | 2018-08-04 15:05 | P.PN ---
Subjective Interval history: was extubated yesterday and was on a N/C 4 L. became more sob overnight and was on BIPAP early today . Now back on N/C 5 L refused Intubation. Physical Exam Vital signs: Vital Signs 08/03/18 15:35 08/03/18 16:00 08/03/18 18:00 Temperature 97.9 F Pulse Rate 68 68 Respiratory Rate 17 Blood Pressure 132/66 Pulse Oximetry 97 100 08/03/18 20:00 08/03/18 20:08 08/03/18 22:00 Temperature 97.7 F Pulse Rate 72 68 Respiratory Rate 18 Blood Pressure 104/48 L Pulse Oximetry 99 99 08/04/18 00:00 08/04/18 02:00 08/04/18 04:00 Temperature 97.7 F 97.5 F L Pulse Rate 72 68 72 Respiratory Rate 16 16 Blood Pressure 96/46 L 80/40 L Pulse Oximetry 96 89 L 08/04/18 06:00 08/04/18 07:51 08/04/18 08:00 Temperature Pulse Rate 71 66 Respiratory Rate Blood Pressure Pulse Oximetry 88 L 08/04/18 11:44 08/04/18 12:00 Temperature 98 F Pulse Rate 62 Respiratory Rate Blood Pressure 91/53 L Pulse Oximetry 92 L Intake & Output 08/03/18 08/04/18 08/04/18 18:59 06:59 18:59 Intake Total 1380 / 1380 320 / 320 100 / 100 Output Total 07528 / 11140 0 / 0 Balance -8928 / -8928 320 / 320 100 / 100 Weight 104.7 kg Intake: IV 400 / 400 200 / 200 100 / 100 Pitressin Inj 40 UNIT In D5W 100 / 100 Inj 98 ML @ 0.01 UNITS/MIN 1.5 mls/hr IV.CONT TITRATE PRN Rx#: [id number] Diflucan 200 mg Premix Bag 100 100 / 100 ML @ 100 mls/hr IV.SIG Q24H YOVANA Rx#:[id number] Merrem Inj 500 MG In NS Inj 100 100 / 100 100 / 100 ML @ 200 mls/hr IV.SIG Q12H YOVANA Rx#:[id number] Flagyl 500 MG Inj 100 ML @ 100 100 / 100 200 / 200 mls/hr IV.SIG Q8H YOVANA Rx#: [id number] Oral 900 / 900 Tube Irrigant 80 / 80 120 / 120 Output: Urine 0 / 0 0 / 0 Stool 8 / 8 Hemodialysis Amount 6600 / 6600 Gastric Drainage 500 / 500 Right Nare 500 / 500 Wound Drainage 3200 / 3200 Left Abdomen 3200 / 3200 Other: # Voids 2 0 Date of Last Bowel Movement 08/03/18 08/03/18 08/03/18 # Bowel Movements 1 # Incontinent Bowel Movements 1 Narrative: GENERAL Mid aged W/M alert on O2 HEAD: Normocephalic. NECK: Supple, trachea midline. No lymphadenopathy. EYES: No scleral icterus. No injection or drainage. CARDIOVASCULAR: Regular rate and rhythm without murmurs, gallops, or rubs. RESPIRATORY: Breath sounds decreased at left base. Bilateral wheeze.Occ Crackles at bases GASTROINTESTINAL: Abdomen soft, non tender. No mass. MUSCULOSKELETAL: No cyanosis, and 1 + edema. SKIN: Cool and dry. NEURO: awake and responds to questions. - Urinary Catheter Management Indwelling Urethral Catheter Cath placed during this visit: yes Reason for continuing: Other continuation reason Insertion date: 07/16/18 Insertion time: 17:30 Results - Labs CBC & Chem 7: 08/04/18 05:40 08/04/18 05:40 Laboratory Results - last 24 hr 08/03/18 08/04/18 08/04/18 23:59 05:40 05:40 WBC 11.6 H RBC 4.09 L Hgb 10.6 L Hct 35.2 L MCV 86.1 MCH 26.0 L MCHC 30.2 L RDW 17.8 H Plt Count 111 L MPV 10.1 Neut % (Auto) 75.3 H Lymph % (Auto) 10.4 [place] % (Auto) 10.7 H Eos % (Auto) 2.5 Baso % (Auto) 1.1 Neut # (Auto) 8.7 H Lymph # (Auto) 1.2 [place] # (Auto) 1.2 H Eos # (Auto) 0.3 Baso # (Auto) 0.1 WBC Differential . Differential Comment Auto diff final Puncture Site Patient Temperature O2 Saturation ABG pH ABG pCO2 ABG pO2 ABG HCO3 ABG O2 Content ABG Base Excess ABG Methemoglobin Hemoglobin Carboxyhemoglobin O2 Delivery Device Liter Flow Inspired O2 Critical Value Sodium 145 Potassium 4.0 Chloride 105 Carbon Dioxide 30.6 Anion Gap 9 BUN 19 H Creatinine 2.98 H Estimated GFR 22 L POC Glucose 87 Random Glucose 82 Calcium 7.7 L 08/04/18 09:29 WBC RBC Hgb Hct MCV MCH MCHC RDW Plt Count MPV Neut % (Auto) Lymph % (Auto) [place] % (Auto) Eos % (Auto) Baso % (Auto) Neut # (Auto) Lymph # (Auto) [place] # (Auto) Eos # (Auto) Baso # (Auto) WBC Differential Differential Comment Puncture Site Art line Patient Temperature 98.6 O2 Saturation 87 L* ABG pH 7.18 L* ABG pCO2 85 H* ABG pO2 71 ABG HCO3 30 H ABG O2 Content 13.3 ABG Base Excess 2.5 H ABG Methemoglobin 1.4 Hemoglobin 10.8 L Carboxyhemoglobin 1.0 O2 Delivery Device Nasal cannula Liter Flow 6.00 Inspired O2 0 Critical Value Yes Sodium Potassium Chloride Carbon Dioxide Anion Gap BUN Creatinine Estimated GFR POC Glucose Random Glucose Calcium Microbiology 07/27/18 11:20 Blood - Peripheral Aerobic Blood Culture - Final No growth in 5 days 07/27/18 11:20 Blood - Peripheral Anaerobic Blood Culture - Final No growth in 5 days 07/27/18 11:20 Blood - Peripheral Blood Fungal Culture - Preliminary No growth in 1 week 07/27/18 11:20 Blood - Peripheral Blood Fungal Culture - Preliminary No growth in 1 week - Imaging Impressions Chest X-Ray 08/04/18 08:36 CONCLUSION: Significant consolidation throughout the left lung clearly worse than on the fifth. Very little remaining aerated lung on the left with some air bronchograms. Small infiltrate right lung base Assessment and Plan - Assessment (1) Aspiration pneumonia Code(s): J69.0 - Pneumonitis due to inhalation of food and vomit Status: Acute (2) Acute hypercapnic respiratory failure Code(s): J96.02 - Acute respiratory failure with hypercapnia Status: Acute (3) Sepsis Code(s): A41.9 - Sepsis, unspecified organism Status: Acute (4) Pneumonia Code(s): J18.9 - Pneumonia, unspecified organism Status: Acute (5) Encephalopathy Code(s): G93.40 - Encephalopathy, unspecified Status: Acute (6) Septic shock Code(s): A41.9 - Sepsis, unspecified organism; R65.21 - Severe sepsis with septic shock Status: Acute (7) Acute metabolic encephalopathy Code(s): G93.41 - Metabolic encephalopathy Status: Acute (8) End stage renal disease Code(s): N18.6 - End stage renal disease Status: Acute (9) Diarrhea Code(s): R19.7 - Diarrhea, unspecified Status: Acute (10) Septic shock due to Clostridium difficile Status: Acute - Plan 1. Continue antibiotics per ID 2. O2 at 4 L N/C 3. Cont Duoneb nebs qid. 4.BiPAP 12/5 CM , FIO2 35 % if he desats and at HS 5. IS at bedside q3h 6. Dialysis as planned 7. Tube feeds at 50 CC/HR 8. CXR ,BMP CBC in am
--- NOTE | 2018-08-04 15:19 | P.PNNP ---
Subjective Interval history: Patient is off the ventilator state he has cough Physical Exam Vital signs: Vital Signs 08/03/18 15:35 08/03/18 16:00 08/03/18 18:00 Temperature 97.9 F Pulse Rate 68 68 Respiratory Rate 17 Blood Pressure 132/66 Pulse Oximetry 97 100 08/03/18 20:00 08/03/18 20:08 08/03/18 22:00 Temperature 97.7 F Pulse Rate 72 68 Respiratory Rate 18 Blood Pressure 104/48 L Pulse Oximetry 99 99 08/04/18 00:00 08/04/18 02:00 08/04/18 04:00 Temperature 97.7 F 97.5 F L Pulse Rate 72 68 72 Respiratory Rate 16 16 Blood Pressure 96/46 L 80/40 L Pulse Oximetry 96 89 L 08/04/18 06:00 08/04/18 07:51 08/04/18 08:00 Temperature Pulse Rate 71 66 Respiratory Rate Blood Pressure Pulse Oximetry 88 L 08/04/18 11:44 08/04/18 12:00 08/04/18 14:00 Temperature 98 F Pulse Rate 62 75 Respiratory Rate Blood Pressure 91/53 L Pulse Oximetry 92 L Intake & Output 08/03/18 08/04/18 08/04/18 18:59 06:59 18:59 Intake Total 1380 / 1380 320 / 320 100 / 100 Output Total 93881 / 03032 0 / 0 Balance -8928 / -8928 320 / 320 100 / 100 Weight 104.7 kg Intake: IV 400 / 400 200 / 200 100 / 100 Pitressin Inj 40 UNIT In D5W 100 / 100 Inj 98 ML @ 0.01 UNITS/MIN 1.5 mls/hr IV.CONT TITRATE PRN Rx#: [id number] Diflucan 200 mg Premix Bag 100 100 / 100 ML @ 100 mls/hr IV.SIG Q24H YOVANA Rx#:[id number] Merrem Inj 500 MG In NS Inj 100 100 / 100 100 / 100 ML @ 200 mls/hr IV.SIG Q12H YOVANA Rx#:[id number] Flagyl 500 MG Inj 100 ML @ 100 100 / 100 200 / 200 mls/hr IV.SIG Q8H YOVANA Rx#: [id number] Oral 900 / 900 Tube Irrigant 80 / 80 120 / 120 Output: Urine 0 / 0 0 / 0 Stool 8 / 8 Hemodialysis Amount 6600 / 6600 Gastric Drainage 500 / 500 Right Nare 500 / 500 Wound Drainage 3200 / 3200 Left Abdomen 3200 / 3200 Other: # Voids 2 0 Date of Last Bowel Movement 08/03/18 08/03/18 08/03/18 # Bowel Movements 1 # Incontinent Bowel Movements 1 - Constitutional no acute distress - Routine HEENT Exam Eye: Present: EOMI - Routine Neck Exam Present: supple - Routine Respiratory Exam Present: decreased breath sounds, rhonchi - Routine Cardiovascular Exam Present: S1, S2 - Routine Abdominal Exam Present: soft, normoactive bowel sounds - Routine Extremities Exam Present: edema - Urinary Catheter Management Indwelling Urethral Catheter Cath placed during this visit: yes Reason for continuing: Other continuation reason Insertion date: 07/16/18 Insertion time: 17:30 Assessment and Plan - Assessment (1) End stage renal disease Code(s): N18.6 - End stage renal disease Status: Acute (2) Acute hypercapnic respiratory failure Code(s): J96.02 - Acute respiratory failure with hypercapnia Status: Acute (3) Pneumonia Code(s): J18.9 - Pneumonia, unspecified organism Status: Acute (4) Encephalopathy Code(s): G93.40 - Encephalopathy, unspecified Status: Acute (5) Septic shock Code(s): A41.9 - Sepsis, unspecified organism; R65.21 - Severe sepsis with septic shock Status: Acute (6) Sepsis Code(s): A41.9 - Sepsis, unspecified organism Status: Acute - Plan Hemodialysis On Monday BP low and given fluids/albumin during HD Monday Abdominal pain, C. difficile positive ID following UTI Enterobacter He also has pneumonia on CT scan ET aspirate. Pseudomonas Intubated Monday, extubated today Patient is stable hemodialysis 3.3 L removed yesterday PEG tube site has small leak /GI note Once stable and discharged , then follow-up with Dr. Dueñas
[2018-08-04] MEDS: FLORASTOR 250 MG PO SCH (20:21)
[2018-08-04] MEDS: Collagenase Oint 30 GM Tube TOPICAL SCH (20:22)
[2018-08-05] MEDS: Nystatin/Diphenhydramine/Lidocaine Mouthwash (Adult) 120 ML Botttle SWISH-SWAL SCH ×3 (00:33→11:30)
[2018-08-05] MEDS: Vasopressin Inj 40 UNIT in Dextrose 5% in Water Inj 98 ML IV.CONT PRN ×2 (01:16)
[2018-08-05 05:43] LABS: Baso # (Auto) 0.2 th/mm3 (0.0-0.2); Baso % (Auto) 1.3 % (0.0-2.0); Eos # (Auto) 0.2 th/mm3 (0.0-0.4); Eos % (Auto) 1.4 % (0.0-4.0); Hematocrit 37.5 % (39.0-51.0); Hemoglobin 10.9 gm/dL (13.0-17.0); Lymph # (Auto) 0.9 th/mm3 (1.0-4.8); Lymph % (Auto) 6.9 % (9.0-44.0); Mean Corpuscular Hemoglobin 26.1 pg (27.0-34.0); Mean Corpuscular Volume 89.6 fL (80.0-100.0); Mean Platelet Volume 9.4 fL (7.0-11.0); Mono # (Auto) 1.2 th/mm3 (0.0-0.9); Mono % (Auto) 9.9 % (0.0-8.0); Neut # (Auto) 9.8 th/mm3 (1.8-7.7); Neut % (Auto) 80.5 % (16.0-70.0); Platelet Count 128 th/mm3 (150-450); Red Blood Count 4.19 mil/mm3 (4.50-5.90); White Blood Count 12.2 th/mm3 (4.0-11.0)
[2018-08-05 05:50] LABS: Mean Corpuscular HGB Conc 29.2 % (32.0-36.0)
[2018-08-05 06:13] LABS: Calcium 7.8 mg/dL (8.5-10.1); Carbon Dioxide 30.3 meq/L (21.0-32.0); Potassium 4.5 meq/L (3.5-5.1)
[2018-08-05] MEDS: Senna/Docusate Sodium 8.6/50 MG Tablet PO SCH (09:21)
[2018-08-05] MEDS: Lactobacillus Acidophilus/L. Spores Tablet PO SCH ×2 (09:21→14:22)
[2018-08-05] MEDS: Famotidine 20 MG Tablet PO SCH (09:21)
[2018-08-05] MEDS: Collagenase Oint 30 GM Tube TOPICAL SCH (09:22)
[2018-08-05] MEDS: FLORASTOR 250 MG PO SCH (09:22)
[2018-08-05] MEDS: Amiodarone 200 MG Tablet PO SCH (10:00)
[2018-08-05] MEDS ORDERED: Morphine Inj 4 MG/ML Vial IV.PUSH PRN ×2 (13:57→18:22)
--- NOTE | 2018-08-05 14:54 | P.PN ---
Subjective Interval history: Pt and family request no intubation. On BIPAP and is sleepy. On Morphine 3 mg PRN. on Vasopressin Physical Exam Vital signs: Vital Signs 08/04/18 16:00 08/04/18 18:00 08/04/18 19:27 Temperature 98 F Pulse Rate 74 68 Respiratory Rate Blood Pressure Pulse Oximetry 90 L 08/04/18 20:00 08/04/18 22:00 08/05/18 00:00 Temperature 98.6 F 97.6 F Pulse Rate 78 82 76 Respiratory Rate 20 18 Blood Pressure 102/54 L 98/47 L Pulse Oximetry 86 L 83 L 08/05/18 02:00 08/05/18 04:00 08/05/18 06:00 Temperature 98.0 F Pulse Rate 76 78 78 Respiratory Rate 16 Blood Pressure 99/54 L Pulse Oximetry 89 L 08/05/18 08:00 08/05/18 10:00 08/05/18 10:50 Temperature 97.4 F L Pulse Rate 71 84 Respiratory Rate 25 H Blood Pressure 99/49 L Pulse Oximetry 88 L 90 L 08/05/18 11:30 08/05/18 11:33 Temperature 97.9 F Pulse Rate 72 72 Respiratory Rate 16 Blood Pressure 99/41 L Pulse Oximetry 88 L Intake & Output 08/04/18 08/05/18 08/05/18 18:59 06:59 18:59 Intake Total 560 / 560 680 / 680 300 / 300 Output Total 200 / 200 200 / 200 Balance 360 / 360 480 / 480 300 / 300 Weight 103.5 kg Intake: IV 300 / 300 500 / 500 300 / 300 Pitressin Inj 40 UNIT In D5W 100 / 100 Inj 98 ML @ 0.01 UNITS/MIN 1.5 mls/hr IV.CONT TITRATE PRN Rx#: [id number] Diflucan 200 mg Premix Bag 100 100 / 100 100 / 100 ML @ 100 mls/hr IV.SIG Q24H YOVANA Rx#:[id number] Merrem Inj 500 MG In NS Inj 100 100 / 100 200 / 200 100 / 100 ML @ 200 mls/hr IV.SIG Q12H YOVANA Rx#:[id number] Flagyl 500 MG Inj 100 ML @ 100 100 / 100 200 / 200 100 / 100 mls/hr IV.SIG Q8H YOVANA Rx#: [id number] Oral 60 / 60 60 / 60 Tube Irrigant 120 / 120 Other 200 / 200 Output: Stool 200 / 200 200 / 200 Other: Date of Last Bowel Movement 08/04/18 08/04/18 08/04/18 # Incontinent Bowel Movements 3 Narrative: GENERAL Mid aged W/M sleepy and on BIPAP HEAD: Normocephalic. NECK: Supple, trachea midline. No lymphadenopathy. EYES: No scleral icterus. No injection or drainage. CARDIOVASCULAR: Regular rate and rhythm without murmurs, gallops, or rubs. RESPIRATORY: Breath sounds decreased at left base.and .Occ Crackles at bases GASTROINTESTINAL: Abdomen soft, non tender. No mass. MUSCULOSKELETAL: No cyanosis, and 1 + edema. SKIN: Cool and dry. NEURO: sedated . - Urinary Catheter Management Indwelling Urethral Catheter Cath placed during this visit: yes Reason for continuing: Other continuation reason Insertion date: 07/16/18 Insertion time: 17:30 Results - Labs CBC & Chem 7: 08/05/18 05:40 08/05/18 05:40 Laboratory Results - last 24 hr 08/05/18 08/05/18 05:40 05:40 WBC 12.2 H RBC 4.19 L Hgb 10.9 L Hct 37.5 L MCV 89.6 D MCH 26.1 L MCHC 29.2 L RDW 18.0 H Plt Count 128 L MPV 9.4 Neut % (Auto) 80.5 H Lymph % (Auto) 6.9 L [place] % (Auto) 9.9 H Eos % (Auto) 1.4 Baso % (Auto) 1.3 Neut # (Auto) 9.8 H Lymph # (Auto) 0.9 L [place] # (Auto) 1.2 H Eos # (Auto) 0.2 Baso # (Auto) 0.2 WBC Differential . Differential Comment Auto diff final Sodium 142 Potassium 4.5 Chloride 102 Carbon Dioxide 30.3 Anion Gap 10 BUN 25 H Creatinine 3.90 H Estimated GFR 16 L Random Glucose 96 Calcium 7.8 L Assessment and Plan - Assessment (1) Aspiration pneumonia Code(s): J69.0 - Pneumonitis due to inhalation of food and vomit Status: Acute (2) Acute hypercapnic respiratory failure Code(s): J96.02 - Acute respiratory failure with hypercapnia Status: Acute (3) Sepsis Code(s): A41.9 - Sepsis, unspecified organism Status: Acute (4) Pneumonia Code(s): J18.9 - Pneumonia, unspecified organism Status: Acute (5) Encephalopathy Code(s): G93.40 - Encephalopathy, unspecified Status: Acute (6) Septic shock Code(s): A41.9 - Sepsis, unspecified organism; R65.21 - Severe sepsis with septic shock Status: Acute (7) Acute metabolic encephalopathy Code(s): G93.41 - Metabolic encephalopathy Status: Acute (8) End stage renal disease Code(s): N18.6 - End stage renal disease Status: Acute (9) Diarrhea Code(s): R19.7 - Diarrhea, unspecified Status: Acute (10) Septic shock due to Clostridium difficile Status: Acute - Plan 1. Continue antibiotics per ID 2. O2 at 50 % Via BiPAP mask. 3. Cont Duoneb nebs qid. 4.BiPAP 12/5 CM , FIO2 50 % 5. IS at bedside q3h 6. Dialysis as planned 7. Tube feeds at 60 CC/HR 8. CXR ,BMP CBC in am
--- NOTE | 2018-08-05 15:48 | P.PNCC ---
Subjective Subjective Remarks/Hospital Course: Patient is a 57-year-old male with past medical history of end-stage renal disease on hemodialysis, , COPD on home oxygen, hypertension, diabetes type 2, who was brought to the emergency department for altered mental status. He was altered at the dialysis center and apparently during dialysis he lost pulses and CPR was started. By time EMS arrived patient did have pulses. He was confused for EMS. ER workup showed that patient has a white count of 16.7 with left shift indicating sepsis. Patient remained hypotensive after fluid resuscitation and hence was started on Levophed by the ED physician. CT abdomen pelvis showed a previously known adrenal mass slightly increased in size compared to [address] pulmonary angiogram was negative for PE, however showed dense bibasilar consolidation/pneumonia which could be the source of sepsis. Received vancomycin and Zosyn in the ED. ABG prior to intubation in the ED showed severe hypercapnic respiratory failure with a pH of 7.05, PCO2 of 93. I evaluated the patient after arrival to the [facility]. He is intubated critically ill-appearing sedated. On lightening sedation he is able to move all 4 extremities. His source of sepsis most likely is pneumonia. Wong cultures have been sent. His altered mentation is most likely secondary to sepsis and hypercapnia, will check CT of the head to rule out any acute events. 07/17: No events over the night. Since ICU admission patient did not require any vasopressor. Oxygenation is down to 40%. Sedation is achieved with propofol, which is decreased to 20. Patient is arousable, following commands appropriately. Daughter is present at bedside. T-max of 99.6. RECONSULT NOTE 07/27: reconsulted for rapid response from floor. patient with ESRD and c. diff colitis, now with rising wbc, altered mentation, hypotension despite ivf resuscitation. abg with mixed resp/met acidosis, uncompensated. intermittently has periods of syncope. when arousable, patient refusing intubation at this time , saying "I know when I need a tube, and I don't need a tube right now." placed on norepinephrine for vasopressor support and end-organ perfusion. 07/28: Intubated and placed on mech ventilation last night. On levophed/ amio/ versed/ fentanyl gtt. Bicarb drip decreased to 40cc/hr. 07/29: Remains sedated, orally intubated on mech vent. OGT coming out of PEG site so pulled back and ordered CT Abd with oral contrast for further evaluation. 07/30: Remains intubated sedated and septic. Currently remains on Levophed and vasopressin. CT abdomen pelvis showed significant worsening of ascites since the prior exam, small pl and moderate pericardial effusion and bibasilar consolidation worse on the left. Also distended sigmoid colon and slightly worse since the prior examination possibility of colitis. Ascending colon and transverse colon are collapsed. D/W Dr. Ma, will resume gram negative coverage. GI consult is pending at this time 07/31: Remains on Levophed 1 mcg/min and vasopressin at 0.04 international units, more alert though follows commands on sedation hold. Bedside ultrasound consistently showed large ascites. Paracentesis was performed and approximately 3.2 L of fluid removed. WBC count improving though patient remains critically ill, showing some signs of improvement. PEG site culture growing Alison and MRSA 08/01: Currently remains intubated on Versed at 3 mg/h tolerating CPAP. Follows commands but remains lethargic. Persistent left lower lobe infiltrate. Paracentesis performed on 3 L fluid removed yesterday studies concerning for SBP. On broad-spectrum antibiotics and antifungals per ID 08/02: Remains drowsy, arousable, orally intubated on mechanical ventilation. On CPAP trial. 08/03: Awake and alert, following commands orally intubated on mechanical ventilation earlier at the time of my evaluation. Tolerated CPAP trial and ordered extubation 08/04: Patient was extubated yesterday was on nasal cannula initially. Overnight his respiratory status has worsened and his O2 sats are in the mid 80s on Ventimask. Patient refusing intubation. Chest x-ray shows worsening left- sided infiltrate. Will initiate BiPAP in order to avoid intubation. 08/05: Worsening respiratory status despite BiPAP. Family requesting no intubation or aggressive measures. Objective Vital Signs / I&O: Vital Signs 08/04/18 16:00 08/04/18 18:00 08/04/18 19:27 Temperature 98 F Pulse Rate 74 68 Respiratory Rate Blood Pressure Pulse Oximetry 90 L 08/04/18 20:00 08/04/18 22:00 08/05/18 00:00 Temperature 98.6 F 97.6 F Pulse Rate 78 82 76 Respiratory Rate 20 18 Blood Pressure 102/54 L 98/47 L Pulse Oximetry 86 L 83 L 08/05/18 02:00 08/05/18 04:00 08/05/18 06:00 Temperature 98.0 F Pulse Rate 76 78 78 Respiratory Rate 16 Blood Pressure 99/54 L Pulse Oximetry 89 L 08/05/18 08:00 08/05/18 10:00 08/05/18 10:50 Temperature 97.4 F L Pulse Rate 71 84 Respiratory Rate 25 H Blood Pressure 99/49 L Pulse Oximetry 88 L 90 L 08/05/18 11:30 08/05/18 11:33 Temperature 97.9 F Pulse Rate 72 72 Respiratory Rate 16 Blood Pressure 99/41 L Pulse Oximetry 88 L Intake & Output 08/04/18 08/05/18 08/05/18 18:59 06:59 18:59 Intake Total 560 / 560 680 / 680 300 / 300 Output Total 200 / 200 200 / 200 Balance 360 / 360 480 / 480 300 / 300 Weight 103.5 kg Intake: IV 300 / 300 500 / 500 300 / 300 Pitressin Inj 40 UNIT In D5W 100 / 100 Inj 98 ML @ 0.01 UNITS/MIN 1.5 mls/hr IV.CONT TITRATE PRN Rx#: [id number] Diflucan 200 mg Premix Bag 100 100 / 100 100 / 100 ML @ 100 mls/hr IV.SIG Q24H YOVANA Rx#:[id number] Merrem Inj 500 MG In NS Inj 100 100 / 100 200 / 200 100 / 100 ML @ 200 mls/hr IV.SIG Q12H YOVANA Rx#:[id number] Flagyl 500 MG Inj 100 ML @ 100 100 / 100 200 / 200 100 / 100 mls/hr IV.SIG Q8H YOVANA Rx#: [id number] Oral 60 / 60 60 / 60 Tube Irrigant 120 / 120 Other 200 / 200 Output: Stool 200 / 200 200 / 200 Other: Date of Last Bowel Movement 08/04/18 08/04/18 08/04/18 # Incontinent Bowel Movements 3 Result Diagrams: 08/05/18 05:40 08/05/18 05:40 Objective Remarks: General - 57 yo gentleman, lying in bed. Drowsy, arousable, following commands. On BiPAP HEENT - pupils equal, reactive, sclerae anicteric, neck supple, no nuchal rigidity CV - Irregularly irregular rhythm, on amiodarone. appears afib by tele. No murmurs. Chest -on Ventimask, coarse breath sounds b/l, good air entry, scattered rhonchi and crackles. No wheezing. Abdomen - soft, non-tender, distended, no hepatomegaly, no splenomegaly, no guarding. Previous PEG tube site without significant discharge. s/p paracentesis Extremities - warm and well perfused, trace edema, + peripheral pulses, no clubbing Neuro -drowsy, arousable, on BiPAP with full facemask, following commands occasionally. Moving all extremities. Assessment and Plan - Problem List (1) Septic shock Code(s): A41.9 - Sepsis, unspecified organism; R65.21 - Severe sepsis with septic shock Status: Acute (2) Acute metabolic encephalopathy Code(s): G93.41 - Metabolic encephalopathy Status: Acute (3) Acute hypercapnic respiratory failure Code(s): J96.02 - Acute respiratory failure with hypercapnia Status: Acute (4) Pneumonia Code(s): J18.9 - Pneumonia, unspecified organism Status: Acute - Assessment and Plan Plan: Assessment: 57yM with ESRD and now with worsening septic shock. now intubated on vasopressors. Plan by systems: Neurologic: Metabolic encephalopathy Secondary to sepsis, improving EEG-showing diffuse encephalopathy, MRI-no acute findings frequent neuro checks Daily sedation vacation Respiratory: Acute hypoxic and hypercarbic respiratory failure nebs, hob elevated. DuoNeb every 6 hours scheduled and as needed 07/27 sputum culture growing MRSA Tolerated CPAP trial and extubated to nasal cannula on 08/03. Increasing O2 requirement. Worsening chest x-ray on 08/04 noted. Will use as needed BiPAP. Patient refusing intubation. Cardiovascular: Septic Shock Atrial fibrillation Pericardial effusion Vasopressin/levophed for goal map > 65mmHg HD for fluid removal. Repeat Echo to evaluate pericardial effusion rule out tamponade-small pericardial effusion no tamponade physiology On anticoagulation Renal: End-stage renal disease Strict I/Os Nephrology following Hemodialysis per renal. FEN/GI: Acute protein calorie malnutrition- severe Severe hypokalemia Acute metabolic acidosis CT abd pelvis-distended thick sigmoid colon with collapsed ascending and transverse colon Significant ascites s/p paracentesis and a 3.2 L fluid removal 07/31/18 GI reconsulted for OGT coming out of prev PEG site, KUB now shows no significant distention correct electrolytes, replace K Heme/ID: Septic Shock C. Difficile colitis, PEG site infection, MRSA pneumonia ID following. wbc downtrending Merem to keep GNR coverage. Continue Diflucan Continue po vanco and IV Flagyl for C diff Continue IV vanco for MRSA pneumonia and wound site infection Endocrine: -SSI Prophylaxis: GI Prophylaxis Protonix DVT Prophylaxis -SCDs Eliquis Lines: right IJ vascath- keep for dialysis access Central line placed 07/28 Condition remains critical. Family has decided to make patient DNR status yesterday. If his condition worsens the plan on transitioning to comfort measures. Family meeting shortly to decide possible transition to comfort measures. critical care time: 30 minutes, exclusive of separately billable procedures
--- NOTE | 2018-08-05 16:55 | P.PNNP ---
Subjective Interval history: Patient is doing poorly short of breath altered mental status on BiPAP Physical Exam Vital signs: Vital Signs 08/04/18 18:00 08/04/18 19:27 08/04/18 20:00 Temperature 98.6 F Pulse Rate 68 78 Respiratory Rate 20 Blood Pressure 102/54 L Pulse Oximetry 90 L 86 L 08/04/18 22:00 08/05/18 00:00 08/05/18 02:00 Temperature 97.6 F Pulse Rate 82 76 76 Respiratory Rate 18 Blood Pressure 98/47 L Pulse Oximetry 83 L 08/05/18 04:00 08/05/18 06:00 08/05/18 08:00 Temperature 98.0 F 97.4 F L Pulse Rate 78 78 71 Respiratory Rate 16 25 H Blood Pressure 99/54 L 99/49 L Pulse Oximetry 89 L 88 L 08/05/18 10:00 08/05/18 10:50 08/05/18 11:30 Temperature Pulse Rate 84 72 Respiratory Rate Blood Pressure Pulse Oximetry 90 L 08/05/18 11:33 Temperature 97.9 F Pulse Rate 72 Respiratory Rate 16 Blood Pressure 99/41 L Pulse Oximetry 88 L Intake & Output 08/04/18 08/05/18 08/05/18 18:59 06:59 18:59 Intake Total 560 / 560 680 / 680 300 / 300 Output Total 200 / 200 200 / 200 Balance 360 / 360 480 / 480 300 / 300 Weight 103.5 kg Intake: IV 300 / 300 500 / 500 300 / 300 Pitressin Inj 40 UNIT In D5W 100 / 100 Inj 98 ML @ 0.01 UNITS/MIN 1.5 mls/hr IV.CONT TITRATE PRN Rx#: [id number] Diflucan 200 mg Premix Bag 100 100 / 100 100 / 100 ML @ 100 mls/hr IV.SIG Q24H YOVANA Rx#:[id number] Merrem Inj 500 MG In NS Inj 100 100 / 100 200 / 200 100 / 100 ML @ 200 mls/hr IV.SIG Q12H YOVANA Rx#:[id number] Flagyl 500 MG Inj 100 ML @ 100 100 / 100 200 / 200 100 / 100 mls/hr IV.SIG Q8H YOVANA Rx#: [id number] Oral 60 / 60 60 / 60 Tube Irrigant 120 / 120 Other 200 / 200 Output: Stool 200 / 200 200 / 200 Other: Date of Last Bowel Movement 08/04/18 08/04/18 08/04/18 # Incontinent Bowel Movements 3 - Constitutional severe distress - Routine Neck Exam Present: JVD - Routine Respiratory Exam Present: rales, respiratory distress - Routine Cardiovascular Exam Present: tachycardia - Routine Abdominal Exam Present: distended - Routine Extremities Exam Present: edema - Urinary Catheter Management Indwelling Urethral Catheter Cath placed during this visit: yes Reason for continuing: Other continuation reason Insertion date: 07/16/18 Insertion time: 17:30 Assessment and Plan - Assessment (1) End stage renal disease Code(s): N18.6 - End stage renal disease Status: Acute (2) Acute hypercapnic respiratory failure Code(s): J96.02 - Acute respiratory failure with hypercapnia Status: Acute (3) Pneumonia Code(s): J18.9 - Pneumonia, unspecified organism Status: Acute (4) Encephalopathy Code(s): G93.40 - Encephalopathy, unspecified Status: Acute (5) Septic shock Code(s): A41.9 - Sepsis, unspecified organism; R65.21 - Severe sepsis with septic shock Status: Acute (6) Sepsis Code(s): A41.9 - Sepsis, unspecified organism Status: Acute - Plan he is a patient Dr. Dueñas Requested withdrawal of life support and is stopping dialysis Doing poorly I will sign off discussed with Dr. Tapia
[2018-08-05] MEDS ORDERED: Morphine Inj 4 MG/ML Vial IV.PUSH ONE (18:22)
[2018-08-05] MEDS ORDERED: Hyoscyamine Inj 0.5 MG/ML Ampul IV.PUSH SCH (18:30)
--- NOTE | 2018-09-18 16:29 | P.DN ---
- Provider Primary care physician: UNKNOWN Admitting clinician: Renato Bradshaw Attending physician on admission: Renato Bradshaw Consults: 07/17/18 09:34 Consult to Nephrology Routine Consulting Provider: Cale Paris Does the patient have a Piecer Up who follows them?: Yes Preferred Nephrology Rivet Thrower:: Cale Paris Reason for Consultation: renal failure Notified:: Office Spoke with:: luci Date Notified:: 07/17/18 Time Notified:: 10:01 Ordering Provider: VERENA 07/17/18 15:15 Consult to Infectious Diseases Routine Consulting Provider: Natalia Tapia Reason for Consultation: 57-year-old gentleman with chronic aspiration now admitted with respiratory failure and recurrent aspiration pneumonia. 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 Was seen by outside physician who recommended patient to be on chronic antibiotics. Family is now requesting infectious disease consultation. Notified:: Service Spoke with:: Luci Date Notified:: 07/17/18 Time Notified:: 15:42 Ordering Provider: MIAN 07/17/18 15:29 HUB Only Consult Order Routine Consulting Provider: [facility] 07/18/18 08:16 Consult to Infectious Diseases Routine Consulting Provider: Xiao Ma Preferred Rivet Thrower:: Xiao Ma Patient known to:: Xiao Ma Reason for Consultation: Notified:: Service Spoke with:: Maxine Date Notified:: 07/18/18 Time Notified:: 08:25 Ordering Provider: DIMITRIOS 07/18/18 16:09 Consult to Pulmonology Routine Consulting Provider: Ronan Dumont V Reason for Consultation: COPD exacerbation, PNA Notified:: Office Spoke with:: Beata Date Notified:: 07/18/18 Time Notified:: 16:14 Ordering Provider: MERLYN 07/19/18 13:21 Consult to Cardiology Routine Consulting Provider: Max Mcneill Does the patient have a Site Interpreter who follows them?: No Preferred Bundle Breaker:: Door Cutter Physician Reason for Consultation: s/p CPR. eval for possible arrythmia Notified:: Office Spoke with:: Padma Date Notified:: 07/19/18 Time Notified:: 13:25 Ordering Provider: MERLYN 07/19/18 15:16 Consult to Gastroenterology Routine Consulting Provider: Manuel Crowley Reason for Consultation: patient with reflux of solid foods. Has peG tube, refuses. Notified:: Office Spoke with:: Brenda Date Notified:: 07/19/18 Time Notified:: 15:21 Ordering Provider: MERLYN 07/24/18 11:24 Consult to Gastroenterology Routine Consulting Provider: Isael Betts Reason for Consultation: please evaluate PEG tube possible remove PEG, patient not using Notified:: Office Spoke with:: Zara Date Notified:: 07/24/18 Time Notified:: 12:27 Comments:: Ordering Provider: KAUR 07/27/18 10:24 Consult to Cripple Chaser Routine Consulting Provider: Renato Bradshaw Reason for Consultation: Dialysis dependent patient with Hypotension. Failing pressors, now fluid overloaded due to boluses overnight. ABG shows hypoxia and acidosis. BiPap being initiated, transfering to ICU. Full Code Status. Notified:: Service Spoke with:: KOJO Date Notified:: 07/27/18 Time Notified:: 10:53 Ordering Provider: RUBEN 07/29/18 09:40 Consult to Gastroenterology Routine Consulting Provider: Adrian Mary Preferred Rivet Thrower:: Juliano Luciano Patient known to:: Juliano Luciano Reason for Consultation: OGT coming out of PEG site. Now with leak from PEG site. Consider replacing PEG pt known to LACY Notified:: Service Spoke with:: LEIGHANN Date Notified:: 07/29/18 Time Notified:: 10:24 Ordering Provider: BRIAN 07/31/18 13:38 HUB Only Consult Order Routine Consulting Provider: [facility] Reason for Consultation: LTAC REFERRAL - Date and Time Date of admission: 07/16/18 15:39 Date of : 08/05/18 - Summary Procedures: intubation Central line Brief History: Patient is a 57-year-old male with past medical history of end-stage renal disease on hemodialysis, , COPD on home oxygen, hypertension, diabetes type 2, who was brought to the emergency department for altered mental status. He was altered at the dialysis center and apparently during dialysis he lost pulses and CPR was started. By time EMS arrived patient did have pulses. He was confused for EMS. ER workup showed that patient has a white count of 16.7 with left shift indicating sepsis. Patient remained hypotensive after fluid resuscitation and hence was started on Levophed by the ED physician. CT abdomen pelvis showed a previously known adrenal mass slightly increased in size compared to [address] pulmonary angiogram was negative for PE, however showed dense bibasilar consolidation/pneumonia which could be the source of sepsis. Received vancomycin and Zosyn in the ED. ABG prior to intubation in the ED showed severe hypercapnic respiratory failure with a pH of 7.05, PCO2 of 93. I evaluated the patient after arrival to the [facility]. He is intubated critically ill-appearing sedated. On lightening sedation he is able to move all 4 extremities. His source of sepsis most likely is pneumonia. Wong cultures have been sent. His altered mentation is most likely secondary to sepsis and hypercapnia, will check CT of the head to rule out any acute events Result Diagrams: 08/05/18 05:40 08/05/18 05:40 Imaging: Chest X-Ray 07/16/18 12:05 CONCLUSION: Mild parenchymal opacity at the left lung base. Abdomen X-Ray 07/16/18 12:30 CONCLUSION: Nonspecific, benign abdomen appearance. Abdomen/Pelvis CT 07/16/18 13:03 CONCLUSION: 1. No acute abnormality in the abdomen or pelvis. 2. Dense right basilar airspace consolidation and trace pleural effusions concerning for aspiration. 3. Gastrostomy catheter present and NGT in place. 4. 1.8 cm right adrenal mass which has slightly increased from 2011 CT scan measuring 1.4 cm. This was partially imaged on the chest CT exam and its visualized portions appeared to be stable. This can be further characterized with adrenal mass CT or MRI exam on an outpatient basis. Chest CTA 07/16/18 13:03 CONCLUSION: 1. No CT evidence for pulmonary artery embolism as questioned. 2. Dense bilateral lower lobe airspace consolidation with trace associated pleural effusions. Findings are concerning for aspiration. 3. Nonspecific right hilar and mediastinal nodes, as above. This may be reactive in etiology. 4. Probable 1.6 cm right adrenal mass that is incompletely imaged on this exam. Although indeterminate in density, this is unchanged from abdominal CT of 06/07/2011 and therefore likely benign. Chest X-Ray 07/16/18 15:55 CONCLUSION: 1. Stable chest x-ray with bibasilar atelectasis and/or consolidation. 2. Stable enlargement of the right hilum in this patient with previously documented right hilar lymphadenopathy. Head CT 07/17/18 00:00 CONCLUSION: 1. Atrophy. 2. Periventricular low attenuation change likely relating to chronic small vessel ischemic change. 3. Fluid throughout the nasal cavity and paranasal sinuses. . Chest X-Ray 07/19/18 00:00 CONCLUSION: Stable exam as detailed above. Barium Swallow X-Ray 07/20/18 00:00 CONCLUSION: Unremarkable barium swallow, however limited study since only frontal projection could be performed. Abdomen X-Ray 07/24/18 00:00 CONCLUSION: Apparent wall thickening involving the rectosigmoid colon and possibly the distal descending colon suggesting colitis. Clinical correlation is recommended. Abdomen/Pelvis CT 07/24/18 00:00 CONCLUSION: 1. Diffuse wall thickening and distention of the rectosigmoid colon consistent with probable acute colitis. Clinical correlation is recommended. 2. Some ascites within the abdomen or pelvis. 3. Bibasilar alveolar consolidations consistent with atelectasis and/or pneumonia. 4. Tiny pericardial effusion is noted. 5. Stable right adrenal nodule. 6. Tiny left upper pole renal cyst measuring 1 cm. Chest X-Ray 07/25/18 00:00 CONCLUSION: Cardiomegaly and findings of vascular congestion without overt failure. The findings are improved when compared with the prior exam. There is left lower lobe atelectasis versus pneumonia. Chest X-Ray 07/26/18 00:00 CONCLUSION: Unchanged exam with findings suggesting fluid overload. Chest X-Ray 07/27/18 00:00 CONCLUSION: New left internal jugular central line with the tip overlying the left innominate vein region. Hazy density at the lower chest regions likely related to consolidation, atelectasis and/or effusions. Cardiomegaly. Head MRI 07/27/18 00:00 CONCLUSION: 1. No acute intracranial abnormality. 2. Atrophy. 3. Nonspecific periventricular demyelination. This could be from small vessel ischemic change. 4. Fluid in the sinuses. 5. Increased signal/fluid throughout the mastoid/temporal air cells. Chest X-Ray 07/27/18 21:13 CONCLUSION: ET tube in a good to low position 2.6 cm from the merly. Left mid and lower lung and right lower lung areas of consolidation or atelectasis. Cardiomegaly. Abdomen/Pelvis CT 07/29/18 00:00 CONCLUSION: 1. Significant worsening of ascites since the prior exam. 2. Small left pleural effusion, moderate pericardial effusion and bibasilar consolidation worse on the left. 3. Distended sigmoid colon and slightly worse since the prior examination possibility of colitis should be entertained. The ascending colon and transverse colon are collapsed not adequately characterized. Abdomen X-Ray 07/31/18 00:00 CONCLUSION: 1. The bowel gas pattern is grossly within normal limits. There is some air in the transverse colon which is nondistended. 2. Benign appearing abdomen. 3. NG tube in stomach. Chest X-Ray 07/31/18 06:00 CONCLUSION: Improved aeration but continued bibasilar airspace opacity, left greater than right, which could be secondary to atelectasis or consolidation. Chest X-Ray 08/01/18 06:00 CONCLUSION: Stable small left basilar opacity likely representing pleural effusion with associated volume loss and/or airspace consolidation. Atelectasis at the right lung base is stable. Chest X-Ray 08/04/18 08:36 CONCLUSION: Significant consolidation throughout the left lung clearly worse than on the fifth. Very little remaining aerated lung on the left with some air bronchograms. Small infiltrate right lung base Hospital Course: 07/27: reconsulted for rapid response from floor. patient with ESRD and c. diff colitis, now with rising wbc, altered mentation, hypotension despite ivf resuscitation. abg with mixed resp/met acidosis, uncompensated. intermittently has periods of syncope. when arousable, patient refusing intubation at this time , saying "I know when I need a tube, and I don't need a tube right now." placed on norepinephrine for vasopressor support and end-organ perfusion. 07/28: Intubated and placed on mech ventilation last night. On levophed/ amio/ versed/ fentanyl gtt. Bicarb drip decreased to 40cc/hr. 07/29: Remains sedated, orally intubated on mech vent. OGT coming out of PEG site so pulled back and ordered CT Abd with oral contrast for further evaluation. 07/30: Remains intubated sedated and septic. Currently remains on Levophed and vasopressin. CT abdomen pelvis showed significant worsening of ascites since the prior exam, small pl and moderate pericardial effusion and bibasilar consolidation worse on the left. Also distended sigmoid colon and slightly worse since the prior examination possibility of colitis. Ascending colon and transverse colon are collapsed. D/W Dr. Ma, will resume gram negative coverage. GI consult is pending at this time 07/31: Remains on Levophed 1 mcg/min and vasopressin at 0.04 international units, more alert though follows commands on sedation hold. Bedside ultrasound consistently showed large ascites. Paracentesis was performed and approximately 3.2 L of fluid removed. WBC count improving though patient remains critically ill, showing some signs of improvement. PEG site culture growing Alison and MRSA 08/01: Currently remains intubated on Versed at 3 mg/h tolerating CPAP. Follows commands but remains lethargic. Persistent left lower lobe infiltrate. Paracentesis performed on 3 L fluid removed yesterday studies concerning for SBP. On broad-spectrum antibiotics and antifungals per ID 08/02: Remains drowsy, arousable, orally intubated on mechanical ventilation. On CPAP trial. 08/03: Awake and alert, following commands orally intubated on mechanical ventilation earlier at the time of my evaluation. Tolerated CPAP trial and ordered extubation 08/04: Patient was extubated yesterday was on nasal cannula initially. Overnight his respiratory status has worsened and his O2 sats are in the mid 80s on Ventimask. Patient refusing intubation. Chest x-ray shows worsening left- sided infiltrate. Will initiate BiPAP in order to avoid intubation. 08/05: Worsening respiratory status despite BiPAP. Family requesting no intubation or aggressive measures. - Assessment and Plan on 08/05 Plan: Assessment: 57yM with ESRD and now with worsening septic shock. Plan by systems: Neurologic: Metabolic encephalopathy Secondary to sepsis, improving EEG-showing diffuse encephalopathy, MRI-no acute findings frequent neuro checks Daily sedation vacation Respiratory: Acute hypoxic and hypercarbic respiratory failure nebs, hob elevated. DuoNeb every 6 hours scheduled and as needed 07/27 sputum culture growing MRSA Tolerated CPAP trial and extubated to nasal cannula on 08/03. Increasing O2 requirement. Worsening chest x-ray on 08/04 noted. as needed BiPAP. Patient refusing intubation. Cardiovascular: Septic Shock Atrial fibrillation Pericardial effusion Vasopressin/levophed for goal map > 65mmHg HD for fluid removal. Repeat Echo to evaluate pericardial effusion rule out tamponade-small pericardial effusion no tamponade physiology On anticoagulation Renal: End-stage renal disease Strict I/Os Nephrology following Hemodialysis per renal. FEN/GI: Acute protein calorie malnutrition- severe Severe hypokalemia Acute metabolic acidosis CT abd pelvis-distended thick sigmoid colon with collapsed ascending and transverse colon Significant ascites s/p paracentesis and a 3.2 L fluid removal 07/31/18 correct electrolytes, replace K Heme/ID: Septic Shock C. Difficile colitis, PEG site infection, MRSA pneumonia ID following. wbc downtrending Merem to keep GNR coverage. Continue Diflucan Continue po vanco and IV Flagyl for C diff Continue IV vanco for MRSA pneumonia and wound site infection Endocrine: -SSI Prophylaxis: GI Prophylaxis Protonix DVT Prophylaxis -SCDs Eliquis Lines: right IJ vascath- keep for dialysis access Central line placed 07/28 Condition remains critical. Family has decided to make patient DNR status. TRANSITIONED TO COMFORT MEASURES AND EVENTUALLY ON 08/05/2018
== END 2018-08-05 23:33 | disposition expired ==
LOC: PHED 11:53 → PHEDA 15:39 → HIMC 20:00 → N07 07-20 20:19 → N03 07-27 10:36
PROVIDERS: ADMIT Internal Medicine Critical Care Medicine; ATTEND Internal Medicine Critical Care Medicine